=== PATIENT | female | born 1930 ===

== ENCOUNTER 2018-02-21 15:04 | Inpatient (IN) | payer MEDICARE, OTHER ==
[2018-02-21] MEDS ORDERED: Albuterol-Ipratrop 3 mg / 0.5 (3 ml) UD ONE ×2 (15:19→15:59)
[2018-02-21] MEDS ORDERED: Albuterol-Ipratrop 3 mg / 0.5 (3 ml) UD INH STA ×2 (15:33→16:10)
--- NOTE | 2018-02-21 15:53 | ED PDOC ---
HPI: SOB/CHF/COPD Time Seen by Provider: 02/21/18 15:05 Chief Complaint (Nursing): Shortness Of Breath Chief Complaint (Provider): Shortness Of Breath History Per: Family (son) History/Exam Limitations: no limitations Onset/Duration Of Symptoms: Days (x1) Current Symptoms Are (Timing): Still Present Associated Symptoms: Productive Cough, Ankle/Leg Swelling Additional Complaint(s): 87 year old female with a history of HTN, blood clots, hypothyroidism and heart failure presents to the ED with shortness of breath onset 1 day. As per son, patient was coughing last night so he gave her NyQuil. She subsequently threw up after but was able to sleep afterwards. This morning, the coughing resumed and due to worsening condition at 12 pm PMD advised a visit to the ED. Her left leg is always swollen. Patient denies vomiting, fever, decrease in appetite or any other medical complaints. PMD: Zack Noble Past Medical History Reviewed: Historical Data, Nursing Documentation, Vital Signs Vital Signs: Last Vital Signs Temp 98.0 F 02/25/18 16:04 Pulse 102 H 02/25/18 16:04 Resp 18 02/25/18 16:04 BP 145/77 02/25/18 16:04 Pulse Ox 100 02/25/18 17:41 - Medical History PMH: Atrial Fibrillation, CHF, HTN, Hypercholesterolemia, Hypothyroidism - Surgical History Surgical History: No Surg Hx - Family History Family History: States: Unknown Family Hx - Social History Current smoker - smoking cessation education provided: No Ex-Smoker (has not smoked in the last 12 months): No - Home Medications Home Medications: Ambulatory Orders Medication Instructions Recorded Amitriptyline [Elavil] 25 mg PO HS 02/21/18 Aspirin [Ecotrin] 81 mg PO DAILY 02/21/18 Esomeprazole Magnesium [Nexium] 40 mg PO DAILY 02/21/18 Furosemide [Lasix] 40 mg PO DAILY 02/21/18 Levothyroxine [Synthroid] 25 mcg PO Q48H 02/21/18 Levothyroxine [Synthroid] 50 mg PO Q48H 02/21/18 Losartan [Cozaar] 100 mg PO DAILY 02/21/18 Metoprolol Tartrate [Lopressor] 100 mg PO Q12 02/21/18 Mv,Min10/Folic Acid/D3/Ala/Lut 1 tab PO DAILY 02/21/18 [Strovite One Caplet] Rosuvastatin Calcium [Crestor] 40 mg PO HS 02/21/18 - Allergies Allergies/Adverse Reactions: Allergies Allergy/AdvReac Type Severity Reaction Status Date / Time No Known Allergies Allergy Verified 02/21/18 15:06 Review of Systems ROS Statement: Except As Marked, All Systems Reviewed And Found Negative Constitutional: Negative for: Fever Respiratory: Positive for: Cough, Shortness of Breath Gastrointestinal: Positive for: Vomiting (last night) Musculoskeletal: Positive for: Other (pedal edema) Physical Exam - Reviewed Nursing Documentation Reviewed: Yes Vital Signs Reviewed: Yes - Physical Exam Appears: Positive for: Non-toxic, No Acute Distress Head Exam: Positive for: ATRAUMATIC, NORMOCEPHALIC Skin: Positive for: Normal Color, Warm, Dry Eye Exam: Positive for: EOMI, Normal appearance, PERRL ENT: Positive for: Normal ENT Inspection Neck: Positive for: Normal Cardiovascular/Chest: Positive for: Regular Rate, Rhythm. Negative for: Murmur Respiratory: Positive for: Wheezing (bilateral) Gastrointestinal/Abdominal: Positive for: Normal Exam, Soft. Negative for: Tenderness Back: Positive for: Normal Inspection Extremity: Positive for: Normal ROM Neurologic/Psych: Positive for: Alert, Oriented (x3). Negative for: Motor/ Sensory Deficits - Laboratory Results Result Diagrams: 02/22/18 06:21 02/25/18 09:42 - ECG O2 Sat by Pulse Oximetry: 100 (RA) Pulse Ox Interpretation: Normal Medical Decision Making Medical Decision Making: Time: 15:32 Initial Impression: SOB, rule out CHF and PNA Initial Plan: --BNP --CMP --Troponin --CBC with differentials --CXR --Duoneb 3 mg INH --Blood culture --Urine culture --Peak flow pre/post --Urinalysis Time: 16:10 --Duoneb 3ml INH --Peak flow pre/post Time: 16:31 CXR: FINDINGS: LUNGS: Lung volumes low-normal. Limited evaluation given large body habitus and technique. No dense consolidation seen. Possible short segmental discoid like atelectatic changes in the right base and left mid lung zone. Asymmetrically prominent coursing vessels could also simulate this. No comparison views are available. Graft there is also vague increased opacity at of the inferior left hemithorax with preservation left hemidiaphragm. The enlarged heart in large part contributing to this along with the large body habitus and technique. PLEURA: No significant pleural effusion identified, no pneumothorax apparent. CARDIOVASCULAR: Cardiomegaly OSSEOUS STRUCTURES: Not adequately visualized to comment on VISUALIZED UPPER ABDOMEN: Normal. OTHER FINDINGS: None. IMPRESSION: Limited exam. Cardiomegaly No pneumothorax or large sister phrenic angle blunting pleural effusions present. Possible short segmental discoid atelectatic changes If further evaluation is needed consider PA and lateral view better inspiration if possible. Time: 16:37 --Solu-medrol 125 mg IVP Time: 18:00 --Pro BNP elevated, likely CHF. Will administer IV lasix. Patient will be admitted for CHF exacerbation to Dr. Rosado, school community relations coordinator medical services. --Dr. Rosado accepted admission. Advised a call to the school community relations coordinator claim approver. Scribe Attestation: Documented by Abigail Anderson, acting as a scribe for Aletha Zuluaga MD Provider Scribe Attestation: All medical record entries made by the Scribe were at my direction and personally dictated by me. I have reviewed the chart and agree that the record accurately reflects my personal performance of the history, physical exam, medical decision making, and the department course for this patient. I have also personally directed, reviewed, and agree with the discharge instructions and disposition. Disposition - Clinical Impression Clinical Impression: Chronic congestive heart failure - Patient ED Disposition Is Patient to be Admitted: Yes Counseled Patient/Family Regarding: Studies Performed, Diagnosis - Disposition Disposition Time: 18:00 Condition: STABLE
[2018-02-21 16:13] LABS: BASO # 0.1 K/uL (0.0-0.2); BASO % 1.2 % (0.0-2.0); EOS # 0.1 K/uL (0.0-0.7); EOS % 1.1 % (0.0-4.0); HEMOGLOBIN 11.4 g/dL (12.0-16.0); LYMPH # 1.1 K/uL (1.0-4.3); LYMPH % 20.4 % (20.0-40.0); MEAN CELL VOLUME 82.3 fl (81.0-99.0); MEAN CORPUSCULAR HEMOGLOBIN 26.5 pg (27.0-31.0); MEAN CORPUSCULAR HGB CONC 32.2 g/dL (33.0-37.0); MEAN PLATELET VOLUME 9.1 fl (7.2-11.7); MONO # 0.6 K/uL (0.0-0.8); MONO % 11.7 % (0.0-10.0); NEUT # 3.6 K/uL (1.8-7.0); NEUT % 65.6 % (50.0-75.0); NRBC % 0.1 % (0.0-0.0); RBC 4.29 Mil/uL (3.80-5.20); RED CELL DISTRIBUTION WIDTH 16.8 % (11.5-14.5); WHITE BLOOD COUNT 5.5 K/uL (4.8-10.8)
[2018-02-21] MEDS ORDERED: Albuterol-Ipratrop 3 mg / 0.5 (3 ml) UD INH ONE (16:30)
[2018-02-21 16:32] LABS: ALBUMIN 4.7 g/dL (3.5-5.0); CALCIUM 9.2 mg/dL (8.4-10.2)
--- NOTE | 2018-02-21 16:32 | RAD ---
Date of service: 02/21/2018 HISTORY: sob COMPARISON: No prior. FINDINGS: LUNGS: Lung volumes low-normal. Limited evaluation given large body habitus and technique. No dense consolidation seen. Possible short segmental discoid like atelectatic changes in the right base and left mid lung zone. Asymmetrically prominent coursing vessels could also simulate this. No comparison views are available. Graft there is also vague increased opacity at of the inferior left hemithorax with preservation left hemidiaphragm. The enlarged heart in large part contributing to this along with the large body habitus and technique. PLEURA: No significant pleural effusion identified, no pneumothorax apparent. CARDIOVASCULAR: Cardiomegaly OSSEOUS STRUCTURES: Not adequately visualized to comment on VISUALIZED UPPER ABDOMEN: Normal. OTHER FINDINGS: None. IMPRESSION: Limited exam. Cardiomegaly No pneumothorax or large sister phrenic angle blunting pleural effusions present. Possible short segmental discoid atelectatic changes If further evaluation is needed consider PA and lateral view better inspiration if possible.
[2018-02-21 16:43] LABS: TROPONIN I 0.014 ng/mL (0.00-0.120)
[2018-02-21 20:34] LABS: SQUAMOUS EPITHIAL < 1 /hpf (0-5); URINE BILIRUBIN NEGATIVE (NEGATIVE); URINE BLOOD NEGATIVE (NEGATIVE); URINE CLARITY CLEAR (Clear); URINE COLOR YELLOW (YELLOW); URINE GLUCOSE (UA) NEG (Normal); URINE LEUKOCYTE ESTERASE SMALL Leu/uL (Negative); URINE PROTEIN NEGATIVE (NEGATIVE); URINE UROBILINOGEN 0.2-1.0 mg/dL (0.2-1.0)
[2018-02-22] MEDS ORDERED: methylPREDNISolone 125 MG in Sodium Chloride 0.9% 50 ML IVPB SCH (01:00)
[2018-02-22 06:36] LABS: BASO % 0.4 % (0.0-2.0); HEMOGLOBIN 11.1 g/dL (12.0-16.0); LYMPH # 0.8 K/uL (1.0-4.3); LYMPH % 13.4 % (20.0-40.0); MEAN CELL VOLUME 81.4 fl (81.0-99.0); MEAN CORPUSCULAR HEMOGLOBIN 26.1 pg (27.0-31.0); MEAN CORPUSCULAR HGB CONC 32.1 g/dL (33.0-37.0); MEAN PLATELET VOLUME 9.1 fl (7.2-11.7); MONO # 0.1 K/uL (0.0-0.8); MONO % 1.5 % (0.0-10.0); NEUT # 4.8 K/uL (1.8-7.0); NEUT % 84.7 % (50.0-75.0); RBC 4.26 Mil/uL (3.80-5.20); RED CELL DISTRIBUTION WIDTH 16.9 % (11.5-14.5); WHITE BLOOD COUNT 5.7 K/uL (4.8-10.8)
[2018-02-22 06:54] LABS: ALBUMIN 4.4 g/dL (3.5-5.0); ALT/SGPT 25 U/L (9-52); AST/SGOT 59 U/L (14-36); BLOOD UREA NITROGEN 21 mg/dl (7-17); CALCIUM 9.1 mg/dL (8.4-10.2); GFR AFRICAN-AMERICAN > 60; GFR NON-AFRICAN AMERICAN 52
[2018-02-22] MEDS ORDERED: Enoxaparin 40 mg Syringe SC SCH (09:00)
--- NOTE | 2018-02-22 09:05 | CP.PCM.CON ---
History of Present Illness - History of Present Illness History of Present Illness: this 87-year-old female was brought into the emergency room due to shortness of breath and persistent cough at night. The history was obtained from her son who looks after her at home. According to him she was diagnosed as having congestive cardiac failure 10 years back and subsequently has been essentially on the same set of medications. She was told at that time that this was because of a prior myocardial infarction for which she had never been hospitalized. Subsequent to this she has rarely been hospitalized, the last hospitalization was following a visit to a physician's office for a regular checkup and the patient was found to be significantly short of breath and promptly sent to the emergency room from where she was discharged. She has never been a smoker. She is a hypertensive and has never been told of any diabetes mellitus. The patient had never been on any oral anticoagulation. She has a history of DVTs involving the left lower extremity and an IVC filter was put into place number of years back according to her son. He also indicates that for last few days she has eaten salty potato chips which probably has brought on an exacerbation of her congestive heart failure. According to him she has never been treated for bronchial asthma. Physical examination shows an elderly overweight pleasant female who continues to be mildly dyspneic even at rest. Her expiration was slightly prolonged and a respiratory rate was between 18 and 20 breaths per minute. Telemetry showed evidence of atrial fibrillation with periods of heart rate as high as 120-130 bpm. Her blood pressure was 140/80 mmHg. Her jugular venous pressure could not be evaluated because of a short thick neck. The left lower extremity had moderate degree of nonpitting pedal edema her right lower extremity did not show any evidence of pedal edema. Pedal pulses were feeble but distinct of present. Her extremities were warm and nailbeds were pink. No central or peripheral cyanosis was evident the apex was not palpable the first and second heart sounds were distant no S3 gallop was audible. The inspiratory effort was poor but interscapular area revealed few rales. (The patient had received IV Lasix in the emergency room and diuresed.) her electrocardiogram showed atrial fibrillation with moderate heart rate and nonspecific ST changes. There were no Q waves on the electric cardiac gram. The chest x-ray which was of poor quality and revealed bilateral pleural effusions in the form of blunted costophrenic angles and possible pulmonary congestion. Her lab data showed a BUN/creatinine of 21 and 1 mg percent respectively. Her electrolytes were essentially normal. Her proBNP was markedly elevated. Impression: acute exacerbation of chronic left ventricular failure, probably systolic ( await echocardiogram), atrial fibrillation. History of DVT involving left lower extremities and status post IVC filter implant history of hypertension. Hypothyroidism. The patient is scheduled to undergo an echocardiogram to evaluate her left ventricular systolic function. The telemetry had demonstrated recurrent periods of tachycardia probably related to albuterol use. Her beta blockade and ARB's have been resumed. Her loop diarrhetic has been resumed. Her thyroid replacement has been resumed. The son was not aware off atrial fibrillation. I started the patient on an oral anticoagulation which the patient will need given her age, history of hypertension and congestive cardiac failure. Past Patient History - Past Social History Smoking Status: Never Smoked - CARDIAC Hx Atrial Fibrillation: Yes Hx Congestive Heart Failure: Yes Hx Hypercholesterolemia: Yes Hx Hypertension: Yes - ENDOCRINE/METABOLIC Hx Hypothyroidism: Yes - MUSCULOSKELETAL/RHEUMATOLOGICAL Hx Falls: No - GASTROINTESTINAL Hx Gastrointestinal Disorders: Yes Hx Gastroesophageal Reflux: Yes - PSYCHIATRIC Hx Substance Use: No - SURGICAL HISTORY Hx Surgeries: No Meds Allergies/Adverse Reactions: Allergies Allergy/AdvReac Type Severity Reaction Status Date / Time No Known Allergies Allergy Verified 02/21/18 15:06 - Medications Medications: Current Medications Enoxaparin Sodium (Lovenox) 40 mg SC DAILY [facility] PRN Reason: Protocol Furosemide (Lasix) 40 mg IVP DAILY [facility] Ceftriaxone Sodium 1 gm/ (Sodium Chloride) 100 mls @ 100 mls/hr IVPB DAILY [facility] PRN Reason: Protocol Levothyroxine Sodium (Synthroid) 75 mcg PO DAILY@0630 [facility] Losartan Potassium (Cozaar) 100 mg PO DAILY [facility] Methylprednisolone (Solu-Medrol) 125 mg IV Q8 [facility] Last Admin: 02/22/18 01:48 Dose: 125 mg Metoprolol Tartrate (Lopressor) 50 mg PO Q12 [facility] Results - Vital Signs Recent Vital Signs: Last Vital Signs Temp 97.6 F 02/22/18 08:09 Pulse 85 02/22/18 08:09 Resp 18 02/22/18 08:09 BP 154/89 H 02/22/18 08:09 Pulse Ox 96 02/22/18 08:09 - Labs Result Diagrams: 02/22/18 06:21 02/22/18 06:21 Labs: Laboratory Results - last 24 hr 02/21/18 02/21/18 02/21/18 15:46 15:46 20:10 WBC 5.5 RBC 4.29 Hgb 11.4 L Hct 35.3 MCV 82.3 MCH 26.5 L MCHC 32.2 L RDW 16.8 H Plt Count 165 MPV 9.1 Neut % (Auto) 65.6 Lymph % (Auto) 20.4 [place] % (Auto) 11.7 H Eos % (Auto) 1.1 Baso % (Auto) 1.2 Neut # (Auto) 3.6 Lymph # (Auto) 1.1 [place] # (Auto) 0.6 Eos # (Auto) 0.1 Baso # (Auto) 0.1 Sodium 136 Potassium 4.6 Chloride 94 L Carbon Dioxide 28 Anion Gap 19 BUN 22 H Creatinine 1.2 Est GFR ( Amer) 51 Est GFR (Non-Af Amer) 42 Random Glucose 213 H Calcium 9.2 Total Bilirubin 0.7 AST 48 H ALT 24 Alkaline Phosphatase 126 Troponin I 0.0140 NT-Pro-B Natriuret Pep 5240 H Total Protein 9.3 H Albumin 4.7 Globulin 4.7 H Albumin/Globulin Ratio 1.0 Urine Color Yellow Urine Clarity Clear Urine pH 6.0 Ur Specific [place] 1.010 Urine Protein Negative Urine Glucose (UA) Neg Urine Ketones Negative Urine Blood Negative Urine Nitrate Negative Urine Bilirubin Negative Urine Urobilinogen 0.2-1.0 Ur Leukocyte Esterase Small Urine RBC (Auto) 2 Urine Microscopic WBC 13 H Ur Squamous Epith Cells < 1 Hyaline Casts 3-5 H 02/22/18 02/22/18 06:21 06:21 WBC 5.7 RBC 4.26 Hgb 11.1 L Hct 34.7 MCV 81.4 MCH 26.1 L MCHC 32.1 L RDW 16.9 H Plt Count 159 MPV 9.1 Neut % (Auto) 84.7 H Lymph % (Auto) 13.4 L [place] % (Auto) 1.5 Eos % (Auto) 0.0 Baso % (Auto) 0.4 Neut # (Auto) 4.8 Lymph # (Auto) 0.8 L [place] # (Auto) 0.1 Eos # (Auto) 0.0 Baso # (Auto) 0.0 Sodium 137 Potassium 4.3 Chloride 95 L Carbon Dioxide 28 Anion Gap 18 BUN 21 H Creatinine 1.0 Est GFR ( Amer) > 60 Est GFR (Non-Af Amer) 52 Random Glucose 207 H Calcium 9.1 Total Bilirubin 0.6 AST 59 H D ALT 25 Alkaline Phosphatase 125 Troponin I NT-Pro-B Natriuret Pep Total Protein 9.0 H Albumin 4.4 Globulin 4.6 H Albumin/Globulin Ratio 1.0 Urine Color Urine Clarity Urine pH Ur Specific [place] Urine Protein Urine Glucose (UA) Urine Ketones Urine Blood Urine Nitrate Urine Bilirubin Urine Urobilinogen Ur Leukocyte Esterase Urine RBC (Auto) Urine Microscopic WBC Ur Squamous Epith Cells Hyaline Casts
--- NOTE | 2018-02-22 10:18 | US ---
Date of service: 02/21/2018 PROCEDURE: Bilateral lower extremity venous duplex Doppler. HISTORY: left leg swelling COMPARISON: None available. TECHNIQUE: Bilateral common femoral, superficial femoral, popliteal and posterior tibial veins were evaluated. Flow was assessed with color Doppler, compressibility, assessment of phasic flow and augmentation response. FINDINGS: COMMON FEMORAL VEIN: Right CFV: Unremarkable. Left CFV: Unremarkable. SUPERFICIAL FEMORAL VEIN: Right SFV: Unremarkable. Left SFV: Patient refused remainder of examination. POPLITEAL VEIN: Right Popliteal: Unremarkable. Left Popliteal: Patient refused remainder of examination. POSTERIOR TIBIAL VEIN: Right PTV: Unremarkable. Left PTV: Patient refused remainder of examination. OTHER FINDINGS: None. IMPRESSION: No evidence of deep venous thrombosis in the right lower extremity. Patient refused examination of the left lower extremity beyond the left common femoral vein.
--- NOTE | 2018-02-22 12:37 | CARD ---
APPROVED REPORT Date of service: 02/22/2018 EXAM: Two-dimensional and M-mode echocardiogram with Doppler and color Doppler. Other Information Quality : GoodRhythm : Tachycardia INDICATION Congestive Heart Failure 2D DIMENSIONS IVSd1.47 (0.7-1.1cm)LVDd2.95 (3.9-5.9cm) LVOT Diameter1.77 (1.8-2.4cm)PWd1.07 (0.7-1.1cm) IVSs1.60 (0.8-1.2cm)LVDs1.85 (2.5-4.0cm) FS (%) 37.3 %PWs1.67 (0.8-1.2cm) M-Mode DIMENSIONS Left Atrium (MM)5.00 (2.5-4.0cm)IVSd1.15 (0.7-1.1cm) Aortic Root2.41 (2.2-3.7cm)LVDd4.68 (4.0-5.6cm) Aortic Cusp Exc.0.76 (1.5-2.0cm)PWd1.15 (0.7-1.1cm) IVSs1.79 cmFS (%) 49 % LVDs2.38 (2.0-3.8cm)PWs1.38 cm Aortic Valve AoV Peak Urxgffsb388.4cm/sAoV VTI64.2cmAO Peak GR.52mmHg LVOT Peak Pgojnnhd43.8cm/sLVOT VTI12.15cmAO Mean GR.31mmHg BRADY (VMAX)0.96lq2WPT (VTI)0.12lp6HQ P 1/2 [id number] Mitral Valve E/A ratio0.0 TDI E/Lateral E'0.0E/Medial E'0.0 Tricuspid Valve TR Peak [id number]/sRAP [id number] Peak Gr.31mmHg [id number] LEFT VENTRICLE The left ventricle is normal size. There is mild concentric left ventricular hypertrophy. The left ventricular function is normal. The left ventricular ejection fraction is within the normal range. The Ejection Fraction is 60-65%. There is normal LV segmental wall motion. Transmitral Doppler flow pattern is Grade I-abnormal relaxation pattern. RIGHT VENTRICLE The right ventricle is mildly dilated. The right ventricle is borderline hypertrophied. The right ventricular systolic function is normal. ATRIA The left atrium is mildly dilated. The right atrium is mildly dilated. AORTIC VALVE The aortic valve is calcified and displays decreased opening. There is mild to moderate aortic regurgitation. Calculated aortic valve area is 0.6 cm2 with maximum pressure gradient of 52 mmHg and mean pressure gradient of 31 mmHg. MITRAL VALVE The mitral valve is thickened but opens well. There is no mitral valve stenosis. Mitral regurgitation is moderate. TRICUSPID VALVE The tricuspid valve leaflets are thickened , but open well. There is moderate tricuspid regurgitation. Right ventricular systolic pressure is estimated at 30-40 mmHg. There is mild pulmonary hypertension. PULMONIC VALVE The pulmonary valve is normal in structure. There is no pulmonic valvular regurgitation. GREAT VESSELS The aortic root is normal in size. The IVC is normal in size and collapses >50% with inspiration. PERICARDIAL EFFUSION The pericardium appears normal. <Conclusion> The left ventricular function is normal. The left ventricular ejection fraction is within the normal range. The Ejection Fraction is 60-65%. Transmitral Doppler flow pattern is Grade I-abnormal relaxation pattern. Calculated aortic valve area is 0.6 cm2 with maximum pressure gradient of 52 mmHg and mean pressure gradient of 31 mmHg. Mitral regurgitation is moderate. There is moderate tricuspid regurgitation. There is moderate tricuspid regurgitation. Right ventricular systolic pressure is estimated at 30-40 mmHg. There is mild pulmonary hypertension.
[2018-02-22] MEDS: Albuterol-Ipratrop 3 mg / 0.5 (3 ml) UD INH SCH ×3 (14:07→19:37)
--- NOTE | 2018-02-22 17:03 | CP.PCM.HP ---
<Clara Nunez - Last Filed: 02/22/18 17:00> History of Present Illness - History of Present Illness History of Present Illness: 87 yo F with PM CHF, HTN, DVTs (has IVC filter), hypothyroidism admitted due to CHF exacerbation and worsening SOB x1 day. Some info obtained from EMR - as per son, pt was dx with CHF 10 yrs ago; is not hospitalized often. Has chronic LLE edema. Patient denies vomiting, fever, decrease in appetite or any other medical complaints. PMD: Zack Noble In ED CXR- cardiomegaly received 40 mg lasix duoneb elevated proBNP Blood cx LE u/s : no DVT Seen this morning with Dr. Rosado. Appeared in good spirits, stated she was feeling better. Pt Afib on tele. Present on Admission - Present on Admission Any Indicators Present on Admission: Yes History of DVT/PE: Yes Review of Systems - Review of Systems All systems: reviewed and no additional remarkable complaints except (as per HPI ) Past Patient History - Past Social History Smoking Status: Never Smoked - CARDIAC Hx Atrial Fibrillation: Yes Hx Congestive Heart Failure: Yes Hx Hypercholesterolemia: Yes Hx Hypertension: Yes - ENDOCRINE/METABOLIC Hx Hypothyroidism: Yes - MUSCULOSKELETAL/RHEUMATOLOGICAL Hx Falls: No - GASTROINTESTINAL Hx Gastrointestinal Disorders: Yes Hx Gastroesophageal Reflux: Yes - PSYCHIATRIC Hx Substance Use: No - SURGICAL HISTORY Hx Surgeries: No Meds Allergies/Adverse Reactions: Allergies Allergy/AdvReac Type Severity Reaction Status Date / Time No Known Allergies Allergy Verified 02/21/18 15:06 Physical Exam - Constitutional Appears: Non-toxic - Respiratory Exam Respiratory Exam: Rales (few). absent: Respiratory Distress - Cardiovascular Exam Cardiovascular Exam: Irregular Rhythm - Extremities Exam Additional comments: LLE swollen with nonpitting edema (not new) - Neurological Exam Neurological exam: Alert - Skin Skin Exam: Normal Color, Warm Results - Vital Signs Recent Vital Signs: Last Vital Signs Temp 98.1 F 02/22/18 16:58 Pulse 120 H 02/22/18 16:58 Resp 20 02/22/18 16:58 BP 113/73 02/22/18 16:58 Pulse Ox 97 02/22/18 16:58 - Labs Result Diagrams: 02/22/18 06:21 02/22/18 06:21 Labs: Laboratory Results - last 24 hr 02/21/18 02/22/18 02/22/18 20:10 06:21 06:21 WBC 5.7 RBC 4.26 Hgb 11.1 L Hct 34.7 MCV 81.4 MCH 26.1 L MCHC 32.1 L RDW 16.9 H Plt Count 159 MPV 9.1 Neut % (Auto) 84.7 H Lymph % (Auto) 13.4 L [place] % (Auto) 1.5 Eos % (Auto) 0.0 Baso % (Auto) 0.4 Neut # (Auto) 4.8 Lymph # (Auto) 0.8 L [place] # (Auto) 0.1 Eos # (Auto) 0.0 Baso # (Auto) 0.0 Sodium 137 Potassium 4.3 Chloride 95 L Carbon Dioxide 28 Anion Gap 18 BUN 21 H Creatinine 1.0 Est GFR ( Amer) > 60 Est GFR (Non-Af Amer) 52 Random Glucose 207 H Hemoglobin A1c Calcium 9.1 Total Bilirubin 0.6 AST 59 H D ALT 25 Alkaline Phosphatase 125 Total Protein 9.0 H Albumin 4.4 Globulin 4.6 H Albumin/Globulin Ratio 1.0 TSH 3rd Generation Urine Color Yellow Urine Clarity Clear Urine pH 6.0 Ur Specific [place] 1.010 Urine Protein Negative Urine Glucose (UA) Neg Urine Ketones Negative Urine Blood Negative Urine Nitrate Negative Urine Bilirubin Negative Urine Urobilinogen 0.2-1.0 Ur Leukocyte Esterase Small Urine RBC (Auto) 2 Urine Microscopic WBC 13 H Ur Squamous Epith Cells < 1 Hyaline Casts 3-5 H 02/22/18 02/22/18 09:08 09:14 WBC RBC Hgb Hct MCV MCH MCHC RDW Plt Count MPV Neut % (Auto) Lymph % (Auto) [place] % (Auto) Eos % (Auto) Baso % (Auto) Neut # (Auto) Lymph # (Auto) [place] # (Auto) Eos # (Auto) Baso # (Auto) Sodium Potassium Chloride Carbon Dioxide Anion Gap BUN Creatinine Est GFR ( Amer) Est GFR (Non-Af Amer) Random Glucose Hemoglobin A1c 8.1 H Calcium Total Bilirubin AST ALT Alkaline Phosphatase Total Protein Albumin Globulin Albumin/Globulin Ratio TSH 3rd Generation 1.06 Urine Color Urine Clarity Urine pH Ur Specific [place] Urine Protein Urine Glucose (UA) Urine Ketones Urine Blood Urine Nitrate Urine Bilirubin Urine Urobilinogen Ur Leukocyte Esterase Urine RBC (Auto) Urine Microscopic WBC Ur Squamous Epith Cells Hyaline Casts Assessment & Plan (1) Congestive heart failure Status: Chronic (2) Atrial fibrillation Status: Acute (3) History of DVT (deep vein thrombosis) Status: Chronic (4) Hypertension Status: Chronic (5) Hypothyroidism Status: Chronic - Assessment and Plan (Free Text) Plan: - Admitted to telemetry - Cardiology consult - Dr. Calin Nava, steroids - F/u labs: cultures, proBNP, CMP, CBC - Resume home meds - Heart Healthy diet <Freddie Rosado - Last Filed: 02/24/18 14:47> Results - Vital Signs Recent Vital Signs: Last Vital Signs Temp 98.5 F 02/24/18 12:23 Pulse 98 H 02/24/18 12:23 Resp 18 02/24/18 12:23 BP 119/62 02/24/18 12:23 Pulse Ox 98 02/24/18 12:23 - Labs Result Diagrams: 02/22/18 06:21 02/23/18 06:30 Assessment & Plan - Assessment and Plan (Free Text) Plan: I was present during evaluation and discussed with Dr Connolly re plans of care and tx. will get cardiology and pu;lmonary follow up keep at telemetry. Freddie Rosado M.D.
[2018-02-23] MEDS: Levothyroxine 75 MCG TAB PO SCH (07:01)
[2018-02-23] MEDS: Albuterol-Ipratrop 3 mg / 0.5 (3 ml) UD INH SCH ×4 (07:17→19:06)
--- NOTE | 2018-02-23 07:45 | CP.PCM.PN ---
Subjective - Date & Time of Evaluation Date of Evaluation: 02/23/18 Time of Evaluation: 07:45 - Subjective Subjective: patient is less SOB but still has runs of rapid Atrial fib Has no chest pain Able to take her meals. Has no fever. Still with elevated proBNP. Objective - Vital Signs/Intake and Output Vital Signs (last 24 hours): Temp Pulse Resp BP Pulse Ox 97.9 F 128 H 20 163/83 H 98 02/23/18 05:02 02/23/18 05:02 02/23/18 05:02 02/23/18 00:13 02/23/18 05:02 - Medications Medications: Current Medications Albuterol/Ipratropium (Duoneb 3 Mg/0.5 Mg (3 Ml) Ud) 3 ml INH RQID [facility] Last Admin: 02/23/18 07:17 Dose: 3 ml Furosemide (Lasix) 40 mg IVP DAILY [facility] Last Admin: 02/22/18 11:30 Dose: 40 mg Ceftriaxone Sodium 1 gm/ (Sodium Chloride) 100 mls @ 100 mls/hr IVPB DAILY [facility] [place] PRN Reason: Protocol Last Admin: 02/22/18 09:54 Dose: 100 mls/hr Levothyroxine Sodium (Synthroid) 75 mcg PO DAILY@0630 [facility] [place] Last Admin: 02/23/18 07:01 Dose: 75 mcg Losartan Potassium (Cozaar) 100 mg PO DAILY [facility] [place] Last Admin: 02/22/18 11:31 Dose: 100 mg Methylprednisolone (Solu-Medrol) 60 mg IV Q8 [facility] Last Admin: 02/23/18 01:22 Dose: 60 mg Metoprolol Tartrate (Lopressor) 50 mg PO Q12 [facility] Last Admin: 02/22/18 20:36 Dose: 50 mg Rivaroxaban (Xarelto) 20 mg PO QD5 [facility] [place] PRN Reason: Protocol Last Admin: 02/22/18 17:00 Dose: 20 mg - Labs Labs: 02/22/18 06:21 02/22/18 06:21 - Head Exam Head Exam: NORMAL INSPECTION - Eye Exam Eye Exam: Normal appearance Pupil Exam: NORMAL ACCOMODATION - ENT Exam ENT Exam: Mucous Membranes Moist - Respiratory Exam Respiratory Exam: Decreased Breath Sounds, Rales - Cardiovascular Exam Cardiovascular Exam: Irregular Rhythm - GI/Abdominal Exam GI & Abdominal Exam: Normal Bowel Sounds - Neurological Exam Neurological Exam: Awake, CN II-XII Intact Assessment and Plan (1) Congestive heart failure Status: Chronic (2) Atrial fibrillation Status: Acute (3) Hypertension Status: Chronic (4) Hypothyroidism Status: Chronic - Assessment and Plan (Free Text) Plan: Cont meds Con ttx COnt PT diuresis follow up with radiology Cont meds.
[2018-02-23 07:49] LABS: ALBUMIN 4.5 g/dL (3.5-5.0); CALCIUM 9.2 mg/dL (8.4-10.2)
[2018-02-23] MEDS ORDERED: Digoxin 500 mcg/2ml (0.5 mg/2ml) Inj IVP ONE (11:00)
--- NOTE | 2018-02-23 11:10 | CP.PCM.PN ---
Subjective - Date & Time of Evaluation Date of Evaluation: 02/23/18 Time of Evaluation: 10:00 - Subjective Subjective: Reports significant reliefe of dyspnoea Has had HR in the range of 120-150 BPM with A Fib (Possibly due to albuterolRx and due to lower Beta blockade) BP 110/70 mm Hg JVP flat, few rales at bases Echo findings noted Pt has critical A Fib with fast HR is particularly burdensome under these circumstances Will increase Beta blockade (Pt was on Metoprolol 100 mg BID at home) Will give addl Digoxin to slow down HR Will talk to the son to explain implication of this finding Objective - Vital Signs/Intake and Output Vital Signs (last 24 hours): Temp Pulse Resp BP Pulse Ox 98.4 F 120 H 18 152/85 H 96 02/23/18 08:01 02/23/18 09:37 02/23/18 08:01 02/23/18 09:37 02/23/18 08:01 - Medications Medications: Current Medications Albuterol/Ipratropium (Duoneb 3 Mg/0.5 Mg (3 Ml) Ud) 3 ml INH RQID [facility] Last Admin: 02/23/18 07:17 Dose: 3 ml Digoxin (Lanoxin) 0.25 mg IVP ONCE ONE Stop: 02/23/18 11:01 Furosemide (Lasix) 40 mg IVP DAILY [facility] Last Admin: 02/23/18 09:35 Dose: 40 mg Levothyroxine Sodium (Synthroid) 75 mcg PO DAILY@0630 [facility] Last Admin: 02/23/18 07:01 Dose: 75 mcg Losartan Potassium (Cozaar) 100 mg PO DAILY [facility] Last Admin: 02/23/18 09:33 Dose: 100 mg Methylprednisolone (Solu-Medrol) 60 mg IV Q8 [facility] Last Admin: 02/23/18 09:39 Dose: 60 mg Metoprolol Tartrate (Lopressor) 100 mg PO Q12 [facility] Rivaroxaban (Xarelto) 20 mg PO QD5 [facility] PRN Reason: Protocol Last Admin: 02/22/18 17:00 Dose: 20 mg - Labs Labs: 02/22/18 06:21 02/23/18 06:30
[2018-02-23 11:57] VITALS: PULSE 142
[2018-02-24] MEDS: Levothyroxine 75 MCG TAB PO SCH (06:01)
[2018-02-24] MEDS: Albuterol-Ipratrop 3 mg / 0.5 (3 ml) UD INH SCH ×4 (07:32→19:52)
--- NOTE | 2018-02-24 14:58 | CP.PCM.PN ---
Subjective - Date & Time of Evaluation Date of Evaluation: 02/24/18 Time of Evaluation: 10:20 - Subjective Subjective: patient feels a lot better Has no chest pain Still with mild SOB at times Has no fever. Had an episode of rapid a fib yesterday. No PT done yet Noted hyperglycemia. Objective - Vital Signs/Intake and Output Vital Signs (last 24 hours): Temp Pulse Resp BP Pulse Ox 98.5 F 98 H 18 119/62 98 02/24/18 12:23 02/24/18 12:23 02/24/18 12:23 02/24/18 12:23 02/24/18 12:23 - Medications Medications: Current Medications Albuterol/Ipratropium (Duoneb 3 Mg/0.5 Mg (3 Ml) Ud) 3 ml INH RQID [facility] Last Admin: 02/24/18 11:32 Dose: 3 ml Furosemide (Lasix) 40 mg IVP DAILY [facility] Last Admin: 02/24/18 10:14 Dose: 40 mg Levothyroxine Sodium (Synthroid) 75 mcg PO DAILY@0630 [facility] Last Admin: 02/24/18 06:01 Dose: 75 mcg Losartan Potassium (Cozaar) 100 mg PO DAILY [facility] Last Admin: 02/24/18 10:13 Dose: 100 mg Methylprednisolone (Solu-Medrol) 60 mg IV Q8 [facility] Last Admin: 02/24/18 10:17 Dose: 60 mg Metoprolol Tartrate (Lopressor) 100 mg PO Q12 [facility] Last Admin: 02/24/18 10:15 Dose: 100 mg Rivaroxaban (Xarelto) 20 mg PO QD5 [facility] PRN Reason: Protocol Last Admin: 02/23/18 16:45 Dose: 20 mg - Labs Labs: 02/22/18 06:21 02/23/18 06:30 - Head Exam Head Exam: NORMAL INSPECTION - ENT Exam ENT Exam: Mucous Membranes Moist - Respiratory Exam Respiratory Exam: Decreased Breath Sounds - Cardiovascular Exam Cardiovascular Exam: Irregular Rhythm - GI/Abdominal Exam GI & Abdominal Exam: Normal Bowel Sounds - Neurological Exam Neurological Exam: CN II-XII Intact - Psychiatric Exam Psychiatric exam: Normal Affect, Normal Mood - Skin Skin Exam: Normal Color Assessment and Plan (1) Congestive heart failure Status: Chronic (2) Atrial fibrillation Status: Acute (3) Hypertension Status: Chronic (4) Hypothyroidism Status: Chronic (5) Physical debility Status: Acute (6) Hyperglycemia Status: Acute - Assessment and Plan (Free Text) Plan: check a1c con ttx cont meds start phys therapy transfer to reg floor tomorrow subacute rehab eval. / TCU
[2018-02-24] MEDS: guaiFENesin 100 mg/5 ml Syrup UD PO PRN (20:42)
[2018-02-25] MEDS: guaiFENesin 100 mg/5 ml Syrup UD PO PRN ×4 (00:08→21:27)
[2018-02-25] MEDS: Levothyroxine 75 MCG TAB PO SCH (05:47)
[2018-02-25 06:23] LABS: HDL CHOLESTEROL 49 MG/DL (30-70)
[2018-02-25 06:33] LABS: LDL CHOLESTEROL 44 mg/dL (0-129)
[2018-02-25] MEDS: Albuterol-Ipratrop 3 mg / 0.5 (3 ml) UD INH SCH ×4 (07:39→19:03)
--- NOTE | 2018-02-25 09:33 | CP.PCM.PN ---
Subjective - Date & Time of Evaluation Date of Evaluation: 02/25/18 Time of Evaluation: 09:00 - Subjective Subjective: Reports relief of dyspnoea HR has slowed down to 60-70 BPM ( including one 2 sec pause) BP 122/70 mm Hg No rales AO ejection syst murmur+ S2 absent Will withold Metoprolol today and start her on 50 mg BID from tomorrow AM Objective - Vital Signs/Intake and Output Vital Signs (last 24 hours): Temp Pulse Resp BP Pulse Ox 97.6 F 77 18 135/76 97 02/25/18 07:57 02/25/18 07:57 02/25/18 07:57 02/25/18 07:57 02/25/18 07:57 - Medications Medications: Current Medications Albuterol/Ipratropium (Duoneb 3 Mg/0.5 Mg (3 Ml) Ud) 3 ml INH RQID [facility] Last Admin: 02/25/18 07:39 Dose: 3 ml Guaifenesin (Robitussin) 100 mg PO Q4 PRN PRN Reason: Cough Last Admin: 02/25/18 00:08 Dose: 100 mg Levothyroxine Sodium (Synthroid) 75 mcg PO DAILY@0630 [facility] Last Admin: 02/25/18 05:47 Dose: 75 mcg Losartan Potassium (Cozaar) 100 mg PO DAILY [facility] Last Admin: 02/24/18 10:13 Dose: 100 mg Methylprednisolone (Solu-Medrol) 60 mg IV Q8 [facility] Last Admin: 02/25/18 00:02 Dose: 60 mg Metoprolol Tartrate (Lopressor) 50 mg PO Q12 [facility] Rivaroxaban (Xarelto) 20 mg PO QD5 [facility] PRN Reason: Protocol Last Admin: 02/24/18 17:50 Dose: 20 mg - Labs Labs: 02/22/18 06:21 02/23/18 06:30
[2018-02-25 10:00] LABS: ALBUMIN 3.7 g/dL (3.5-5.0); CALCIUM 8.7 mg/dL (8.4-10.2)
--- NOTE | 2018-02-25 11:13 | CP.PCM.PN ---
Subjective - Date & Time of Evaluation Date of Evaluation: 02/25/18 Time of Evaluation: 11:12 - Subjective Subjective: Patient stillwith SOB and cough. Noted some pauses via telemetry Objective - Vital Signs/Intake and Output Vital Signs (last 24 hours): Temp Pulse Resp BP Pulse Ox 97.6 F 77 18 135/76 97 02/25/18 07:57 02/25/18 09:40 02/25/18 07:57 02/25/18 09:40 02/25/18 07:57 - Medications Medications: Current Medications Albuterol/Ipratropium (Duoneb 3 Mg/0.5 Mg (3 Ml) Ud) 3 ml INH RQID [facility] Last Admin: 02/25/18 07:39 Dose: 3 ml Guaifenesin (Robitussin) 100 mg PO Q4 PRN PRN Reason: Cough Last Admin: 02/25/18 09:40 Dose: 100 mg Levothyroxine Sodium (Synthroid) 75 mcg PO DAILY@0630 [facility] Last Admin: 02/25/18 05:47 Dose: 75 mcg Losartan Potassium (Cozaar) 100 mg PO DAILY [facility] Last Admin: 02/25/18 09:40 Dose: 100 mg Methylprednisolone (Solu-Medrol) 60 mg IV Q8 [facility] Last Admin: 02/25/18 09:31 Dose: 60 mg Metoprolol Tartrate (Lopressor) 50 mg PO Q12 [facility] Rivaroxaban (Xarelto) 20 mg PO QD5 [facility] PRN Reason: Protocol Last Admin: 02/24/18 17:50 Dose: 20 mg - Labs Labs: 02/22/18 06:21 02/25/18 09:42 Assessment and Plan (1) Congestive heart failure Status: Chronic (2) Atrial fibrillation Status: Acute (3) Hypertension Status: Chronic (4) Hypothyroidism Status: Chronic (5) Physical debility Status: Acute (6) Hyperglycemia Status: Acute
[2018-02-25] MEDS: MethylPREDNISolone 40 mg Vial IV SCH (21:27)
[2018-02-26] MEDS: Levothyroxine 75 MCG TAB PO SCH (06:02)
[2018-02-26 06:11] LABS: HEMOGLOBIN 10.2 g/dL (12.0-16.0); MEAN CORPUSCULAR HGB CONC 32.2 g/dL (33.0-37.0); RBC 3.91 Mil/uL (3.80-5.20); RED CELL DISTRIBUTION WIDTH 16.7 % (11.5-14.5)
[2018-02-26 06:26] LABS: BLOOD UREA NITROGEN 57 mg/dl (7-17); CALCIUM 8.8 mg/dL (8.4-10.2); GFR AFRICAN-AMERICAN > 60; GFR NON-AFRICAN AMERICAN 52
[2018-02-26] MEDS: Albuterol-Ipratrop 3 mg / 0.5 (3 ml) UD INH SCH (07:25)
[2018-02-26] MEDS: guaiFENesin 100 mg/5 ml Syrup UD PO PRN ×2 (08:40→16:32)
[2018-02-26] MEDS: MethylPREDNISolone 40 mg Vial IV SCH (08:41)
--- NOTE | 2018-02-26 10:21 | CP.PCM.PN ---
Subjective - Date & Time of Evaluation Date of Evaluation: 02/26/18 Time of Evaluation: 09:30 - Subjective Subjective: Sitting OOB, breathes more comfortably HR much improved (60-80BPM0 on lower dose of Metoprolol BP 124/70 mm Hg Still has mild cough Will get chest x rays Spoke with pt's son at length with CHF explained Son wants conservative Rx Objective - Vital Signs/Intake and Output Vital Signs (last 24 hours): Temp Pulse Resp BP Pulse Ox 98.3 F 88 20 143/95 H 95 02/26/18 08:00 02/26/18 08:44 02/26/18 08:00 02/26/18 08:44 02/26/18 08:00 - Medications Medications: Current Medications Guaifenesin (Robitussin) 100 mg PO Q4 PRN PRN Reason: Cough Last Admin: 02/26/18 08:40 Dose: 100 mg Insulin Human Lispro (Humalog) 0 units SC ACHS [facility] PRN Reason: Protocol Levothyroxine Sodium (Synthroid) 75 mcg PO DAILY@0630 [facility] Last Admin: 02/26/18 06:02 Dose: 75 mcg Losartan Potassium (Cozaar) 100 mg PO DAILY [facility] Last Admin: 02/26/18 08:38 Dose: 100 mg Methylprednisolone (Solu-Medrol) 40 mg IV Q12 [facility] Last Admin: 02/26/18 08:41 Dose: 40 mg Metoprolol Tartrate (Lopressor) 50 mg PO Q12 [facility] Last Admin: 02/26/18 08:44 Dose: 50 mg Rivaroxaban (Xarelto) 20 mg PO QD5 [facility] PRN Reason: Protocol Last Admin: 02/25/18 17:14 Dose: 20 mg - Labs Labs: 02/26/18 04:20 02/26/18 04:20
--- NOTE | 2018-02-26 11:51 | IP.NPCORE ---
Heart Failure Core Measure - Heart Failure Ejection Fraction: 40 % or Greater Angiotensin II Receptor Maru Prescribed: Yes AnticoagulationTherapy for Atrial Fibrillation/Atrialflutter: Yes - Follow up [facility] be [facility] to[facility]
--- NOTE | 2018-02-26 12:08 | CP.PCM.DIS ---
Provider - Provider Date of Admission: 02/21/18 18:07 Attending physician: Freddie Rosado MD Time Spent in preparation of Discharge (in minutes): 20 Diagnosis - Discharge Diagnosis (1) Atrial fibrillation Status: Chronic (2) Chronic congestive heart failure Status: Acute (3) Hypertension Status: Chronic (4) Hypothyroidism Status: Chronic Hospital Course - Lab Results Lab Results: Micro Results 02/21/18 16:00 Blood-Venous Blood Culture - Preliminary NO GROWTH AFTER 4 DAYS 02/21/18 15:46 Blood-Venous Blood Culture - Preliminary NO GROWTH AFTER 4 DAYS 02/21/18 20:10 Urine,Clean Catch Urine Culture - Final 50-100,000 CFU/ML. MULTIPLE SPECIES. SUGGEST REPEAT SPECIMEN. Most Recent Lab Values WBC 6.0 K/uL (4.8-10.8) 02/26/18 04:20 RBC 3.91 Mil/uL (3.80-5.20) 02/26/18 04:20 Hgb 10.2 g/dL (12.0-16.0) L 02/26/18 04:20 Hct 31.6 % (34.0-47.0) L 02/26/18 04:20 MCV 81.0 fl (81.0-99.0) 02/26/18 04:20 MCH 26.0 pg (27.0-31.0) L 02/26/18 04:20 MCHC 32.2 g/dL (33.0-37.0) L 02/26/18 04:20 RDW 16.7 % (11.5-14.5) H 02/26/18 04:20 Plt Count 185 K/uL (130-400) 02/26/18 04:20 MPV 9.1 fl (7.2-11.7) 02/22/18 06:21 Neut % (Auto) 84.7 % (50.0-75.0) H 02/22/18 06:21 Lymph % (Auto) 13.4 % (20.0-40.0) L 02/22/18 06:21 [place] % (Auto) 1.5 % (0.0-10.0) 02/22/18 06:21 Eos % (Auto) 0.0 % (0.0-4.0) 02/22/18 06:21 Baso % (Auto) 0.4 % (0.0-2.0) 02/22/18 06:21 Neut # (Auto) 4.8 K/uL (1.8-7.0) 02/22/18 06:21 Lymph # (Auto) 0.8 K/uL (1.0-4.3) L 02/22/18 06:21 [place] # (Auto) 0.1 K/uL (0.0-0.8) 02/22/18 06:21 Eos # (Auto) 0.0 K/uL (0.0-0.7) 02/22/18 06:21 Baso # (Auto) 0.0 K/uL (0.0-0.2) 02/22/18 06:21 Sodium 135 mmol/l (132-148) 02/26/18 04:20 Potassium 3.6 MMOL/L (3.6-5.0) 02/26/18 04:20 Chloride 93 mmol/L (98-107) L 02/26/18 04:20 Carbon Dioxide 29 mmol/L (22-30) 02/26/18 04:20 Anion Gap 17 (10-20) 02/26/18 04:20 BUN 57 mg/dl (7-17) H 02/26/18 04:20 Creatinine 1.0 mg/dl (0.7-1.2) 02/26/18 04:20 Est GFR ( Amer) > 60 02/26/18 04:20 Est GFR (Non-Af Amer) 52 02/26/18 04:20 POC Glucose (mg/dL) 345 mg/dL (65-110) H 02/26/18 11:20 Random Glucose 289 mg/dL (65-105) H 02/26/18 04:20 Hemoglobin A1c 8.3 % (4.2-6.5) H 02/25/18 05:00 Calcium 8.8 mg/dL (8.4-10.2) 02/26/18 04:20 Total Bilirubin 0.5 mg/dl (0.2-1.3) 02/25/18 09:42 AST 68 U/L (14-36) H D 02/25/18 09:42 ALT 27 U/L (9-52) 02/25/18 09:42 Alkaline Phosphatase 88 U/L (38-126) 02/25/18 09:42 Troponin I 0.0140 ng/mL (0.00-0.120) 02/21/18 15:46 NT-Pro-B Natriuret Pep 5110 pg/ml (0-900) H 02/23/18 06:30 Total Protein 7.4 G/DL (6.3-8.2) 02/25/18 09:42 Albumin 3.7 g/dL (3.5-5.0) 02/25/18 09:42 Globulin 3.6 gm/dL (2.2-3.9) 02/25/18 09:42 Albumin/Globulin Ratio 1.0 (1.0-2.1) 02/25/18 09:42 Triglycerides 223 mg/DL (0-149) H 02/25/18 05:00 Cholesterol 138 mg/dL (0-199) 02/25/18 05:00 LDL Cholesterol Direct 44 mg/dL (0-129) 02/25/18 05:00 HDL Cholesterol 49 MG/DL (30-70) 02/25/18 05:00 TSH 3rd Generation 0.65 mIU/ML (0.46-4.68) 02/23/18 06:30 Urine Color Yellow (YELLOW) 02/21/18 20:10 Urine Clarity Clear (Clear) 02/21/18 20:10 Urine pH 6.0 (5.0-8.0) 02/21/18 20:10 Ur Specific [place] 1.010 (1.003-1.030) 02/21/18 20:10 Urine Protein Negative mg/dL (NEGATIVE) 02/21/18 20:10 Urine Glucose (UA) Neg mg/dL (Normal) 02/21/18 20:10 Urine Ketones Negative mg/dL (NEGATIVE) 02/21/18 20:10 Urine Blood Negative (NEGATIVE) 02/21/18 20:10 Urine Nitrate Negative (NEGATIVE) 02/21/18 20:10 Urine Bilirubin Negative (NEGATIVE) 02/21/18 20:10 Urine Urobilinogen 0.2-1.0 mg/dL (0.2-1.0) 02/21/18 20:10 Ur Leukocyte Esterase Small Flower/uL (Negative) 02/21/18 20:10 Urine RBC (Auto) 2 /hpf (0-3) 02/21/18 20:10 Urine Microscopic WBC 13 /hpf (0-5) H 02/21/18 20:10 Ur Squamous Epith Cells < 1 /hpf (0-5) 02/21/18 20:10 Hyaline Casts 3-5 /hpf (0-2) H 02/21/18 20:10 - Hospital Course Hospital Course: 87 YO female with PMHx of CHF, HTN, DVTs (has IVC filter), hypothyroidism was admitted for CHF exacerbation. Pt has improved clinically since admission. Cardiology on consult, repeat CXR no acute disease. Per Cardio, pt okay to transfer to TCU. Will d/c patient to TCU for deconditioning and PT/OT. Discharge Exam - Head Exam Head Exam: ATRAUMATIC, NORMOCEPHALIC Additional comments: NC on - ENT Exam ENT Exam: Mucous Membranes Moist - Respiratory Exam Respiratory Exam: Wheezes (faint on expiration on lower lobes ), NORMAL BREATHING PATTERN. absent: Rales - Cardiovascular Exam Cardiovascular Exam: REGULAR RHYTHM, +S1, +S2 - GI/Abdominal Exam GI & Abdominal Exam: Normal Bowel Sounds, Soft. absent: Tenderness - Extremities Exam Extremities exam: normal inspection - Neurological Exam Neurological exam: Alert Discharge Plan - Follow Up Plan Condition: STABLE Disposition: REHAB FACILITY/REHAB UNIT
[2018-02-26] MEDS: Insulin Lispro (humaLOG) 100 Units/ml Inj SC SCH ×2 (12:54→16:29)
--- NOTE | 2018-02-26 12:56 | RAD ---
Date of service: 02/26/2018 HISTORY: Cough COMPARISON: 02/21/2018. TECHNIQUE: Chest PA and lateral FINDINGS: LUNGS: No active pulmonary disease. PLEURA: No significant pleural effusion identified. No pneumothorax apparent. CARDIOVASCULAR: No radiographic findings to suggest acute or significant cardiovascular disease. OSSEOUS STRUCTURES: No significant abnormalities. VISUALIZED UPPER ABDOMEN: Normal. OTHER FINDINGS: None. IMPRESSION: No active disease. No significant interval change compared to the prior examination(s). Limitations of the current examination: Poor inspiratory effort.
[2018-02-26 15:52] VITALS: BP 161/85; PULSE 113; RESP 17; TEMP 98.8; O2SAT 94
== END 2018-02-26 16:55 | DRG 293 ==
LOC: H.ER 15:04 → H.ERHOLD 18:07 → H.TEL 21:22
PROVIDERS: ADMIT Family Medicine; ATTEND Family Medicine
PROC: 3E0F7GC Introduction of Other Therapeutic Substance into Respiratory Tract, Via Natural or Artificial Opening (ICD-10-PCS; principal; 2018-02-21)
DX: I11.0 Hypertensive heart disease with heart failure (principal); I50.23 Acute on chronic systolic (congestive) heart failure; I48.2 Chronic atrial fibrillation; I25.2 Old myocardial infarction; K21.9 Gastro-esophageal reflux disease without esophagitis; Z79.82 Long term (current) use of aspirin; Z79.899 Other long term (current) drug therapy; Z86.718 Personal history of other venous thrombosis and embolism; R00.0 Tachycardia, unspecified; T48.6X5A Adverse effect of antiasthmatics, initial encounter; Y92.9 Unspecified place or not applicable; R73.9 Hyperglycemia, unspecified; E03.9 Hypothyroidism, unspecified; E66.3 Overweight; Z68.34 Body mass index [BMI] 34.0-34.9, adult; E78.00 Pure hypercholesterolemia, unspecified

== ENCOUNTER 2018-02-26 15:08 | Inpatient (IN) | payer OTHER ==
[2018-02-26 17:24] VITALS: BMI 32.7
[2018-02-26] MEDS: MethylPREDNISolone 40 mg Vial IV SCH (21:35)
[2018-02-26] MEDS: Insulin Lispro (humaLOG) 100 Units/ml Inj SC SCH (22:56)
[2018-02-27] MEDS: Levothyroxine 75 MCG TAB PO SCH (06:28)
[2018-02-27] MEDS: Insulin Lispro (humaLOG) 100 Units/ml Inj SC SCH ×4 (06:48→22:22)
[2018-02-27] MEDS: MethylPREDNISolone 40 mg Vial IV SCH ×2 (08:38→21:24)
--- NOTE | 2018-02-27 09:45 | CP.PCM.HP ---
<Krista Llaons - Last Filed: 02/27/18 14:35> History of Present Illness - History of Present Illness History of Present Illness: HPI: 87 YO female with PMHx of CHF, HTN, DVTs (has IVC filter), hypothyroidism was admitted to [facility] for CHF exacerbation. Pt was transferred to TCU for deconditioning and PT/OT. No acute overnight events. Pt seen and examined this AM. Denies chest pain dyspnea, n/v/d/c, chills and remains afebrile. PMHx: CHF, HTN, DVTs (has IVC filter), hypothyroidism Surghx: IVF filter SHx: denies smoking, ETOH and illicit drug use Allergies: NKDA Present on Admission - Present on Admission Any Indicators Present on Admission: No Review of Systems - Constitutional Constitutional: absent: Chills, Fever - Cardiovascular Cardiovascular: absent: Chest Pain, Dyspnea - Respiratory Respiratory: Cough. absent: Dyspnea - Gastrointestinal Gastrointestinal: absent: Abdominal Pain - Genitourinary Genitourinary: absent: Difficulty Urinating, Dysuria - Musculoskeletal Musculoskeletal: absent: Muscle Weakness, Numbness - Neurological Neurological: absent: Dizziness Past Patient History - Past Medical History & Family History Past Medical History?: Yes - Past Social History Smoking Status: Never Smoked - CARDIAC Hx Atrial Fibrillation: Yes Hx Congestive Heart Failure: Yes Hx Hypercholesterolemia: Yes Hx Hypertension: Yes - NEUROLOGICAL Hx Dementia: Yes - ENDOCRINE/METABOLIC Hx Hypothyroidism: Yes - HEMATOLOGICAL/ONCOLOGICAL Hx AIDS: No Hx Human Immunodeficiency Virus (HIV): No - MUSCULOSKELETAL/RHEUMATOLOGICAL Hx Falls: No - GASTROINTESTINAL Hx Gastrointestinal Disorders: Yes Hx Gastroesophageal Reflux: Yes - PSYCHIATRIC Hx Substance Use: No Other/Comment: dementia - SURGICAL HISTORY Hx Surgeries: No Meds Allergies/Adverse Reactions: Allergies Allergy/AdvReac Type Severity Reaction Status Date / Time No Known Allergies Allergy Verified 02/26/18 15:36 Physical Exam - Constitutional Appears: No Acute Distress - Head Exam Head Exam: ATRAUMATIC - ENT Exam ENT Exam: Mucous Membranes Moist - Respiratory Exam Respiratory Exam: Wheezes, NORMAL BREATHING PATTERN - Cardiovascular Exam Cardiovascular Exam: REGULAR RHYTHM, +S1, +S2 - GI/Abdominal Exam GI & Abdominal Exam: Normal Bowel Sounds, Soft. absent: Tenderness - Extremities Exam Extremities exam: Negative for: calf tenderness, pedal edema - Neurological Exam Neurological exam: Alert Results - Vital Signs Recent Vital Signs: Last Vital Signs Temp 97.9 F 02/27/18 08:27 Pulse 77 02/27/18 08:38 Resp 20 02/27/18 08:27 BP 130/68 02/27/18 08:39 Pulse Ox 95 02/27/18 08:27 Assessment & Plan (1) Chronic congestive heart failure Status: Acute (2) Hypertension Status: Chronic (3) Hypothyroidism Status: Chronic (4) History of DVT (deep vein thrombosis) Status: Chronic - Assessment and Plan (Free Text) Assessment: Assessment/plan: 87 YO female admitted to TCU for deconditioning, PT/OT. -Pt/Ot as tolerated -VS remains stable, afebrile -plan as ordered -cardiology consulted Pt seen and examined with Dr Rosado <Freddie Rosado - Last Filed: 03/04/18 06:31> Results - Vital Signs Recent Vital Signs: Last Vital Signs Temp 98.2 F 03/03/18 19:57 Pulse 77 03/03/18 19:57 Resp 20 03/03/18 19:57 BP 135/76 03/03/18 19:57 Pulse Ox 99 03/03/18 19:57 - Labs Result Diagrams: 02/28/18 06:10 02/28/18 06:10 Assessment & Plan - Assessment and Plan (Free Text) Plan: I was present during evaluation and discussed with Dr Llanos re plans of care and mgt. Freddie Rosado M.D.
[2018-02-27] MEDS: guaiFENesin 100 mg/5 ml Syrup UD PO PRN ×2 (15:01→21:20)
[2018-02-28] MEDS: guaiFENesin 100 mg/5 ml Syrup UD PO PRN ×2 (02:17→20:35)
[2018-02-28] MEDS: Levalbuterol 0.63 MG/3 ML Inhal Soln UD INH PRN ×2 (02:30→23:08)
[2018-02-28] MEDS: Levothyroxine 75 MCG TAB PO SCH (06:04)
[2018-02-28 06:35] LABS: BASO % 0.1 % (0.0-2.0); HEMOGLOBIN 10.2 g/dL (12.0-16.0); LYMPH # 0.6 K/uL (1.0-4.3); LYMPH % 8.9 % (20.0-40.0); MEAN CELL VOLUME 81.3 fl (81.0-99.0); MEAN CORPUSCULAR HEMOGLOBIN 26.4 pg (27.0-31.0); MEAN CORPUSCULAR HGB CONC 32.5 g/dL (33.0-37.0); MONO # 0.2 K/uL (0.0-0.8); NEUT # 6.4 K/uL (1.8-7.0); NRBC % 0.5 % (0.0-0.0); PLATELET COUNT 194 K/uL (130-400); RBC 3.86 Mil/uL (3.80-5.20); RED CELL DISTRIBUTION WIDTH 16.8 % (11.5-14.5); WHITE BLOOD COUNT 7.2 K/uL (4.8-10.8)
[2018-02-28 06:56] LABS: BLOOD UREA NITROGEN 52 mg/dl (7-17); CALCIUM 8.6 mg/dL (8.4-10.2); GFR AFRICAN-AMERICAN > 60; GFR NON-AFRICAN AMERICAN > 60
[2018-02-28] MEDS: Insulin Lispro (humaLOG) 100 Units/ml Inj SC SCH ×3 (07:01→16:11)
[2018-02-28] MEDS: MethylPREDNISolone 40 mg Vial IV SCH ×2 (08:50→21:31)
[2018-02-28 10:56] LABS: ANISOCYTOSIS SLIGHT; HYPOCHROMIC SLIGHT; LARGE PLATELETS PRESENT; LYMPHOCYTE 10 % (20-50); MONOCYTE 3 % (0-10); NEUTROPHIL 87 % (42-75); NUCLEATED RED BLOOD CELL 1 % (0-0); PLATELET ESTIMATE NORMAL (NORMAL); TARGET CELLS SLIGHT; TOTAL CELLS COUNTED 100
--- NOTE | 2018-02-28 10:57 | CP.PCM.CON ---
History of Present Illness - History of Present Illness History of Present Illness: This 87-year-old female was brought to the hospital severely short of breath and was found to be in atrial fibrillation with congestive cardiac failure. Her son gives history of the patient being mostly bed and chair bound and easily fatigued. She was diagnosed as having congestive heart failure approximately 10 years back. Since then she has never been hospitalized and has been treated at home by her son with virtually the same set of medications that were started 10 years back. The patient had never complained of palpitations and he was not aware of any irregular heart rhythm. The patient was never diagnosed as being a diabetic either. During her acute care she was started on a beta malia if it can bradycardia and that does off beta-blockade was reduced. She is being treated with furosemide as well. She has been started on oral anticoagulation to prevent systemic embolization or cerebrovascular accident. The patient is now in the transitional care unit before returning home. Physical examination shows an elderly tired female who is quite comfortable at bedrest and indicates that she has no significant discomfort. Her cough has significantly resolved. Her heart rate was 80 bpm regular and her blood pressure was 146/74 mmHg. Her jugular venous pressure was not elevated and there was mild pitting edema over left lower extremity with a history of DVT. Pedal pulses were feeble but distinct of present. There were no carotid bruits. The apex was not palpable. The first heart sound was normal second heart sound was muffled there was a brief ejection systolic murmur in the aortic area conducted to the base of the neck. There were no rales. Her abdomen was soft and liver and spleen are not palpable. Her lab data was noted. Impression newly detected atrial fibrillation in a patient with severe aortic stenosis and congestive cardiac failure. DM The patient is hemodynamically stable and quite symptom free at this juncture. I have explained the implications of combination of aortic stenosis, atrial fibrillation and congestive cardiac failure to the son at length. The patient is high risk for any surgical or transcatheter intervention. Her son has elected conservative therapy which is being administered. Past Patient History - Past Medical History & Family History Past Medical History?: Yes - Past Social History Smoking Status: Never Smoked - CARDIAC Hx Atrial Fibrillation: Yes Hx Congestive Heart Failure: Yes Hx Hypercholesterolemia: Yes Hx Hypertension: Yes - NEUROLOGICAL Hx Dementia: Yes - ENDOCRINE/METABOLIC Hx Hypothyroidism: Yes - HEMATOLOGICAL/ONCOLOGICAL Hx AIDS: No Hx Human Immunodeficiency Virus (HIV): No - MUSCULOSKELETAL/RHEUMATOLOGICAL Hx Falls: No - GASTROINTESTINAL Hx Gastrointestinal Disorders: Yes Hx Gastroesophageal Reflux: Yes - PSYCHIATRIC Hx Substance Use: No Other/Comment: dementia - SURGICAL HISTORY Hx Surgeries: No Meds Allergies/Adverse Reactions: Allergies Allergy/AdvReac Type Severity Reaction Status Date / Time No Known Allergies Allergy Verified 02/26/18 15:36 - Medications Medications: Current Medications Furosemide (Lasix) 20 mg PO DAILY [facility] Last Admin: 02/28/18 08:55 Dose: 20 mg Guaifenesin (Robitussin) 100 mg PO Q4 PRN PRN Reason: Cough Last Admin: 02/28/18 02:17 Dose: 100 mg Insulin Human Lispro (Humalog) 0 units SC ACCU-CHECK [facility] PRN Reason: Protocol Last Admin: 02/28/18 07:01 Dose: 2 u Levalbuterol HCl (Xopenex) 0.63 mg INH RQ8 PRN PRN Reason: Shortness of Breath Last Admin: 02/28/18 02:30 Dose: 0.63 mg Levothyroxine Sodium (Synthroid) 75 mcg PO DAILY@0630 [facility] Last Admin: 02/28/18 06:04 Dose: 75 mcg Losartan Potassium (Cozaar) 100 mg PO DAILY [facility] Last Admin: 02/28/18 08:51 Dose: 100 mg Methylprednisolone (Solu-Medrol) 40 mg IV Q12 [facility] Last Admin: 02/28/18 08:50 Dose: 40 mg Metoprolol Tartrate (Lopressor) 50 mg PO BIDWM [facility] Last Admin: 02/28/18 08:51 Dose: 50 mg Rivaroxaban (Xarelto) 20 mg PO QD5 [facility] PRN Reason: Protocol Last Admin: 02/27/18 16:53 Dose: 20 mg Results - Vital Signs Recent Vital Signs: Last Vital Signs Temp 97.8 F 02/28/18 08:10 Pulse 101 H 02/28/18 08:51 Resp 18 02/28/18 08:10 BP 155/80 H 02/28/18 08:55 Pulse Ox 98 02/28/18 08:10 - Labs Result Diagrams: 02/28/18 06:10 02/28/18 06:10 Labs: Laboratory Results - last 24 hr 02/26/18 02/27/18 02/28/18 21:10 06:03 06:10 WBC 7.2 RBC 3.86 Hgb 10.2 L Hct 31.4 L MCV 81.3 MCH 26.4 L MCHC 32.5 L RDW 16.8 H Plt Count 194 MPV 9.0 Neut % (Auto) 88.0 H Lymph % (Auto) 8.9 L [place] % (Auto) 3.0 Eos % (Auto) 0.0 Baso % (Auto) 0.1 Neut # (Auto) 6.4 Lymph # (Auto) 0.6 L [place] # (Auto) 0.2 Eos # (Auto) 0.0 Baso # (Auto) 0.0 Sodium Potassium Chloride Carbon Dioxide Anion Gap BUN Creatinine Est GFR ( Amer) Est GFR (Non-Af Amer) POC Glucose (mg/dL) 249 H 241 H Random Glucose Calcium 02/28/18 06:10 WBC RBC Hgb Hct MCV MCH MCHC RDW Plt Count MPV Neut % (Auto) Lymph % (Auto) [place] % (Auto) Eos % (Auto) Baso % (Auto) Neut # (Auto) Lymph # (Auto) [place] # (Auto) Eos # (Auto) Baso # (Auto) Sodium 140 Potassium 4.0 Chloride 98 Carbon Dioxide 32 H Anion Gap 14 BUN 52 H Creatinine 0.8 Est GFR ( Amer) > 60 Est GFR (Non-Af Amer) > 60 POC Glucose (mg/dL) Random Glucose 242 H Calcium 8.6
[2018-02-28 16:14] VITALS: RESP 20
[2018-03-01] MEDS: Insulin Lispro (humaLOG) 100 Units/ml Inj SC SCH ×5 (00:04→22:21)
[2018-03-01] MEDS: Levothyroxine 75 MCG TAB PO SCH (05:47)
[2018-03-01] MEDS: MethylPREDNISolone 40 mg Vial IV SCH (08:13)
--- NOTE | 2018-03-01 10:37 | CP.PCM.PN ---
<Krista Llanos - Last Filed: 03/01/18 10:45> Subjective - Date & Time of Evaluation Date of Evaluation: 03/01/18 Time of Evaluation: 10:35 - Subjective Subjective: No acute overnight events. Pt seen and examined in the AM. breathing comfortably with O2 via NC. Denies chest pain, dyspnea, n/v/d/c. Tolerating PO. Objective - Vital Signs/Intake and Output Vital Signs (last 24 hours): Temp Pulse Resp BP Pulse Ox 97.1 F L 94 H 20 103/55 L 100 03/01/18 08:35 03/01/18 08:35 03/01/18 08:35 03/01/18 08:35 03/01/18 08:35 - Medications Medications: Current Medications Furosemide (Lasix) 20 mg PO DAILY [facility] Last Admin: 03/01/18 08:11 Dose: 20 mg Guaifenesin (Robitussin) 100 mg PO Q4 PRN PRN Reason: Cough Last Admin: 02/28/18 20:35 Dose: 100 mg Insulin Human Lispro (Humalog) 0 units SC ACCU-CHECK [facility] PRN Reason: Protocol Last Admin: 03/01/18 07:13 Dose: 3 u Levalbuterol HCl (Xopenex) 0.63 mg INH RQ8 PRN PRN Reason: Shortness of Breath Last Admin: 02/28/18 23:08 Dose: 0.63 mg Levothyroxine Sodium (Synthroid) 75 mcg PO DAILY@0630 [facility] Last Admin: 03/01/18 05:47 Dose: 75 mcg Losartan Potassium (Cozaar) 100 mg PO DAILY [facility] Last Admin: 03/01/18 08:12 Dose: 100 mg Metoprolol Tartrate (Lopressor) 50 mg PO BIDWM [facility] Last Admin: 03/01/18 08:11 Dose: 50 mg Prednisone (Prednisone Tab) 20 mg PO DAILY [facility] Stop: 03/04/18 07:00 Prednisone (Prednisone Tab) 10 mg PO DAILY [facility] Stop: 03/07/18 07:00 Rivaroxaban (Xarelto) 20 mg PO QD5 [facility] PRN Reason: Protocol Last Admin: 02/28/18 16:14 Dose: 20 mg - Labs Labs: 02/28/18 06:10 02/28/18 06:10 - Constitutional Appears: No Acute Distress, Other (NC on ) - Head Exam Head Exam: NORMAL INSPECTION - Eye Exam Eye Exam: EOMI - ENT Exam ENT Exam: Mucous Membranes Moist - Respiratory Exam Respiratory Exam: Wheezes (expiratory b/l ), NORMAL BREATHING PATTERN - Cardiovascular Exam Cardiovascular Exam: REGULAR RHYTHM, +S1, +S2, Murmur (systolic murmur ) - GI/Abdominal Exam GI & Abdominal Exam: Soft, Normal Bowel Sounds. absent: Tenderness - Extremities Exam Extremities Exam: Pedal Edema (mild up to the mid-benitez) Additional comments: dermatitic changes in the lower extremities b/l - Neurological Exam Neurological Exam: Alert, Awake Assessment and Plan (1) Chronic congestive heart failure Status: Acute (2) Hypertension Status: Chronic (3) Hypothyroidism Status: Chronic (4) History of DVT (deep vein thrombosis) Status: Chronic (5) Diabetes mellitus Status: Chronic - Assessment and Plan (Free Text) Assessment: Assessment/plan: 87 YO female admitted to TCU for deconditioning, PT/OT. -Pt/Ot as tolerated -VS remains stable, afebrile -plan as ordered -taper steroids -HbA1c 8.3; will add metformin for better glycemic control -cardiology consulted Pt seen and examined with Dr Rosado <Freddie Rosado - Last Filed: 03/04/18 06:32> Objective - Vital Signs/Intake and Output Vital Signs (last 24 hours): Temp Pulse Resp BP Pulse Ox 98.2 F 77 20 135/76 99 03/03/18 19:57 03/03/18 19:57 03/03/18 19:57 03/03/18 19:57 03/03/18 19:57 - Medications Medications: Current Medications Dextrose (Dextrose 50% Inj) 0 ml IV STAT PRN; Protocol PRN Reason: Hypoglycemia Protocol Dextrose (Glutose 15) 0 gm PO ONCE PRN; Protocol PRN Reason: Hypoglycemia Protocol Furosemide (Lasix) 20 mg PO DAILY [facility] Last Admin: 03/03/18 08:35 Dose: 20 mg Glucagon (Glucagen Diagnostic Kit) 0 mg IM STAT PRN; Protocol PRN Reason: Hypoglycemia Protocol Guaifenesin (Robitussin) 100 mg PO Q4 PRN PRN Reason: Cough Last Admin: 03/03/18 21:02 Dose: 100 mg Insulin Human Lispro (Humalog) 0 units SC ACCU-CHECK [facility] PRN Reason: Protocol Last Admin: 03/04/18 06:22 Dose: Not Given Levalbuterol HCl (Xopenex) 0.63 mg INH RQ8 PRN PRN Reason: Shortness of Breath Last Admin: 02/28/18 23:08 Dose: 0.63 mg Levothyroxine Sodium (Synthroid) 75 mcg PO DAILY@0630 [facility] Last Admin: 03/04/18 06:23 Dose: 75 mcg Losartan Potassium (Cozaar) 100 mg PO DAILY [facility] Last Admin: 03/03/18 08:30 Dose: 100 mg Metformin HCl (Glucophage) 500 mg PO BIDWM [facility] Last Admin: 03/03/18 16:48 Dose: 500 mg Metoprolol Tartrate (Lopressor) 50 mg PO BIDWM [facility] Last Admin: 03/03/18 16:48 Dose: 50 mg Prednisone (Prednisone Tab) 20 mg PO DAILY [facility] Stop: 03/04/18 07:00 Last Admin: 03/03/18 08:36 Dose: 20 mg Prednisone (Prednisone Tab) 10 mg PO DAILY [facility] Stop: 03/07/18 07:00 Rivaroxaban (Xarelto) 20 mg PO QD5 [facility] PRN Reason: Protocol Last Admin: 03/03/18 16:48 Dose: 20 mg - Labs Labs: 02/28/18 06:10 02/28/18 06:10 Assessment and Plan - Assessment and Plan (Free Text) Plan: I was present during evaluation and discussed with Dr Romi tatum plans of care and mgt. Freddie Rosado M.D.
[2018-03-01] MEDS ORDERED: Dextrose 50% SYRINGE Inj (50 ml) IV PRN (10:38)
[2018-03-01] MEDS ORDERED: Glucagon Recombinant 1 mg Inj IM PRN (10:38)
[2018-03-01] MEDS ORDERED: Insulin Detemir 100 Units/ml Inj SC SCH (22:00)
[2018-03-02] MEDS: guaiFENesin 100 mg/5 ml Syrup UD PO PRN ×3 (00:21→20:58)
[2018-03-02] MEDS: Levothyroxine 75 MCG TAB PO SCH (05:43)
[2018-03-02] MEDS: Insulin Lispro (humaLOG) 100 Units/ml Inj SC SCH ×4 (06:30→23:41)
[2018-03-03] MEDS: guaiFENesin 100 mg/5 ml Syrup UD PO PRN ×3 (04:34→21:02)
[2018-03-03] MEDS: Levothyroxine 75 MCG TAB PO SCH (05:35)
[2018-03-03] MEDS: Insulin Lispro (humaLOG) 100 Units/ml Inj SC SCH ×4 (06:50→23:28)
[2018-03-04] MEDS: Insulin Lispro (humaLOG) 100 Units/ml Inj SC SCH ×4 (06:22→22:07)
[2018-03-04] MEDS: Levothyroxine 75 MCG TAB PO SCH (06:23)
--- NOTE | 2018-03-04 06:37 | CP.PCM.PN ---
Subjective - Date & Time of Evaluation Date of Evaluation: 03/02/18 Time of Evaluation: 10:00 - Subjective Subjective: Patient remains well. Has occasional cough. Attends phys therapy and is doing well. Has no fever. Has mild left leg pain. Objective - Vital Signs/Intake and Output Vital Signs (last 24 hours): Temp Pulse Resp BP Pulse Ox 98.2 F 77 20 135/76 99 03/03/18 19:57 03/03/18 19:57 03/03/18 19:57 03/03/18 19:57 03/03/18 19:57 - Medications Medications: Current Medications Dextrose (Dextrose 50% Inj) 0 ml IV STAT PRN; Protocol PRN Reason: Hypoglycemia Protocol Dextrose (Glutose 15) 0 gm PO ONCE PRN; Protocol PRN Reason: Hypoglycemia Protocol Furosemide (Lasix) 20 mg PO DAILY [facility] Last Admin: 03/03/18 08:35 Dose: 20 mg Glucagon (Glucagen Diagnostic Kit) 0 mg IM STAT PRN; Protocol PRN Reason: Hypoglycemia Protocol Guaifenesin (Robitussin) 100 mg PO Q4 PRN PRN Reason: Cough Last Admin: 03/03/18 21:02 Dose: 100 mg Insulin Human Lispro (Humalog) 0 units SC ACCU-CHECK [facility] PRN Reason: Protocol Last Admin: 03/04/18 06:22 Dose: Not Given Levalbuterol HCl (Xopenex) 0.63 mg INH RQ8 PRN PRN Reason: Shortness of Breath Last Admin: 02/28/18 23:08 Dose: 0.63 mg Levothyroxine Sodium (Synthroid) 75 mcg PO DAILY@0630 [facility] Last Admin: 03/04/18 06:23 Dose: 75 mcg Losartan Potassium (Cozaar) 100 mg PO DAILY [facility] Last Admin: 03/03/18 08:30 Dose: 100 mg Metformin HCl (Glucophage) 500 mg PO BIDWM [facility] Last Admin: 03/03/18 16:48 Dose: 500 mg Metoprolol Tartrate (Lopressor) 50 mg PO BIDWM [facility] Last Admin: 03/03/18 16:48 Dose: 50 mg Prednisone (Prednisone Tab) 20 mg PO DAILY [facility] Stop: 03/04/18 07:00 Last Admin: 03/03/18 08:36 Dose: 20 mg Prednisone (Prednisone Tab) 10 mg PO DAILY [facility] Stop: 03/07/18 07:00 Rivaroxaban (Xarelto) 20 mg PO QD5 [facility] PRN Reason: Protocol Last Admin: 03/03/18 16:48 Dose: 20 mg - Labs Labs: 02/28/18 06:10 02/28/18 06:10 - Head Exam Head Exam: NORMAL INSPECTION - Eye Exam Eye Exam: Normal appearance - ENT Exam ENT Exam: Mucous Membranes Moist - Respiratory Exam Respiratory Exam: Clear to Ausculation Bilateral - Cardiovascular Exam Cardiovascular Exam: REGULAR RHYTHM - GI/Abdominal Exam GI & Abdominal Exam: Normal Bowel Sounds - Neurological Exam Neurological Exam: CN II-XII Intact, Oriented x3 - Skin Skin Exam: Normal Color Assessment and Plan (1) Chronic congestive heart failure Status: Acute (2) Physical debility Status: Acute (3) Diabetes mellitus Status: Chronic (4) Atrial fibrillation Status: Acute - Assessment and Plan (Free Text) Plan: Con tmeds Cont tx Cont PT
--- NOTE | 2018-03-04 06:41 | CP.PCM.PN ---
Subjective - Date & Time of Evaluation Date of Evaluation: 03/03/18 Time of Evaluation: 10:00 - Subjective Subjective: Patient feels a lot better Has no chest pain or SOB Noted elevated FBS On prednisone Objective - Vital Signs/Intake and Output Vital Signs (last 24 hours): Temp Pulse Resp BP Pulse Ox 98.2 F 77 20 135/76 99 03/03/18 19:57 03/03/18 19:57 03/03/18 19:57 03/03/18 19:57 03/03/18 19:57 - Medications Medications: Current Medications Dextrose (Dextrose 50% Inj) 0 ml IV STAT PRN; Protocol PRN Reason: Hypoglycemia Protocol Dextrose (Glutose 15) 0 gm PO ONCE PRN; Protocol PRN Reason: Hypoglycemia Protocol Furosemide (Lasix) 20 mg PO DAILY [facility] Last Admin: 03/03/18 08:35 Dose: 20 mg Glucagon (Glucagen Diagnostic Kit) 0 mg IM STAT PRN; Protocol PRN Reason: Hypoglycemia Protocol Guaifenesin (Robitussin) 100 mg PO Q4 PRN PRN Reason: Cough Last Admin: 03/03/18 21:02 Dose: 100 mg Insulin Human Lispro (Humalog) 0 units SC ACCU-CHECK [facility] PRN Reason: Protocol Last Admin: 03/04/18 06:22 Dose: Not Given Levalbuterol HCl (Xopenex) 0.63 mg INH RQ8 PRN PRN Reason: Shortness of Breath Last Admin: 02/28/18 23:08 Dose: 0.63 mg Levothyroxine Sodium (Synthroid) 75 mcg PO DAILY@0630 [facility] Last Admin: 03/04/18 06:23 Dose: 75 mcg Losartan Potassium (Cozaar) 100 mg PO DAILY [facility] Last Admin: 03/03/18 08:30 Dose: 100 mg Metoprolol Tartrate (Lopressor) 50 mg PO BIDWM [facility] Last Admin: 03/03/18 16:48 Dose: 50 mg Prednisone (Prednisone Tab) 10 mg PO DAILY [facility] Stop: 03/07/18 07:00 Rivaroxaban (Xarelto) 20 mg PO QD5 [facility] PRN Reason: Protocol Last Admin: 03/03/18 16:48 Dose: 20 mg Sitagliptin Phosphate (Januvia) 100 mg PO DAILY [facility] - Labs Labs: 02/28/18 06:10 07/19/18 06:10 - Head Exam Head Exam: NORMAL INSPECTION - Eye Exam Eye Exam: Normal appearance - ENT Exam ENT Exam: Mucous Membranes Moist - Respiratory Exam Respiratory Exam: Clear to Ausculation Bilateral - Cardiovascular Exam Cardiovascular Exam: Irregular Rhythm - GI/Abdominal Exam GI & Abdominal Exam: Normal Bowel Sounds - Neurological Exam Neurological Exam: Awake, Oriented x3 - Psychiatric Exam Psychiatric exam: Normal Mood Assessment and Plan (1) Chronic congestive heart failure Status: Acute (2) Physical debility Status: Acute (3) Diabetes mellitus Status: Chronic (4) Atrial fibrillation Status: Acute - Assessment and Plan (Free Text) Plan: Con tmeds Cont tx cont PT
[2018-03-04] MEDS: GlipiZIDE 2.5 mg SR Tab PO SCH (08:39)
[2018-03-04 08:46] LABS: BASO % 0.4 % (0.0-2.0); EOS # 0.5 K/uL (0.0-0.7); EOS % 5.3 % (0.0-4.0); LYMPH # 1.6 K/uL (1.0-4.3); LYMPH % 17.4 % (20.0-40.0); MEAN CELL VOLUME 81.9 fl (81.0-99.0); MEAN CORPUSCULAR HEMOGLOBIN 26.5 pg (27.0-31.0); MEAN CORPUSCULAR HGB CONC 32.3 g/dL (33.0-37.0); MONO # 0.5 K/uL (0.0-0.8); MONO % 5.7 % (0.0-10.0); NEUT # 6.3 K/uL (1.8-7.0); NEUT % 71.2 % (50.0-75.0); NRBC % 0.4 % (0.0-0.0); RBC 4.16 Mil/uL (3.80-5.20); RED CELL DISTRIBUTION WIDTH 17.1 % (11.5-14.5); WHITE BLOOD COUNT 8.9 K/uL (4.8-10.8)
[2018-03-04 08:53] LABS: ALBUMIN 3.3 g/dL (3.5-5.0); ALT/SGPT 90 U/L (9-52); AST/SGOT 72 U/L (14-36); BLOOD UREA NITROGEN 29 mg/dl (7-17); CALCIUM 8.6 mg/dL (8.4-10.2); GFR AFRICAN-AMERICAN > 60; GFR NON-AFRICAN AMERICAN > 60
--- NOTE | 2018-03-04 13:49 | RAD ---
Date of service: 03/04/2018 PROCEDURE: CHEST RADIOGRAPH, 1 VIEW HISTORY: Congestive heart failure. COMPARISON: 02/26/2018. FINDINGS: LUNGS: Clear. PLEURA: No pneumothorax or pleural fluid seen. CARDIOVASCULAR: Cardiomegaly. No evidence of acute, significant cardiovascular disease. OSSEOUS STRUCTURES: No significant abnormalities. VISUALIZED UPPER ABDOMEN: Normal. OTHER FINDINGS: None. IMPRESSION: No active disease. No acute/significant interval changes.
[2018-03-04] MEDS: guaiFENesin 100 mg/5 ml Syrup UD PO PRN (18:09)
--- NOTE | 2018-03-05 00:16 | CP.PCM.PN ---
Subjective - Date & Time of Evaluation Date of Evaluation: 03/04/18 Time of Evaluation: 10:30 - Subjective Subjective: Patient continues to do well Has no cough. Has no chest pain or SOB Did very well with PT CBC and cmp are normal. Noted slightly elevated accucheck Objective - Vital Signs/Intake and Output Vital Signs (last 24 hours): Temp Pulse Resp BP Pulse Ox 97.9 F 63 20 117/50 L 100 03/04/18 20:51 03/04/18 20:51 03/04/18 20:51 03/04/18 20:51 03/04/18 20:51 - Medications Medications: Current Medications Dextrose (Dextrose 50% Inj) 0 ml IV STAT PRN; Protocol PRN Reason: Hypoglycemia Protocol Dextrose (Glutose 15) 0 gm PO ONCE PRN; Protocol PRN Reason: Hypoglycemia Protocol Furosemide (Lasix) 20 mg PO DAILY [facility] Last Admin: 03/04/18 08:40 Dose: 20 mg Glipizide (Glucotrol Xl) 2.5 mg PO BRK [facility] Last Admin: 03/04/18 08:39 Dose: 2.5 mg Glucagon (Glucagen Diagnostic Kit) 0 mg IM STAT PRN; Protocol PRN Reason: Hypoglycemia Protocol Guaifenesin (Robitussin) 100 mg PO Q4 PRN PRN Reason: Cough Last Admin: 03/04/18 18:09 Dose: 100 mg Insulin Human Lispro (Humalog) 0 units SC ACCU-CHECK [facility] PRN Reason: Protocol Last Admin: 03/04/18 22:07 Dose: Not Given Levalbuterol HCl (Xopenex) 0.63 mg INH RQ8 PRN PRN Reason: Shortness of Breath Last Admin: 02/28/18 23:08 Dose: 0.63 mg Levothyroxine Sodium (Synthroid) 75 mcg PO DAILY@0630 [facility] Last Admin: 03/04/18 06:23 Dose: 75 mcg Losartan Potassium (Cozaar) 100 mg PO DAILY [facility] Last Admin: 03/04/18 08:40 Dose: 100 mg Metoprolol Tartrate (Lopressor) 50 mg PO BIDWM [facility] Last Admin: 03/04/18 16:25 Dose: 50 mg Prednisone (Prednisone Tab) 10 mg PO DAILY [facility] Stop: 03/07/18 07:00 Last Admin: 03/04/18 08:39 Dose: 10 mg Rivaroxaban (Xarelto) 20 mg PO QD5 [facility] PRN Reason: Protocol Last Admin: 03/04/18 16:26 Dose: 20 mg Sitagliptin Phosphate (Januvia) 100 mg PO DAILY [facility] Last Admin: 03/04/18 08:39 Dose: 100 mg - Labs Labs: 03/04/18 08:33 03/04/18 08:33 - Head Exam Head Exam: NORMAL INSPECTION - Eye Exam Eye Exam: Normal appearance - Respiratory Exam Respiratory Exam: Clear to Ausculation Bilateral - Cardiovascular Exam Cardiovascular Exam: REGULAR RHYTHM - GI/Abdominal Exam GI & Abdominal Exam: Normal Bowel Sounds - Neurological Exam Neurological Exam: Awake, Oriented x3 Assessment and Plan (1) Chronic congestive heart failure Status: Acute (2) Physical debility Status: Acute (3) Diabetes mellitus Status: Chronic (4) Atrial fibrillation Status: Acute - Assessment and Plan (Free Text) Plan: Cont meds Cont tx Cont PT
[2018-03-05] MEDS: Levothyroxine 75 MCG TAB PO SCH (06:24)
[2018-03-05] MEDS: Insulin Lispro (humaLOG) 100 Units/ml Inj SC SCH ×5 (06:50→22:08)
[2018-03-05] MEDS: GlipiZIDE 2.5 mg SR Tab PO SCH (08:05)
--- NOTE | 2018-03-05 12:13 | CP.PCM.PN ---
<Krista Llanos - Last Filed: 03/05/18 12:10> Subjective - Date & Time of Evaluation Date of Evaluation: 03/05/18 Time of Evaluation: 12:10 - Subjective Subjective: No acute overnight events. Pt states that she is doing well, breathing has significantly improved. Objective - Vital Signs/Intake and Output Vital Signs (last 24 hours): Temp Pulse Resp BP Pulse Ox 98.1 F 74 20 130/68 99 03/05/18 08:28 03/05/18 08:28 03/05/18 08:28 03/05/18 08:28 03/05/18 08:28 - Medications Medications: Current Medications Dextrose (Dextrose 50% Inj) 0 ml IV STAT PRN; Protocol PRN Reason: Hypoglycemia Protocol Dextrose (Glutose 15) 0 gm PO ONCE PRN; Protocol PRN Reason: Hypoglycemia Protocol Furosemide (Lasix) 20 mg PO DAILY [facility] Last Admin: 03/05/18 08:05 Dose: 20 mg Glipizide (Glucotrol Xl) 2.5 mg PO BRK [facility] Last Admin: 03/05/18 08:05 Dose: 2.5 mg Glucagon (Glucagen Diagnostic Kit) 0 mg IM STAT PRN; Protocol PRN Reason: Hypoglycemia Protocol Guaifenesin (Robitussin) 100 mg PO Q4 PRN PRN Reason: Cough Last Admin: 03/04/18 18:09 Dose: 100 mg Insulin Human Lispro (Humalog) 0 units SC ACCU-CHECK [facility] PRN Reason: Protocol Last Admin: 03/05/18 11:33 Dose: 2 u Levalbuterol HCl (Xopenex) 0.63 mg INH RQ8 PRN PRN Reason: Shortness of Breath Last Admin: 02/28/18 23:08 Dose: 0.63 mg Levothyroxine Sodium (Synthroid) 75 mcg PO DAILY@0630 [facility] Last Admin: 03/05/18 06:24 Dose: 75 mcg Losartan Potassium (Cozaar) 100 mg PO DAILY [facility] Last Admin: 03/05/18 08:05 Dose: 100 mg Metoprolol Tartrate (Lopressor) 50 mg PO BIDWM [facility] Last Admin: 03/05/18 08:05 Dose: 50 mg Prednisone (Prednisone Tab) 10 mg PO DAILY [facility] Stop: 03/07/18 07:00 Last Admin: 07/24/18 08:05 Dose: 10 mg Rivaroxaban (Xarelto) 20 mg PO QD5 [facility] PRN Reason: Protocol Last Admin: 03/04/18 16:26 Dose: 20 mg Sitagliptin Phosphate (Januvia) 100 mg PO DAILY [facility] Last Admin: 03/05/18 08:05 Dose: 100 mg - Labs Labs: 03/04/18 08:33 03/04/18 08:33 - Constitutional Appears: No Acute Distress - Head Exam Head Exam: NORMAL INSPECTION - Eye Exam Eye Exam: EOMI, Normal appearance - ENT Exam ENT Exam: Mucous Membranes Moist - Respiratory Exam Respiratory Exam: Wheezes (mild wheezing ), NORMAL BREATHING PATTERN. absent: Rales, Rhonchi - Cardiovascular Exam Cardiovascular Exam: REGULAR RHYTHM, +S1, +S2, Murmur - GI/Abdominal Exam GI & Abdominal Exam: Soft, Normal Bowel Sounds. absent: Tenderness - Neurological Exam Neurological Exam: Alert, Awake Assessment and Plan (1) Chronic congestive heart failure Status: Acute (2) Hypertension Status: Chronic (3) Hypothyroidism Status: Chronic (4) History of DVT (deep vein thrombosis) Status: Chronic (5) Diabetes mellitus Status: Chronic - Assessment and Plan (Free Text) Assessment: Assessment/plan: 87 YO female admitted to TCU for deconditioning, PT/OT. -Pt/Ot as tolerated -VS remains stable, afebrile -plan as ordered -CXR no active disease -tapering steroids -cardiology on board Pt seen and examined with Dr Rosado <Freddie Rosado - Last Filed: 03/06/18 06:38> Objective - Vital Signs/Intake and Output Vital Signs (last 24 hours): Temp Pulse Resp BP Pulse Ox 97.5 F L 92 H 20 110/68 97 03/05/18 19:37 03/05/18 19:37 03/05/18 19:37 03/05/18 19:37 03/05/18 19:37 - Medications Medications: Current Medications Dextrose (Dextrose 50% Inj) 0 ml IV STAT PRN; Protocol PRN Reason: Hypoglycemia Protocol Dextrose (Glutose 15) 0 gm PO ONCE PRN; Protocol PRN Reason: Hypoglycemia Protocol Furosemide (Lasix) 20 mg PO DAILY [facility] Last Admin: 03/05/18 08:05 Dose: 20 mg Glipizide (Glucotrol Xl) 2.5 mg PO BRK [facility] Last Admin: 03/05/18 08:05 Dose: 2.5 mg Glucagon (Glucagen Diagnostic Kit) 0 mg IM STAT PRN; Protocol PRN Reason: Hypoglycemia Protocol Guaifenesin (Robitussin) 100 mg PO Q4 PRN PRN Reason: Cough Last Admin: 03/04/18 18:09 Dose: 100 mg Insulin Human Lispro (Humalog) 0 units SC [facility]U-[facility] PRN Reason: Protocol Last Admin: 03/06/18 06:21 Dose: Not Given Levalbuterol HCl (Xopenex) 0.63 mg INH RQ8 PRN PRN Reason: Shortness of Breath Last Admin: 02/28/18 23:08 Dose: 0.63 mg Levothyroxine Sodium (Synthroid) 75 mcg PO DAILY@0630 [facility] Last Admin: 03/06/18 05:57 Dose: 75 mcg Losartan Potassium (Cozaar) 100 mg PO DAILY [facility] Last Admin: 03/05/18 08:05 Dose: 100 mg Metoprolol Tartrate (Lopressor) 50 mg PO BIDWM [facility] Last Admin: 03/05/18 16:57 Dose: 50 mg Prednisone (Prednisone Tab) 10 mg PO DAILY [facility] Stop: 03/07/18 07:00 Last Admin: 03/05/18 08:05 Dose: 10 mg Rivaroxaban (Xarelto) 20 mg PO QD5 [facility] PRN Reason: Protocol Last Admin: 03/05/18 16:57 Dose: 20 mg Sitagliptin Phosphate (Januvia) 100 mg PO DAILY [facility] Last Admin: 03/05/18 08:05 Dose: 100 mg - Labs Labs: 03/04/18 08:33 03/04/18 08:33 Assessment and Plan (1) Chronic congestive heart failure Status: Acute (2) Physical debility Status: Acute (3) Diabetes mellitus Status: Chronic (4) Atrial fibrillation Status: Acute - Assessment and Plan (Free Text) Plan: I was present during evaluation and disussed with Dr llanos re plans of care and mgt. will contoinue PT discharge planning.
[2018-03-06] MEDS: Levothyroxine 75 MCG TAB PO SCH (05:57)
[2018-03-06] MEDS: Insulin Lispro (humaLOG) 100 Units/ml Inj SC SCH ×3 (06:21→17:20)
[2018-03-06] MEDS: GlipiZIDE 2.5 mg SR Tab PO SCH (08:55)
[2018-03-06] MEDS: guaiFENesin 100 mg/5 ml Syrup UD PO PRN (08:57)
--- NOTE | 2018-03-06 10:31 | CP.PCM.PN ---
Subjective - Date & Time of Evaluation Date of Evaluation: 03/06/18 Time of Evaluation: 10:30 - Subjective Subjective: No acute overnight events. Pt seen sitting up on chair this AM, without NC. Pt states that she feels alot better and breathing has significantly improved. Objective - Vital Signs/Intake and Output Vital Signs (last 24 hours): Temp Pulse Resp BP Pulse Ox 97.1 F L 120 H 20 122/49 L 93 L 03/06/18 08:13 03/06/18 08:56 03/06/18 08:13 03/06/18 08:59 03/06/18 08:13 - Medications Medications: Current Medications Dextrose (Dextrose 50% Inj) 0 ml IV STAT PRN; Protocol PRN Reason: Hypoglycemia Protocol Dextrose (Glutose 15) 0 gm PO ONCE PRN; Protocol PRN Reason: Hypoglycemia Protocol Furosemide (Lasix) 20 mg PO DAILY [facility] Last Admin: 03/06/18 08:59 Dose: 20 mg Glipizide (Glucotrol Xl) 2.5 mg PO BRK [facility] Last Admin: 03/06/18 08:55 Dose: 2.5 mg Glucagon (Glucagen Diagnostic Kit) 0 mg IM STAT PRN; Protocol PRN Reason: Hypoglycemia Protocol Guaifenesin (Robitussin) 100 mg PO Q4 PRN PRN Reason: Cough Last Admin: 03/06/18 08:57 Dose: 100 mg Insulin Human Lispro (Humalog) 0 units SC [facility] PRN Reason: Protocol Last Admin: 03/06/18 06:21 Dose: Not Given Levalbuterol HCl (Xopenex) 0.63 mg INH RQ8 PRN PRN Reason: Shortness of Breath Last Admin: 02/28/18 23:08 Dose: 0.63 mg Levothyroxine Sodium (Synthroid) 75 mcg PO DAILY@0630 [facility] Last Admin: 03/06/18 05:57 Dose: 75 mcg Losartan Potassium (Cozaar) 100 mg PO DAILY [facility] Last Admin: 03/06/18 08:55 Dose: 100 mg Metoprolol Tartrate (Lopressor) 50 mg PO BIDWM [facility] Last Admin: 03/06/18 08:56 Dose: 50 mg Prednisone (Prednisone Tab) 10 mg PO DAILY [facility] Stop: 03/07/18 07:00 Last Admin: 03/06/18 08:56 Dose: 10 mg Rivaroxaban (Xarelto) 20 mg PO QD5 [facility] PRN Reason: Protocol Last Admin: 03/05/18 16:57 Dose: 20 mg Sitagliptin Phosphate (Januvia) 100 mg PO DAILY [facility] Last Admin: 03/06/18 08:55 Dose: 100 mg - Labs Labs: 03/04/18 08:33 03/04/18 08:33 - Constitutional Appears: No Acute Distress - Head Exam Head Exam: NORMAL INSPECTION - ENT Exam ENT Exam: Mucous Membranes Moist - Respiratory Exam Respiratory Exam: Wheezes (mild expiratory wheezing b/l), NORMAL BREATHING PATTERN - Cardiovascular Exam Cardiovascular Exam: REGULAR RHYTHM, +S1, +S2, Murmur - GI/Abdominal Exam GI & Abdominal Exam: Soft, Normal Bowel Sounds. absent: Tenderness - Neurological Exam Neurological Exam: Alert, Awake Assessment and Plan (1) Chronic congestive heart failure Status: Acute (2) Hypertension Status: Chronic (3) Hypothyroidism Status: Chronic (4) History of DVT (deep vein thrombosis) Status: Chronic (5) Diabetes mellitus Status: Chronic - Assessment and Plan (Free Text) Assessment: Assessment/plan: 87 YO female admitted to TCU for deconditioning, PT/OT. -Pt/Ot as tolerated -VS remains stable, afebrile -plan as ordered -tapering steroids, last dose 03/07/18 -cardiology on board -Pending d/c to on 03/07/18 Pt seen and examined with Dr Rosado
[2018-03-06] MEDS ORDERED: Sodium Chloride 0.9% 500 ML IV SCH (13:15)
[2018-03-06 15:47] VITALS: O2SAT 99
[2018-03-07] MEDS: Insulin Lispro (humaLOG) 100 Units/ml Inj SC SCH ×4 (02:23→17:04)
[2018-03-07] MEDS: Levothyroxine 75 MCG TAB PO SCH (06:21)
[2018-03-07] MEDS: GlipiZIDE 2.5 mg SR Tab PO SCH (08:23)
--- NOTE | 2018-03-07 09:31 | CP.PCM.DIS ---
Provider - Provider Date of Admission: 02/26/18 17:24 Attending physician: Freddie Rosado MD Time Spent in preparation of Discharge (in minutes): 20 Diagnosis - Discharge Diagnosis (1) Chronic congestive heart failure Status: Acute (2) Hypertension Status: Chronic (3) Hypothyroidism Status: Chronic (4) History of DVT (deep vein thrombosis) Status: Chronic (5) Diabetes mellitus Status: Chronic Hospital Course - Lab Results Lab Results: Most Recent Lab Values WBC 8.9 K/uL (4.8-10.8) 03/04/18 08:33 RBC 4.16 Mil/uL (3.80-5.20) 03/04/18 08:33 Hgb 11.0 g/dL (12.0-16.0) L 03/04/18 08:33 Hct 34.1 % (34.0-47.0) 03/04/18 08:33 MCV 81.9 fl (81.0-99.0) 03/04/18 08:33 MCH 26.5 pg (27.0-31.0) L 03/04/18 08:33 MCHC 32.3 g/dL (33.0-37.0) L 03/04/18 08:33 RDW 17.1 % (11.5-14.5) H 03/04/18 08:33 Plt Count 197 K/uL (130-400) 03/04/18 08:33 MPV 9.0 fl (7.2-11.7) 03/04/18 08:33 Neut % (Auto) 71.2 % (50.0-75.0) 03/04/18 08:33 Lymph % (Auto) 17.4 % (20.0-40.0) L 03/04/18 08:33 [place] % (Auto) 5.7 % (0.0-10.0) 03/04/18 08:33 Eos % (Auto) 5.3 % (0.0-4.0) H 03/04/18 08:33 Baso % (Auto) 0.4 % (0.0-2.0) 03/04/18 08:33 Neut # (Auto) 6.3 K/uL (1.8-7.0) 03/04/18 08:33 Lymph # (Auto) 1.6 K/uL (1.0-4.3) 03/04/18 08:33 [place] # (Auto) 0.5 K/uL (0.0-0.8) 03/04/18 08:33 Eos # (Auto) 0.5 K/uL (0.0-0.7) 03/04/18 08:33 Baso # (Auto) 0.0 K/uL (0.0-0.2) 03/04/18 08:33 Neutrophils % (Manual) 87 % (42-75) H 02/28/18 06:10 Lymphocytes % (Manual) 10 % (20-50) L 02/28/18 06:10 Monocytes % (Manual) 3 % (0-10) 02/28/18 06:10 Nucleated RBC % 1 % (0-0) H 02/28/18 06:10 Platelet Estimate Normal (NORMAL) 02/28/18 06:10 Large Platelets Present 02/28/18 06:10 Hypochromasia (manual) Slight 02/28/18 06:10 Anisocytosis (manual) Slight 02/28/18 06:10 Target Cells Slight 02/28/18 06:10 Sodium 138 mmol/l (132-148) 03/04/18 08:33 Potassium 4.1 MMOL/L (3.6-5.0) 03/04/18 08:33 Chloride 97 mmol/L (98-107) L 03/04/18 08:33 Carbon Dioxide 33 mmol/L (22-30) H 03/04/18 08:33 Anion Gap 12 (10-20) 03/04/18 08:33 BUN 29 mg/dl (7-17) H 03/04/18 08:33 Creatinine 0.7 mg/dl (0.7-1.2) 03/04/18 08:33 Est GFR ( Amer) > 60 03/04/18 08:33 Est GFR (Non-Af Amer) > 60 03/04/18 08:33 POC Glucose (mg/dL) 75 mg/dL (65-110) 03/07/18 06:30 Random Glucose 98 mg/dL (65-105) 03/04/18 08:33 Calcium 8.6 mg/dL (8.4-10.2) 03/04/18 08:33 Total Bilirubin 0.9 mg/dl (0.2-1.3) 03/04/18 08:33 AST 72 U/L (14-36) H 03/04/18 08:33 ALT 90 U/L (9-52) H D 03/04/18 08:33 Alkaline Phosphatase 84 U/L (38-126) 03/04/18 08:33 Total Protein 6.6 G/DL (6.3-8.2) 03/04/18 08:33 Albumin 3.3 g/dL (3.5-5.0) L 03/04/18 08:33 Globulin 3.3 gm/dL (2.2-3.9) 03/04/18 08:33 Albumin/Globulin Ratio 1.0 (1.0-2.1) 03/04/18 08:33 TSH 3rd Generation 0.94 mIU/ML (0.46-4.68) 03/04/18 08:33 - Hospital Course Hospital Course: 87 YO female with PMHx of CHF, HTN, DVTs (has IVC filter), hypothyroidism was admitted for CHF exacerbation. Pt was discharged to TCU for deconditioning. Pt hemodynamically stable, doing well. Pt to be d/c to [facility] with follow up with PMD in 1 week. Discharge Exam - Head Exam Head Exam: NORMAL INSPECTION - Eye Exam Eye Exam: Normal appearance - ENT Exam ENT Exam: Mucous Membranes Moist - Respiratory Exam Respiratory Exam: Wheezes (mild faint wheezing b/l on expiration ), NORMAL BREATHING PATTERN. absent: Rales, Rhonchi - Cardiovascular Exam Cardiovascular Exam: REGULAR RHYTHM, +S1, +S2, Systolic Murmur - GI/Abdominal Exam GI & Abdominal Exam: Normal Bowel Sounds, Soft. absent: Tenderness - Extremities Exam Extremities exam: normal inspection - Neurological Exam Neurological exam: Alert Discharge Plan - Discharge Medications Prescriptions: GlipiZIDE SR [Glucotrol XL] 2.5 mg PO DAILY #30 tab Levothyroxine [Synthroid] 75 mcg PO DAILY #30 tab SITagliptin [Januvia] 100 mg PO DAILY #30 tab - Follow Up Plan Condition: GOOD Disposition: REHAB FACILITY/REHAB UNIT Instructions: Heart Healthy Diet, Heart Failure, Adult (DC), How to Prevent Blood Clots Additional Instructions: Please follow up with PMD in 1 week Pt d/c to [facility]
[2018-03-07] MEDS: Levalbuterol 0.63 MG/3 ML Inhal Soln UD INH PRN (16:12)
[2018-03-07 16:46] VITALS: BP 131/62; PULSE 66; TEMP 98.8
== END 2018-03-07 17:00 | DRG 293 ==
LOC: H.TCU 17:24
PROVIDERS: ADMIT Family Medicine; ATTEND Family Medicine
PROC: F07Z9FZ Gait Training/Functional Ambulation Treatment using Assistive, Adaptive, Supportive or Protective Equipment (ICD-10-PCS; principal; 2018-02-26)
PROC: F08Z4FZ Home Management Treatment using Assistive, Adaptive, Supportive or Protective Equipment (ICD-10-PCS; 2018-02-26)
PROC: F07M6FZ Therapeutic Exercise Treatment of Musculoskeletal System - Whole Body using Assistive, Adaptive, Supportive or Protective Equipment (ICD-10-PCS; 2018-02-27)
DX: I11.0 Hypertensive heart disease with heart failure (principal); I50.22 Chronic systolic (congestive) heart failure; F03.90 Unspecified dementia, unspecified severity, without behavioral disturbance, psychotic disturbance, mood disturbance, and anxiety; I48.91 Unspecified atrial fibrillation; I35.0 Nonrheumatic aortic (valve) stenosis; E11.9 Type 2 diabetes mellitus without complications; E03.9 Hypothyroidism, unspecified; E78.00 Pure hypercholesterolemia, unspecified; K21.9 Gastro-esophageal reflux disease without esophagitis; Z86.718 Personal history of other venous thrombosis and embolism

== ENCOUNTER 2018-03-14 23:10 | Inpatient (IN) | payer MEDICARE, OTHER ==
[2018-03-14 23:27] VITALS: BMI 66.6
[2018-03-14] MEDS ORDERED: Sodium Chloride 0.9% 500 ML IV STA (23:40)
--- NOTE | 2018-03-14 23:56 | ED PDOC ---
HPI: Chest Pain Time Seen by Provider: 03/14/18 23:17 Chief Complaint (Nursing): Chest Pain Chief Complaint (Provider): Chest Pain Onset/Duration Of Symptoms: Hrs Additional Complaint(s): Yesi Toth is a 87 y/o female with a history of DM, CHF, A-Fib, dyslipidemia, dementia, hypothyroidism and hypertension, who presents to the ED with chest pain with associated left arm discomfort. Patient was recently discharged from this location to a long term after a lengthy admission for CHF. As per her son her vitals reflected low blood pressure and she presents to the ED for further evaluation. At this time she is feeling well and her symptoms are resolved. She denies headache, dizziness, nausea, vomiting, and abdominal pain. PMD: Deborah Berry Past Medical History Reviewed: Historical Data, Nursing Documentation, Vital Signs Vital Signs: Last Vital Signs Temp 97.8 F 03/15/18 02:59 Pulse 97 H 03/15/18 02:59 Resp 20 03/15/18 02:59 BP 84/48 L 03/15/18 02:59 Pulse Ox 100 03/15/18 02:59 - Medical History PMH: Atrial Fibrillation, CHF, Dementia, HTN, Hypercholesterolemia, Hypothyroidism Denies: HIV - Surgical History Surgical History: No Surg Hx - Family History Family History: States: Unknown Family Hx - Home Medications Home Medications: Ambulatory Orders Medication Instructions Recorded Aspirin [Ecotrin] 81 mg PO DAILY 02/21/18 Esomeprazole Magnesium [Nexium] 40 mg PO DAILY 02/21/18 Mv,Min10/Folic Acid/D3/Ala/Lut 1 tab PO DAILY 02/21/18 [Strovite One Caplet] Rosuvastatin Calcium [Crestor] 40 mg PO HS 02/21/18 Furosemide [Lasix] 20 mg PO DAILY tab 02/26/18 Metoprolol Tartrate [Lopressor] 50 mg PO Q12 tab 02/26/18 GlipiZIDE SR [Glucotrol XL] 2.5 mg PO DAILY #30 tab 03/07/18 Levothyroxine [Synthroid] 75 mcg PO DAILY #30 tab 03/07/18 Losartan [Cozaar] 100 mg PO DAILY tab 03/07/18 SITagliptin [Januvia] 100 mg PO DAILY #30 tab 03/07/18 Acetaminophen [Tylenol] 2 tab PO PRN PRN 03/15/18 Acetaminophen [Tylenol] 2 tab PO PRN PRN 03/15/18 Levalbuterol [Xopenex] 3 ml INH PRN PRN 03/15/18 Magnesium Hydroxide [Milk Of 30 ml PO PRN PRN 03/15/18 Magnesia] Rivaroxaban [Xarelto] 20 mg PO DAILY 03/15/18 guaiFENesin/Dextromethorphan 5 ml PO PRN PRN 03/15/18 [Robitussin DM] - Allergies Allergies/Adverse Reactions: Allergies Allergy/AdvReac Type Severity Reaction Status Date / Time No Known Allergies Allergy Verified 02/26/18 15:36 Review of Systems ROS Statement: Except As Marked, All Systems Reviewed And Found Negative Constitutional: Negative for: Fever Cardiovascular: Positive for: Chest Pain Gastrointestinal: Negative for: Nausea, Vomiting, Abdominal Pain Musculoskeletal: Positive for: Arm Pain (left) Neurological: Negative for: Headache, Dizziness Physical Exam - Reviewed Nursing Documentation Reviewed: Yes Vital Signs Reviewed: Yes - Physical Exam Appears: Positive for: Non-toxic, No Acute Distress Head Exam: Positive for: ATRAUMATIC, NORMOCEPHALIC Skin: Positive for: Normal Color, Warm, Dry Eye Exam: Positive for: EOMI, Normal appearance, PERRL Neck: Positive for: Normal, Painless ROM, Supple Cardiovascular/Chest: Positive for: Irregularly Irregular Respiratory: Positive for: Normal Breath Sounds. Negative for: Respiratory Distress Gastrointestinal/Abdominal: Positive for: Normal Exam, Soft. Negative for: Tenderness Back: Positive for: Normal Inspection. Negative for: L CVA Tenderness, R CVA Tenderness Extremity: Positive for: Normal ROM. Negative for: Pedal Edema, Deformity Neurologic/Psych: Positive for: Alert, Oriented. Negative for: Motor/Sensory Deficits - Laboratory Results Result Diagrams: 03/15/18 00:14 03/15/18 00:14 - ECG O2 Sat by Pulse Oximetry: 100 (RA) Pulse Ox Interpretation: Normal - Critical Care Total Time (In Min): 30 Documented Critical Care: Time excludes all time spent performint seperately billable procedures Medical Decision Making Medical Decision Making: Time: 23:27 Impression: 87 y/o female with history of CHF, A-Fib, and hypertension presenting with chest pain in setting of hypotensive episode. Initial Plan: EKG BNP CMP Troponin I CBC w/ differential PTT Prothrombin time CXR Time: 00:48 Chest xray shows no active disease. Labs show no clinically significant abnormalities with exception to BUN and creatinine possibly indicative of Prerenal azotemia. This is likely related to over diuresis of patient. Patient will be admitted to ICU. Diagnosis is acute kidney injury and hypotension. Patient will be admitted under Dr. Berry; Dr Tabatha Sharp made aware of ICU admit. Provider attempted to reach Dr Berry multiple times without result. Dr Sharp has made arrangements with ICU nursing staff to maker Dr Berry aware in am. Scribe Attestation: Documented by Pedro Rich, acting as a scribe for Jose L Hill MD. Provider Scribe Attestation: All medical record entries made by the Scribe were at my direction and personally dictated by me. I have reviewed the chart and agree that the record accurately reflects my personal performance of the history, physical exam, medical decision making, and the department course for this patient. I have also personally directed, reviewed, and agree with the discharge instructions and disposition. Disposition - Clinical Impression Clinical Impression: Chest pain, Acute kidney injury, Hypotension - Patient ED Disposition Is Patient to be Admitted: Yes - Disposition Disposition Time: 00:48 Condition: GUARDED
[2018-03-15 00:18] LABS: BASO % 0.3 % (0.0-2.0); EOS # 0.2 K/uL (0.0-0.7); EOS % 5.2 % (0.0-4.0); LYMPH # 1.2 K/uL (1.0-4.3); LYMPH % 37.2 % (20.0-40.0); MEAN CELL VOLUME 83.8 fl (81.0-99.0); MEAN CORPUSCULAR HEMOGLOBIN 26.4 pg (27.0-31.0); MEAN CORPUSCULAR HGB CONC 31.5 g/dL (33.0-37.0); MEAN PLATELET VOLUME 8.8 fl (7.2-11.7); MONO # 0.4 K/uL (0.0-0.8); NEUT # 1.4 K/uL (1.8-7.0); NEUT % 45.3 % (50.0-75.0); NRBC % 0.2 % (0.0-0.0); RBC 4.16 Mil/uL (3.80-5.20); RED CELL DISTRIBUTION WIDTH 19.2 % (11.5-14.5); WHITE BLOOD COUNT 3.2 K/uL (4.8-10.8)
[2018-03-15 00:22] LABS: INR 1.2; PROTHROMBIN TIME 12.8 Seconds (9.8-13.1)
[2018-03-15 00:25] LABS: PARTIAL THROMBOPLASTIN TIME 26.9 Seconds (25.6-37.1)
[2018-03-15 00:37] LABS: ALBUMIN 3.2 g/dL (3.5-5.0); CALCIUM 8.4 mg/dL (8.4-10.2)
[2018-03-15 00:39] LABS: TROPONIN I 0.058 ng/mL (0.00-0.120)
--- NOTE | 2018-03-15 01:09 | CP.PCM.CON ---
History of Present Illness - History of Present Illness History of Present Illness: CC: chest pain HPI: 87F PMH HFpEF, Afib, HTN, DVTs (has IVC filter), hypothyroidism, recently discharged to [facility] following admission/TCU for CHF presented back to ED for mod generalized nondiscript chest pain radiating down her L arm. Pt was found to be hypotensive in 80s systolic, however with resolved symptoms. Patient likely over diuresed. Will trend enzymes and gently hydrate under close monitoring in ICU. ROS: per HPI all other systems reviewed and negative PMHx: CHF, HTN, DVTs (has IVC filter), hypothyroidism Surghx: IVF filter SHx: denies smoking, ETOH and illicit drug use Allergies: NKDA Past Patient History - Past Medical History & Family History Past Medical History?: Yes - Past Social History Smoking Status: Never Smoked - CARDIAC Hx Atrial Fibrillation: Yes Hx Congestive Heart Failure: Yes Hx Hypercholesterolemia: Yes Hx Hypertension: Yes - NEUROLOGICAL Hx Dementia: Yes - ENDOCRINE/METABOLIC Hx Hypothyroidism: Yes - HEMATOLOGICAL/ONCOLOGICAL Hx Human Immunodeficiency Virus (HIV): No - MUSCULOSKELETAL/RHEUMATOLOGICAL Hx Falls: No - GASTROINTESTINAL Hx Gastrointestinal Disorders: Yes Hx Gastroesophageal Reflux: Yes - PSYCHIATRIC Hx Substance Use: No Other/Comment: dementia - SURGICAL HISTORY Hx Surgeries: No Meds Allergies/Adverse Reactions: Allergies Allergy/AdvReac Type Severity Reaction Status Date / Time No Known Allergies Allergy Verified 02/26/18 15:36 Physical Exam - Constitutional Appears: Non-toxic, No Acute Distress - Head Exam Head Exam: ATRAUMATIC, NORMOCEPHALIC - Eye Exam Eye Exam: EOMI, Normal appearance, PERRL Pupil Exam: NORMAL ACCOMODATION - ENT Exam ENT Exam: Mucous Membranes Moist, Normal Oropharynx - Respiratory Exam Respiratory Exam: Clear to Auscultation Bilateral, NORMAL BREATHING PATTERN - Cardiovascular Exam Cardiovascular Exam: RRR, +S1, +S2 - GI/Abdominal Exam GI & Abdominal Exam: Normal Bowel Sounds, Soft. absent: Organomegaly, Tenderness - Extremities Exam Extremities exam: Positive for: normal capillary refill, pedal pulses present - Back Exam Back exam: absent: CVA tenderness (L), CVA tenderness (R) - Neurological Exam Neurological exam: Alert, Reflexes Normal - Psychiatric Exam Psychiatric exam: Normal Affect, Normal Mood - Skin Skin Exam: Dry, Warm Results - Vital Signs Recent Vital Signs: Last Vital Signs Temp 97.5 F L 03/14/18 23:24 Pulse 103 H 03/15/18 00:52 Resp 20 03/15/18 00:52 BP 85/41 L 03/15/18 00:52 Pulse Ox 100 03/15/18 00:53 - Labs Result Diagrams: 03/15/18 00:14 03/15/18 00:14 Labs: Laboratory Results - last 24 hr 03/15/18 03/15/18 03/15/18 00:14 00:14 00:14 WBC 3.2 L D RBC 4.16 Hgb 11.0 L Hct 34.9 MCV 83.8 MCH 26.4 L MCHC 31.5 L RDW 19.2 H Plt Count 151 MPV 8.8 Neut % (Auto) 45.3 L Lymph % (Auto) 37.2 Lane % (Auto) 12.0 H Eos % (Auto) 5.2 H Baso % (Auto) 0.3 Neut # (Auto) 1.4 L Lymph # (Auto) 1.2 Lane # (Auto) 0.4 Eos # (Auto) 0.2 Baso # (Auto) 0.0 PT 12.8 INR 1.2 APTT 26.9 Sodium 137 Potassium 4.1 Chloride 103 Carbon Dioxide 24 Anion Gap 14 BUN 39 H Creatinine 2.9 H Est GFR ( Amer) 18 Est GFR (Non-Af Amer) 15 Random Glucose 95 Lactic Acid Calcium 8.4 Total Bilirubin 0.4 AST 62 H ALT 34 Alkaline Phosphatase 71 Troponin I 0.0580 NT-Pro-B Natriuret Pep 2920 H Total Protein 6.2 L Albumin 3.2 L Globulin 3.0 Albumin/Globulin Ratio 1.0 03/15/18 00:14 WBC RBC Hgb Hct MCV MCH MCHC RDW Plt Count MPV Neut % (Auto) Lymph % (Auto) Lane % (Auto) Eos % (Auto) Baso % (Auto) Neut # (Auto) Lymph # (Auto) Lane # (Auto) Eos # (Auto) Baso # (Auto) PT INR APTT Sodium Potassium Chloride Carbon Dioxide Anion Gap BUN Creatinine Est GFR ( Amer) Est GFR (Non-Af Amer) Random Glucose Lactic Acid 1.2 Calcium Total Bilirubin AST ALT Alkaline Phosphatase Troponin I NT-Pro-B Natriuret Pep Total Protein Albumin Globulin Albumin/Globulin Ratio Assessment & Plan - Assessment and Plan (Free Text) Plan: 87F PMH HFpEF, Afib, HTN, DVTs (has IVC filter), hypothyroidism, recently discharged to [facility] following admission/TCU for CHF presented back to ED for mod generalized nondiscript chest pain radiating down her L arm. Pt was found to be hypotensive in 80s systolic, however with resolved symptoms. Patient likely over diuresed. Will trend enzymes and gently hydrate under close monitoring in ICU. HYPOTENSION VOLUME CONTRACTION LIKELY SECONDARY TO OVER DIURESIS COREY CHEST PAIN DM Hx HTN Hx HFpEF Hx DVT Hx AFIB SBP 85 at this time, asymptomatic and clinically feels improved HR 90s, sinus on monitor SCr increased to 2.9 from 0.7 continue gentle hydration NS @100cc /hr trend enzymes, ekg pending, no active CP, pt on Xarelto for Hx DVT w/ IVC and AFib monitor closely in ICU cont accuchecks and low ISS
[2018-03-15] MEDS ORDERED: Levalbuterol 0.63 MG/3 ML Inhal Soln UD INH PRN (01:10)
[2018-03-15] MEDS: Sodium Chloride 0.9% 1,000 ML IV SCH ×2 (01:34→13:08)
[2018-03-15 05:22] LABS: HEMOGLOBIN 10.7 g/dL (12.0-16.0); MEAN CELL VOLUME 84.6 fl (81.0-99.0); MEAN CORPUSCULAR HEMOGLOBIN 26.3 pg (27.0-31.0); MEAN CORPUSCULAR HGB CONC 31.1 g/dL (33.0-37.0); RBC 4.07 Mil/uL (3.80-5.20); RED CELL DISTRIBUTION WIDTH 19.7 % (11.5-14.5); WHITE BLOOD COUNT 2.8 K/uL (4.8-10.8)
[2018-03-15] MEDS: Insulin Lispro (humaLOG) 100 Units/ml Inj SC SCH ×4 (06:38→22:08)
[2018-03-15] MEDS: Levothyroxine 75 MCG TAB PO SCH (06:42)
--- NOTE | 2018-03-15 07:19 | CARD ---
APPROVED REPORT Date of service: 03/14/2018 <Conclusion> Atrial fibrillation with rapid ventricular response Inferior infarct, age undetermined Abnormal ECG
[2018-03-15] MEDS ORDERED: Pneumococcal 23-Valent Vaccine IM ONE (08:00)
--- NOTE | 2018-03-15 08:47 | RAD ---
Date of service: 03/14/2018 HISTORY: chest pain COMPARISON: No prior. FINDINGS: LUNGS: No active pulmonary disease. PLEURA: No significant pleural effusion identified, no pneumothorax apparent. CARDIOVASCULAR: Stable cardiomegaly. No pulmonary vascular congestion. OSSEOUS STRUCTURES: No significant abnormalities. VISUALIZED UPPER ABDOMEN: Normal. OTHER FINDINGS: None. IMPRESSION: Stable cardiomegaly. No interval pulmonary disease appreciable.
[2018-03-15] MEDS: GlipiZIDE 2.5 mg SR Tab PO SCH (08:49)
--- NOTE | 2018-03-15 17:49 | CP.PCM.HP ---
History of Present Illness - History of Present Illness History of Present Illness: CC: Chest Pain and Hypotension History of Present Illness: Her son at bed side, and history from the patient, her son and medical record An 87yoF with H/O DM, CHF, VTE, A-Fib, Dyslipidemia, Dementia, Hypothyroidism and Hypertension was at [facility] when she developed left sided chest Pain, acute onset, severe with radiation to the Left arm. Also patient was Hypotensive to SBP 80's. Patient was brout to the ER where she was found to be Hypotensive, and responded to IVF Bolus. Also in the ER, she was found to be A fib with RVR, &Acute Kidney Injury. Patient was recently d/c from [facility] to [facility] due to Physical deconditioning. Present on Admission - Present on Admission Any Indicators Present on Admission: No History of DVT/PE: Yes Review of Systems - Review of Systems All systems: reviewed and no additional remarkable complaints except Past Patient History - Past Medical History & Family History Past Medical History?: Yes Past Family History: Reviewed and not pertinent - Past Social History Smoking Status: Never Smoked Alcohol: None Drugs: Denies - CARDIAC Hx Atrial Fibrillation: Yes Hx Congestive Heart Failure: Yes Hx Hypercholesterolemia: Yes Hx Hypertension: Yes - PULMONARY Hx Respiratory Disorders: No Hx Asthma: No - NEUROLOGICAL Hx Dementia: Yes - HEENT Hx HEENT Problems: No - RENAL Hx Chronic Kidney Disease: Yes - ENDOCRINE/METABOLIC Hx Hypothyroidism: Yes - HEMATOLOGICAL/ONCOLOGICAL Hx Human Immunodeficiency Virus (HIV): No - INTEGUMENTARY Hx Dermatological Problems: No - MUSCULOSKELETAL/RHEUMATOLOGICAL Hx Musculoskeletal Disorders: No Hx Falls: No - GASTROINTESTINAL Hx Gastrointestinal Disorders: Yes Hx Gastroesophageal Reflux: Yes - GENITOURINARY/GYNECOLOGICAL Hx Genitourinary Disorders: No - PSYCHIATRIC Hx Psychophysiologic Disorder: Yes - SURGICAL HISTORY Hx Surgeries: No - ANESTHESIA Hx Anesthesia: No Hx Anesthesia Reactions: No Hx Malignant Hyperthermia: No Has any member of the family had a problem w/ anesthesia?: No Meds Allergies/Adverse Reactions: Allergies Allergy/AdvReac Type Severity Reaction Status Date / Time No Known Allergies Allergy Verified 02/26/18 15:36 Physical Exam - Constitutional Appears: No Acute Distress - Head Exam Head Exam: ATRAUMATIC, NORMAL INSPECTION, NORMOCEPHALIC - Eye Exam Eye Exam: EOMI, Normal appearance, PERRL Pupil Exam: NORMAL ACCOMODATION, PERRL - ENT Exam ENT Exam: Mucous Membranes Dry, Normal Exam - Neck Exam Neck exam: Positive for: Full Rom, Normal Inspection - Respiratory Exam Respiratory Exam: Clear to Auscultation Bilateral, NORMAL BREATHING PATTERN - Cardiovascular Exam Cardiovascular Exam: REGULAR RHYTHM, +S1, +S2 - GI/Abdominal Exam GI & Abdominal Exam: Normal Bowel Sounds, Soft. absent: Tenderness - Extremities Exam Extremities exam: Positive for: normal capillary refill, tenderness (Left LEG) - Back Exam Back exam: FULL ROM, NORMAL INSPECTION - Neurological Exam Neurological exam: Abnormal Gait, CN II-XII Intact, Motor Sensory Deficit, Reflexes Normal - Psychiatric Exam Psychiatric exam: Normal Affect, Normal Mood - Skin Skin Exam: Dry, Intact, Normal Color, Warm Results - Vital Signs Recent Vital Signs: Last Vital Signs Temp 97.8 F 03/15/18 16:00 Pulse 119 H 03/15/18 16:00 Resp 21 03/15/18 16:00 BP 88/58 L 03/15/18 16:00 Pulse Ox 96 03/15/18 16:00 - Labs Result Diagrams: 03/15/18 04:20 03/15/18 00:14 Labs: Laboratory Results - last 24 hr 03/15/18 03/15/18 03/15/18 00:14 00:14 00:14 WBC 3.2 L D RBC 4.16 Hgb 11.0 L Hct 34.9 MCV 83.8 MCH 26.4 L MCHC 31.5 L RDW 19.2 H Plt Count 151 MPV 8.8 Neut % (Auto) 45.3 L Lymph % (Auto) 37.2 Buchanan % (Auto) 12.0 H Eos % (Auto) 5.2 H Baso % (Auto) 0.3 Neut # (Auto) 1.4 L Lymph # (Auto) 1.2 Buchanan # (Auto) 0.4 Eos # (Auto) 0.2 Baso # (Auto) 0.0 PT 12.8 INR 1.2 APTT 26.9 Sodium 137 Potassium 4.1 Chloride 103 Carbon Dioxide 24 Anion Gap 14 BUN 39 H Creatinine 2.9 H Est GFR ( Amer) 18 Est GFR (Non-Af Amer) 15 POC Glucose (mg/dL) Random Glucose 95 Lactic Acid Calcium 8.4 Total Bilirubin 0.4 AST 62 H ALT 34 Alkaline Phosphatase 71 Troponin I 0.0580 NT-Pro-B Natriuret Pep 2920 H Total Protein 6.2 L Albumin 3.2 L Globulin 3.0 Albumin/Globulin Ratio 1.0 03/15/18 03/15/18 03/15/18 00:14 04:20 04:20 WBC 2.8 L RBC 4.07 Hgb 10.7 L Hct 34.4 MCV 84.6 MCH 26.3 L MCHC 31.1 L RDW 19.7 H Plt Count 136 MPV Neut % (Auto) Lymph % (Auto) Buchanan % (Auto) Eos % (Auto) Baso % (Auto) Neut # (Auto) Lymph # (Auto) Buchanan # (Auto) Eos # (Auto) Baso # (Auto) PT INR APTT Sodium Potassium Chloride Carbon Dioxide Anion Gap BUN Creatinine Est GFR ( Amer) Est GFR (Non-Af Amer) POC Glucose (mg/dL) Random Glucose Lactic Acid 1.2 Calcium Total Bilirubin AST ALT Alkaline Phosphatase Troponin I 0.0520 NT-Pro-B Natriuret Pep Total Protein Albumin Globulin Albumin/Globulin Ratio 03/15/18 03/15/18 03/15/18 06:29 10:59 11:39 WBC RBC Hgb Hct MCV MCH MCHC RDW Plt Count MPV Neut % (Auto) Lymph % (Auto) Buchanan % (Auto) Eos % (Auto) Baso % (Auto) Neut # (Auto) Lymph # (Auto) Buchanan # (Auto) Eos # (Auto) Baso # (Auto) PT INR APTT Sodium Potassium Chloride Carbon Dioxide Anion Gap BUN Creatinine Est GFR ( Amer) Est GFR (Non-Af Amer) POC Glucose (mg/dL) 74 83 Random Glucose Lactic Acid Calcium Total Bilirubin AST ALT Alkaline Phosphatase Troponin I 0.0420 NT-Pro-B Natriuret Pep Total Protein Albumin Globulin Albumin/Globulin Ratio - EKG Data When Compared to Previous EKG: Significant Changes EKG comments: A. fibrillation with RVR. - Imaging and Cardiology Chest x-ray Status: Report reviewed by me Additional comment: HISTORY: chest pain COMPARISON: No prior. FINDINGS: LUNGS: No active pulmonary disease. PLEURA: No significant pleural effusion identified, no pneumothorax apparent. CARDIOVASCULAR: Stable cardiomegaly. No pulmonary vascular congestion. OSSEOUS STRUCTURES: No significant abnormalities. VISUALIZED UPPER ABDOMEN: Normal. OTHER FINDINGS: None. IMPRESSION: Stable cardiomegaly. No interval pulmonary disease appreciable. Assessment & Plan (1) Chest pain Assessment and Plan: ACS ruled out Continue to Monitor Status: Acute Priority: High (2) Hypotension Assessment and Plan: Resolved after IVF Bolus Continue Cautios Hydration Status: Acute (3) Acute kidney injury Assessment and Plan: Most likely Prerenal IVF Repeat BMP in am Nephro consult Status: Acute Priority: High (4) Atrial fibrillation Assessment and Plan: with RVR TSH Hold Xeralto due to COREY Start Lovenox Therapeutic(Adjust to renal dose) Will use Amiodarone or digoxin for rate control if HR Persistently above 120 Status: Acute Priority: High (5) Physical debility Assessment and Plan: Bed rest for now, and PT/OT when stable Status: Acute Priority: Medium (6) Poor appetite Assessment and Plan: Encourage to eat. Status: Chronic Priority: Medium
[2018-03-15 19:40] LABS: CALCIUM 7.7 mg/dL (8.4-10.2)
[2018-03-15] MEDS ORDERED: Sodium Chloride 0.9% 1,000 ML IV SCH (22:07)
--- NOTE | 2018-03-15 22:07 | CP.PCM.CON ---
History of Present Illness - History of Present Illness History of Present Illness: 87 yo F w/ pmh of htn, dm, CHF w/ diastolic dysfunction, severe , afib on xarelto, DVT s/p IVC filter, dyslipidemia and hypothyroidism presented to ED from [facility] yesterday with L sided chest pain; patient found to be hypotensive and admitted to ICU; nephrology being consulted for acute kidney injury; Patient discharged last month from [facility] for acute decompensated CHF; had cardiology eval at that time and it was decided to pursue conservative medical management for her severe aortic stenosis; patient was discharged to TCU and then finally to [facility] on losartan 100 mg daily, metoprolol 50 mg bid and lasix 20 mg bid; Patient reports that chest pain was associated with dyspnea and palpitations ( found to be in RVR), all of which have resolved; she otherwise reports feeling well prior to the acute onset of these symptoms; she denies any fevers/chills, appetite had been well; she denies any dysuria but does admit to increased urinary frequency, about 3-4 times per night; she denies taking any pain meds; In ED, patient was given 500 cc NS bolus and subsequently placed on NS at 100 cc /hr with improvement in hypotension today; Review of Systems - Constitutional Constitutional: absent: Chills, Fever - EENT Eyes: absent: Change in Vision Additional comments: recent cold-like symptoms - Cardiovascular Cardiovascular: As Per HPI - Respiratory Respiratory: Cough, Dyspnea - Gastrointestinal Gastrointestinal: absent: Diarrhea, Nausea, Vomiting - Genitourinary Genitourinary: As Per HPI - Musculoskeletal Musculoskeletal: absent: Arthralgias, Back Pain - Integumentary Integumentary: absent: Pruritus - Neurological Neurological: absent: Dizziness, Headaches Additional comments: numbness in feet; - Hematologic/Lymphatic Hematologic: absent: Easy Bruising Past Patient History - Past Medical History & Family History Past Medical History?: Yes Past Family History: Reviewed and not pertinent Pertinent Family History: DM - Past Social History Smoking Status: Never Smoked Alcohol: None Drugs: Denies - CARDIAC Hx Atrial Fibrillation: Yes Hx Congestive Heart Failure: Yes Hx Hypercholesterolemia: Yes Hx Hypertension: Yes - PULMONARY Hx Respiratory Disorders: No Hx Asthma: No - NEUROLOGICAL Hx Dementia: Yes - HEENT Hx HEENT Problems: No - RENAL Hx Chronic Kidney Disease: Yes - ENDOCRINE/METABOLIC Hx Hypothyroidism: Yes - HEMATOLOGICAL/ONCOLOGICAL Hx Human Immunodeficiency Virus (HIV): No - INTEGUMENTARY Hx Dermatological Problems: No - MUSCULOSKELETAL/RHEUMATOLOGICAL Hx Musculoskeletal Disorders: No Hx Falls: No - GASTROINTESTINAL Hx Gastrointestinal Disorders: Yes Hx Gastroesophageal Reflux: Yes - GENITOURINARY/GYNECOLOGICAL Hx Genitourinary Disorders: No - PSYCHIATRIC Hx Psychophysiologic Disorder: Yes - SURGICAL HISTORY Hx Surgeries: No - ANESTHESIA Hx Anesthesia: No Hx Anesthesia Reactions: No Hx Malignant Hyperthermia: No Has any member of the family had a problem w/ anesthesia?: No Meds Allergies/Adverse Reactions: Allergies Allergy/AdvReac Type Severity Reaction Status Date / Time No Known Allergies Allergy Verified 02/26/18 15:36 - Medications Medications: Current Medications Aspirin (Ecotrin) 81 mg PO DAILY ON [facility] OF [facility] Last Admin: 03/15/18 08:49 Dose: 81 mg Atorvastatin Calcium (Lipitor) 80 mg PO HS ON LICENSE OF [facility] Last Admin: 03/15/18 22:06 Dose: 80 mg Enoxaparin Sodium (Lovenox) 70 mg SC DAILY ON LICENSE OF [facility] PRN Reason: Protocol Glipizide (Glucotrol Xl) 2.5 mg PO DAILY ON LICENSE OF [facility] Last Admin: 03/15/18 08:49 Dose: 2.5 mg Insulin Human Lispro (Humalog) 0 units SC [facility] ON LICENSE OF [facility] PRN Reason: Protocol Last Admin: 03/15/18 16:38 Dose: Not Given Levalbuterol HCl (Xopenex) 0.63 mg INH RQ6 PRN PRN Reason: Shortness of Breath Levothyroxine Sodium (Synthroid) 75 mcg PO DAILY@0630 ON LICENSE OF [facility] Last Admin: 03/15/18 06:42 Dose: 75 mcg Sitagliptin Phosphate (Januvia) 25 mg PO DAILY ON LICENSE OF [facility] Physical Exam - Constitutional Appears: Non-toxic, No Acute Distress - Eye Exam Eye Exam: Normal appearance. absent: Scleral icterus - ENT Exam ENT Exam: Mucous Membranes Moist - Neck Exam Neck exam: Negative for: Lymphadenopathy - Respiratory Exam Respiratory Exam: Clear to Auscultation Bilateral. absent: Respiratory Distress - Cardiovascular Exam Cardiovascular Exam: Irregular Rhythm. absent: Gallop, Systolic Murmur - GI/Abdominal Exam GI & Abdominal Exam: Soft. absent: Distended - Exam Exam: absent: Bladder Distension Additional comments: suprapubic tenderness - Extremities Exam Additional comments: moderate b/l lower leg edema; - Neurological Exam Neurological exam: Alert Additional comments: no resting tremor; no gross sensory deficit of feet; - Psychiatric Exam Psychiatric exam: Normal Affect, Normal Mood - Skin Skin Exam: Warm Additional comments: bilateral lower leg erythema Results - Vital Signs Recent Vital Signs: Last Vital Signs Temp 97.9 F 03/15/18 20:00 Pulse 98 H 03/15/18 20:00 Resp 22 03/15/18 20:00 BP 121/63 03/15/18 20:00 Pulse Ox 99 03/15/18 20:00 - Labs Result Diagrams: 03/15/18 04:20 03/15/18 19:06 Labs: Laboratory Results - last 24 hr 03/15/18 03/15/18 03/15/18 00:14 00:14 00:14 WBC 3.2 L D RBC 4.16 Hgb 11.0 L Hct 34.9 MCV 83.8 MCH 26.4 L MCHC 31.5 L RDW 19.2 H Plt Count 151 MPV 8.8 Neut % (Auto) 45.3 L Lymph % (Auto) 37.2 Wells % (Auto) 12.0 H Eos % (Auto) 5.2 H Baso % (Auto) 0.3 Neut # (Auto) 1.4 L Lymph # (Auto) 1.2 Wells # (Auto) 0.4 Eos # (Auto) 0.2 Baso # (Auto) 0.0 PT 12.8 INR 1.2 APTT 26.9 Sodium 137 Potassium 4.1 Chloride 103 Carbon Dioxide 24 Anion Gap 14 BUN 39 H Creatinine 2.9 H Est GFR ( Amer) 18 Est GFR (Non-Af Amer) 15 POC Glucose (mg/dL) Random Glucose 95 Lactic Acid Calcium 8.4 Total Bilirubin 0.4 AST 62 H ALT 34 Alkaline Phosphatase 71 Troponin I 0.0580 NT-Pro-B Natriuret Pep 2920 H Total Protein 6.2 L Albumin 3.2 L Globulin 3.0 Albumin/Globulin Ratio 1.0 03/15/18 03/15/18 03/15/18 00:14 04:20 04:20 WBC 2.8 L RBC 4.07 Hgb 10.7 L Hct 34.4 MCV 84.6 MCH 26.3 L MCHC 31.1 L RDW 19.7 H Plt Count 136 MPV Neut % (Auto) Lymph % (Auto) Wells % (Auto) Eos % (Auto) Baso % (Auto) Neut # (Auto) Lymph # (Auto) Wells # (Auto) Eos # (Auto) Baso # (Auto) PT INR APTT Sodium Potassium Chloride Carbon Dioxide Anion Gap BUN Creatinine Est GFR ( Amer) Est GFR (Non-Af Amer) POC Glucose (mg/dL) Random Glucose Lactic Acid 1.2 Calcium Total Bilirubin AST ALT Alkaline Phosphatase Troponin I 0.0520 NT-Pro-B Natriuret Pep Total Protein Albumin Globulin Albumin/Globulin Ratio 03/15/18 03/15/18 03/15/18 06:29 10:59 11:39 WBC RBC Hgb Hct MCV MCH MCHC RDW Plt Count MPV Neut % (Auto) Lymph % (Auto) Wells % (Auto) Eos % (Auto) Baso % (Auto) Neut # (Auto) Lymph # (Auto) Wells # (Auto) Eos # (Auto) Baso # (Auto) PT INR APTT Sodium Potassium Chloride Carbon Dioxide Anion Gap BUN Creatinine Est GFR ( Amer) Est GFR (Non-Af Amer) POC Glucose (mg/dL) 74 83 Random Glucose Lactic Acid Calcium Total Bilirubin AST ALT Alkaline Phosphatase Troponin I 0.0420 NT-Pro-B Natriuret Pep Total Protein Albumin Globulin Albumin/Globulin Ratio 03/15/18 03/15/18 03/15/18 16:26 19:06 20:57 WBC RBC Hgb Hct MCV MCH MCHC RDW Plt Count MPV Neut % (Auto) Lymph % (Auto) Wells % (Auto) Eos % (Auto) Baso % (Auto) Neut # (Auto) Lymph # (Auto) Wells # (Auto) Eos # (Auto) Baso # (Auto) PT INR APTT Sodium 139 Potassium 4.5 Chloride 108 H Carbon Dioxide 25 Anion Gap 11 BUN 28 H Creatinine 2.4 H Est GFR ( Amer) 23 Est GFR (Non-Af Amer) 19 POC Glucose (mg/dL) 71 93 Random Glucose 117 H Lactic Acid Calcium 7.7 L Total Bilirubin AST ALT Alkaline Phosphatase Troponin I NT-Pro-B Natriuret Pep Total Protein Albumin Globulin Albumin/Globulin Ratio - Imaging and Cardiology Chest x-ray Status: Image reviewed by me Additional comment: Lungs clear, no overt vascular congestion; Assessment & Plan (1) Acute kidney injury Assessment and Plan: Pre-renal etiology likely with hypotension and renal function both improving on IVF with serum creat decreasing from 2.9 -> 2.4; inciting cause remains unclear but suspect that patient is particularly preload dependent in the setting of severe aortic stenosis and the mild diuretic that she was getting was enough to cause hemodynamic compromise; acute renal injury exacerbated by patient being on ARB with loss of renal autoregulation; -Recommend cautious IVF in light of severe ; decreasing NS to 60 cc/hr; expect slow improvement in renal function especially with concomitant pulm htn and ; -Should still rule out sepsis (patient mentioned increased urinary frequency), check UA/CS; -Checking urine lytes; -Avoid nephrotoxic agents (NSAIDS, phohphate enema, etc); Status: Acute Priority: High (2) Hypotension Assessment and Plan: Resolving, see above; f/u blood and urine cultures; Status: Acute (3) Congestive heart failure Assessment and Plan: Diastolic dysfunction along with pulm htn and severe aortic stenosis; lungs clear but has moderately edematous b/l lower legs; severe will limit how much patient can be diuresed without causing hemodynamic compromise and concomitant COREY; -Recommend close cardiology f/u and revisit whatever options are feasible, especially for ; -Recommend restarting with low dose ARB/TARAH inhibitor (losartan 12.5 mg) and very careful diuresis once renal function has returned close to baseline; Status: Chronic (4) Aortic stenosis Assessment and Plan: See above; Status: Acute
[2018-03-16 06:08] LABS: BASO % 1.4 % (0.0-2.0); EOS # 0.2 K/uL (0.0-0.7); EOS % 7.2 % (0.0-4.0); HEMOGLOBIN 10.4 g/dL (12.0-16.0); LYMPH % 29.7 % (20.0-40.0); MEAN CELL VOLUME 84.9 fl (81.0-99.0); MEAN CORPUSCULAR HGB CONC 31.8 g/dL (33.0-37.0); MEAN PLATELET VOLUME 9.1 fl (7.2-11.7); MONO # 0.4 K/uL (0.0-0.8); MONO % 12.6 % (0.0-10.0); NEUT # 1.7 K/uL (1.8-7.0); NEUT % 49.1 % (50.0-75.0); RBC 3.83 Mil/uL (3.80-5.20); RED CELL DISTRIBUTION WIDTH 19.6 % (11.5-14.5); WHITE BLOOD COUNT 3.4 K/uL (4.8-10.8)
[2018-03-16 06:26] LABS: TROPONIN I 0.038 ng/mL (0.00-0.120)
[2018-03-16 06:30] LABS: CALCIUM 7.9 mg/dL (8.4-10.2)
[2018-03-16] MEDS: Levothyroxine 75 MCG TAB PO SCH (06:53)
[2018-03-16] MEDS: Insulin Lispro (humaLOG) 100 Units/ml Inj SC SCH ×4 (06:53→22:00)
[2018-03-16] MEDS: Enoxaparin 80 mg Syringe SC SCH (09:07)
[2018-03-16] MEDS: GlipiZIDE 2.5 mg SR Tab PO SCH (09:07)
[2018-03-16] MEDS ORDERED: Digoxin 500 mcg/2ml (0.5 mg/2ml) Inj IVP SCH (10:15)
[2018-03-16] MEDS ORDERED: Digoxin 500 mcg/2ml (0.5 mg/2ml) Inj IVP ONE (16:00)
[2018-03-16 17:52] LABS: GRANULAR CAST 2 /lpf (0-1); SQUAMOUS EPITHIAL < 1 /hpf (0-5); URINE AMORPHOUS SEDIMENT RARE /ul (<OCC); URINE BACTERIA RARE (<OCC); URINE BILIRUBIN NEGATIVE (NEGATIVE); URINE BLOOD NEGATIVE (NEGATIVE); URINE CLARITY CLOUDY (Clear); URINE COLOR YELLOW (YELLOW); URINE GLUCOSE (UA) NEG (Normal); URINE LEUKOCYTE ESTERASE TRACE Leu/uL (Negative); URINE PROTEIN 30 mg/dL (NEGATIVE); URINE UROBILINOGEN 0.2-1.0 mg/dL (0.2-1.0)
[2018-03-16 17:52] LABS: SQUAMOUS EPITHIAL < 1 /hpf (0-5); URINE BACTERIA OCC (<OCC); URINE BILIRUBIN NEGATIVE (NEGATIVE); URINE BLOOD NEGATIVE (NEGATIVE); URINE CLARITY CLOUDY (Clear); URINE COLOR YELLOW (YELLOW); URINE GLUCOSE (UA) NEG (Normal); URINE LEUKOCYTE ESTERASE TRACE Leu/uL (Negative); URINE PROTEIN 30 mg/dL (NEGATIVE); URINE UROBILINOGEN 0.2-1.0 mg/dL (0.2-1.0)
[2018-03-16 17:55] LABS: CREATININE, RANDOM URINE 62.6 mg/dL
--- NOTE | 2018-03-16 21:30 | CP.PCM.PN ---
Subjective - Date & Time of Evaluation Date of Evaluation: 03/16/18 Time of Evaluation: 17:05 - Subjective Subjective: Seen and examined at the bed side. Denies chest pain or sob. A fib with RVR, and Currently on Digoxin X2 for rate control as the patient was Hypotension. Objective - Vital Signs/Intake and Output Vital Signs (last 24 hours): Temp Pulse Resp BP Pulse Ox 98.8 F 124 H 16 124/63 100 03/16/18 16:00 03/16/18 17:43 03/16/18 16:00 03/16/18 17:43 03/16/18 14:00 - Medications Medications: Current Medications Aspirin (Ecotrin) 81 mg PO DAILY [facility] Last Admin: 03/16/18 09:06 Dose: 81 mg Atorvastatin Calcium (Lipitor) 80 mg PO HS [facility] Last Admin: 03/16/18 21:04 Dose: 80 mg Enoxaparin Sodium (Lovenox) 70 mg SC DAILY [facility] PRN Reason: Protocol Last Admin: 03/16/18 09:07 Dose: 70 mg Glipizide (Glucotrol Xl) 2.5 mg PO DAILY [facility] Last Admin: 03/16/18 09:07 Dose: 2.5 mg Insulin Human Lispro (Humalog) 0 units SC [facility] PRN Reason: Protocol Last Admin: 03/16/18 16:51 Dose: Not Given Levalbuterol HCl (Xopenex) 0.63 mg INH RQ6 PRN PRN Reason: Shortness of Breath Levothyroxine Sodium (Synthroid) 75 mcg PO DAILY@0630 [facility] Last Admin: 03/16/18 06:53 Dose: 75 mcg Mupirocin (Bactroban Ointment) 1 applic TOP BID [facility] Last Admin: 03/16/18 16:53 Dose: 1 applic Sitagliptin Phosphate (Januvia) 25 mg PO DAILY [facility] Last Admin: 03/16/18 09:07 Dose: 25 mg - Labs Labs: 03/16/18 04:15 03/16/18 04:15 PT 12.8 Seconds (9.8-13.1) 03/15/18 00:14 INR 1.2 03/15/18 00:14 APTT 26.9 Seconds (25.6-37.1) 03/15/18 00:14 - Constitutional Appears: Well, No Acute Distress - Head Exam Head Exam: ATRAUMATIC, NORMAL INSPECTION, NORMOCEPHALIC - Eye Exam Eye Exam: EOMI, Normal appearance, PERRL Pupil Exam: NORMAL ACCOMODATION, PERRL - ENT Exam ENT Exam: Mucous Membranes Moist, Normal Exam - Neck Exam Neck Exam: Full ROM, Normal Inspection. absent: Lymphadenopathy - Respiratory Exam Respiratory Exam: Clear to Ausculation Bilateral, NORMAL BREATHING PATTERN - Cardiovascular Exam Cardiovascular Exam: Tachycardia, Irregular Rhythm, +S1, +S2, Murmur - GI/Abdominal Exam GI & Abdominal Exam: Soft, Normal Bowel Sounds. absent: Tenderness - Extremities Exam Extremities Exam: Full ROM, Normal Capillary Refill, Normal Inspection. absent : Joint Swelling, Pedal Edema - Back Exam Back Exam: NORMAL INSPECTION - Neurological Exam Neurological Exam: Abnormal Gait, Alert, Awake, CN II-XII Intact - Psychiatric Exam Psychiatric exam: Normal Affect, Normal Mood - Skin Skin Exam: Dry, Intact, Normal Color, Warm Assessment and Plan (1) Chest pain Assessment & Plan: ACS ruled out Continue to Monitor Status: Acute Priority: High (2) Hypotension Assessment and Plan: Resolved after IVF Bolus Continue Cautios Hydration Status: Acute (3) Acute kidney injury Assessment and Plan: Most likely Prerenal IVF Repeat BMP in am Nephro consult Status: Acute Priority: High (4) Atrial fibrillation Assessment and Plan: with RVR Hold Xeralto due to COREY Start Lovenox Therapeutic (Adjust to renal dose) OnDigoxin for rate control if HR Persistently above 120. Status: Acute Priority: High (5) Physical debility Assessment and Plan: Bed rest for now, and PT/OT when stable Status: Acute Priority: Medium (6) Poor appetite Assessment and Plan: Encourage to eat. Status: Acute
--- NOTE | 2018-03-16 22:01 | PN ---
Copied To: Tyrese Trent MD Attending MD: Tyrese Trent MD DATE: 03/16/2018 CRITICAL CARE PROGRESS NOTE LOCATION: The patient in ICU, bed 422. The patient is seen and evaluated at the bedside. SUBJECTIVE: The patient is an 87-year-old female with atrial fibrillation, hypertension, DVT, status post IVC filter, hypothyroidism, severe aortic stenosis, diastolic heart failure, admitted with generalized chest pain, radiating down her left arm, noted to be hypotensive in the ER. Blood pressure improved after hydration. Overnight, normotensive, afebrile, tachycardic, in atrial fibrillation. This morning, alert, awake, follows commands appropriate. REVIEW OF SYSTEM: No fever, chills, cough, or shortness of breath. PHYSICAL EXAMINATION: VITAL SIGNS: Temperature 98.8, heart rate 110 to 119 and irregular, blood pressure 124/63, mean arterial pressure 83, respiratory rate 16, saturation 100%, intake 720, output 720, weight 155 pounds. HEAD, EYES, EARS, NOSE, AND THROAT: Pupils are reactive. Conjunctivae pink. Sclerae white. NECK: Supple. Trachea center. CHEST: Bilateral breath sounds. Clear to auscultation. HEART: Rhythm regular. S1, S2 normal. ABDOMEN: Bowel sounds are present and soft. EXTREMITIES: No clubbing, cyanosis, or edema. NEURO: Nonfocal. LABORATORY DATA: WBC 3.4, hemoglobin 10.4, hematocrit 32.5, platelet count 152. PT 12.8, INR 1.2, PTT 26.9. SMA-7: Sodium 142, potassium 4.2, chloride of 110, CO2 is 23, blood urine nitrogen 22, creatinine 2, calcium 7.9. Microbiology: MRSA nasal smear negative. Blood culture, no growth. Chest x-ray, no acute infiltrate. IMPRESSION: Hypovolemic hypotension, improved. Acute kidney injury, improved renal function. Chest pain, resolved. History of aortic stenosis, atrial fibrillation with rapid ventricular response, initiated on digoxin. Follow the heart rate. Add home medications once the blood pressure is stable. Continue deep venous thrombosis and gastrointestinal prophylaxis.Underlying dementia.Discussed with family .Continue gentle hydration.Follow up with renal consult Tyrese Trent MD [facility] # [id number] MTDD
--- NOTE | 2018-03-16 22:53 | CP.PCM.PN ---
Subjective - Date & Time of Evaluation Date of Evaluation: 03/16/18 Time of Evaluation: 17:00 - Subjective Subjective: 87 yo F w/ pmh of htn, dm, CHF w/ diastolic dysfunction and severe aortic stenosis, aifb on xarelto, DVT s/p IVC filter, hypothyroidism, admitted with hypotension, afib w/ RVR and acute kidney injury; Decreased PO intake/appetite today; denies nausea/vomiting; again with RVR today ; Objective - Vital Signs/Intake and Output Vital Signs (last 24 hours): Temp Pulse Resp BP Pulse Ox 98.8 F 124 H 16 124/63 100 03/16/18 16:00 03/16/18 17:43 03/16/18 16:00 03/16/18 17:43 03/16/18 14:00 - Medications Medications: Current Medications Aspirin (Ecotrin) 81 mg PO DAILY [facility] Last Admin: 03/16/18 09:06 Dose: 81 mg Atorvastatin Calcium (Lipitor) 80 mg PO HS [facility] Last Admin: 03/16/18 21:04 Dose: 80 mg Enoxaparin Sodium (Lovenox) 70 mg SC DAILY [facility] PRN Reason: Protocol Last Admin: 03/16/18 09:07 Dose: 70 mg Glipizide (Glucotrol Xl) 2.5 mg PO DAILY [facility] Last Admin: 03/16/18 09:07 Dose: 2.5 mg Insulin Human Lispro (Humalog) 0 units SC [facility] PRN Reason: Protocol Last Admin: 03/16/18 16:51 Dose: Not Given Levalbuterol HCl (Xopenex) 0.63 mg INH RQ6 PRN PRN Reason: Shortness of Breath Levothyroxine Sodium (Synthroid) 75 mcg PO DAILY@0630 [facility] Last Admin: 03/16/18 06:53 Dose: 75 mcg Mupirocin (Bactroban Ointment) 1 applic TOP BID [facility] Last Admin: 03/16/18 16:53 Dose: 1 applic Sitagliptin Phosphate (Januvia) 25 mg PO DAILY [facility] Last Admin: 03/16/18 09:07 Dose: 25 mg - Labs Labs: 03/16/18 04:15 03/16/18 04:15 PT 12.8 Seconds (9.8-13.1) 03/15/18 00:14 INR 1.2 03/15/18 00:14 APTT 26.9 Seconds (25.6-37.1) 03/15/18 00:14 - Constitutional Appears: Non-toxic, No Acute Distress - Eye Exam Eye Exam: Normal appearance - Respiratory Exam Respiratory Exam: Clear to Ausculation Bilateral. absent: Respiratory Distress - Cardiovascular Exam Cardiovascular Exam: Irregular Rhythm, Murmur. absent: Gallop, Rubs - GI/Abdominal Exam GI & Abdominal Exam: Soft. absent: Distended - Exam Additional comments: suprapubic tenderness; - Extremities Exam Additional comments: b/l lower leg edema, mild on R, moderate on L; - Neurological Exam Neurological Exam: Alert, Awake - Psychiatric Exam Psychiatric exam: Normal Mood. absent: Agitated - Skin Skin Exam: Warm. absent: Cyanosis Assessment and Plan (1) Acute kidney injury Assessment & Plan: In the setting of hypotension, severe and afib w/ RVR; showing modest improvement with IVF consistent with pre-renal etiology; hypotension resolved but may have some degree of ATN (suggested by urine lytes); limited ability to give more IVF due to severe and persistent afib w/ RVR; -Optimize cardiac status with adequate rate control; -Can give trial of restarting gentle IVF w/ NS at 50 cc/hr; Status: Acute (2) Congestive heart failure Assessment & Plan: Diastolic dysfunction along with severe and complicated by afib w/ RVR; CXR clear with no definite vascular congestion; -recommend to avoid diuretics for now as patient may still have pre-renal component; -checking random digoxin level in am (especially with COREY); avoid hypokalemia as it will precipitate digoxin toxicity; -f/u with cardiology for further recs especially with severe ; Status: Chronic (3) Aortic stenosis Status: Acute (4) Hypotension Assessment & Plan: Currently normotensive off anti-htn agents (was on B-malia and ARB); f/u with cardio regarding restarting B-malia; recommend to start ARB at very low dose if needed; Status: Resolved
[2018-03-17] MEDS ORDERED: Metoprolol 1 mg/ml Inj IVP STA (05:02)
[2018-03-17 05:28] LABS: BASO # 0.1 K/uL (0.0-0.2); BASO % 2.9 % (0.0-2.0); EOS # 0.2 K/uL (0.0-0.7); EOS % 7.9 % (0.0-4.0); HEMOGLOBIN 9.8 g/dL (12.0-16.0); LYMPH # 0.9 K/uL (1.0-4.3); MEAN CELL VOLUME 84.6 fl (81.0-99.0); MEAN CORPUSCULAR HEMOGLOBIN 26.3 pg (27.0-31.0); MEAN CORPUSCULAR HGB CONC 31.1 g/dL (33.0-37.0); MEAN PLATELET VOLUME 8.9 fl (7.2-11.7); MONO # 0.4 K/uL (0.0-0.8); MONO % 13.1 % (0.0-10.0); NEUT # 1.2 K/uL (1.8-7.0); NEUT % 43.1 % (50.0-75.0); NRBC % 0.1 % (0.0-0.0); RBC 3.73 Mil/uL (3.80-5.20); RED CELL DISTRIBUTION WIDTH 19.3 % (11.5-14.5); WHITE BLOOD COUNT 2.8 K/uL (4.8-10.8)
[2018-03-17 05:47] LABS: ALB/GLOB RATIO 0.9 (1.0-2.1); ALBUMIN 2.8 g/dL (3.5-5.0); CALCIUM 8.2 mg/dL (8.4-10.2)
[2018-03-17] MEDS: Levothyroxine 75 MCG TAB PO SCH (06:17)
--- NOTE | 2018-03-17 08:24 | RAD ---
Date of service: 03/16/2018 PROCEDURE: CHEST RADIOGRAPH, 1 VIEW HISTORY: CHF COMPARISON: None available. FINDINGS: LUNGS: Clear. PLEURA: No pneumothorax or pleural fluid seen. CARDIOVASCULAR: Normal. OSSEOUS STRUCTURES: No significant abnormalities. VISUALIZED UPPER ABDOMEN: Normal. OTHER FINDINGS: None. IMPRESSION: No active disease.
[2018-03-17] MEDS: GlipiZIDE 2.5 mg SR Tab PO SCH (08:59)
[2018-03-17] MEDS ORDERED: Digoxin 500 mcg/2ml (0.5 mg/2ml) Inj IVP SCH (09:00)
[2018-03-17] MEDS: Insulin Lispro (humaLOG) 100 Units/ml Inj SC SCH ×4 (09:00→21:42)
[2018-03-17] MEDS ORDERED: Dextrose 5%/0.45% NS 1,000 ML IV SCH (09:00)
[2018-03-17] MEDS: Enoxaparin 80 mg Syringe SC SCH (09:00)
--- NOTE | 2018-03-17 15:05 | CP.PCM.CON ---
History of Present Illness - History of Present Illness History of Present Illness: Consultation for evaluation of severe HPI: 87 year old female with hx of severe , recently admitted to [facility] for CHF exacerbation treated medically and then transferred to [facility] where she was noted to have episode of chest pain and sent to ED. In the ED she was hypotensive and tacycardic and admitted to the ICU. As per son Arturo at the bedside she has very limited activity but can walk around the house. At baseline has NYHA-III dyspnea. Review of Systems - Review of Systems Systems not reviewed;Unavailable: Acuity of Condition - Constitutional Constitutional: As Per HPI - EENT Eyes: As Per HPI Ears: As Per HPI Nose/Mouth/Throat: As Per HPI - Breasts Breasts: As Per HPI - Cardiovascular Cardiovascular: As Per HPI - Respiratory Respiratory: As Per HPI - Gastrointestinal Gastrointestinal: As Per HPI - Genitourinary Genitourinary: As Per HPI - Reproductive: Female Reproductive:Female: As Per HPI - Menstruation Menstruation: As Per HPI - Musculoskeletal Musculoskeletal: As Per HPI - Integumentary Integumentary: As Per HPI - Neurological Neurological: As Per HPI - Psychiatric Psychiatric: As Per HPI - Endocrine Endocrine: As Per HPI - Hematologic/Lymphatic Hematologic: As Per HPI Past Patient History - Past Medical History & Family History Past Medical History?: Yes Past Family History: Reviewed and not pertinent - Past Social History Smoking Status: Never Smoked Alcohol: None Drugs: Denies - CARDIAC Hx Atrial Fibrillation: Yes Hx Congestive Heart Failure: Yes Hx Hypercholesterolemia: Yes Hx Hypertension: Yes - PULMONARY Hx Respiratory Disorders: No Hx Asthma: No - NEUROLOGICAL Hx Dementia: Yes - HEENT Hx HEENT Problems: No - RENAL Hx Chronic Kidney Disease: Yes - ENDOCRINE/METABOLIC Hx Hypothyroidism: Yes - HEMATOLOGICAL/ONCOLOGICAL Hx Human Immunodeficiency Virus (HIV): No - INTEGUMENTARY Hx Dermatological Problems: No - MUSCULOSKELETAL/RHEUMATOLOGICAL Hx Musculoskeletal Disorders: No Hx Falls: No - GASTROINTESTINAL Hx Gastrointestinal Disorders: Yes Hx Gastroesophageal Reflux: Yes - GENITOURINARY/GYNECOLOGICAL Hx Genitourinary Disorders: No - PSYCHIATRIC Hx Psychophysiologic Disorder: Yes - SURGICAL HISTORY Hx Surgeries: No - ANESTHESIA Hx Anesthesia: No Hx Anesthesia Reactions: No Hx Malignant Hyperthermia: No Has any member of the family had a problem w/ anesthesia?: No Meds Allergies/Adverse Reactions: Allergies Allergy/AdvReac Type Severity Reaction Status Date / Time No Known Allergies Allergy Verified 02/26/18 15:36 - Medications Medications: Current Medications Aspirin (Ecotrin) 81 mg PO DAILY [facility] Last Admin: 03/17/18 08:59 Dose: 81 mg Atorvastatin Calcium (Lipitor) 80 mg PO HS [facility] Last Admin: 03/16/18 21:04 Dose: 80 mg Digoxin (Digoxin) 0.125 mg PO DAILY [facility] Digoxin (Lanoxin) 0.125 mg IVP DAILY [facility] Enoxaparin Sodium (Lovenox) 70 mg SC DAILY [facility] PRN Reason: Protocol Last Admin: 03/17/18 09:00 Dose: 70 mg Glipizide (Glucotrol Xl) 2.5 mg PO DAILY [facility] Last Admin: 03/17/18 08:59 Dose: 2.5 mg Dextrose/Sodium Chloride (Dextrose 5%/0.45% Ns 1000 Ml) 1,000 mls @ 42 mls/hr IV .[id number] [facility] Stop: 03/18/18 08:49 Last Admin: 03/17/18 09:36 Dose: 42 mls/hr Insulin Human Lispro (Humalog) 0 units SC [facility] PRN Reason: Protocol Last Admin: 03/17/18 12:39 Dose: Not Given Levalbuterol HCl (Xopenex) 0.63 mg INH RQ6 PRN PRN Reason: Shortness of Breath Levothyroxine Sodium (Synthroid) 75 mcg PO DAILY@0630 [facility] Last Admin: 03/17/18 06:17 Dose: 75 mcg Mirtazapine (Remeron) 7.5 mg PO [facility] Mupirocin (Bactroban Ointment) 1 applic TOP BID [facility] Last Admin: 03/17/18 08:58 Dose: 1 applic Sitagliptin Phosphate (Januvia) 25 mg PO DAILY [facility] Last Admin: 03/17/18 09:00 Dose: 25 mg Physical Exam - Constitutional Appears: In Acute Distress - Head Exam Head Exam: ATRAUMATIC, NORMAL INSPECTION, NORMOCEPHALIC - Eye Exam Eye Exam: EOMI, Normal appearance, PERRL Pupil Exam: NORMAL ACCOMODATION, PERRL - ENT Exam ENT Exam: Mucous Membranes Moist, Normal Exam - Neck Exam Neck exam: Positive for: Normal Inspection - Respiratory Exam Respiratory Exam: Clear to Auscultation Bilateral, Rales, NORMAL BREATHING PATTERN - Cardiovascular Exam Cardiovascular Exam: Irregular Rhythm, +S1, +S2, Systolic Murmur - GI/Abdominal Exam GI & Abdominal Exam: Normal Bowel Sounds, Soft. absent: Tenderness - Extremities Exam Extremities exam: Positive for: normal inspection - Back Exam Back exam: NORMAL INSPECTION - Neurological Exam Neurological exam: Alert, CN II-XII Intact, Normal Gait, Oriented x3, Reflexes Normal - Skin Skin Exam: Dry, Intact, Normal Color, Warm Results - Vital Signs Recent Vital Signs: Last Vital Signs Temp 98.4 F 03/17/18 12:00 Pulse 84 03/17/18 10:00 Resp 19 03/17/18 10:00 BP 136/64 03/17/18 10:00 Pulse Ox 98 03/17/18 10:00 - Labs Result Diagrams: 03/17/18 04:35 03/17/18 04:35 Labs: Laboratory Results - last 24 hr 03/15/18 03/15/18 03/15/18 00:06 17:20 17:20 WBC RBC Hgb Hct MCV MCH MCHC RDW Plt Count MPV Neut % (Auto) Lymph % (Auto) Wilkinson % (Auto) Eos % (Auto) Baso % (Auto) Neut # (Auto) Lymph # (Auto) [place]kinson # (Auto) Eos # (Auto) Baso # (Auto) Sodium Potassium Chloride Carbon Dioxide Anion Gap BUN Creatinine Est GFR ( Amer) Est GFR (Non-Af Amer) POC Glucose (mg/dL) Random Glucose Calcium Phosphorus Magnesium Total Bilirubin AST ALT Alkaline Phosphatase Total Protein Albumin Globulin Albumin/Globulin Ratio Urine Color Yellow Yellow Urine Clarity Cloudy Cloudy Urine pH 5.0 6.0 Ur Specific [place] 1.010 1.011 Urine Protein 30 30 Urine Glucose (UA) Neg Neg Urine Ketones Negative Negative Urine Blood Negative Negative Urine Nitrate Negative Negative Urine Bilirubin Negative Negative Urine Urobilinogen 0.2-1.0 0.2-1.0 Ur Leukocyte Esterase Trace Trace Urine RBC (Auto) 2 4 H Urine Microscopic WBC 10 H 17 H Ur Squamous Epith Cells < 1 < 1 Amorphous Sediment Rare H Urine Bacteria Occ H Rare Granular Casts (Auto) 2 Ur Random Creatinine 62.6 Ur Random Sodium 59 03/16/18 03/17/18 03/17/18 16:48 04:35 04:35 WBC 2.8 L RBC 3.73 L Hgb 9.8 L Hct 31.5 L MCV 84.6 MCH 26.3 L MCHC 31.1 L RDW 19.3 H Plt Count 158 MPV 8.9 Neut % (Auto) 43.1 L Lymph % (Auto) 33.0 Wilkinson % (Auto) 13.1 H Eos % (Auto) 7.9 H Baso % (Auto) 2.9 H Neut # (Auto) 1.2 L Lymph # (Auto) 0.9 L [place] # (Auto) 0.4 Eos # (Auto) 0.2 Baso # (Auto) 0.1 Sodium 142 Potassium 3.7 Chloride 112 H Carbon Dioxide 23 Anion Gap 11 BUN 13 Creatinine 1.6 H Est GFR ( Amer) 37 Est GFR (Non-Af Amer) 30 POC Glucose (mg/dL) 79 Random Glucose 64 L Calcium 8.2 L Phosphorus 2.3 L Magnesium 1.6 Total Bilirubin 0.3 AST 71 H ALT 42 Alkaline Phosphatase 76 Total Protein 5.7 L Albumin 2.8 L Globulin 3.0 Albumin/Globulin Ratio 0.9 L Urine Color Urine Clarity Urine pH Ur Specific [place] Urine Protein Urine Glucose (UA) Urine Ketones Urine Blood Urine Nitrate Urine Bilirubin Urine Urobilinogen Ur Leukocyte Esterase Urine RBC (Auto) Urine Microscopic WBC Ur Squamous Epith Cells Amorphous Sediment Urine Bacteria Granular Casts (Auto) Ur Random Creatinine Ur Random Sodium Assessment & Plan (1) Acute kidney injury Assessment and Plan: Cr 1.6 from 2.9 gentle hydration Status: Acute Priority: High (2) Aortic stenosis Assessment and Plan: need w/u discussed with patient the possibility of TAVR w/u Status: Acute (3) Chest pain Assessment and Plan: etiology ? demand further w/u based on clinical improvement and course Status: Acute Priority: High (4) Atrial fibrillation Status: Acute Priority: High (5) Chronic congestive heart failure Status: Acute (6) Physical debility Status: Acute Priority: Medium (7) History of DVT (deep vein thrombosis) Status: Chronic
[2018-03-17] MEDS ORDERED: Digoxin 500 mcg/2ml (0.5 mg/2ml) Inj ONE (16:08)
[2018-03-17] MEDS: Digoxin 125 mcg (0.125 mg) Tab PO SCH (16:23)
[2018-03-17 16:32] VITALS: PULSE 87
--- NOTE | 2018-03-17 22:27 | CP.PCM.PN ---
Subjective - Date & Time of Evaluation Date of Evaluation: 03/17/18 Time of Evaluation: 19:30 - Subjective Subjective: Patient still with decreased PO intake; got agitated yesterday when trying to straight cath; otherwise, denies sob, cp or palpitations; Objective - Vital Signs/Intake and Output Vital Signs (last 24 hours): Temp Pulse Resp BP Pulse Ox 98.3 F 101 H 20 127/79 100 03/17/18 20:00 03/17/18 19:29 03/17/18 19:29 03/17/18 19:29 03/17/18 19:29 Intake and Output: 03/17/18 03/18/18 18:59 06:59 Intake Total 594 42 Balance 594 42 - Medications Medications: Current Medications Aspirin (Ecotrin) 81 mg PO DAILY [facility] Last Admin: 03/17/18 08:59 Dose: 81 mg Atorvastatin Calcium (Lipitor) 80 mg PO [facility] Last Admin: 03/17/18 21:41 Dose: 80 mg Digoxin (Digoxin) 0.125 mg PO DAILY [facility] Last Admin: 03/17/18 16:23 Dose: 0.125 mg Enoxaparin Sodium (Lovenox) 70 mg SC DAILY [facility] PRN Reason: Protocol Last Admin: 03/17/18 09:00 Dose: 70 mg Dextrose/Sodium Chloride (Dextrose 5%/0.45% Ns 1000 Ml) 1,000 mls @ 42 mls/hr IV .[id number] [facility] Stop: 03/18/18 08:49 Last Admin: 03/17/18 09:36 Dose: 42 mls/hr Insulin Human Lispro (Humalog) [address] [facility] PRN Reason: Protocol Last Admin: 03/17/18 21:42 Dose: Not Given Levalbuterol HCl (Xopenex) 0.63 mg INH RQ6 PRN PRN Reason: Shortness of Breath Levothyroxine Sodium (Synthroid) 75 mcg PO DAILY@0630 [facility] Last Admin: 03/17/18 06:17 Dose: 75 mcg Mirtazapine (Remeron) 7.5 mg PO [facility] Last Admin: 03/17/18 21:41 Dose: 7.5 mg Mupirocin (Bactroban Ointment) 1 applic TOP BID [facility] Last Admin: 03/17/18 16:13 Dose: 1 applic Sitagliptin Phosphate (Januvia) 25 mg PO DAILY [facility] Last Admin: 03/17/18 09:00 Dose: 25 mg - Labs Labs: 03/17/18 04:35 03/17/18 04:35 PT 12.8 Seconds (9.8-13.1) 03/15/18 00:14 INR 1.2 03/15/18 00:14 APTT 26.9 Seconds (25.6-37.1) 03/15/18 00:14 - Constitutional Appears: Non-toxic, No Acute Distress - Eye Exam Eye Exam: absent: Normal appearance - Respiratory Exam Respiratory Exam: Clear to Ausculation Bilateral. absent: Respiratory Distress - Cardiovascular Exam Cardiovascular Exam: Irregular Rhythm, Murmur. absent: Gallop - GI/Abdominal Exam GI & Abdominal Exam: absent: Distended, Soft, Tenderness - Exam Additional comments: some suprapubic tenderness; - Extremities Exam Additional comments: mild b/l lower leg edema L>R; - Neurological Exam Neurological Exam: Alert, Awake - Psychiatric Exam Psychiatric exam: Normal Mood. absent: Agitated - Skin Skin Exam: Warm. absent: Cyanosis Assessment and Plan (1) Acute kidney injury Assessment & Plan: COREY in the setting of CHF w/ diastolic dysfunction and severe along w/ afib w / RVR; renal function improved with IVF and rate control; -agree with continue gentle IVF; has tenuous balance between volume overload and depletion; Status: Acute (2) Congestive heart failure Assessment & Plan: Lungs clear; can tolerate gentle IVF: Status: Chronic (3) Aortic stenosis Assessment & Plan: Severe makes her susceptible to COREY; f/u with cardiology for nursing home plan; Status: Acute (4) Hypotension Status: Resolved
--- NOTE | 2018-03-17 23:52 | CP.PCM.PN ---
Subjective - Date & Time of Evaluation Date of Evaluation: 03/17/18 Time of Evaluation: 22:25 - Subjective Subjective: Seen and examined at the bed side. sons at the bed side. Poor Appetite. Continue to have A fib with RVR. Denies chest pain or SOB. Objective - Vital Signs/Intake and Output Vital Signs (last 24 hours): Temp Pulse Resp BP Pulse Ox 98.3 F 150 H 12 121/81 99 03/17/18 20:00 03/17/18 23:41 03/17/18 22:00 03/17/18 23:41 03/17/18 22:00 Intake and Output: 03/17/18 03/18/18 18:59 06:59 Intake Total 594 42 Balance 594 42 - Medications Medications: Current Medications Aspirin (Ecotrin) 81 mg PO DAILY [facility] Last Admin: 03/17/18 08:59 Dose: 81 mg Atorvastatin Calcium (Lipitor) 80 mg PO [facility] Last Admin: 03/17/18 21:41 Dose: 80 mg Digoxin (Digoxin) 0.125 mg PO DAILY [facility] Last Admin: 03/17/18 16:23 Dose: 0.125 mg Enoxaparin Sodium (Lovenox) 70 mg SC DAILY [facility] PRN Reason: Protocol Last Admin: 03/17/18 09:00 Dose: 70 mg Dextrose/Sodium Chloride (Dextrose 5%/0.45% Ns 1000 Ml) 1,000 mls @ 42 mls/hr IV .[id number] [facility] Stop: 03/18/18 08:49 Last Admin: 03/17/18 09:36 Dose: 42 mls/hr Insulin Human Lispro (Humalog) 0 units SC [facility] PRN Reason: Protocol Last Admin: 03/17/18 21:42 Dose: Not Given Levalbuterol HCl (Xopenex) 0.63 mg INH RQ6 PRN PRN Reason: Shortness of Breath Levothyroxine Sodium (Synthroid) 75 mcg PO DAILY@0630 [facility] Last Admin: 03/17/18 06:17 Dose: 75 mcg Metoprolol Tartrate (Lopressor) 50 mg PO Q12 [facility] Last Admin: 03/17/18 23:41 Dose: 50 mg Mirtazapine (Remeron) 7.5 mg PO [facility] Last Admin: 03/17/18 21:41 Dose: 7.5 mg Mupirocin (Bactroban Ointment) 1 applic TOP BID [facility] Last Admin: 03/17/18 16:13 Dose: 1 applic Sitagliptin Phosphate (Januvia) 25 mg PO DAILY [facility] Last Admin: 03/17/18 09:00 Dose: 25 mg - Labs Labs: 03/17/18 04:35 03/17/18 04:35 PT 12.8 Seconds (9.8-13.1) 03/15/18 00:14 INR 1.2 03/15/18 00:14 APTT 26.9 Seconds (25.6-37.1) 03/15/18 00:14 - Constitutional Appears: No Acute Distress - Head Exam Head Exam: ATRAUMATIC, NORMAL INSPECTION, NORMOCEPHALIC - Eye Exam Eye Exam: Normal appearance Pupil Exam: NORMAL ACCOMODATION, PERRL - ENT Exam ENT Exam: Mucous Membranes Moist, Normal Exam - Neck Exam Neck Exam: Full ROM, Normal Inspection. absent: Lymphadenopathy - Respiratory Exam Respiratory Exam: Clear to Ausculation Bilateral, NORMAL BREATHING PATTERN - Cardiovascular Exam Cardiovascular Exam: Tachycardia, Irregular Rhythm, +S1, +S2, Murmur - GI/Abdominal Exam GI & Abdominal Exam: Soft, Normal Bowel Sounds. absent: Tenderness - Extremities Exam Extremities Exam: Full ROM, Normal Capillary Refill, Normal Inspection. absent : Joint Swelling, Pedal Edema - Back Exam Back Exam: Full ROM, NORMAL INSPECTION - Neurological Exam Neurological Exam: Abnormal Gait, Alert, Awake, CN II-XII Intact - Psychiatric Exam Psychiatric exam: Normal Affect, Normal Mood - Skin Skin Exam: Dry, Intact, Normal Color, Warm Assessment and Plan (1) Chest pain Assessment & Plan: ACS ruled out Continue to Monitor Status: Acute Priority: High (2) Hypotension, Resolved Assessment and Plan: Resolved after IVF Bolus Continue Cautios Hydration Status: Acute (3) Acute kidney injury- Improving Assessment and Plan: Most likely Prerenal IVF Repeat BMP in am Nephro consult Status: Acute Priority: High (4) Atrial fibrillation, Severe Aortic Stenosis Assessment and Plan: with RVR Cardiology Consult Hold Xeralto due to COREY Start Lovenox Therapeutic(Adjust to renal dose) Digoxin 0.125mg Daily Status: Acute Priority: High (5) Physical debility Assessment and Plan: Bed rest for now, and PT/OT when stable Status: Acute Priority: Medium (6) Poor appetite Assessment and Plan: Encourage to eat. Status: Acute
--- NOTE | 2018-03-18 03:44 | PN ---
Copied To: Tyrese Trent MD Attending MD: Tyrese Trent MD DATE: 03/17/2018 CRITICAL CARE PROGRESS NOTE LOCATION: The patient in ICU, bed 422. TIME SPENT: 35 minutes. SUBJECTIVE: The patient is seen and evaluated at the bedside, interviewed with through a inspecting machine adjuster. Past medical, surgical, social, and family history reviewed. An 87-year-old female with history of severe aortic stenosis, diastolic heart failure, chronic atrial fibrillation, status post inferior vena cava filter, admitted from detention with episode of chest pain, noted to be hypotensive and tachycardic in the ER, given IV fluids and beta blockers held, improved. Remains normotensive. Overnight tachycardia, given IV metoprolol, rate controlled. This morning, alert and awake but reduced urine output. Bladder scan noted about 190 mL in the bladder. The patient was encouraged to pee but with limited amount. Denies shortness of breath, chest pain, or palpitation. Reduced appetite with poor p.o. intake. PHYSICAL EXAMINATION: VITAL SIGNS: Temperature 99, heart rate 96 to 104, blood pressure 148/88, mean arterial pressure of 108, oxygen saturation 99% on room air. Intake 720, output not documented. Weight 155 pounds. EXAMINATION OF HEAD, EYES, EARS, NOSE, AND THROAT: Pupils are reactive. Conjunctivae pink. Sclerae are white. NECK: Supple. Trachea is central. CHEST: Bilateral breath sounds. Clear to auscultation. HEART: Rhythm irregular. Soft systolic murmur. ABDOMEN: Bowel sounds present. Soft. EXTREMITIES: No clubbing, cyanosis. Trace edema. NEUROLOGIC EXAMINATION: No cranial nerve deficit. No motor deficit. Sensory impairment cannot be tested. Reflexes 2+. Plantar downgoing. LABORATORY DATA: WBC 2.8, hemoglobin 9.8, hematocrit 31.5, platelet count of 158, neutrophils 43, lymphocytes 33, monocytes 13. PT 12.8, INR 1.2, PTT 26.9. SMA-7: Sodium 142, potassium 3.7, chloride of 112, CO2 of 23, blood urea nitrogen 13, creatinine 1.6, random glucose 64, calcium 8.2, phosphorus 2.3, magnesium 1.6, total bilirubin 0.3, AST 71, ALT 42, alkaline phosphatase 76, troponin 0.03, total protein 5.7, albumin 2.8. Urinalysis negative. Microbiology, nasal smear MRSA negative. Blood culture no growth reported. Chest x-ray on 03/16/2018, no active infiltrate noted. CURRENT MEDICATIONS: Ecotrin 81 mg daily, Lipitor 80 mg daily, D5 half normal at 42 mL per hour, digoxin 0.125 mg p.o. daily, Lovenox 70 mg subcu daily, Glucotrol XL 2.5 mg p.o. daily, Humalog based on Accu-Chek, Xopenex 0.63 mg INH every 6 hours, levothyroxine 75 mcg daily, Remeron 7.5 mg p.o. at bedtime, Bactroban one application topically twice daily, Januvia 25 mg p.o. daily. IMPRESSION: 1. Neurologic: Alert and awake but slow to respond, suspect early dementia. Follow up B12, folate, and folic acid. 2. Cardiac: History of severe aortic stenosis, atrial fibrillation with rapid ventricular response, rate controlled on rate controlling agents, on digoxin, follow digoxin level. 3. Pulmonary: No pleural effusion. Pulmonary vascular congestion noted. 4. Gastrointestinal: Reduced p.o. intake. Increase p.o. intake. Continue IV hydration until intake is improved. 5. Renal: Acute on chronic renal insufficiency. Continue IV hydration. Closely monitor for pulmonary vascular congestion. 6. Endocrine: Hypothyroidism, on levothyroxine. Diabetes mellitus type 2, on Accu-Chek with regular insulin coverage, sitagliptin. Discontinue Glucotrol given high risk for hypoglycemia in this elderly patient with poor p.o. intake. Continue deep venous thrombosis and gastrointestinal prophylaxis. Tyrese Trent MD
[2018-03-18 05:41] LABS: BASO % 1.4 % (0.0-2.0); EOS # 0.4 K/uL (0.0-0.7); EOS % 10.5 % (0.0-4.0); HEMOGLOBIN 10.1 g/dL (12.0-16.0); LYMPH % 28.2 % (20.0-40.0); MEAN CELL VOLUME 85.2 fl (81.0-99.0); MEAN CORPUSCULAR HEMOGLOBIN 26.6 pg (27.0-31.0); MEAN CORPUSCULAR HGB CONC 31.2 g/dL (33.0-37.0); MEAN PLATELET VOLUME 8.8 fl (7.2-11.7); MONO # 0.5 K/uL (0.0-0.8); MONO % 13.5 % (0.0-10.0); NEUT # 1.6 K/uL (1.8-7.0); NEUT % 46.4 % (50.0-75.0); NRBC % 0.1 % (0.0-0.0); RBC 3.8 Mil/uL (3.80-5.20); RED CELL DISTRIBUTION WIDTH 19.3 % (11.5-14.5); WHITE BLOOD COUNT 3.5 K/uL (4.8-10.8)
[2018-03-18] MEDS: Levothyroxine 75 MCG TAB PO SCH (06:03)
[2018-03-18] MEDS ORDERED: Dextrose 5%/0.9% NS 1,000 ML IV SCH (07:45)
--- NOTE | 2018-03-18 07:52 | CP.CCUPN ---
CCU Subjective - Physician Review Events Since Last Encounter (Free Text): 03/18/18 12:42 The patient was Seen/interviewed and examined by me at the bedside during ICU round, Medical records reviewed and Management issues were discussed and formulated with the house staff. Events reviewed Awake, Calm, confused, does not follows commands Comfortable, NAD Poor appetite, on supplement Denies any chest pain, SOB or Palpitations Afebrile, A-Fib on the monitor, HR better controlled Last 24H I&O 1100/175 This morning labs revealed No Leucocytosis, H/H stable. Improved renal function BUN/Cr down to 22/2.013/1.6 CCU Objective - Vital Signs / Intake & Output Vital Signs (Last 4 hours): Vital Signs Temp Pulse Resp BP Pulse Ox 03/18/18 06:00 65 22 123/74 99 03/18/18 04:00 98 F 73 18 119/79 98 Intake and Output (Last 8hrs): Intake & Output 03/17/18 03/18/18 03/18/18 22:59 06:59 14:59 Intake Total 770 336 Output Total 175 Balance 770 161 Intake: IV 630 336 Oral 140 Output: Urine 175 Urine, Voided 175 Other: # Bowel Movements 0 - Physical Exam Head: Positive for: Atraumatic, Normocephalic Pupils: Positive for: PERRL. Negative for: Sluggish, Non-Reactive, Pinpoint Extroacular Muscles: Positive for: EOMI Conjunctiva: Positive for: Normal. Negative for: Injected, Icteric Mouth: Positive for: Moist Mucous Membranes Nose (Internal): Positive for: Normal Inspection Neck: Positive for: Normal Range of Motion, Trachea Midline. Negative for: Meningeal Signs, MIDLINE TENDERNESS, Paraspinal Tenderness, JVD, Lymphadenopathy , Bruit, Other Respiratory/Chest: Positive for: Clear to Auscultation, Good Air Exchange. Negative for: Respiratory Distress, Accessory Muscle Use, Wheezes, Rales, Rhonchi Cardiovascular: Positive for: Normal S1, S2, Irregular Rhythm, Peripheal Pulses Present. Negative for: Regular Rate and Rhythm, Murmurs Abdomen: Positive for: Normal Bowel Sounds. Negative for: Tenderness, Distention Skin: Positive for: Other (left foot trace edema and erythema noted) Psychiatric: Positive for: Alert. Negative for: Oriented x 3 - Medications Active Medications: Active Medications Generic Name Dose Route Start Last Admin Trade Name Freq PRN Reason Stop Dose Admin Acetaminophen 650 mg 03/18/18 04:00 Tylenol 325mg Tab PO Q6 PRN Other Aspirin 81 mg 03/15/18 09:00 03/17/18 08:59 Ecotrin PO 81 mg DAILY [facility] Administration Atorvastatin Calcium 80 mg 03/15/18 22:00 03/17/18 21:41 Lipitor PO 80 mg HS [facility] Administration Digoxin 0.125 mg 03/17/18 17:00 03/17/18 16:23 Digoxin PO 0.125 mg DAILY [facility] Administration Enoxaparin Sodium 70 mg 03/16/18 09:00 03/17/18 09:00 Lovenox SC 70 mg DAILY [facility] Administration Protocol Dextrose/Sodium Chloride 1,000 mls @ 40 mls/hr 03/18/18 07:45 Dextrose 5%/0.9% Ns 1000 Ml IV 03/19/18 07:37 .Q24H [facility] Insulin Human Lispro 0 units 03/15/18 07:30 03/17/18 21:42 Humalog SC Not Given ACHS [facility] Protocol Levalbuterol HCl 0.63 mg 03/15/18 01:10 Xopenex INH RQ6 PRN Shortness of Breath Levothyroxine Sodium 75 mcg 03/15/18 06:30 03/18/18 06:03 Synthroid PO 75 mcg DAILY@0630 [facility] Administration Metoprolol Tartrate 50 mg 03/17/18 23:45 03/17/18 23:41 Lopressor PO 50 mg Q12 [facility] Administration Mirtazapine 7.5 mg 03/17/18 22:00 03/17/18 21:41 Remeron PO 7.5 mg HS [facility] Administration Mupirocin 1 applic 03/16/18 17:00 03/17/18 16:13 Bactroban Ointment TOP 1 applic BID [facility] Administration Sitagliptin Phosphate 25 mg 03/16/18 09:00 03/17/18 09:00 Januvia PO 25 mg DAILY [facility] Administration - Patient Studies Lab Studies: Microbiology Studies 03/15/18 00:20 Blood Culture - Preliminary Blood NO GROWTH AFTER 3 DAYS 03/14/18 00:05 Blood Culture - Preliminary Blood NO GROWTH AFTER 48 HOURS Lab Studies 03/18/18 03/17/18 Range/Units 04:30 14:30 WBC 3.5 L (4.8-10.8) K/uL RBC 3.80 (3.80-5.20) Mil/uL Hgb 10.1 L (12.0-16.0) g/dL Hct 32.3 L (34.0-47.0) % MCV 85.2 (81.0-99.0) fl MCH 26.6 L (27.0-31.0) pg MCHC 31.2 L (33.0-37.0) g/dL RDW 19.3 H (11.5-14.5) % Plt Count 158 (130-400) K/uL MPV 8.8 (7.2-11.7) fl Neut % (Auto) 46.4 L (50.0-75.0) % Lymph % (Auto) 28.2 (20.0-40.0) % [place] % (Auto) 13.5 H (0.0-10.0) % Eos % (Auto) 10.5 H (0.0-4.0) % Baso % (Auto) 1.4 (0.0-2.0) % Neut # (Auto) 1.6 L (1.8-7.0) K/uL Lymph # (Auto) 1.0 (1.0-4.3) K/uL [place] # (Auto) 0.5 (0.0-0.8) K/uL Eos # (Auto) 0.4 (0.0-0.7) K/uL Baso # (Auto) 0.0 (0.0-0.2) K/uL Digoxin 0.9 (0.8-2.0) ng/mL Laboratory Results - last 24 hr 03/17/18 03/18/18 14:30 04:30 WBC 3.5 L RBC 3.80 Hgb 10.1 L Hct 32.3 L MCV 85.2 MCH 26.6 L MCHC 31.2 L RDW 19.3 H Plt Count 158 MPV 8.8 Neut % (Auto) 46.4 L Lymph % (Auto) 28.2 [place] % (Auto) 13.5 H Eos % (Auto) 10.5 H Baso % (Auto) 1.4 Neut # (Auto) 1.6 L Lymph # (Auto) 1.0 [place] # (Auto) 0.5 Eos # (Auto) 0.4 Baso # (Auto) 0.0 Digoxin 0.9 EKG/Cardiology Studies: Cardiology / EKG Studies 03/18/18 EKG [ELECTROCARDIOGRAM] Stat Comment: Mode Of Transportation: PORTABLE Reason For Exam: left shoulder pain Does Patient Have a Pacemaker?: No Fingerstick Blood Sugar Results: 110 Critical Care Progress Note - Extremities/Vascular Does the Patient have a Central Venous Catheter?: No Does the Patient need a Central Venous Catheter?: No Does the Patient have a Conn Catheter?: No Does the Patient need a Conn Catheter?: No - Nutrition Nutrition: Nutrition Category Date Time Status Dysphagia/Modified Consistency Diet [DIET] Diets 03/15/18 Dinner Active Assessment/Plan (1) Acute kidney injury Current Visit: Yes Status: Acute Priority: High Comment: This morning labs revealed Improved renal function BUN/Cr down to 22/2.0-->13/ 1.6 Continue hydration and hemodynamic support (2) Atrial fibrillation Current Visit: Yes Status: Chronic Priority: High Comment: HR better controlled Change Metoprolol Tartrate (Lopressor) 50 mg PO Q12 to 25 mg PO Q8 Enoxaparin Sodium (Lovenox) 70 mg SC DAILY (3) Hypotension Current Visit: Yes Status: Acute Priority: Medium (4) Chronic congestive heart failure Current Visit: Yes Status: Acute Priority: Medium
[2018-03-18] MEDS: Insulin Lispro (humaLOG) 100 Units/ml Inj SC SCH ×4 (07:55→22:05)
[2018-03-18] MEDS: Enoxaparin 80 mg Syringe SC SCH ×2 (08:32→10:59)
--- NOTE | 2018-03-18 09:01 | CARD ---
APPROVED REPORT Date of service: 03/18/2018 EKG Measurement Heart [id number] <Conclusion> Atrial fibrillation with premature ventricular complexes Possible Inferior infarct, age undetermined poor R wave progression NST & T wave abnormality Abnormal ECG
[2018-03-18 14:57] LABS: ALBUMIN 3.1 g/dL (3.5-5.0); CALCIUM 8.1 mg/dL (8.4-10.2)
[2018-03-18] MEDS: Digoxin 125 mcg (0.125 mg) Tab PO SCH (16:29)
--- NOTE | 2018-03-18 18:09 | CP.PCM.PN ---
Subjective - Date & Time of Evaluation Date of Evaluation: 03/18/18 Time of Evaluation: 18:06 - Subjective Subjective: BB on hold 2' to low BP on digoxin for afib Cr improving Objective - Vital Signs/Intake and Output Vital Signs (last 24 hours): Temp Pulse Resp BP Pulse Ox 98.4 F 82 15 97/44 L 98 03/18/18 16:00 03/18/18 17:08 03/18/18 16:00 03/18/18 17:08 03/18/18 16:00 Intake and Output: 03/18/18 03/18/18 06:59 18:59 Intake Total 512 480 Output Total 175 625 Balance 337 -145 - Medications Medications: Current Medications Acetaminophen (Tylenol 325mg Tab) 650 mg PO Q6 PRN PRN Reason: Other Aspirin (Ecotrin) 81 mg PO DAILY [facility] Last Admin: 03/18/18 08:32 Dose: 81 mg Atorvastatin Calcium (Lipitor) 80 mg PO HS [facility] Last Admin: 03/17/18 21:41 Dose: 80 mg Digoxin (Digoxin) 0.125 mg PO DAILY [facility] Last Admin: 03/18/18 16:29 Dose: Not Given Enoxaparin Sodium (Lovenox) 70 mg SC DAILY [facility] PRN Reason: Protocol Dextrose/Sodium Chloride (Dextrose 5%/0.9% Ns 1000 Ml) 1,000 mls @ 40 mls/hr IV .Q24H [facility] Stop: 03/19/18 07:37 Insulin Human Lispro (Humalog) 0 units SC ACHS [facility] PRN Reason: Protocol Last Admin: 03/18/18 16:17 Dose: Not Given Levalbuterol HCl (Xopenex) 0.63 mg INH RQ6 PRN PRN Reason: Shortness of Breath Levothyroxine Sodium (Synthroid) 75 mcg PO DAILY@0630 [facility] Last Admin: 03/18/18 06:03 Dose: 75 mcg Metoprolol Tartrate (Lopressor) 25 mg PO Q8 [facility] Last Admin: 03/18/18 17:08 Dose: Not Given Mirtazapine (Remeron) 7.5 mg PO HS [facility] Last Admin: 03/17/18 21:41 Dose: 7.5 mg Mupirocin (Bactroban Ointment) 1 applic TOP BID [facility] Last Admin: 03/18/18 17:04 Dose: 1 applic Sitagliptin Phosphate (Januvia) 25 mg PO DAILY [facility] Last Admin: 03/18/18 08:32 Dose: 25 mg - Labs Labs: 03/18/18 04:30 03/18/18 14:41 PT 12.8 Seconds (9.8-13.1) 03/15/18 00:14 INR 1.2 03/15/18 00:14 APTT 26.9 Seconds (25.6-37.1) 03/15/18 00:14 - Constitutional Appears: Well - Head Exam Head Exam: ATRAUMATIC, NORMAL INSPECTION, NORMOCEPHALIC - Eye Exam Eye Exam: EOMI, Normal appearance, PERRL Pupil Exam: NORMAL ACCOMODATION, PERRL - ENT Exam ENT Exam: Mucous Membranes Moist, Normal Exam - Neck Exam Neck Exam: Full ROM, Normal Inspection. absent: Lymphadenopathy - Respiratory Exam Respiratory Exam: Clear to Ausculation Bilateral, Rales, NORMAL BREATHING PATTERN - Cardiovascular Exam Cardiovascular Exam: Irregular Rhythm, +S1, +S2, Murmur - GI/Abdominal Exam GI & Abdominal Exam: Soft, Normal Bowel Sounds. absent: Tenderness - Extremities Exam Extremities Exam: Full ROM, Normal Capillary Refill, Normal Inspection. absent : Joint Swelling, Pedal Edema - Back Exam Back Exam: NORMAL INSPECTION - Neurological Exam Neurological Exam: Alert, Awake, CN II-XII Intact, Oriented x3 - Psychiatric Exam Psychiatric exam: Normal Affect, Normal Mood - Skin Skin Exam: Dry, Intact, Normal Color, Warm Assessment and Plan (1) Acute kidney injury Assessment & Plan: Cr improving hold off lasix Status: Acute (2) Aortic stenosis Assessment & Plan: Will plan for TAVR w/u discussed with son that she will need CT Tavr to be arranged as outpt once cr stabilizes Status: Acute (3) Chest pain Assessment & Plan: Etiology ? 2' to demand Status: Acute (4) Atrial fibrillation Assessment & Plan: digoxin resume BB once BP stable chg lovenox to therapeutic dosing Status: Acute (5) Chronic congestive heart failure Assessment & Plan: 2' to Status: Acute (6) Physical debility Status: Acute (7) History of DVT (deep vein thrombosis) Status: Chronic
--- NOTE | 2018-03-18 18:20 | CARD ---
APPROVED REPORT Date of service: 03/18/2018 <Conclusion> Atrial fibrillation Nonspecific ST and T wave abnormality Abnormal ECG
[2018-03-18] MEDS ORDERED: Potassium Phosphate 3 mmol/ml Inj IV ONE (23:34)
--- NOTE | 2018-03-18 23:41 | CP.PCM.PN ---
Subjective - Date & Time of Evaluation Date of Evaluation: 03/18/18 Time of Evaluation: 13:00 - Subjective Subjective: Patient still not eating much; no dyspnea; Objective - Vital Signs/Intake and Output Vital Signs (last 24 hours): Temp Pulse Resp BP Pulse Ox 99.3 F 91 H 14 143/92 H 97 03/18/18 20:00 03/18/18 22:00 03/18/18 22:00 03/18/18 22:00 03/18/18 22:00 Intake and Output: 03/18/18 03/19/18 18:59 06:59 Intake Total 480 260 Output Total 625 Balance -145 260 - Medications Medications: Current Medications Acetaminophen (Tylenol 325mg Tab) 650 mg PO Q6 PRN PRN Reason: Other Aspirin (Ecotrin) 81 mg PO DAILY [facility] Last Admin: 03/18/18 08:32 Dose: 81 mg Atorvastatin Calcium (Lipitor) 80 mg PO HS [facility] Last Admin: 03/18/18 21:15 Dose: 80 mg Enoxaparin Sodium (Lovenox) 70 mg SC DAILY [facility] PRN Reason: Protocol Dextrose/Sodium Chloride (Dextrose 5%/0.9% Ns 1000 Ml) 1,000 mls @ 40 mls/hr IV .Q24H [facility] Stop: 03/19/18 07:37 Last Admin: 03/18/18 18:13 Dose: 40 mls/hr Insulin Human Lispro (Humalog) 0 units SC ACHS [facility] PRN Reason: Protocol Last Admin: 03/18/18 22:05 Dose: Not Given Levalbuterol HCl (Xopenex) 0.63 mg INH RQ6 PRN PRN Reason: Shortness of Breath Levothyroxine Sodium (Synthroid) 75 mcg PO DAILY@0630 [facility] Last Admin: 03/18/18 06:03 Dose: 75 mcg Metoprolol Tartrate (Lopressor) 12.5 mg PO Q12 [facility] Last Admin: 03/18/18 21:16 Dose: 12.5 mg Mirtazapine (Remeron) 7.5 mg PO HS [facility] Last Admin: 03/18/18 21:15 Dose: 7.5 mg Mupirocin (Bactroban Ointment) 1 applic TOP BID [facility] Last Admin: 03/18/18 17:04 Dose: 1 applic Potassium Phosphate (Potassium Phosphate) 11.25 mmole 0.16 mmole/kg (11.25 mmole) IV ONCE ONE Stop: 03/18/18 23:35 Sitagliptin Phosphate (Januvia) 25 mg PO DAILY [facility] Last Admin: 03/18/18 08:32 Dose: 25 mg - Labs Labs: 03/18/18 04:30 03/18/18 14:41 PT 12.8 Seconds (9.8-13.1) 03/15/18 00:14 INR 1.2 03/15/18 00:14 APTT 26.9 Seconds (25.6-37.1) 03/15/18 00:14 - Constitutional Appears: Non-toxic, No Acute Distress Assessment and Plan (1) Acute kidney injury Assessment & Plan: Hemodynamically mediated in the setting of CHF w diastolic dysfuncion, severe and afib w/ RVR; renal function improved with hypotension resolved, rate controlled; -continue gentle IVF since patient not having much PO intake (D5-NS at 40 cc/hr) ; -avoid nephrotoxic agents; -f/u with cardio for further recs regarding rate control meds; -can start low dose losartan 12.5 mg daily if needed; Status: Acute (2) Congestive heart failure Status: Chronic (3) Aortic stenosis Status: Acute (4) Hypotension Status: Resolved
[2018-03-18] MEDS ORDERED: POTASSIUM PHOSPHATE IV STA ×2 (23:56→23:58)
[2018-03-18] MEDS ORDERED: WATER IV STA ×2 (23:56→23:58)
[2018-03-18] MEDS ORDERED: DEXTROSE IV STA ×2 (23:56→23:58)
[2018-03-19 05:49] LABS: BASO # 0.1 K/uL (0.0-0.2); BASO % 1.3 % (0.0-2.0); EOS # 0.3 K/uL (0.0-0.7); EOS % 8.1 % (0.0-4.0); HEMOGLOBIN 10.9 g/dL (12.0-16.0); LYMPH # 1.3 K/uL (1.0-4.3); LYMPH % 31.1 % (20.0-40.0); MEAN CORPUSCULAR HEMOGLOBIN 26.6 pg (27.0-31.0); MEAN CORPUSCULAR HGB CONC 31.3 g/dL (33.0-37.0); MEAN PLATELET VOLUME 9.1 fl (7.2-11.7); MONO # 0.6 K/uL (0.0-0.8); MONO % 15.1 % (0.0-10.0); NEUT # 1.8 K/uL (1.8-7.0); NEUT % 44.4 % (50.0-75.0); NRBC % 0.1 % (0.0-0.0); RBC 4.11 Mil/uL (3.80-5.20); RED CELL DISTRIBUTION WIDTH 19.1 % (11.5-14.5); WHITE BLOOD COUNT 4.1 K/uL (4.8-10.8)
[2018-03-19 06:22] LABS: CALCIUM 8.2 mg/dL (8.4-10.2)
[2018-03-19] MEDS: Levothyroxine 75 MCG TAB PO SCH (06:44)
[2018-03-19] MEDS: Insulin Lispro (humaLOG) 100 Units/ml Inj SC SCH ×4 (08:01→21:43)
[2018-03-19] MEDS: Enoxaparin 80 mg Syringe SC SCH (08:53)
--- NOTE | 2018-03-19 08:57 | CP.PCM.PN ---
Objective - Vital Signs/Intake and Output Vital Signs (last 24 hours): Temp Pulse Resp BP Pulse Ox 98.4 F 101 H 17 127/60 95 03/19/18 08:00 03/19/18 08:00 03/19/18 08:00 03/19/18 08:00 03/19/18 08:00 Intake and Output: 03/19/18 03/19/18 06:59 18:59 Intake Total 660 Output Total 500 Balance 160 - Medications Medications: Current Medications Acetaminophen (Tylenol 325mg Tab) 650 mg PO Q6 PRN PRN Reason: Other Aspirin (Ecotrin) 81 mg PO DAILY [facility] Last Admin: 03/19/18 08:53 Dose: 81 mg Atorvastatin Calcium (Lipitor) 80 mg PO HS [facility] Last Admin: 03/18/18 21:15 Dose: 80 mg Enoxaparin Sodium (Lovenox) 70 mg SC DAILY [facility] PRN Reason: Protocol Last Admin: 03/19/18 08:53 Dose: 70 mg Insulin Human Lispro (Humalog) 0 units SC ACHS [facility] PRN Reason: Protocol Last Admin: 03/19/18 08:01 Dose: Not Given Levalbuterol HCl (Xopenex) 0.63 mg INH RQ6 PRN PRN Reason: Shortness of Breath Levothyroxine Sodium (Synthroid) 75 mcg PO DAILY@0630 [facility] Last Admin: 03/19/18 06:44 Dose: 75 mcg Metoprolol Tartrate (Lopressor) 12.5 mg PO Q12 [facility] Last Admin: 03/19/18 08:53 Dose: 12.5 mg Mirtazapine (Remeron) 7.5 mg PO [facility] Last Admin: 03/18/18 21:15 Dose: 7.5 mg Mupirocin (Bactroban Ointment) 1 applic TOP BID [facility] Last Admin: 03/18/18 17:04 Dose: 1 applic Sitagliptin Phosphate (Januvia) 25 mg PO DAILY [facility] Last Admin: 03/19/18 08:53 Dose: 25 mg - Labs Labs: 03/19/18 04:30 03/19/18 04:30 PT 12.8 Seconds (9.8-13.1) 03/15/18 00:14 INR 1.2 03/15/18 00:14 APTT 26.9 Seconds (25.6-37.1) 03/15/18 00:14 Assessment and Plan (1) Acute kidney injury Status: Acute (2) Aortic stenosis Status: Acute (3) Chest pain Status: Acute (4) Atrial fibrillation Status: Acute (5) Chronic congestive heart failure Status: Acute (6) Physical debility Status: Acute (7) History of DVT (deep vein thrombosis) Status: Chronic
--- NOTE | 2018-03-19 09:41 | CP.PCM.PN ---
Subjective - Date & Time of Evaluation Date of Evaluation: 03/18/18 Time of Evaluation: 22:00 - Subjective Subjective: Seen and examined at the bed side. Episodes of Pauses on Telemonitoring the longest about 3 sec. D/w the Television News Video Editor, and recommended to D/c Digoxin, and Use Metoprolol for A fib rate control if BP allows. Continue to have Poor appetite. Objective - Vital Signs/Intake and Output Vital Signs (last 24 hours): Temp Pulse Resp BP Pulse Ox 98.4 F 101 H 17 127/60 95 03/19/18 08:00 03/19/18 08:00 03/19/18 08:00 03/19/18 08:00 03/19/18 08:00 Intake and Output: 03/19/18 03/19/18 06:59 18:59 Intake Total 660 Output Total 500 Balance 160 - Medications Medications: Current Medications Acetaminophen (Tylenol 325mg Tab) 650 mg PO Q6 PRN PRN Reason: Other Aspirin (Ecotrin) 81 mg PO DAILY [facility] Last Admin: 03/19/18 08:53 Dose: 81 mg Atorvastatin Calcium (Lipitor) 80 mg PO [facility] Last Admin: 03/18/18 21:15 Dose: 80 mg Enoxaparin Sodium (Lovenox) 70 mg SC DAILY [facility] PRN Reason: Protocol Last Admin: 03/19/18 08:53 Dose: 70 mg Insulin Human Lispro (Humalog) 0 units SC ACHS [facility] PRN Reason: Protocol Last Admin: 03/19/18 08:01 Dose: Not Given Levalbuterol HCl (Xopenex) 0.63 mg INH RQ6 PRN PRN Reason: Shortness of Breath Levothyroxine Sodium (Synthroid) 75 mcg PO DAILY@0630 [facility] Last Admin: 03/19/18 06:44 Dose: 75 mcg Metoprolol Tartrate (Lopressor) 12.5 mg PO Q12 [facility] Last Admin: 03/19/18 08:53 Dose: 12.5 mg Mirtazapine (Remeron) 7.5 mg PO HS [facility] Last Admin: 03/18/18 21:15 Dose: 7.5 mg Mupirocin (Bactroban Ointment) 1 applic TOP BID [facility] Last Admin: 03/18/18 17:04 Dose: 1 applic Sitagliptin Phosphate (Januvia) 25 mg PO DAILY [facility] Last Admin: 03/19/18 08:53 Dose: 25 mg - Labs Labs: 03/19/18 04:30 03/19/18 04:30 PT 12.8 Seconds (9.8-13.1) 03/15/18 00:14 INR 1.2 03/15/18 00:14 APTT 26.9 Seconds (25.6-37.1) 03/15/18 00:14 - Constitutional Appears: No Acute Distress - Head Exam Head Exam: ATRAUMATIC, NORMAL INSPECTION, NORMOCEPHALIC - Eye Exam Eye Exam: EOMI, Normal appearance, PERRL Pupil Exam: NORMAL ACCOMODATION, PERRL - ENT Exam ENT Exam: Mucous Membranes Moist, Normal Exam - Neck Exam Neck Exam: Full ROM, Normal Inspection. absent: Lymphadenopathy - Respiratory Exam Respiratory Exam: Clear to Ausculation Bilateral, NORMAL BREATHING PATTERN - Cardiovascular Exam Cardiovascular Exam: REGULAR RHYTHM, +S1, +S2. absent: Murmur - GI/Abdominal Exam GI & Abdominal Exam: Soft, Normal Bowel Sounds. absent: Tenderness - Extremities Exam Extremities Exam: Full ROM, Normal Capillary Refill, Normal Inspection. absent : Joint Swelling, Pedal Edema - Back Exam Back Exam: Full ROM, NORMAL INSPECTION - Neurological Exam Neurological Exam: Alert, Awake, CN II-XII Intact, Normal Gait, Oriented x3 - Psychiatric Exam Psychiatric exam: Normal Affect, Normal Mood - Skin Skin Exam: Dry, Intact, Normal Color, Warm Assessment and Plan (1) Chest pain Assessment & Plan: ACS ruled out Continue to Monitor Status: Acute Priority: High (2) Hypotension, Resolved Assessment and Plan: Resolved after IVF Bolus Continue Cautious Hydration Status: Acute (3) Acute kidney injury- Improving Assessment and Plan: Most likely Prerenal IVF Repeat BMP in am Nephro consult Status: Acute Priority: High (4) Atrial fibrillation, Severe Aortic Stenosis, Pauses Assessment and Plan: Cardiology Consulted, and Hold Xeralto Due to COREY Start Lovenox Therapeutic(Adjust to renal dose) D/c Digoxin 0.125mg Daily Metoprolol 12.5 mg BID Status: Acute Priority: High (5) Physical Debility Assessment and Plan: Bed rest for now, and PT/OT when Stable Status: Acute
[2018-03-19] MEDS ORDERED: Megestrol Acetate 40 mg/ml Cup PO SCH (14:15)
[2018-03-19] MEDS ORDERED: Dextrose 5%/0.9% NS 1,000 ML IV SCH (14:30)
--- NOTE | 2018-03-19 15:31 | PQF ---
PROVIDER RESPONSE TEXT: Possible Demand ischemia REVIEWER QUERY TEXT: Symptom Underlying Cause Please document the underlying diagnosis causing the patient?s Chest Pain: if known after the work up is completed OR: Unable to determine / H and P; Assessment Plan : (1) Chest pain Assessment and Plan: ACS ruled out Continue to Monitor Status: Acute Priority: High /5 Cardiology consult: Chest pain ;Assessment and Plan: etiology ? demand further w/u based on clin ical improvement and course Status: Acute Priority: High The patient's Clinical Indicators include: XX Query created by: Christina Oconnell on 03/18/2018 9:50 AM Electronically signed by: Deborah Berry MD 03/19/2018 3:28 PM
--- NOTE | 2018-03-19 15:31 | PQF ---
PROVIDER RESPONSE TEXT: Acute Renal Failure REVIEWER QUERY TEXT: Kidney Disease, Chronic CKD Stage Chronic Kidney Disease (CKD) is documented in the Medical Record. Please specify the disease stage ( includes probable or suspected) Such as: -- Chronic kidney disease Stage 1 -- Chronic kidney disease Stage 2 -- Chronic kidney disease Stage 3 -- Chronic kidney disease Stage 4 -- Chronic kidney disease Stage 5 -- Chronic kidney disease Stage 5, requiring dialysis -- End Stage Renal Disease -- Other, please specify Stages are defined by the [employer] as follows: CKD Stage I GFR >= 90 ml / min per 1.73 m2 and persistent albuminuria CKD Stage 2 GFR between 60 and 89 with persistent albuminuria CKD Stage 3 GFR between 30 and 59 CKD Stage 4 GFR between 15 and 29 CKD Stage 5 GFR between <15 or End Stage Renal Disease Creatinine: 2.0->1.6 Est GFR (Afrrican Amer/Non Af Amer): / H and P: History of CHF Impression includes: H and P: Chest Pain:ACS ruled out Continue to Monitor Status: Acute -Hypotension Resolved after IVF Bolus Continue Cautios Hydration Status: Acute - Acute kidney injury Assessment and Plan: Most likely Prerenal IVF Repeat BMP in am Nephro consult Status: Acute - Atrial fibrillation with RVR TSH Hold Xeralto due to COREY Start Lovenox Therapeutic(Adjust to renal dose) Will use Amiodarone or digoxin for rate control if HR Persistently above 120 Status: Acute - Physical debility Assessment and Plan: Bed rest for now, and PT/OT when stable Status: Acute - Poor appetite Assessment and Plan: Encourage to eat. Status: Chronic 03/17 Home Care Chaplain note: dxs. include Acute on Chronic Renal Insufficiency The patient's Clinical Indicators include: XXXX Query created by: Christina Oconnell on 03/18/2018 9:45 AM Electronically signed by: Deborah Berry MD 03/19/2018 3:28 PM
--- NOTE | 2018-03-19 15:31 | PQF ---
PROVIDER RESPONSE TEXT: Acute on Chronic Systolic CHF REVIEWER QUERY TEXT: Heart Failure Acuity and Type Congestive Heart Failure is documented in the Medical Record. Please document the Acuity:Present On A dmission: Acute versus Chronic? if in agreement Acuity: -- Acute -- Chronic -- Acute on chronic -- Other, please specify 03/15: CXR: Impression: Stable cardiomegaly. No interval pulmonary disease appreciable. 03/17: CXR: Impression: No active disease. ProBNP:2920 H and P: HX. includes: CHF Nephrology consult: dxs. include CHF: Chronic 03/17: Cardiology consult: dxs. include CHF: Acute -digoxin, lopressor The patient's Clinical Indicators include: XX Query created by: Christina Oconnell on 03/18/2018 9:45 AM Electronically signed by: Deborah Berry MD 03/19/2018 3:28 PM
--- NOTE | 2018-03-19 16:26 | CP.PCM.PN ---
Subjective - Date & Time of Evaluation Date of Evaluation: 03/19/18 Time of Evaluation: 04:05 - Subjective Subjective: seen and examined at the bed side. states feeling better. Had Rapid ventricular Rate of 140's in the morning but HR <100 now. Continue to have Poor appetite. No fever or chills. Objective - Vital Signs/Intake and Output Vital Signs (last 24 hours): Temp Pulse Resp BP Pulse Ox 99.0 F 98 H 13 110/67 98 03/19/18 16:00 03/19/18 16:00 03/19/18 16:00 03/19/18 16:00 03/19/18 16:00 Intake and Output: 03/19/18 03/19/18 06:59 18:59 Intake Total 660 220 Output Total 500 Balance 160 220 - Medications Medications: Current Medications Acetaminophen (Tylenol 325mg Tab) 650 mg PO Q6 PRN PRN Reason: Other Aspirin (Ecotrin) 81 mg PO DAILY [facility] Last Admin: 03/19/18 08:53 Dose: 81 mg Atorvastatin Calcium (Lipitor) 80 mg PO HS [facility] Last Admin: 03/18/18 21:15 Dose: 80 mg Enoxaparin Sodium (Lovenox) 70 mg SC DAILY [facility] PRN Reason: Protocol Last Admin: 03/19/18 08:53 Dose: 70 mg Dextrose/Sodium Chloride (Dextrose 5%/0.9% Ns 1000 Ml) 1,000 mls @ 40 mls/hr IV .Q24H [facility] Stop: 03/20/18 14:20 Last Admin: 03/19/18 16:20 Dose: 40 mls/hr Insulin Human Lispro (Humalog) 0 units SC ACHS [facility] PRN Reason: Protocol Last Admin: 03/19/18 16:07 Dose: Not Given Levalbuterol HCl (Xopenex) 0.63 mg INH RQ6 PRN PRN Reason: Shortness of Breath Levothyroxine Sodium (Synthroid) 75 mcg PO DAILY@0630 [facility] Last Admin: 03/19/18 06:44 Dose: 75 mcg Metoprolol Tartrate (Lopressor) 12.5 mg PO Q12 [facility] Last Admin: 03/19/18 08:53 Dose: 12.5 mg Mirtazapine (Remeron 15mg Odt) 15 mg PO [facility] Mupirocin (Bactroban Ointment) 1 applic TOP BID [facility] Last Admin: 03/19/18 16:12 Dose: 1 applic Sitagliptin Phosphate (Januvia) 25 mg PO DAILY [facility] Last Admin: 03/19/18 08:53 Dose: 25 mg - Labs Labs: 03/19/18 04:30 03/19/18 04:30 PT 12.8 Seconds (9.8-13.1) 03/15/18 00:14 INR 1.2 03/15/18 00:14 APTT 26.9 Seconds (25.6-37.1) 03/15/18 00:14 - Constitutional Appears: No Acute Distress, Chronically Ill - Head Exam Head Exam: ATRAUMATIC, NORMAL INSPECTION, NORMOCEPHALIC - Eye Exam Eye Exam: EOMI, Normal appearance, PERRL Pupil Exam: NORMAL ACCOMODATION, PERRL - ENT Exam ENT Exam: Mucous Membranes Moist, Normal Exam - Neck Exam Neck Exam: Full ROM, Normal Inspection. absent: Lymphadenopathy - Respiratory Exam Respiratory Exam: Clear to Ausculation Bilateral, NORMAL BREATHING PATTERN - Cardiovascular Exam Cardiovascular Exam: Irregular Rhythm, +S1, +S2. absent: Murmur - GI/Abdominal Exam GI & Abdominal Exam: Soft, Normal Bowel Sounds. absent: Tenderness - Extremities Exam Extremities Exam: Full ROM, Normal Capillary Refill, Normal Inspection. absent : Joint Swelling, Pedal Edema - Back Exam Back Exam: NORMAL INSPECTION - Neurological Exam Neurological Exam: Abnormal Gait, Awake, CN II-XII Intact, Motor Sensory Deficit - Psychiatric Exam Psychiatric exam: Normal Affect, Normal Mood - Skin Skin Exam: Dry, Intact, Normal Color, Warm Assessment and Plan (1) Chest pain Assessment & Plan: ACS ruled out Continue to Monitor Status: Acute Priority: High (2) Hypotension, Resolved Assessment and Plan: Resolved after IVF Bolus Continue Cautious Hydration Status: Acute (3) Acute kidney injury- Improving Assessment and Plan: Most likely Prerenal IVF Repeat BMP in am Nephro consult Status: Acute Priority: High (4) Atrial fibrillation, Severe Aortic Stenosis, Pauses Assessment and Plan: Cardiology Consulted, and Hold Xeralto Due to COREY Start Lovenox Therapeutic(Adjust to renal dose) D/c Digoxin 0.125mg Daily due to Pauses Metoprolol 12.5 mg BID Status: Acute Priority: High (5) Physical Debility, Anorexia Assessment and Plan: Bed rest for now, and Increase Remeron to 15mg QHS PT/OT when Stable Status: Acute
--- NOTE | 2018-03-19 22:47 | CP.PCM.PN ---
Subjective - Date & Time of Evaluation Date of Evaluation: 03/19/18 Time of Evaluation: 20:00 - Subjective Subjective: Patient still not eating per family; otherwise, not reporting any complaints; no dyspnea; Objective - Vital Signs/Intake and Output Vital Signs (last 24 hours): Temp Pulse Resp BP Pulse Ox 97.2 F L 118 H 18 94/35 L 95 03/19/18 20:00 03/19/18 21:49 03/19/18 21:49 03/19/18 21:49 03/19/18 21:49 Intake and Output: 03/19/18 03/20/18 18:59 06:59 Intake Total 750 170 Output Total 200 Balance 550 170 - Medications Medications: Current Medications Acetaminophen (Tylenol 325mg Tab) 650 mg PO Q6 PRN PRN Reason: Other Aspirin (Ecotrin) 81 mg PO DAILY [facility] Last Admin: 03/19/18 08:53 Dose: 81 mg Atorvastatin Calcium (Lipitor) 80 mg PO HS [facility] Last Admin: 03/19/18 21:44 Dose: 80 mg Enoxaparin Sodium (Lovenox) 70 mg SC DAILY [facility] PRN Reason: Protocol Last Admin: 03/19/18 08:53 Dose: 70 mg Dextrose/Sodium Chloride (Dextrose 5%/0.9% Ns 1000 Ml) 1,000 mls @ 40 mls/hr IV .Q24H [facility] Stop: 03/20/18 14:20 Last Admin: 03/19/18 16:20 Dose: 40 mls/hr Insulin Human Lispro (Humalog) 0 units SC ACHS [facility] PRN Reason: Protocol Last Admin: 03/19/18 21:43 Dose: Not Given Levalbuterol HCl (Xopenex) 0.63 mg INH RQ6 PRN PRN Reason: Shortness of Breath Levothyroxine Sodium (Synthroid) 75 mcg PO DAILY@0630 [facility] Last Admin: 03/19/18 06:44 Dose: 75 mcg Metoprolol Tartrate (Lopressor) 12.5 mg PO Q12 [facility] Last Admin: 03/19/18 21:45 Dose: Not Given Mirtazapine (Remeron 15mg Odt) 15 mg PO [facility] Last Admin: 03/19/18 21:51 Dose: 15 mg Mupirocin (Bactroban Ointment) 1 applic TOP BID [facility] Last Admin: 03/19/18 16:12 Dose: 1 applic Sitagliptin Phosphate (Januvia) 25 mg PO DAILY [facility] Last Admin: 03/19/18 08:53 Dose: 25 mg - Labs Labs: 03/19/18 04:30 03/19/18 04:30 PT 12.8 Seconds (9.8-13.1) 03/15/18 00:14 INR 1.2 03/15/18 00:14 APTT 26.9 Seconds (25.6-37.1) 03/15/18 00:14 - Constitutional Appears: Non-toxic, No Acute Distress - Eye Exam Eye Exam: absent: Scleral icterus - ENT Exam ENT Exam: Mucous Membranes Moist - Respiratory Exam Respiratory Exam: Clear to Ausculation Bilateral. absent: Respiratory Distress - Cardiovascular Exam Cardiovascular Exam: Irregular Rhythm, +S2. absent: Gallop - GI/Abdominal Exam GI & Abdominal Exam: Soft. absent: Distended, Tenderness - Exam Exam: absent: Bladder Distension - Extremities Exam Additional comments: mild leg edema b/l - Neurological Exam Neurological Exam: Alert, Awake Additional comments: follows commands - Psychiatric Exam Psychiatric exam: Normal Mood. absent: Agitated - Skin Skin Exam: Warm. absent: Cyanosis Assessment and Plan (1) Acute kidney injury Assessment & Plan: Hemodynamically mediated in the setting of CHF w/ diastolic dysfunction, afib w / RVR and severe ; renal function slowly improving; -continue gentle IVF since patient not having much PO intake (d5-NS at 40 cc/hr) ; -avoid nephrotoxic agents; Status: Acute (2) Hypertension Assessment & Plan: Currently on on metoprolol (for rate control); BP relatively controlled; -avoid restarting ARB for now as renal function still not back to baseline and can cause loss of renal autoregulation that could be detrimental in the setting of severe ; Status: Chronic (3) Congestive heart failure Assessment & Plan: Lungs clear, relatively asymptomatic although without any physical activity lately; -holding diuretics for now; gentle IVF as above; Status: Chronic (4) Aortic stenosis Status: Acute (5) Hypotension Status: Resolved
--- NOTE | 2018-03-19 23:13 | PN ---
Copied To: Tyrese Trent MD Attending MD: Tyrese Trent MD DATE: 03/19/2018 SUBJECTIVE: Patient is seen and evaluated at the bedside, interviewed through meter maintenance person. Past medical, surgical, social, and family history reviewed. A 87-year-old female with history of severe aortic stenosis, diastolic heart failure, chronic atrial fibrillation, status post inferior vena cava filter, admitted from jail with episode of chest pain, noted to be hypotensive and tachycardic in the ER, given IV fluids. Beta-blockers withheld. Blood pressure improved overnight. PHYSICAL EXAMINATION VITAL SIGNS: Afebrile. Telemetry, atrial fibrillation with rate ranging from 90 to 100, blood pressure 108-119/51-62, respiratory rate 16-24 thoracoabdominal, saturating 98% on 2 L nasal cannula. Intake 1140, output 1025, positive balance of 15 mL. URINE OUTPUT 1125. HEAD, EYES, EARS, NOSE AND THROAT: Pupils are reactive. Conjunctivae pink. Sclerae white. NECK: Supple. Trachea is central. CHEST: Bilateral breath sounds. HEART: Rhythm irregular. Soft systolic murmur at the left sternal border. ABDOMEN: Bowel sounds are present. Soft. EXTREMITIES: No clubbing or cyanosis. Trace edema. NEUROLOGIC: Alert and awake. Oriented to name, but not to place or time. No cranial nerve deficits. Deep tendon reflexes 2+ bilaterally. Plantar downward going. CURRENT MEDICATIONS: Include Tylenol 650 every 6 hours p.r.n., aspirin 81 mg daily, Lipitor 80 mg p.o. daily, D5 normal saline at 40 mL/hour, Lovenox 70 mg subcu daily, Humalog based on Accu-Chek, Xopenex 0.63 mg every 6 hours, levothyroxine 75 mcg daily, Megace 400 mg p.o. daily, Lopressor 12.5 mg p.o. every 12 hours, Remeron 7.5 mg p.o. h.s., and Januvia 25 mg p.o. daily. LABORATORY DATA: WBC 4.1, hemoglobin 10.9, hematocrit 34.9, platelet count of 198, neutrophils 44, lymphocytes 31, and monocytes 15.1. PT 12.8, INR 1.2, and PTT 26.9. SMA-7; sodium 142, potassium 4.6, chloride of 110, CO2 of 25, blood urea nitrogen 7, creatinine 1.4, random glucose 115, calcium 8.2, phosphorus 2.5, and magnesium 1.5. Urinalysis; wbc's 17, rbc's 4. Digoxin level 0.9. Microbiology; nasal smear MRSA positive. Blood culture, no growth reported. Chest x-ray on 03/16/2018, no active disease. Electrocardiogram, atrial fibrillation, nonspecific ST-T abnormality. IMPRESSION AND PLAN: 1. Neurology: Alert, awake. Slow to respond. Suspect early dementia. Followup B12, folate, and folic acid level. 2. Cardiac: History of severe aortic valve stenosis. Aware of discussion with family by Cardiology for future transcatheter aortic valve replacement. Atrial fibrillation with rapid ventricular response, rate controlled on beta-malia. 3. Pulmonary: No pleural effusion. Pulmonary vascular congestion improved. 4. Gastrointestinal: Reduced p.o. intake. Encourage p.o. intake. Add Megace 400 mg p.o. daily for appetite. Continue hydration until intravenous intake is improved. 5. Renal: Acute on chronic renal insufficiency, improved on intravenous hydration. Closely monitor for pulmonary vascular congestion. Appreciate renal input. 6. Endocrine: Hypothyroidism on levothyroxine. Diabetes mellitus type 2 on Accu-Chek with regular insulin coverage, sitagliptin. Off Glucotrol given high risk for hypoglycemia. Continue deep vein thrombosis and gastrointestinal prophylaxis. Out of bed to chair as tolerated Tyrese Trent MD
[2018-03-20 06:00] LABS: EOS # 0.4 K/uL (0.0-0.7); EOS % 11.3 % (0.0-4.0); HEMOGLOBIN 10.3 g/dL (12.0-16.0); LYMPH # 1.1 K/uL (1.0-4.3); LYMPH % 34.3 % (20.0-40.0); MEAN CELL VOLUME 85.3 fl (81.0-99.0); MEAN CORPUSCULAR HEMOGLOBIN 26.9 pg (27.0-31.0); MEAN CORPUSCULAR HGB CONC 31.5 g/dL (33.0-37.0); MEAN PLATELET VOLUME 8.7 fl (7.2-11.7); MONO # 0.5 K/uL (0.0-0.8); MONO % 13.9 % (0.0-10.0); NEUT # 1.3 K/uL (1.8-7.0); NEUT % 39.5 % (50.0-75.0); NRBC % 0.1 % (0.0-0.0); RBC 3.83 Mil/uL (3.80-5.20); RED CELL DISTRIBUTION WIDTH 19.7 % (11.5-14.5); WHITE BLOOD COUNT 3.3 K/uL (4.8-10.8)
[2018-03-20] MEDS: Levothyroxine 75 MCG TAB PO SCH (06:04)
[2018-03-20 06:06] LABS: CALCIUM 7.8 mg/dL (8.4-10.2)
[2018-03-20] MEDS: Insulin Lispro (humaLOG) 100 Units/ml Inj SC SCH ×4 (06:38→21:34)
[2018-03-20] MEDS: Enoxaparin 80 mg Syringe SC SCH (08:41)
[2018-03-20] MEDS ORDERED: Lactated Ringer's 1,000 ML IV SCH (12:30)
--- NOTE | 2018-03-20 12:30 | CP.PCM.PN ---
Objective - Vital Signs/Intake and Output Vital Signs (last 24 hours): Temp Pulse Resp BP Pulse Ox 99.0 F 90 14 129/63 97 03/20/18 08:00 03/20/18 10:00 03/20/18 10:00 03/20/18 10:00 03/20/18 10:00 Intake and Output: 03/20/18 03/20/18 06:59 18:59 Intake Total 580 Output Total 500 Balance 80 - Medications Medications: Current Medications Acetaminophen (Tylenol 325mg Tab) 650 mg PO Q6 PRN PRN Reason: Other Aspirin (Ecotrin) 81 mg PO DAILY [facility] Last Admin: 03/20/18 08:41 Dose: 81 mg Atorvastatin Calcium (Lipitor) 80 mg PO HS [facility] Last Admin: 03/19/18 21:44 Dose: 80 mg Enoxaparin Sodium (Lovenox) 70 mg SC DAILY [facility] PRN Reason: Protocol Last Admin: 03/20/18 08:41 Dose: 70 mg Lactated Ringer's (Lactated Ringer's) 1,000 mls @ 999 mls/hr IV .Q1H1M [facility] Dextrose/Sodium Chloride (Dextrose 5%/0.9% Ns 1000 Ml) 1,000 mls @ 125 mls/hr IV .Q8H [facility] Stop: 03/21/18 12:18 Insulin Human Lispro (Humalog) 0 units SC ACHS [facility] PRN Reason: Protocol Last Admin: 03/20/18 12:15 Dose: Not Given Levalbuterol HCl (Xopenex) 0.63 mg INH RQ6 PRN PRN Reason: Shortness of Breath Levothyroxine Sodium (Synthroid) 75 mcg PO DAILY@0630 [facility] Last Admin: 03/20/18 06:04 Dose: 75 mcg Metoprolol Tartrate (Lopressor) 12.5 mg PO Q12 [facility] Last Admin: 03/20/18 08:49 Dose: 12.5 mg Mirtazapine (Remeron 15mg Odt) 15 mg PO HS [facility] Last Admin: 03/19/18 21:51 Dose: 15 mg Mupirocin (Bactroban Ointment) 1 applic TOP BID [facility] Last Admin: 03/20/18 08:41 Dose: 1 applic Sitagliptin Phosphate (Januvia) 25 mg PO DAILY [facility] Last Admin: 03/20/18 08:41 Dose: 25 mg - Labs Labs: 03/20/18 04:30 03/20/18 04:30 PT 12.8 Seconds (9.8-13.1) 03/15/18 00:14 INR 1.2 03/15/18 00:14 APTT 26.9 Seconds (25.6-37.1) 03/15/18 00:14 Assessment and Plan (1) Acute kidney injury Status: Acute (2) Aortic stenosis Status: Acute (3) Chest pain Status: Acute (4) Atrial fibrillation Status: Acute (5) Chronic congestive heart failure Status: Acute (6) Physical debility Status: Acute (7) History of DVT (deep vein thrombosis) Status: Chronic
[2018-03-20] MEDS: Dextrose 5%/0.9% NS 1,000 ML IV SCH ×2 (14:40→22:00)
--- NOTE | 2018-03-20 23:30 | CP.PCM.PN ---
Subjective - Date & Time of Evaluation Date of Evaluation: 03/20/18 Time of Evaluation: 20:00 - Subjective Subjective: Patient still with decreased PO intake per family; mildly hypotensive yesterday and given IVF bolus; Objective - Vital Signs/Intake and Output Vital Signs (last 24 hours): Temp Pulse Resp BP Pulse Ox 97.8 F 131 H 25 H 130/74 98 03/20/18 20:00 03/20/18 21:35 03/20/18 21:35 03/20/18 21:35 03/20/18 21:35 Intake and Output: 03/20/18 03/21/18 18:59 06:59 Intake Total 2100 175 Balance 2100 175 - Medications Medications: Current Medications Acetaminophen (Tylenol 325mg Tab) 650 mg PO Q6 PRN PRN Reason: Other Aspirin (Ecotrin) 81 mg PO DAILY [facility] Last Admin: 03/20/18 08:41 Dose: 81 mg Atorvastatin Calcium (Lipitor) 80 mg PO HS [facility] Last Admin: 03/20/18 21:30 Dose: 80 mg Enoxaparin Sodium (Lovenox) 70 mg SC DAILY [facility] PRN Reason: Protocol Last Admin: 03/20/18 08:41 Dose: 70 mg Dextrose/Sodium Chloride (Dextrose 5%/0.9% Ns 1000 Ml) 1,000 mls @ 125 mls/hr IV .Q8H [facility] Stop: 03/21/18 12:18 Last Admin: 03/20/18 14:40 Dose: 125 mls/hr Insulin Human Lispro (Humalog) 0 units SC ACHS [facility] PRN Reason: Protocol Last Admin: 03/20/18 21:34 Dose: Not Given Levalbuterol HCl (Xopenex) 0.63 mg INH RQ6 PRN PRN Reason: Shortness of Breath Levothyroxine Sodium (Synthroid) 75 mcg PO DAILY@0630 [facility] Last Admin: 03/20/18 06:04 Dose: 75 mcg Metoprolol Tartrate (Lopressor) 12.5 mg PO Q12 [facility] Last Admin: 03/20/18 21:30 Dose: 12.5 mg Mirtazapine (Remeron 15mg Odt) 15 mg PO HS [facility] Last Admin: 03/20/18 21:30 Dose: 15 mg Mupirocin (Bactroban Ointment) 1 applic TOP BID [facility] Last Admin: 03/20/18 16:23 Dose: 1 applic Sitagliptin Phosphate (Januvia) 25 mg PO DAILY [facility] Last Admin: 03/20/18 08:41 Dose: 25 mg - Labs Labs: 03/20/18 04:30 03/20/18 04:30 PT 12.8 Seconds (9.8-13.1) 03/15/18 00:14 INR 1.2 03/15/18 00:14 APTT 26.9 Seconds (25.6-37.1) 03/15/18 00:14 - Constitutional Appears: Non-toxic, No Acute Distress - Eye Exam Eye Exam: absent: Scleral icterus - ENT Exam ENT Exam: Mucous Membranes Moist - Respiratory Exam Respiratory Exam: Clear to Ausculation Bilateral. absent: Respiratory Distress - Cardiovascular Exam Cardiovascular Exam: Irregular Rhythm. absent: Gallop Additional comments: murmur - GI/Abdominal Exam GI & Abdominal Exam: Soft. absent: Distended, Tenderness - Exam Exam: absent: Bladder Distension - Extremities Exam Additional comments: mild lower leg edema; - Neurological Exam Neurological Exam: Alert, Awake - Psychiatric Exam Psychiatric exam: Normal Mood. absent: Agitated - Skin Skin Exam: Warm. absent: Cyanosis Assessment and Plan (1) Acute kidney injury Assessment & Plan: Resolving; hemodynamically mediated; improving further with increased IVF; however, need to give cautiously given severe ; Status: Acute (2) Hypertension Assessment & Plan: Currently normotensive, only on metoprolol; still with RVR; continue to hold ARB (was on losartan); Status: Chronic (3) Congestive heart failure Status: Chronic (4) Aortic stenosis Status: Acute (5) Hypotension Status: Resolved
--- NOTE | 2018-03-21 00:19 | CP.PCM.PN ---
Subjective - Date & Time of Evaluation Date of Evaluation: 03/20/18 Time of Evaluation: 15:25 - Subjective Subjective: Seen and examined at the bed side. No new complaint. Objective - Vital Signs/Intake and Output Vital Signs (last 24 hours): Temp Pulse Resp BP Pulse Ox 97.8 F 131 H 25 H 130/74 98 03/20/18 20:00 03/20/18 21:35 03/20/18 21:35 03/20/18 21:35 03/20/18 21:35 Intake and Output: 03/20/18 03/21/18 18:59 06:59 Intake Total 2100 175 Balance 2100 175 - Medications Medications: Current Medications Acetaminophen (Tylenol 325mg Tab) 650 mg PO Q6 PRN PRN Reason: Other Aspirin (Ecotrin) 81 mg PO DAILY [facility] Last Admin: 03/20/18 08:41 Dose: 81 mg Atorvastatin Calcium (Lipitor) 80 mg PO HS [facility] Last Admin: 03/20/18 21:30 Dose: 80 mg Enoxaparin Sodium (Lovenox) 70 mg SC DAILY [facility] PRN Reason: Protocol Last Admin: 03/20/18 08:41 Dose: 70 mg Dextrose/Sodium Chloride (Dextrose 5%/0.9% Ns 1000 Ml) 1,000 mls @ 125 mls/hr IV .Q8H [facility] Stop: 03/21/18 12:18 Last Admin: 03/20/18 14:40 Dose: 125 mls/hr Insulin Human Lispro (Humalog) 0 units SC ACHS [facility] PRN Reason: Protocol Last Admin: 03/20/18 21:34 Dose: Not Given Levalbuterol HCl (Xopenex) 0.63 mg INH RQ6 PRN PRN Reason: Shortness of Breath Levothyroxine Sodium (Synthroid) 75 mcg PO DAILY@0630 [facility] Last Admin: 03/20/18 06:04 Dose: 75 mcg Metoprolol Tartrate (Lopressor) 12.5 mg PO Q12 [facility] Last Admin: 03/20/18 21:30 Dose: 12.5 mg Mirtazapine (Remeron 15mg Odt) 15 mg PO HS [facility] Last Admin: 03/20/18 21:30 Dose: 15 mg Mupirocin (Bactroban Ointment) 1 applic TOP BID [facility] Last Admin: 08/08/18 16:23 Dose: 1 applic Sitagliptin Phosphate (Januvia) 25 mg PO DAILY [facility] Last Admin: 03/20/18 08:41 Dose: 25 mg - Labs Labs: 03/20/18 04:30 03/20/18 04:30 PT 12.8 Seconds (9.8-13.1) 03/15/18 00:14 INR 1.2 03/15/18 00:14 APTT 26.9 Seconds (25.6-37.1) 03/15/18 00:14 Assessment and Plan (1) Chest pain Assessment & Plan: ACS ruled out Continue to Monitor Status: Acute Priority: High (2) Hypotension, Resolved Assessment and Plan: Resolved after IVF Bolus Continue Cautious Hydration Status: Acute (3) Acute kidney injury- Improving Assessment and Plan: Most likely Prerenal IVF Repeat BMP in am Nephro consult Status: Acute Priority: High (4) Atrial fibrillation, Severe Aortic Stenosis, Pauses Assessment and Plan: Cardiology Consulted, and Resume Xeralto Metoprolol 12.5 mg BID Status: Acute Priority: High (5) Physical Debility, Anorexia Assessment and Plan: Bed rest for now, and Increase Remeron to 15mg QHS PT/OT when Stable Status: Acute
[2018-03-21] MEDS: Levothyroxine 75 MCG TAB PO SCH (05:30)
[2018-03-21] MEDS: Dextrose 5%/0.9% NS 1,000 ML IV SCH (05:30)
[2018-03-21 06:14] LABS: HEMOGLOBIN 10.3 g/dL (12.0-16.0); MEAN CORPUSCULAR HGB CONC 31.5 g/dL (33.0-37.0); RBC 3.8 Mil/uL (3.80-5.20); RED CELL DISTRIBUTION WIDTH 19.9 % (11.5-14.5); WHITE BLOOD COUNT 3.8 K/uL (4.8-10.8)
[2018-03-21 06:24] LABS: BLOOD UREA NITROGEN 7 mg/dl (7-17); CALCIUM 7.6 mg/dL (8.4-10.2); GFR NON-AFRICAN AMERICAN 52
[2018-03-21] MEDS: Enoxaparin 80 mg Syringe SC SCH (08:28)
[2018-03-21] MEDS: Insulin Lispro (humaLOG) 100 Units/ml Inj SC SCH ×4 (08:30→21:42)
[2018-03-21] MEDS: Potassium Chl 20 mEq in D5-NS 1,000 ML IV SCH ×2 (10:00→21:44)
[2018-03-22] MEDS: Levothyroxine 75 MCG TAB PO SCH (05:33)
[2018-03-22 05:45] LABS: HEMOGLOBIN 9.6 g/dL (12.0-16.0); MEAN CELL VOLUME 84.5 fl (81.0-99.0); MEAN CORPUSCULAR HEMOGLOBIN 26.6 pg (27.0-31.0); MEAN CORPUSCULAR HGB CONC 31.5 g/dL (33.0-37.0); RBC 3.61 Mil/uL (3.80-5.20); RED CELL DISTRIBUTION WIDTH 19.7 % (11.5-14.5); WHITE BLOOD COUNT 4.3 K/uL (4.8-10.8)
[2018-03-22 06:00] LABS: BLOOD UREA NITROGEN 6 mg/dl (7-17); CALCIUM 7.4 mg/dL (8.4-10.2); GFR NON-AFRICAN AMERICAN 59
[2018-03-22] MEDS: Insulin Lispro (humaLOG) 100 Units/ml Inj SC SCH ×4 (06:39→21:17)
--- NOTE | 2018-03-22 08:05 | CP.PCM.PN ---
Subjective - Date & Time of Evaluation Date of Evaluation: 03/21/18 Time of Evaluation: 20:10 - Subjective Subjective: Seen and examined at the bed side. Feeling better today. Waiting Cardiology Decision about the TAVR Objective - Vital Signs/Intake and Output Vital Signs (last 24 hours): Temp Pulse Resp BP Pulse Ox 98.5 F 98 H 13 152/96 H 96 03/22/18 04:00 03/22/18 06:00 03/22/18 06:00 03/22/18 06:00 03/22/18 06:00 Intake and Output: 03/22/18 03/22/18 06:59 18:59 Intake Total 930 Balance 930 - Medications Medications: Current Medications Acetaminophen (Tylenol 325mg Tab) 650 mg PO Q6 PRN PRN Reason: Other Aspirin (Ecotrin) 81 mg PO DAILY [facility] Last Admin: 03/21/18 08:28 Dose: 81 mg Atorvastatin Calcium (Lipitor) 80 mg PO [facility] Last Admin: 03/21/18 21:42 Dose: 80 mg Potassium Chloride/Dextrose/Sod Cl (Potassium Chl 20 Meq In D5-Ns) 1,000 mls @ 80 mls/hr IV .[id number] [facility] Stop: 03/22/18 08:23 Last Admin: 03/21/18 21:44 Dose: 80 mls/hr Insulin Human Lispro (Humalog) 0 units SC ACHS [facility] PRN Reason: Protocol Last Admin: 03/22/18 06:39 Dose: Not Given Levothyroxine Sodium (Synthroid) 75 mcg PO DAILY@0630 [facility] Last Admin: 03/22/18 05:33 Dose: 75 mcg Metoprolol Tartrate (Lopressor) 12.5 mg PO Q12 [facility] Last Admin: 03/21/18 21:43 Dose: 12.5 mg Mirtazapine (Remeron 15mg Odt) 15 mg PO HS [facility] Last Admin: 03/21/18 21:44 Dose: 15 mg Mupirocin (Bactroban Ointment) 1 applic TOP BID [facility] Last Admin: 03/21/18 16:36 Dose: 1 applic Ondansetron HCl (Zofran Inj) 4 mg IVP Q4 PRN PRN Reason: Nausea/Vomiting Last Admin: 03/21/18 23:51 Dose: 4 mg Sitagliptin Phosphate (Januvia) 25 mg PO DAILY [facility] Last Admin: 03/21/18 08:28 Dose: 25 mg - Labs Labs: 03/22/18 04:20 03/22/18 04:20 PT 12.8 Seconds (9.8-13.1) 03/15/18 00:14 INR 1.2 03/15/18 00:14 APTT 26.9 Seconds (25.6-37.1) 03/15/18 00:14 - Constitutional Appears: Well - Head Exam Head Exam: ATRAUMATIC, NORMAL INSPECTION, NORMOCEPHALIC - Eye Exam Eye Exam: EOMI, Normal appearance, PERRL Pupil Exam: NORMAL ACCOMODATION, PERRL - ENT Exam ENT Exam: Mucous Membranes Moist, Normal Exam - Neck Exam Neck Exam: Full ROM, Normal Inspection. absent: Lymphadenopathy - Respiratory Exam Respiratory Exam: Clear to Ausculation Bilateral, NORMAL BREATHING PATTERN - Cardiovascular Exam Cardiovascular Exam: REGULAR RHYTHM, +S1, +S2. absent: Murmur - GI/Abdominal Exam GI & Abdominal Exam: Soft, Normal Bowel Sounds. absent: Tenderness - Extremities Exam Extremities Exam: Full ROM, Normal Capillary Refill, Normal Inspection. absent : Joint Swelling, Pedal Edema - Back Exam Back Exam: NORMAL INSPECTION - Neurological Exam Neurological Exam: Abnormal Gait - Psychiatric Exam Psychiatric exam: Normal Affect, Normal Mood - Skin Skin Exam: Dry, Intact, Normal Color, Warm Assessment and Plan (1) Chest pain Assessment & Plan: ACS ruled out Continue to Monitor Status: Acute Priority: High (2) Hypotension, Resolved Assessment and Plan: Resolved after IVF Bolus Continue Cautious Hydration Status: Acute (3) Acute kidney injury- Improving Assessment and Plan: Most likely Prerenal IVF Repeat BMP in am Nephro consult Status: Acute Priority: High (4) Atrial fibrillation- Rate Controlled Severe Aortic Stenosis, Pauses Assessment and Plan: Awaiting Family Decison about TAVR Resume Xeralto D/c Lovenox Therapeutic Metoprolol 12.5 mg BID Status: Acute Priority: High (5) Physical Debility, Anorexia- Improved Appetite Assessment and Plan: Bed rest for now, and Increase Remeron to 15mg QHS PT/OT when Stable Status: Acute
--- NOTE | 2018-03-22 08:45 | PQF ---
PROVIDER RESPONSE TEXT: Sepsis Ruled out REVIEWER QUERY TEXT: Clarification of Clinical Diagnostic Findings Please clarify if there is/are any additional diagnoses to go along with the following V/S and clinic al lab: -physicians documentation of tachycardia and hypotension -03/15: Respirations: 20->20->23->23->20->23->21 on O2 Nasal Cannula -WBC: 3.2->2.8->3.4->2.8->3.5 - 03/15; U/A: X 2: cloudy, leukocyte esterase trace, RBC, WBC, bacteria OR: Disagree H and P: -Chest pain:ACS ruled out Continue to Monitor Status: Acute -Hypotension Resolved after IVF Bolus Continue Cautious Hydration Status: Acute - Acute kidney injury Assessment and Plan: Most likely Prerenal IVF Repeat BMP in am Nephro consult Status: Acute - Atrial fibrillation with RVR TSH Hold Xeralto due to COREY Start Lovenox Therapeutic(Adjust to renal dose) Will use Amiodarone or digoxin for rate control if HR Persistently above 120 Status: Acute - Physical debility Assessment and Plan: Bed rest for now, and PT/OT when stable Status: Acute - Poor appetite Assessment and Plan: Encourage to eat. Status: Chronic The patient's Clinical Indicators include: xx Query created by: Christina Oconnell on 03/18/2018 10:01 AM Electronically signed by: Deborah Berry MD 03/22/2018 8:42 AM
--- NOTE | 2018-03-22 08:45 | PQF ---
PROVIDER RESPONSE TEXT: ATN ruled in REVIEWER QUERY TEXT: Kidney Failure, Acute - Associated Conditions ATN ruled in or ATN ruled out ? H and P: diagnoses include: Acute kidney injury: Assessment and Plan: Most likely Prerenal,IVF Repeat BMP in am, Nephro consult Status: Acute Priority: High 03/16 Nephrology consult: Acute Kidney Injury: In the setting of hypotension, severe and afib w/ RVR ; showing modest improvement with IVF consistent with pre-renal etiology; hypotension resolved but ma y have some degree of ATN (suggested by urine lytes); limited ability to give more IVF due to severe and persistent afib w/ RVR; -Optimize cardiac status with adequate rate control; -Can give trial o f restarting gentle IVF w/ NS at 50 cc/hr; The patient's Clinical Indicators include: xx Query created by: Christina Oconnell on 03/18/2018 10:19 AM Electronically signed by: Deborah Berry MD 03/22/2018 8:42 AM
--- NOTE | 2018-03-22 09:05 | CP.PCM.CON ---
History of Present Illness - History of Present Illness History of Present Illness: An 87yoF with H/O DM, CHF, VTE, A-Fib, Dyslipidemia, Dementia, Hypothyroidism and Hypertension consult request as per staff pt presented with depressed mood and poor appetite on evaluation pt was smiling pleasant , confused, oriented to person only, speech not goal directed, when asked about mood she reported fine pt denied mood symptoms, denied suicidal or homicidal ideation denied perceptual disturbances Past Patient History - Past Medical History & Family History Past Medical History?: Yes Past Family History: Reviewed and not pertinent - Past Social History Smoking Status: Never Smoked Alcohol: None Drugs: Denies - CARDIAC Hx Atrial Fibrillation: Yes Hx Congestive Heart Failure: Yes Hx Hypercholesterolemia: Yes Hx Hypertension: Yes - PULMONARY Hx Respiratory Disorders: No Hx Asthma: No - NEUROLOGICAL Hx Dementia: Yes - HEENT Hx HEENT Problems: No - RENAL Hx Chronic Kidney Disease: Yes - ENDOCRINE/METABOLIC Hx Hypothyroidism: Yes - HEMATOLOGICAL/ONCOLOGICAL Hx Human Immunodeficiency Virus (HIV): No - INTEGUMENTARY Hx Dermatological Problems: No - MUSCULOSKELETAL/RHEUMATOLOGICAL Hx Musculoskeletal Disorders: No Hx Falls: No - GASTROINTESTINAL Hx Gastrointestinal Disorders: Yes Hx Gastroesophageal Reflux: Yes - GENITOURINARY/GYNECOLOGICAL Hx Genitourinary Disorders: No - PSYCHIATRIC Hx Psychophysiologic Disorder: Yes - SURGICAL HISTORY Hx Surgeries: No - ANESTHESIA Hx Anesthesia: No Hx Anesthesia Reactions: No Hx Malignant Hyperthermia: No Has any member of the family had a problem w/ anesthesia?: No Meds Allergies/Adverse Reactions: Allergies Allergy/AdvReac Type Severity Reaction Status Date / Time No Known Allergies Allergy Verified 02/26/18 15:36 - Medications Medications: Current Medications Acetaminophen (Tylenol 325mg Tab) 650 mg PO Q6 PRN PRN Reason: Other Aspirin (Ecotrin) 81 mg PO DAILY [facility] Last Admin: 03/22/18 08:52 Dose: 81 mg Atorvastatin Calcium (Lipitor) 80 mg PO HS [facility] Last Admin: 03/21/18 21:42 Dose: 80 mg Insulin Human Lispro (Humalog) 0 units SC ACHS [facility] PRN Reason: Protocol Last Admin: 03/22/18 06:39 Dose: Not Given Levothyroxine Sodium (Synthroid) 75 mcg PO DAILY@0630 [facility] Last Admin: 03/22/18 05:33 Dose: 75 mcg Metoprolol Tartrate (Lopressor) 12.5 mg PO Q12 [facility] Last Admin: 03/22/18 08:53 Dose: 12.5 mg Mirtazapine (Remeron 15mg Odt) 15 mg PO HS [facility] Last Admin: 03/21/18 21:44 Dose: 15 mg Mupirocin (Bactroban Ointment) 1 applic TOP BID [facility] Last Admin: 03/22/18 08:57 Dose: 1 applic Ondansetron HCl (Zofran Inj) 4 mg IVP Q4 PRN PRN Reason: Nausea/Vomiting Last Admin: 03/21/18 23:51 Dose: 4 mg Sitagliptin Phosphate (Januvia) 25 mg PO DAILY [facility] Last Admin: 03/22/18 08:52 Dose: 25 mg Physical Exam - Psychiatric Exam Additional comments: pt seen in bed calm cooperative, mood reported fine appropriate affect, speech soft, confused, speech not goal directed alert awake oriented to person only denied suicidal ideation denied perceptual disturbances, non elicited Results - Vital Signs Recent Vital Signs: Last Vital Signs Temp 98.1 F 03/22/18 08:00 Pulse 83 03/22/18 08:53 Resp 19 03/22/18 08:00 BP 108/39 L 03/22/18 08:53 Pulse Ox 91 L 03/22/18 08:00 - Labs Result Diagrams: 03/22/18 04:20 03/22/18 04:20 Labs: Laboratory Results - last 24 hr 03/21/18 03/21/18 03/21/18 11:32 16:07 21:39 WBC RBC Hgb Hct MCV MCH MCHC RDW Plt Count Sodium Potassium Chloride Carbon Dioxide Anion Gap BUN Creatinine Est GFR ( Amer) Est GFR (Non-Af Amer) POC Glucose (mg/dL) 122 H 270 H 113 H Random Glucose Calcium 03/22/18 03/22/18 04:20 04:20 WBC 4.3 L RBC 3.61 L Hgb 9.6 L Hct 30.5 L MCV 84.5 MCH 26.6 L MCHC 31.5 L RDW 19.7 H Plt Count 262 Sodium 144 Potassium 4.2 Chloride 118 H Carbon Dioxide 20 L Anion Gap 10 BUN 6 L Creatinine 0.9 Est GFR ( Amer) > 60 Est GFR (Non-Af Amer) 59 POC Glucose (mg/dL) Random Glucose 109 H Calcium 7.4 L Assessment & Plan - Assessment and Plan (Free Text) Assessment: mood disorder due to medical condition Plan: continue remeron 15mg qhs recommend starting namenda 5mg daily
[2018-03-22] MEDS ORDERED: Meropenem 500 MG in Sodium Chloride 0.9% 100 ML IVPB SCH (14:46)
--- NOTE | 2018-03-22 15:10 | CP.PCM.CON ---
History of Present Illness - History of Present Illness History of Present Illness: Infectious Disease Consultation Note- Asked to see this patient at the request of DR.Seman RUTHERFORD- History obtained from the medical chart and the nurse as patient seems to have some dementia and does not give any history and answers most questions with no response.I'm asked to see the patient for klebsiella Pneumonia ESBl urine cx. Patient is a 87 year old female with dementia, DM II, CHF, A-Fib, VTE , hypothyroidism, HTN who was admitted from [facility] with c/o chest pain with radiation to left arm and was also found to be hypotensive . She was hence brought to ER and she responded well to IV hydaration .she was found to be A fib with RVR, and found to also have Acute Kidney Injury. Patient was recently d/c from [facility] to [facility] due to Physical deconditioning. I'm asked to see the patient because her urine cx grew ESBL Klebsiella. Patient is currently awake and in NAD. she can tell me her name and her but she has flat affect and denies any complaints to anything I ask her. She denies any dysurea,denies any urinary malodor, denies any abdominal or back pain. Review of Systems - Review of Systems Review of Systems: ROS- difficult to obtain as pt. responds NO to all questions. as per nurse pt. did have loose stools ealier. Past Patient History - Past Medical History & Family History Past Medical History?: Yes Past Family History: Reviewed and not pertinent - Past Social History Smoking Status: Never Smoked Alcohol: None Drugs: Denies - CARDIAC Hx Atrial Fibrillation: Yes Hx Congestive Heart Failure: Yes Hx Hypercholesterolemia: Yes Hx Hypertension: Yes - PULMONARY Hx Respiratory Disorders: No Hx Asthma: No - NEUROLOGICAL Hx Dementia: Yes - HEENT Hx HEENT Problems: No - RENAL Hx Chronic Kidney Disease: Yes - ENDOCRINE/METABOLIC Hx Hypothyroidism: Yes - INTEGUMENTARY Hx Dermatological Problems: No - MUSCULOSKELETAL/RHEUMATOLOGICAL Hx Musculoskeletal Disorders: No Hx Falls: No - GASTROINTESTINAL Hx Gastrointestinal Disorders: Yes Hx Gastroesophageal Reflux: Yes - GENITOURINARY/GYNECOLOGICAL Hx Genitourinary Disorders: No - PSYCHIATRIC Hx Psychophysiologic Disorder: Yes - SURGICAL HISTORY Hx Surgeries: No - ANESTHESIA Hx Anesthesia: No Hx Anesthesia Reactions: No Hx Malignant Hyperthermia: No Has any member of the family had a problem w/ anesthesia?: No Meds Allergies/Adverse Reactions: Allergies Allergy/AdvReac Type Severity Reaction Status Date / Time No Known Allergies Allergy Verified 02/26/18 15:36 - Medications Medications: Current Medications Acetaminophen (Tylenol 325mg Tab) 650 mg PO Q6 PRN PRN Reason: Other Aspirin (Ecotrin) 81 mg PO DAILY [facility] Last Admin: 03/22/18 08:52 Dose: 81 mg Atorvastatin Calcium (Lipitor) 80 mg PO [facility] Last Admin: 03/21/18 21:42 Dose: 80 mg Dextrose/Sodium Chloride (Dextrose 5%-0.9% Ns 500 Ml) 500 mls @ 30 mls/hr IV .[id number] [facility] Stop: 03/23/18 12:56 Last Admin: 03/22/18 13:52 Dose: 30 mls/hr Meropenem 500 mg/ Sodium (Chloride) 100 mls @ 100 mls/hr IVPB Q8 [facility] PRN Reason: Protocol Insulin Human Lispro (Humalog) 0 units SC ACHS [facility] PRN Reason: Protocol Last Admin: 03/22/18 13:04 Dose: Not Given Levothyroxine Sodium (Synthroid) 75 mcg PO DAILY@0630 [facility] Last Admin: 03/22/18 05:33 Dose: 75 mcg Metoprolol Tartrate (Lopressor) 12.5 mg PO Q12 [facility] Last Admin: 03/22/18 08:53 Dose: 12.5 mg Mirtazapine (Remeron 15mg Odt) 15 mg PO [facility] Last Admin: 03/21/18 21:44 Dose: 15 mg Mupirocin (Bactroban Ointment) 1 applic TOP BID [facility] Last Admin: 03/22/18 08:57 Dose: 1 applic Ondansetron HCl (Zofran Inj) 4 mg IVP Q4 PRN PRN Reason: Nausea/Vomiting Last Admin: 03/21/18 23:51 Dose: 4 mg Sitagliptin Phosphate (Januvia) 25 mg PO DAILY [facility] Last Admin: 03/22/18 08:52 Dose: 25 mg Physical Exam - Constitutional Appears: Non-toxic, No Acute Distress - Head Exam Head Exam: ATRAUMATIC - Eye Exam Eye Exam: EOMI - ENT Exam ENT Exam: Normal Oropharynx - Neck Exam Neck exam: Positive for: Full Rom - Respiratory Exam Respiratory Exam: NORMAL BREATHING PATTERN Additional comments: good breath sounds - Cardiovascular Exam Cardiovascular Exam: Tachycardia, +S1, +S2 - GI/Abdominal Exam GI & Abdominal Exam: Normal Bowel Sounds, Soft Additional comments: NT, ND No guarding, No rebound - Extremities Exam Additional comments: edema B/L Le - Neurological Exam Neurological exam: Alert Additional comments: flat affect, baseline dementia Results - Vital Signs Recent Vital Signs: Last Vital Signs Temp 98.0 F 03/22/18 12:00 Pulse 91 H 03/22/18 12:00 Resp 16 03/22/18 12:00 BP 95/65 L 03/22/18 12:00 Pulse Ox 95 03/22/18 12:00 - Labs Result Diagrams: 03/22/18 04:20 03/22/18 04:20 Labs: Laboratory Results - last 24 hr 03/21/18 03/21/18 03/22/18 16:07 21:39 04:20 WBC RBC Hgb Hct MCV MCH MCHC RDW Plt Count Sodium 144 Potassium 4.2 Chloride 118 H Carbon Dioxide 20 L Anion Gap 10 BUN 6 L Creatinine 0.9 Est GFR ( Amer) > 60 Est GFR (Non-Af Amer) 59 POC Glucose (mg/dL) 270 H 113 H Random Glucose 109 H Calcium 7.4 L 03/22/18 03/22/18 03/22/18 04:20 05:46 11:51 WBC 4.3 L RBC 3.61 L Hgb 9.6 L Hct 30.5 L MCV 84.5 MCH 26.6 L MCHC 31.5 L RDW 19.7 H Plt Count 262 Sodium Potassium Chloride Carbon Dioxide Anion Gap BUN Creatinine Est GFR ( Amer) Est GFR (Non-Af Amer) POC Glucose (mg/dL) 142 H 126 H Random Glucose Calcium Laboratory Results - last 72 hr 03/19/18 03/19/18 03/20/18 15:59 21:41 04:30 WBC 3.3 L RBC 3.83 Hgb 10.3 L Hct 32.7 L MCV 85.3 MCH 26.9 L MCHC 31.5 L RDW 19.7 H Plt Count 206 MPV 8.7 Neut % (Auto) 39.5 L Lymph % (Auto) 34.3 [place] % (Auto) 13.9 H Eos % (Auto) 11.3 H Baso % (Auto) 1.0 Neut # (Auto) 1.3 L Lymph # (Auto) 1.1 [place] # (Auto) 0.5 Eos # (Auto) 0.4 Baso # (Auto) 0.0 Sodium Potassium Chloride Carbon Dioxide Anion Gap BUN Creatinine Est GFR ( Amer) Est GFR (Non-Af Amer) POC Glucose (mg/dL) 126 H 133 H Random Glucose Calcium 03/20/18 03/20/18 03/20/18 04:30 05:47 12:03 WBC RBC Hgb Hct MCV MCH MCHC RDW Plt Count MPV Neut % (Auto) Lymph % (Auto) [place] % (Auto) Eos % (Auto) Baso % (Auto) Neut # (Auto) Lymph # (Auto) [place] # (Auto) Eos # (Auto) Baso # (Auto) Sodium 143 Potassium 4.0 Chloride 113 H Carbon Dioxide 22 Anion Gap 12 BUN 8 Creatinine 1.2 Est GFR ( Amer) 51 Est GFR (Non-Af Amer) 42 POC Glucose (mg/dL) 89 124 H Random Glucose 100 Calcium 7.8 L 03/20/18 03/20/18 03/21/18 16:20 21:34 03:58 WBC RBC Hgb Hct MCV MCH MCHC RDW Plt Count MPV Neut % (Auto) Lymph % (Auto) [place] % (Auto) Eos % (Auto) Baso % (Auto) Neut # (Auto) Lymph # (Auto) [place] # (Auto) Eos # (Auto) Baso # (Auto) Sodium Potassium Chloride Carbon Dioxide Anion Gap BUN Creatinine Est GFR ( Amer) Est GFR (Non-Af Amer) POC Glucose (mg/dL) 158 H 173 H 85 Random Glucose Calcium 03/21/18 03/21/18 03/21/18 04:30 04:30 11:32 WBC 3.8 L RBC 3.80 Hgb 10.3 L Hct 32.6 L MCV 86.0 MCH 27.0 MCHC 31.5 L RDW 19.9 H Plt Count 246 MPV Neut % (Auto) Lymph % (Auto) [place] % (Auto) Eos % (Auto) Baso % (Auto) Neut # (Auto) Lymph # (Auto) [place] # (Auto) Eos # (Auto) Baso # (Auto) Sodium 144 Potassium 3.4 L Chloride 112 H Carbon Dioxide 22 Anion Gap 13 BUN 7 Creatinine 1.0 Est GFR ( Amer) > 60 Est GFR (Non-Af Amer) 52 POC Glucose (mg/dL) 122 H Random Glucose 78 Calcium 7.6 L 03/21/18 03/21/18 03/22/18 16:07 21:39 04:20 WBC RBC Hgb Hct MCV MCH MCHC RDW Plt Count MPV Neut % (Auto) Lymph % (Auto) [place] % (Auto) Eos % (Auto) Baso % (Auto) Neut # (Auto) Lymph # (Auto) [place] # (Auto) Eos # (Auto) Baso # (Auto) Sodium 144 Potassium 4.2 Chloride 118 H Carbon Dioxide 20 L Anion Gap 10 BUN 6 L Creatinine 0.9 Est GFR ( Amer) > 60 Est GFR (Non-Af Amer) 59 POC Glucose (mg/dL) 270 H 113 H Random Glucose 109 H Calcium 7.4 L 03/22/18 03/22/18 03/22/18 04:20 05:46 11:51 WBC 4.3 L RBC 3.61 L Hgb 9.6 L Hct 30.5 L MCV 84.5 MCH 26.6 L MCHC 31.5 L RDW 19.7 H Plt Count 262 MPV Neut % (Auto) Lymph % (Auto) [place] % (Auto) Eos % (Auto) Baso % (Auto) Neut # (Auto) Lymph # (Auto) [place] # (Auto) Eos # (Auto) Baso # (Auto) Sodium Potassium Chloride Carbon Dioxide Anion Gap BUN Creatinine Est GFR ( Amer) Est GFR (Non-Af Amer) POC Glucose (mg/dL) 142 H 126 H Random Glucose Calcium 03/22/18 16:16 WBC RBC Hgb Hct MCV MCH MCHC RDW Plt Count MPV Neut % (Auto) Lymph % (Auto) [place] % (Auto) Eos % (Auto) Baso % (Auto) Neut # (Auto) Lymph # (Auto) [place] # (Auto) Eos # (Auto) Baso # (Auto) Sodium Potassium Chloride Carbon Dioxide Anion Gap BUN Creatinine Est GFR ( Amer) Est GFR (Non-Af Amer) POC Glucose (mg/dL) 105 Random Glucose Calcium Microbiology 03/20/18 10:45 Urine,Clean Catch Urine Culture - Final Klebsiella Pneumoniae Ssp Pneu 03/14/18 00:05 Blood Blood Culture - Final NO GROWTH AFTER 5 DAYS 03/14/18 00:05 Blood Gram Stain - Final TEST NOT PERFORMED 03/15/18 00:20 Blood Blood Culture - Final NO GROWTH AFTER 5 DAYS 03/15/18 00:20 Blood Gram Stain - Final TEST NOT PERFORMED 03/15/18 10:28 Naris MRSA Culture (Admit) - Final MRSA DETECTED Microbiology 03/20/18 10:45 Urine,Clean Catch Urine Culture - Final Klebsiella Pneumoniae Ssp Pneu 03/15/18 00:20 Blood Blood Culture - Final 03/15/18 00:20 Blood Gram Stain - Final NO GROWTH AFTER 5 DAYS TEST NOT PERFORMED 03/14/18 00:05 Blood Blood Culture - Final 03/14/18 00:05 Blood Gram Stain - Final NO GROWTH AFTER 5 DAYS TEST NOT PERFORMED 02/21/18 20:10 Urine,Clean Catch Urine Culture - Final 50-100,000 CFU/ML. MULTIPLE SPECIES. SUGGEST REPEAT SPECIMEN. 02/21/18 16:00 Blood-Venous Blood Culture - Final 02/21/18 16:00 Blood-Venous Gram Stain - Final NO GROWTH AFTER 5 DAYS TEST NOT PERFORMED 02/21/18 15:46 Blood-Venous Blood Culture - Final 02/21/18 15:46 Blood-Venous Gram Stain - Final NO GROWTH AFTER 5 DAYS TEST NOT PERFORMED Accession No. : [id number] Patient Name / ID : CHRISSY VAZQUEZ / [id number] Exam Date : 03/16/2018 11:48:36 ( Approved ) Study Comment : Sex / Age : F / 87Y Creator : Antonio Washington MD Dictator : Antonio Washington MD Window Sash Installer : Education Administrative Assistant : Antonio Washington MD Approver2 : Report Date : 03/17/2018 08:17:33 My Comment : Date of service: 03/16/2018 PROCEDURE: CHEST RADIOGRAPH, 1 VIEW HISTORY: CHF COMPARISON: None available. FINDINGS: LUNGS: Clear. PLEURA: No pneumothorax or pleural fluid seen. CARDIOVASCULAR: Normal. OSSEOUS STRUCTURES: No significant abnormalities. VISUALIZED UPPER ABDOMEN: Normal. OTHER FINDINGS: None. IMPRESSION: No active disease. Assessment & Plan (1) Acute kidney injury Status: Acute Priority: High (2) Hypotension Status: Acute Priority: Medium (3) Urinary tract infection due to extended-spectrum beta lactamase (ESBL)- producing Klebsiella Status: Acute - Assessment and Plan (Free Text) Assessment: A/P- 87 year old female with CHF, DM II, dementia, admitted with hypotention, acute renal insufficiency , Aortic stenosis with ESBL klebsiella in urine cx . patient does not look septic she is afebrile normal wbc count UA from 03/15/2018- negative for nirates and LE, few WBC urien cx03/20/2018- MDR esbl K.Pneumonias ( spoke with jna from [facility] and he states it's resistant to carbapenems as well). asked micro to check for sensitivity to avycaz. 1.acutre renal insufficiency most likely pre-renal 2. severe 3.Dementia 4.bactrurea Plan- advise to check another UA and urine cx as the clinical picture does not match the urine cx. check stool c.diff as well . advise to hold off on broad spectrum antibiotic as this urine cx could be colonization and pt. is asymptomatic . if pt. develops any fever or abd . pian or any sign of a possible infection would then advise to start avycaz at that time. All labs, imaging reviewed . case d/w Gold Assayer. Thank you for allowing me to take part in the care of this patient. ICU time 60 minutes.
[2018-03-22 17:53] LABS: SQUAMOUS EPITHIAL 3 /hpf (0-5); URINE BACTERIA MANY (<OCC); URINE BILIRUBIN NEGATIVE (NEGATIVE); URINE BLOOD MODERATE (NEGATIVE); URINE CLARITY CLOUDY (Clear); URINE COLOR YELLOW (YELLOW); URINE GLUCOSE (UA) NEG (Normal); URINE LEUKOCYTE ESTERASE LARGE Leu/uL (Negative); URINE PROTEIN 100 mg/dL (NEGATIVE); URINE UROBILINOGEN 0.2-1.0 mg/dL (0.2-1.0)
[2018-03-23] MEDS: Levothyroxine 75 MCG TAB PO SCH (05:33)
[2018-03-23 06:45] LABS: HEMOGLOBIN 10.3 g/dL (12.0-16.0); MEAN CELL VOLUME 84.4 fl (81.0-99.0); MEAN CORPUSCULAR HEMOGLOBIN 26.5 pg (27.0-31.0); MEAN CORPUSCULAR HGB CONC 31.4 g/dL (33.0-37.0); RBC 3.91 Mil/uL (3.80-5.20); RED CELL DISTRIBUTION WIDTH 19.9 % (11.5-14.5); WHITE BLOOD COUNT 4.2 K/uL (4.8-10.8)
[2018-03-23 06:56] LABS: CALCIUM 7.8 mg/dL (8.4-10.2)
[2018-03-23] MEDS: Insulin Lispro (humaLOG) 100 Units/ml Inj SC SCH ×4 (08:28→22:00)
--- NOTE | 2018-03-23 12:27 | CP.PCM.PN ---
Subjective - Date & Time of Evaluation Date of Evaluation: 03/23/18 Time of Evaluation: 12:27 - Subjective Subjective: ID Note- Pt. seen and examined today in ICU. denies any complaints. remains afebrile. Objective - Vital Signs/Intake and Output Vital Signs (last 24 hours): Temp Pulse Resp BP Pulse Ox 98.6 F 87 18 129/77 100 03/23/18 12:00 03/23/18 12:00 03/23/18 12:00 03/23/18 12:00 03/23/18 12:00 Intake and Output: 03/23/18 03/23/18 06:59 18:59 Intake Total 460 130 Output Total 250 Balance 210 130 - Medications Medications: Current Medications Acetaminophen (Tylenol 325mg Tab) 650 mg PO Q6 PRN PRN Reason: Other Aspirin (Ecotrin) 81 mg PO DAILY [facility] Last Admin: 03/23/18 08:26 Dose: 81 mg Atorvastatin Calcium (Lipitor) [address] [facility] Last Admin: 03/22/18 21:16 Dose: 80 mg Dextrose/Sodium Chloride (Dextrose 5%-0.9% Ns 500 Ml) 500 mls @ 30 mls/hr IV .[id number] [facility] Stop: 03/23/18 12:56 Last Admin: 03/22/18 13:52 Dose: 30 mls/hr Insulin Human Lispro (Humalog) 0 units SC ACHS [facility] PRN Reason: Protocol Last Admin: 03/23/18 12:26 Dose: Not Given Levothyroxine Sodium (Synthroid) 75 mcg PO DAILY@0630 [facility] Last Admin: 03/23/18 05:33 Dose: 75 mcg Metoprolol Tartrate (Lopressor) 12.5 mg PO Q12 [facility] Last Admin: 03/23/18 08:29 Dose: 12.5 mg Mirtazapine (Remeron 15mg Odt) [address] [facility] Last Admin: 03/22/18 21:14 Dose: 15 mg Mupirocin (Bactroban Ointment) 1 applic TOP BID [facility] Last Admin: 03/23/18 08:25 Dose: 1 applic Ondansetron HCl (Zofran Inj) 4 mg IVP Q4 PRN PRN Reason: Nausea/Vomiting Last Admin: 03/21/18 23:51 Dose: 4 mg Sitagliptin Phosphate (Januvia) 25 mg PO DAILY [facility] Last Admin: 03/23/18 08:28 Dose: 25 mg - Labs Labs: - Additional Findings Additional findings: - Constitutional Appears: Non-toxic, No Acute Distress - Head Exam Head Exam: ATRAUMATIC - Eye Exam Eye Exam: EOMI - ENT Exam ENT Exam: Normal Oropharynx - Neck Exam Neck exam: Positive for: Full Rom - Respiratory Exam Respiratory Exam: NORMAL BREATHING PATTERN Additional comments: good breath sounds - Cardiovascular Exam Cardiovascular Exam: Tachycardia, +S1, +S2 - GI/Abdominal Exam GI & Abdominal Exam: Normal Bowel Sounds, Soft Additional comments: NT, ND No guarding, No rebound - Extremities Exam Additional comments: edema B/L Le - Neurological Exam Neurological exam: Alert Additional comments: flat affect, baseline dementia Laboratory Results - last 72 hr 03/20/18 03/20/18 03/20/18 12:03 16:20 21:34 WBC RBC Hgb Hct MCV MCH MCHC RDW Plt Count Sodium Potassium Chloride Carbon Dioxide Anion Gap BUN Creatinine Est GFR ( Amer) Est GFR (Non-Af Amer) POC Glucose (mg/dL) 124 H 158 H 173 H Random Glucose Calcium Procalcitonin Urine Color Urine Clarity Urine pH Ur Specific [place] Urine Protein Urine Glucose (UA) Urine Ketones Urine Blood Urine Nitrate Urine Bilirubin Urine Urobilinogen Ur Leukocyte Esterase Urine RBC (Auto) Urine Microscopic WBC Ur Squamous Epith Cells Urine Bacteria 03/21/18 03/21/18 03/21/18 03:58 04:30 04:30 WBC 3.8 L RBC 3.80 Hgb 10.3 L Hct 32.6 L MCV 86.0 MCH 27.0 MCHC 31.5 L RDW 19.9 H Plt Count 246 Sodium 144 Potassium 3.4 L Chloride 112 H Carbon Dioxide 22 Anion Gap 13 BUN 7 Creatinine 1.0 Est GFR ( Amer) > 60 Est GFR (Non-Af Amer) 52 POC Glucose (mg/dL) 85 Random Glucose 78 Calcium 7.6 L Procalcitonin Urine Color Urine Clarity Urine pH Ur Specific [place] Urine Protein Urine Glucose (UA) Urine Ketones Urine Blood Urine Nitrate Urine Bilirubin Urine Urobilinogen Ur Leukocyte Esterase Urine RBC (Auto) Urine Microscopic WBC Ur Squamous Epith Cells Urine Bacteria 03/21/18 03/21/18 03/21/18 11:32 16:07 21:39 WBC RBC Hgb Hct MCV MCH MCHC RDW Plt Count Sodium Potassium Chloride Carbon Dioxide Anion Gap BUN Creatinine Est GFR ( Amer) Est GFR (Non-Af Amer) POC Glucose (mg/dL) 122 H 270 H 113 H Random Glucose Calcium Procalcitonin Urine Color Urine Clarity Urine pH Ur Specific [place] Urine Protein Urine Glucose (UA) Urine Ketones Urine Blood Urine Nitrate Urine Bilirubin Urine Urobilinogen Ur Leukocyte Esterase Urine RBC (Auto) Urine Microscopic WBC Ur Squamous Epith Cells Urine Bacteria 03/22/18 03/22/18 03/22/18 04:20 04:20 05:46 WBC 4.3 L RBC 3.61 L Hgb 9.6 L Hct 30.5 L MCV 84.5 MCH 26.6 L MCHC 31.5 L RDW 19.7 H Plt Count 262 Sodium 144 Potassium 4.2 Chloride 118 H Carbon Dioxide 20 L Anion Gap 10 BUN 6 L Creatinine 0.9 Est GFR ( Amer) > 60 Est GFR (Non-Af Amer) 59 POC Glucose (mg/dL) 142 H Random Glucose 109 H Calcium 7.4 L Procalcitonin Urine Color Urine Clarity Urine pH Ur Specific [place] Urine Protein Urine Glucose (UA) Urine Ketones Urine Blood Urine Nitrate Urine Bilirubin Urine Urobilinogen Ur Leukocyte Esterase Urine RBC (Auto) Urine Microscopic WBC Ur Squamous Epith Cells Urine Bacteria 03/22/18 03/22/18 03/22/18 11:51 16:16 17:30 WBC RBC Hgb Hct MCV MCH MCHC RDW Plt Count Sodium Potassium Chloride Carbon Dioxide Anion Gap BUN Creatinine Est GFR ( Amer) Est GFR (Non-Af Amer) POC Glucose (mg/dL) 126 H 105 Random Glucose Calcium Procalcitonin 0.07 L Urine Color Urine Clarity Urine pH Ur Specific [place] Urine Protein Urine Glucose (UA) Urine Ketones Urine Blood Urine Nitrate Urine Bilirubin Urine Urobilinogen Ur Leukocyte Esterase Urine RBC (Auto) Urine Microscopic WBC Ur Squamous Epith Cells Urine Bacteria 03/22/18 03/23/18 03/23/18 17:30 05:25 05:25 WBC 4.2 L RBC 3.91 Hgb 10.3 L Hct 33.0 L MCV 84.4 MCH 26.5 L MCHC 31.4 L RDW 19.9 H Plt Count 305 Sodium 143 Potassium 3.9 Chloride 115 H Carbon Dioxide 21 L Anion Gap 11 BUN 7 Creatinine 1.1 Est GFR ( Amer) 57 Est GFR (Non-Af Amer) 47 POC Glucose (mg/dL) Random Glucose 91 Calcium 7.8 L Procalcitonin Urine Color Yellow Urine Clarity Cloudy Urine pH 5.0 Ur Specific [place] 1.017 Urine Protein 100 Urine Glucose (UA) Neg Urine Ketones Negative Urine Blood Moderate Urine Nitrate Positive H Urine Bilirubin Negative Urine Urobilinogen 0.2-1.0 Ur Leukocyte Esterase Large Urine RBC (Auto) 13 H Urine Microscopic WBC 379 H Ur Squamous Epith Cells 3 Urine Bacteria Many H Microbiology 03/20/18 10:45 Urine,Clean Catch Urine Culture - Final Klebsiella Pneumoniae Ssp Pneu 03/14/18 00:05 Blood Blood Culture - Final NO GROWTH AFTER 5 DAYS 03/14/18 00:05 Blood Gram Stain - Final TEST NOT PERFORMED 03/15/18 00:20 Blood Blood Culture - Final NO GROWTH AFTER 5 DAYS 03/15/18 00:20 Blood Gram Stain - Final TEST NOT PERFORMED 03/15/18 10:28 Naris MRSA Culture (Admit) - Final MRSA DETECTED Assessment and Plan (1) Acute kidney injury Status: Acute (2) Hypotension Status: Acute (3) Urinary tract infection due to extended-spectrum beta lactamase (ESBL)- producing Klebsiella Status: Acute - Assessment and Plan (Free Text) Assessment: A/P- 87 year old female with CHF, DM II, dementia, admitted with hypotention, acute renal insufficiency , Aortic stenosis with ESBL klebsiella in urine cx . she is afebrile normal wbc count UA from 03/15/2018- negative for nirates and LE, few WBC urine cx03/20/2018- MDR esbl K.Pneumonias ( spoke with jan from micro lab and he states it's resistant to carbapenems as well). as per micro lab today it is sens to Avycaz repeat UA from yesterday- positive nitrtaes, larger LE, many bacteria 1.acute renal insufficiency most likely pre-renal 2. severe 3.Dementia 4.UTI Plan- in light of the new UA result and the MDR Klebsiell ain her urine cx advise to start avycaz ( renal dose) eventhough pt. is asymptomatic due to her underlying medical conditions. await repeat urine cx as well. start avycaz for now pending further results. All labs, imaging reviewed . d/w Training Analyst. ICU time 40 min.
--- NOTE | 2018-03-23 20:51 | CP.PCM.PN ---
Subjective - Date & Time of Evaluation Date of Evaluation: 03/22/18 Time of Evaluation: 21:45 - Subjective Subjective: Seen and examined at the bed side. Continue to be Tachycardic to lower 100's. No fever or chills. Urine Culture Grew ESBL+ MDR Klebsiella P. ID consulted. Objective - Vital Signs/Intake and Output Vital Signs (last 24 hours): Temp Pulse Resp BP Pulse Ox 99 F 105 H 20 143/78 98 03/23/18 16:00 03/23/18 18:00 03/23/18 18:00 03/23/18 18:00 03/23/18 18:00 Intake and Output: 03/23/18 03/24/18 18:59 06:59 Intake Total 310 Balance 310 - Medications Medications: Current Medications Acetaminophen (Tylenol 325mg Tab) 650 mg PO Q6 PRN PRN Reason: Other Aspirin (Ecotrin) 81 mg PO DAILY [facility] Last Admin: 03/23/18 08:26 Dose: 81 mg Atorvastatin Calcium (Lipitor) 80 mg PO HS [facility] Last Admin: 03/22/18 21:16 Dose: 80 mg Ceftazidime/Avibactam 1.25 gm/ (Sodium Chloride) 100 mls @ 100 mls/hr IVPB Q8H [facility] PRN Reason: Protocol Last Admin: 03/23/18 19:02 Dose: 100 mls/hr Insulin Human Lispro (Humalog) 0 units SC ACHS [facility] PRN Reason: Protocol Last Admin: 03/23/18 16:50 Dose: Not Given Levothyroxine Sodium (Synthroid) 75 mcg PO DAILY@0630 [facility] Last Admin: 03/23/18 05:33 Dose: 75 mcg Metoprolol Tartrate (Lopressor) 12.5 mg PO Q12 [facility] Last Admin: 03/23/18 08:29 Dose: 12.5 mg Mirtazapine (Remeron 15mg Odt) 15 mg PO HS [facility] Last Admin: 03/22/18 21:14 Dose: 15 mg Mupirocin (Bactroban Ointment) 1 applic TOP BID [facility] Last Admin: 03/23/18 16:48 Dose: 1 applic Ondansetron HCl (Zofran Inj) 4 mg IVP Q4 PRN PRN Reason: Nausea/Vomiting Last Admin: 03/21/18 23:51 Dose: 4 mg Sitagliptin Phosphate (Januvia) 25 mg PO DAILY [facility] Last Admin: 03/23/18 08:28 Dose: 25 mg - Labs Labs: 03/23/18 05:25 03/23/18 05:25 PT 12.8 Seconds (9.8-13.1) 03/15/18 00:14 INR 1.2 03/15/18 00:14 APTT 26.9 Seconds (25.6-37.1) 03/15/18 00:14 - Constitutional Appears: Well, No Acute Distress - Head Exam Head Exam: ATRAUMATIC, NORMAL INSPECTION, NORMOCEPHALIC - Eye Exam Eye Exam: EOMI, Normal appearance, PERRL Pupil Exam: NORMAL ACCOMODATION, PERRL - ENT Exam ENT Exam: Mucous Membranes Moist, Normal Exam - Neck Exam Neck Exam: Full ROM, Normal Inspection. absent: Lymphadenopathy - Respiratory Exam Respiratory Exam: Clear to Ausculation Bilateral, NORMAL BREATHING PATTERN - Cardiovascular Exam Cardiovascular Exam: REGULAR RHYTHM, +S1, +S2. absent: Murmur - GI/Abdominal Exam GI & Abdominal Exam: Soft, Normal Bowel Sounds. absent: Tenderness - Extremities Exam Extremities Exam: Full ROM, Normal Capillary Refill, Normal Inspection. absent : Joint Swelling, Pedal Edema - Back Exam Back Exam: NORMAL INSPECTION - Neurological Exam Neurological Exam: Abnormal Gait, Awake, CN II-XII Intact - Psychiatric Exam Psychiatric exam: Flat Affect - Skin Skin Exam: Dry, Intact, Normal Color, Warm Assessment and Plan (1) Chest pain Assessment & Plan: ACS ruled out Continue to Monitor Status: Acute Priority: High (2) Hypotension, Resolved Assessment and Plan: Resolved after IVF Bolus Continue Cautious Hydration Status: Acute (3) Acute kidney injury- Improving Assessment and Plan: Most likely Prerenal IVF Repeat BMP in am Nephro consult Status: Acute Priority: High (4) Atrial fibrillation- Rate Controlled Severe Aortic Stenosis, Pauses Assessment and Plan: Awaiting Family Decision about TAVR Resume Xeralto Metoprolol 12.5 mg BID Status: Acute Priority: High (5) Physical Debility, Anorexia- Improved Appetite Assessment and Plan: Bed rest for now, and C/w Remeron to 15mg QHS PT/OT when Stable Status: Acute
--- NOTE | 2018-03-23 21:35 | CP.PCM.PN ---
Subjective - Date & Time of Evaluation Date of Evaluation: 03/23/18 Time of Evaluation: 18:25 - Subjective Subjective: Seen and examined at the bed side. No fever or chills. Urine Culture +ESBL+ MDR Klebsiellle P in the Urine. Objective - Vital Signs/Intake and Output Vital Signs (last 24 hours): Temp Pulse Resp BP Pulse Ox 99 F 105 H 20 134/95 H 98 03/23/18 16:00 03/23/18 21:11 03/23/18 18:00 03/23/18 21:11 03/23/18 18:00 Intake and Output: 03/23/18 03/24/18 18:59 06:59 Intake Total 310 Balance 310 - Medications Medications: Current Medications Acetaminophen (Tylenol 325mg Tab) 650 mg PO Q6 PRN PRN Reason: Other Aspirin (Ecotrin) 81 mg PO DAILY [facility] Last Admin: 03/23/18 08:26 Dose: 81 mg Atorvastatin Calcium (Lipitor) 80 mg PO HS [facility] Last Admin: 03/23/18 21:11 Dose: 80 mg Ceftazidime/Avibactam 1.25 gm/ (Sodium Chloride) 100 mls @ 100 mls/hr IVPB Q8H [facility] PRN Reason: Protocol Last Admin: 03/23/18 19:02 Dose: 100 mls/hr Insulin Human Lispro (Humalog) 0 units SC ACHS [facility] PRN Reason: Protocol Last Admin: 03/23/18 16:50 Dose: Not Given Levothyroxine Sodium (Synthroid) 75 mcg PO DAILY@0630 [facility] Last Admin: 03/23/18 05:33 Dose: 75 mcg Metoprolol Tartrate (Lopressor) 12.5 mg PO Q12 [facility] Last Admin: 03/23/18 21:11 Dose: 12.5 mg Mirtazapine (Remeron 15mg Odt) 15 mg PO HS [facility] Last Admin: 03/23/18 21:10 Dose: 15 mg Mupirocin (Bactroban Ointment) 1 applic TOP BID [facility] Last Admin: 03/23/18 16:48 Dose: 1 applic Ondansetron HCl (Zofran Inj) 4 mg IVP Q4 PRN PRN Reason: Nausea/Vomiting Last Admin: 03/21/18 23:51 Dose: 4 mg Sitagliptin Phosphate (Januvia) 25 mg PO DAILY [facility] Last Admin: 03/23/18 08:28 Dose: 25 mg - Labs Labs: 03/23/18 05:25 03/23/18 05:25 PT 12.8 Seconds (9.8-13.1) 03/15/18 00:14 INR 1.2 03/15/18 00:14 APTT 26.9 Seconds (25.6-37.1) 03/15/18 00:14 - Constitutional Appears: Well, No Acute Distress - Head Exam Head Exam: ATRAUMATIC, NORMAL INSPECTION, NORMOCEPHALIC - Eye Exam Eye Exam: EOMI, Normal appearance, PERRL Pupil Exam: NORMAL ACCOMODATION, PERRL - ENT Exam ENT Exam: Mucous Membranes Moist, Normal Exam - Neck Exam Neck Exam: Full ROM, Normal Inspection. absent: Lymphadenopathy - Respiratory Exam Respiratory Exam: Clear to Ausculation Bilateral, NORMAL BREATHING PATTERN - Cardiovascular Exam Cardiovascular Exam: Tachycardia, Irregular Rhythm, +S1, +S2. absent: Murmur - GI/Abdominal Exam GI & Abdominal Exam: Soft, Normal Bowel Sounds. absent: Tenderness - Extremities Exam Extremities Exam: Full ROM, Normal Capillary Refill, Normal Inspection. absent : Joint Swelling, Pedal Edema - Back Exam Back Exam: Full ROM - Neurological Exam Neurological Exam: Abnormal Gait, Alert, Awake, CN II-XII Intact - Psychiatric Exam Psychiatric exam: Normal Affect - Skin Skin Exam: Dry, Intact, Normal Color, Warm Assessment and Plan (1) Chest pain Assessment & Plan: ACS ruled out Continue to Monitor Status: Acute Priority: High (2) Hypotension, Resolved Assessment and Plan: Resolved after IVF Bolus Continue Cautious Hydration Status: Acute (3) Acute kidney injury- Normaliized Assessment and Plan: Most likely Prerenal Repeat BMP in am Nephro onboard Status: Acute Priority: High (4) Atrial fibrillation- Rate Controlled Severe Aortic Stenosis, Pauses Assessment and Plan: Awaiting Family Decision about TAVR Resume Xeralto Increase Metoprolol to 25 mg BID Status: Acute Priority: High (5) Physical Debility, Anorexia- Improved Appetite Assessment and Plan: Bed rest for now, and Remeron to 15mg QHS PT/OT when Stable (6) ESBL+ MDR Klebsiella P in the Urine, Repeat Urine Culture ID Input appreciated. Status: Acute
[2018-03-24 04:59] LABS: HEMOGLOBIN 10.3 g/dL (12.0-16.0); MEAN CELL VOLUME 84.3 fl (81.0-99.0); MEAN CORPUSCULAR HEMOGLOBIN 26.5 pg (27.0-31.0); MEAN CORPUSCULAR HGB CONC 31.5 g/dL (33.0-37.0); RBC 3.9 Mil/uL (3.80-5.20); RED CELL DISTRIBUTION WIDTH 19.6 % (11.5-14.5); WHITE BLOOD COUNT 4.5 K/uL (4.8-10.8)
[2018-03-24 05:15] LABS: BLOOD UREA NITROGEN 11 mg/dl (7-17); GFR NON-AFRICAN AMERICAN 59
[2018-03-24] MEDS: Levothyroxine 75 MCG TAB PO SCH (05:45)
[2018-03-24] MEDS: Insulin Lispro (humaLOG) 100 Units/ml Inj SC SCH ×4 (08:45→21:50)
--- NOTE | 2018-03-24 15:15 | CP.PCM.PN ---
Subjective - Date & Time of Evaluation Date of Evaluation: 03/24/18 Time of Evaluation: 15:14 - Subjective Subjective: Has very poor appetite Has no fever On iv antibiotics Has kleb ESBL in urine Has no fever Still with episodes of tachycardia. Objective - Vital Signs/Intake and Output Vital Signs (last 24 hours): Temp Pulse Resp BP Pulse Ox 98.8 F 99 H 18 130/72 100 03/24/18 12:00 03/24/18 12:00 03/24/18 12:00 03/24/18 12:00 03/24/18 12:00 Intake and Output: 03/24/18 03/24/18 06:59 18:59 Intake Total 310 180 Balance 310 180 - Medications Medications: Current Medications Acetaminophen (Tylenol 325mg Tab) 650 mg PO Q6 PRN PRN Reason: Other Aspirin (Ecotrin) 81 mg PO DAILY [facility] Last Admin: 03/24/18 08:45 Dose: 81 mg Atorvastatin Calcium (Lipitor) 80 mg PO HS [facility] Last Admin: 03/23/18 21:11 Dose: 80 mg Ceftazidime/Avibactam 1.25 gm/ (Sodium Chloride) 100 mls @ 100 mls/hr IVPB Q8H [facility] PRN Reason: Protocol Last Admin: 03/24/18 11:58 Dose: 100 mls/hr Insulin Human Lispro (Humalog) 0 units SC ACHS [facility] PRN Reason: Protocol Last Admin: 03/24/18 11:59 Dose: Not Given Levothyroxine Sodium (Synthroid) 75 mcg PO DAILY@0630 [facility] Last Admin: 03/24/18 05:45 Dose: 75 mcg Megestrol Acetate (Megace) 800 mg PO DAILY [facility] Metoprolol Tartrate (Lopressor) 50 mg PO Q12 [facility] Mirtazapine (Remeron 15mg Odt) 15 mg PO HS [facility] Last Admin: 03/23/18 21:10 Dose: 15 mg Mupirocin (Bactroban Ointment) 1 applic TOP BID [facility] Last Admin: 03/24/18 08:44 Dose: 1 applic Sitagliptin Phosphate (Januvia) 25 mg PO DAILY [facility] Last Admin: 03/24/18 08:46 Dose: 25 mg - Labs Labs: 03/24/18 04:10 03/24/18 04:10 PT 12.8 Seconds (9.8-13.1) 03/15/18 00:14 INR 1.2 03/15/18 00:14 APTT 26.9 Seconds (25.6-37.1) 03/15/18 00:14 - Head Exam Head Exam: NORMAL INSPECTION - Eye Exam Eye Exam: Normal appearance - ENT Exam ENT Exam: Mucous Membranes Moist - Respiratory Exam Respiratory Exam: Clear to Ausculation Bilateral - Cardiovascular Exam Cardiovascular Exam: Tachycardia Assessment and Plan (1) Chronic congestive heart failure Status: Acute (2) Atrial fibrillation Status: Chronic (3) Diabetes mellitus Status: Chronic (4) Hypertension Status: Chronic (5) Urinary tract infection due to extended-spectrum beta lactamase (ESBL)- producing Klebsiella Status: Acute - Assessment and Plan (Free Text) Plan: Cont meds Cont IV antibiotics increase metoprool to 100 bid cont tx. phys therapy
[2018-03-24] MEDS: Megestrol Acetate 40 mg/ml Cup PO SCH (16:40)
[2018-03-24] MEDS ORDERED: Ciprofloxacin 400mg/200ml D5W 400 MG/200 ML BAG IVPB SCH (21:00)
[2018-03-25 05:33] LABS: HEMOGLOBIN 10.2 g/dL (12.0-16.0); MEAN CELL VOLUME 83.4 fl (81.0-99.0); MEAN CORPUSCULAR HEMOGLOBIN 26.4 pg (27.0-31.0); MEAN CORPUSCULAR HGB CONC 31.7 g/dL (33.0-37.0); RBC 3.85 Mil/uL (3.80-5.20); WHITE BLOOD COUNT 6.6 K/uL (4.8-10.8)
[2018-03-25 05:43] LABS: BLOOD UREA NITROGEN 10 mg/dl (7-17); CALCIUM 8.1 mg/dL (8.4-10.2); GFR NON-AFRICAN AMERICAN 59
[2018-03-25] MEDS: Levothyroxine 75 MCG TAB PO SCH (07:04)
[2018-03-25] MEDS: Insulin Lispro (humaLOG) 100 Units/ml Inj SC SCH ×4 (07:30→22:13)
[2018-03-25] MEDS: Megestrol Acetate 40 mg/ml Cup PO SCH (09:37)
--- NOTE | 2018-03-25 10:26 | CP.PCM.PN ---
Subjective - Date & Time of Evaluation Date of Evaluation: 03/25/18 Time of Evaluation: 10:25 - Subjective Subjective: ID note- Pt. seen and examined today . pt. resting comfortably and in NAD. she denies any abd. pain, denies any fever or chills. as per nurse pt. pulled out her IVL and nurse states she ahs reattempted to place another IVL but poor venous access and apparently she is going to have picc line placed for IV access . Objective - Vital Signs/Intake and Output Vital Signs (last 24 hours): Temp Pulse Resp BP Pulse Ox 98.8 F 114 H 17 160/86 H 98 03/25/18 07:54 03/25/18 09:37 03/25/18 07:54 03/25/18 09:37 03/25/18 07:54 Intake and Output: 03/25/18 03/25/18 06:59 18:59 Intake Total 440 Balance 440 - Medications Medications: Current Medications Acetaminophen (Tylenol 325mg Tab) 650 mg PO Q6 PRN PRN Reason: Other Aspirin (Ecotrin) 81 mg PO DAILY [facility] Last Admin: 03/25/18 09:37 Dose: 81 mg Atorvastatin Calcium (Lipitor) 80 mg PO HS [facility] Last Admin: 03/24/18 21:23 Dose: 80 mg Ceftazidime/Avibactam 1.25 gm/ (Sodium Chloride) 100 mls @ 100 mls/hr IVPB Q8@ 0500,1300,2100 [facility] PRN Reason: Protocol Last Admin: 03/25/18 07:04 Dose: Not Given Insulin Human Lispro (Humalog) 0 units SC ACHS [facility] PRN Reason: Protocol Last Admin: 03/24/18 21:50 Dose: Not Given Levothyroxine Sodium (Synthroid) 75 mcg PO DAILY@0630 [facility] Last Admin: 03/25/18 07:04 Dose: 75 mcg Megestrol Acetate (Megace) 800 mg PO DAILY [facility] Last Admin: 03/25/18 09:37 Dose: 800 mg Metoprolol Tartrate (Lopressor) 50 mg PO Q12 [facility] Last Admin: 03/25/18 09:37 Dose: 50 mg Mirtazapine (Remeron 15mg Odt) 15 mg PO HS [facility] Last Admin: 03/24/18 21:23 Dose: 15 mg Mupirocin (Bactroban Ointment) 1 applic TOP BID [facility] Last Admin: 03/25/18 09:36 Dose: 1 applic Sitagliptin Phosphate (Januvia) 25 mg PO DAILY [facility] Last Admin: 03/24/18 08:46 Dose: 25 mg - Labs Labs: - Additional Findings Additional findings: - Constitutional Appears: Non-toxic, No Acute Distress - Head Exam Head Exam: ATRAUMATIC - Eye Exam Eye Exam: EOMI - ENT Exam ENT Exam: Normal Oropharynx - Neck Exam Neck exam: Positive for: Full Rom - Respiratory Exam Respiratory Exam: NORMAL BREATHING PATTERN Additional comments: good breath sounds - Cardiovascular Exam Cardiovascular Exam: Tachycardia, +S1, +S2 - GI/Abdominal Exam GI & Abdominal Exam: Normal Bowel Sounds, Soft Additional comments: NT, ND No guarding, No rebound - Extremities Exam Additional comments: edema B/L LE chronic - Neurological Exam Neurological exam: Alert Additional comments: flat affect, baseline dementia answers questions Laboratory Results - last 72 hr 03/22/18 03/22/18 03/22/18 16:16 17:30 17:30 WBC RBC Hgb Hct MCV MCH MCHC RDW Plt Count Sodium Potassium Chloride Carbon Dioxide Anion Gap BUN Creatinine Est GFR ( Amer) Est GFR (Non-Af Amer) POC Glucose (mg/dL) 105 Random Glucose Calcium Procalcitonin 0.07 L Urine Color Yellow Urine Clarity Cloudy Urine pH 5.0 Ur Specific [place] 1.017 Urine Protein 100 Urine Glucose (UA) Neg Urine Ketones Negative Urine Blood Moderate Urine Nitrate Positive H Urine Bilirubin Negative Urine Urobilinogen 0.2-1.0 Ur Leukocyte Esterase Large Urine RBC (Auto) 13 H Urine Microscopic WBC 379 H Ur Squamous Epith Cells 3 Urine Bacteria Many H 03/22/18 03/23/18 03/23/18 21:15 05:12 05:25 WBC 4.2 L RBC 3.91 Hgb 10.3 L Hct 33.0 L MCV 84.4 MCH 26.5 L MCHC 31.4 L RDW 19.9 H Plt Count 305 Sodium Potassium Chloride Carbon Dioxide Anion Gap BUN Creatinine Est GFR ( Amer) Est GFR (Non-Af Amer) POC Glucose (mg/dL) 105 84 Random Glucose Calcium Procalcitonin Urine Color Urine Clarity Urine pH Ur Specific [place] Urine Protein Urine Glucose (UA) Urine Ketones Urine Blood Urine Nitrate Urine Bilirubin Urine Urobilinogen Ur Leukocyte Esterase Urine RBC (Auto) Urine Microscopic WBC Ur Squamous Epith Cells Urine Bacteria 03/23/18 03/23/18 03/23/18 05:25 12:19 16:18 WBC RBC Hgb Hct MCV MCH MCHC RDW Plt Count Sodium 143 Potassium 3.9 Chloride 115 H Carbon Dioxide 21 L Anion Gap 11 BUN 7 Creatinine 1.1 Est GFR ( Amer) 57 Est GFR (Non-Af Amer) 47 POC Glucose (mg/dL) 105 101 Random Glucose 91 Calcium 7.8 L Procalcitonin Urine Color Urine Clarity Urine pH Ur Specific [place] Urine Protein Urine Glucose (UA) Urine Ketones Urine Blood Urine Nitrate Urine Bilirubin Urine Urobilinogen Ur Leukocyte Esterase Urine RBC (Auto) Urine Microscopic WBC Ur Squamous Epith Cells Urine Bacteria 03/23/18 03/24/18 03/24/18 23:01 04:10 04:10 WBC 4.5 L RBC 3.90 Hgb 10.3 L Hct 32.8 L MCV 84.3 MCH 26.5 L MCHC 31.5 L RDW 19.6 H Plt Count 329 Sodium 145 Potassium 3.9 Chloride 117 H Carbon Dioxide 22 Anion Gap 10 BUN 11 Creatinine 0.9 Est GFR ( Amer) > 60 Est GFR (Non-Af Amer) 59 POC Glucose (mg/dL) 177 H Random Glucose 115 H Calcium 8.0 L Procalcitonin Urine Color Urine Clarity Urine pH Ur Specific [place] Urine Protein Urine Glucose (UA) Urine Ketones Urine Blood Urine Nitrate Urine Bilirubin Urine Urobilinogen Ur Leukocyte Esterase Urine RBC (Auto) Urine Microscopic WBC Ur Squamous Epith Cells Urine Bacteria 03/25/18 03/25/18 04:20 04:20 WBC 6.6 RBC 3.85 Hgb 10.2 L Hct 32.1 L MCV 83.4 MCH 26.4 L MCHC 31.7 L RDW 20.0 H Plt Count 312 Sodium 143 Potassium 3.8 Chloride 113 H Carbon Dioxide 23 Anion Gap 11 BUN 10 Creatinine 0.9 Est GFR ( Amer) > 60 Est GFR (Non-Af Amer) 59 POC Glucose (mg/dL) Random Glucose 125 H Calcium 8.1 L Procalcitonin Urine Color Urine Clarity Urine pH Ur Specific [place] Urine Protein Urine Glucose (UA) Urine Ketones Urine Blood Urine Nitrate Urine Bilirubin Urine Urobilinogen Ur Leukocyte Esterase Urine RBC (Auto) Urine Microscopic WBC Ur Squamous Epith Cells Urine Bacteria Microbiology 03/20/18 10:45 Urine,Clean Catch Urine Culture - Final Klebsiella Pneumoniae Ssp Pneu 03/14/18 00:05 Blood Blood Culture - Final NO GROWTH AFTER 5 DAYS 03/14/18 00:05 Blood Gram Stain - Final TEST NOT PERFORMED 03/15/18 00:20 Blood Blood Culture - Final NO GROWTH AFTER 5 DAYS 03/15/18 00:20 Blood Gram Stain - Final TEST NOT PERFORMED 03/15/18 10:28 Naris MRSA Culture (Admit) - Final MRSA DETECTED Assessment and Plan (1) Acute kidney injury Status: Acute (2) Hypotension Status: Acute (3) Urinary tract infection due to extended-spectrum beta lactamase (ESBL)- producing Klebsiella Status: Acute - Assessment and Plan (Free Text) Assessment: A/P- 87 year old female with CHF, DM II, dementia, admitted with hypotention, acute renal insufficiency , Aortic stenosis with ESBL klebsiella in urine cx . remains afebrile normal wbc count urine cx 03/20/2018- MDR esbl K.Pneumonias ( spoke with jan from micro lab and he states it's resistant to carbapenems as well). as per [facility] , it is sens to Avycaz repeat UA from 03/23/2018-- positive nitrtaes, larger LE, many bacteria 1.MDR klebsiella pneumonia MDR UTI 2.severe 3. dementia Plan- continue [facility] IV avycaz for MDR K.Pneumonia UTI day #2. advise total of 5-7 days of Avycaz. advise to d/c picc line as soon as IV abx are completed. All labs, imaging reviewed . d/w Supply Chain Technician. ICU time 40 min.
[2018-03-25] MEDS ORDERED: Lidocaine Hydrochloride 1% 10 ML ONE (13:52)
--- NOTE | 2018-03-25 14:07 | PCM.SURG1 ---
Surgeon's Initial Post Op Note - Surgeon's Notes Surgeon: Arturo Hull MD Treatment Plant Mechanic: NONE Type of Anesthesia: Local Pre-Operative Diagnosis: Poor venous access Operative Findings: US showed a patent right brachial vein Post-Operative Diagnosis: Poor venous access Operation Performed: Dual lumen picc right brachial vein, 33 cm. Tip is in the SVC. Specimen/Specimens Removed: NONE Estimated Blood Loss: EBL {In ML}: 2 Blood Products Given: N/A Drains Used: No Drains Post-Op Condition: Fair Date of Surgery/Procedure: 03/25/18 Time of Surgery/Procedure: 14:00
--- NOTE | 2018-03-25 14:08 | CP.PCM.PN ---
Subjective - Date & Time of Evaluation Date of Evaluation: 03/21/18 Time of Evaluation: 14:07 Objective - Vital Signs/Intake and Output Vital Signs (last 24 hours): Temp Pulse Resp BP Pulse Ox 99.9 F H 106 H 20 132/46 L 98 03/25/18 14:06 03/25/18 14:06 03/25/18 14:06 03/25/18 14:06 03/25/18 14:06 Intake and Output: 03/25/18 03/25/18 06:59 18:59 Intake Total 440 Balance 440 - Medications Medications: Current Medications Acetaminophen (Tylenol 325mg Tab) 650 mg PO Q6 PRN PRN Reason: Other Aspirin (Ecotrin) 81 mg PO DAILY [facility] Last Admin: 03/25/18 09:37 Dose: 81 mg Atorvastatin Calcium (Lipitor) 80 mg PO HS [facility] Last Admin: 03/24/18 21:23 Dose: 80 mg Ceftazidime/Avibactam 1.25 gm/ (Sodium Chloride) 100 mls @ 100 mls/hr IVPB Q8@ 0500,1300,2100 [facility] PRN Reason: Protocol Last Admin: 03/25/18 07:04 Dose: Not Given Insulin Human Lispro (Humalog) 0 units SC ACHS [facility] PRN Reason: Protocol Last Admin: 03/24/18 21:50 Dose: Not Given Levothyroxine Sodium (Synthroid) 75 mcg PO DAILY@0630 [facility] Last Admin: 03/25/18 07:04 Dose: 75 mcg Megestrol Acetate (Megace) 800 mg PO DAILY [facility] Last Admin: 03/25/18 09:37 Dose: 800 mg Metoprolol Tartrate (Lopressor) 100 mg PO Q12 [facility] Mirtazapine (Remeron 15mg Odt) 15 mg PO HS [facility] Last Admin: 03/24/18 21:23 Dose: 15 mg Mupirocin (Bactroban Ointment) 1 applic TOP BID [facility] Last Admin: 03/25/18 09:36 Dose: 1 applic Sitagliptin Phosphate (Januvia) 25 mg PO DAILY [facility] Last Admin: 03/24/18 08:46 Dose: 25 mg - Labs Labs: 03/25/18 04:20 03/25/18 04:20 PT 12.8 Seconds (9.8-13.1) 08/03/18 00:14 INR 1.2 03/15/18 00:14 APTT 26.9 Seconds (25.6-37.1) 03/15/18 00:14 - Constitutional Appears: Toxic, In Acute Distress - Head Exam Head Exam: ATRAUMATIC, NORMAL INSPECTION, NORMOCEPHALIC - Eye Exam Eye Exam: EOMI, Normal appearance, PERRL Pupil Exam: NORMAL ACCOMODATION, PERRL - ENT Exam ENT Exam: Mucous Membranes Moist, Normal Exam - Neck Exam Neck Exam: Full ROM, Normal Inspection. absent: Lymphadenopathy - Respiratory Exam Respiratory Exam: Clear to Ausculation Bilateral, NORMAL BREATHING PATTERN - Cardiovascular Exam Cardiovascular Exam: REGULAR RHYTHM, +S1, +S2. absent: Murmur - GI/Abdominal Exam GI & Abdominal Exam: Soft, Normal Bowel Sounds. absent: Tenderness - Rectal Exam Rectal Exam: NORMAL INSPECTION - Exam Exam: Circumcision, NORMAL INSPECTION External exam: NORMAL EXTERNAL EXAM Speculum exam: NORMAL SPECULUM EXAM Bimanual exam: NORMAL BIMANUAL EXAM - Extremities Exam Extremities Exam: Full ROM, Normal Capillary Refill, Normal Inspection. absent : Joint Swelling, Pedal Edema - Back Exam Back Exam: NORMAL INSPECTION - Neurological Exam Neurological Exam: Alert, Awake, CN II-XII Intact, Normal Gait, Oriented x3 - Psychiatric Exam Psychiatric exam: Normal Affect, Normal Mood - Skin Skin Exam: Dry, Intact, Normal Color, Warm Assessment and Plan (1) Acute kidney injury Status: Acute (2) Aortic stenosis Status: Acute (3) Chest pain Status: Acute (4) Atrial fibrillation Status: Acute (5) Chronic congestive heart failure Status: Acute (6) Physical debility Status: Acute (7) History of DVT (deep vein thrombosis) Status: Chronic
--- NOTE | 2018-03-25 14:09 | CP.PCM.PN ---
Subjective - Date & Time of Evaluation Date of Evaluation: 03/22/18 Time of Evaluation: 14:08 Objective - Vital Signs/Intake and Output Vital Signs (last 24 hours): Temp Pulse Resp BP Pulse Ox 99.9 F H 106 H 20 132/46 L 98 03/25/18 14:06 03/25/18 14:06 03/25/18 14:06 03/25/18 14:06 03/25/18 14:06 Intake and Output: 03/25/18 03/25/18 06:59 18:59 Intake Total 440 Balance 440 - Medications Medications: Current Medications Acetaminophen (Tylenol 325mg Tab) 650 mg PO Q6 PRN PRN Reason: Other Aspirin (Ecotrin) 81 mg PO DAILY [facility] Last Admin: 03/25/18 09:37 Dose: 81 mg Atorvastatin Calcium (Lipitor) 80 mg PO HS [facility] Last Admin: 03/24/18 21:23 Dose: 80 mg Ceftazidime/Avibactam 1.25 gm/ (Sodium Chloride) 100 mls @ 100 mls/hr IVPB Q8@ 0500,1300,2100 [facility] PRN Reason: Protocol Last Admin: 03/25/18 07:04 Dose: Not Given Insulin Human Lispro (Humalog) 0 units SC ACHS [facility] PRN Reason: Protocol Last Admin: 03/24/18 21:50 Dose: Not Given Levothyroxine Sodium (Synthroid) 75 mcg PO DAILY@0630 [facility] Last Admin: 03/25/18 07:04 Dose: 75 mcg Megestrol Acetate (Megace) 800 mg PO DAILY [facility] Last Admin: 03/25/18 09:37 Dose: 800 mg Metoprolol Tartrate (Lopressor) 100 mg PO Q12 [facility] Mirtazapine (Remeron 15mg Odt) 15 mg PO HS [facility] Last Admin: 03/24/18 21:23 Dose: 15 mg Mupirocin (Bactroban Ointment) 1 applic TOP BID [facility] Last Admin: 03/25/18 09:36 Dose: 1 applic Sitagliptin Phosphate (Januvia) 25 mg PO DAILY [facility] Last Admin: 03/24/18 08:46 Dose: 25 mg - Labs Labs: 03/25/18 04:20 03/25/18 04:20 PT 12.8 Seconds (9.8-13.1) 08/03/18 00:14 INR 1.2 03/15/18 00:14 APTT 26.9 Seconds (25.6-37.1) 03/15/18 00:14 - Constitutional Appears: Toxic - Head Exam Head Exam: ATRAUMATIC, NORMAL INSPECTION, NORMOCEPHALIC - Eye Exam Eye Exam: EOMI, Normal appearance, PERRL Pupil Exam: NORMAL ACCOMODATION, PERRL - ENT Exam ENT Exam: Mucous Membranes Moist, Normal Exam - Neck Exam Neck Exam: Full ROM, Normal Inspection. absent: Lymphadenopathy - Respiratory Exam Respiratory Exam: Clear to Ausculation Bilateral, NORMAL BREATHING PATTERN - Cardiovascular Exam Cardiovascular Exam: Irregular Rhythm, +S1, +S2, Murmur - GI/Abdominal Exam GI & Abdominal Exam: Soft, Normal Bowel Sounds. absent: Tenderness - Extremities Exam Extremities Exam: Full ROM, Normal Capillary Refill, Normal Inspection. absent : Joint Swelling, Pedal Edema - Back Exam Back Exam: NORMAL INSPECTION - Neurological Exam Neurological Exam: Alert, Awake, CN II-XII Intact, Normal Gait, Oriented x3 - Psychiatric Exam Psychiatric exam: Normal Affect, Normal Mood - Skin Skin Exam: Dry, Intact, Normal Color, Warm Assessment and Plan (1) Acute kidney injury Status: Acute (2) Aortic stenosis Status: Acute (3) Chest pain Status: Acute (4) Atrial fibrillation Status: Acute (5) Chronic congestive heart failure Status: Acute (6) Physical debility Status: Acute (7) History of DVT (deep vein thrombosis) Status: Chronic
--- NOTE | 2018-03-25 14:09 | CP.PCM.PN ---
Subjective - Date & Time of Evaluation Date of Evaluation: 03/23/18 Time of Evaluation: 14:09 Objective - Vital Signs/Intake and Output Vital Signs (last 24 hours): Temp Pulse Resp BP Pulse Ox 99.9 F H 106 H 20 132/46 L 98 03/25/18 14:06 03/25/18 14:06 03/25/18 14:06 03/25/18 14:06 03/25/18 14:06 Intake and Output: 03/25/18 03/25/18 06:59 18:59 Intake Total 440 Balance 440 - Medications Medications: Current Medications Acetaminophen (Tylenol 325mg Tab) 650 mg PO Q6 PRN PRN Reason: Other Aspirin (Ecotrin) 81 mg PO DAILY [facility] Last Admin: 03/25/18 09:37 Dose: 81 mg Atorvastatin Calcium (Lipitor) 80 mg PO HS [facility] Last Admin: 03/24/18 21:23 Dose: 80 mg Ceftazidime/Avibactam 1.25 gm/ (Sodium Chloride) 100 mls @ 100 mls/hr IVPB Q8@ 0500,1300,2100 [facility] PRN Reason: Protocol Last Admin: 03/25/18 07:04 Dose: Not Given Insulin Human Lispro (Humalog) 0 units SC ACHS [facility] PRN Reason: Protocol Last Admin: 03/24/18 21:50 Dose: Not Given Levothyroxine Sodium (Synthroid) 75 mcg PO DAILY@0630 [facility] Last Admin: 03/25/18 07:04 Dose: 75 mcg Megestrol Acetate (Megace) 800 mg PO DAILY [facility] Last Admin: 03/25/18 09:37 Dose: 800 mg Metoprolol Tartrate (Lopressor) 100 mg PO Q12 [facility] Mirtazapine (Remeron 15mg Odt) 15 mg PO HS [facility] Last Admin: 03/24/18 21:23 Dose: 15 mg Mupirocin (Bactroban Ointment) 1 applic TOP BID [facility] Last Admin: 03/25/18 09:36 Dose: 1 applic Sitagliptin Phosphate (Januvia) 25 mg PO DAILY [facility] Last Admin: 03/24/18 08:46 Dose: 25 mg - Labs Labs: 03/25/18 04:20 03/25/18 04:20 PT 12.8 Seconds (9.8-13.1) 08/03/18 00:14 INR 1.2 03/15/18 00:14 APTT 26.9 Seconds (25.6-37.1) 03/15/18 00:14 - Constitutional Appears: Well - Head Exam Head Exam: ATRAUMATIC, NORMAL INSPECTION, NORMOCEPHALIC - Eye Exam Eye Exam: EOMI, Normal appearance, PERRL Pupil Exam: NORMAL ACCOMODATION, PERRL - ENT Exam ENT Exam: Mucous Membranes Moist, Normal Exam - Neck Exam Neck Exam: Full ROM, Normal Inspection. absent: Lymphadenopathy - Respiratory Exam Respiratory Exam: Clear to Ausculation Bilateral, NORMAL BREATHING PATTERN - Cardiovascular Exam Cardiovascular Exam: Irregular Rhythm, +S1, +S2, Murmur - GI/Abdominal Exam GI & Abdominal Exam: Soft, Normal Bowel Sounds. absent: Tenderness - Extremities Exam Extremities Exam: Full ROM, Normal Capillary Refill, Normal Inspection. absent : Joint Swelling, Pedal Edema - Back Exam Back Exam: NORMAL INSPECTION - Neurological Exam Neurological Exam: Alert, Awake, CN II-XII Intact, Normal Gait, Oriented x3 - Psychiatric Exam Psychiatric exam: Normal Affect, Normal Mood - Skin Skin Exam: Dry, Intact, Normal Color, Warm Assessment and Plan (1) Acute kidney injury Status: Acute (2) Aortic stenosis Status: Acute (3) Chest pain Status: Acute (4) Atrial fibrillation Status: Acute (5) Chronic congestive heart failure Status: Acute (6) Physical debility Status: Acute (7) History of DVT (deep vein thrombosis) Status: Chronic
--- NOTE | 2018-03-25 14:10 | CP.PCM.PN ---
Subjective - Date & Time of Evaluation Date of Evaluation: 03/25/18 Time of Evaluation: 14:10 - Subjective Subjective: lethargic Objective - Vital Signs/Intake and Output Vital Signs (last 24 hours): Temp Pulse Resp BP Pulse Ox 99.9 F H 106 H 20 132/46 L 98 03/25/18 14:06 03/25/18 14:06 03/25/18 14:06 03/25/18 14:06 03/25/18 14:06 Intake and Output: 03/25/18 03/25/18 06:59 18:59 Intake Total 440 Balance 440 - Medications Medications: Current Medications Acetaminophen (Tylenol 325mg Tab) 650 mg PO Q6 PRN PRN Reason: Other Aspirin (Ecotrin) 81 mg PO DAILY [facility] Last Admin: 03/25/18 09:37 Dose: 81 mg Atorvastatin Calcium (Lipitor) 80 mg PO HS [facility] Last Admin: 03/24/18 21:23 Dose: 80 mg Ceftazidime/Avibactam 1.25 gm/ (Sodium Chloride) 100 mls @ 100 mls/hr IVPB Q8@ 0500,1300,2100 [facility] PRN Reason: Protocol Last Admin: 03/25/18 07:04 Dose: Not Given Insulin Human Lispro (Humalog) 0 units SC ACHS [facility] PRN Reason: Protocol Last Admin: 03/24/18 21:50 Dose: Not Given Levothyroxine Sodium (Synthroid) 75 mcg PO DAILY@0630 [facility] Last Admin: 03/25/18 07:04 Dose: 75 mcg Megestrol Acetate (Megace) 800 mg PO DAILY [facility] Last Admin: 03/25/18 09:37 Dose: 800 mg Metoprolol Tartrate (Lopressor) 100 mg PO Q12 [facility] Mirtazapine (Remeron 15mg Odt) 15 mg PO HS [facility] Last Admin: 03/24/18 21:23 Dose: 15 mg Mupirocin (Bactroban Ointment) 1 applic TOP BID [facility] Last Admin: 03/25/18 09:36 Dose: 1 applic Sitagliptin Phosphate (Januvia) 25 mg PO DAILY [facility] Last Admin: 03/24/18 08:46 Dose: 25 mg - Labs Labs: 03/25/18 04:20 03/25/18 04:20 PT 12.8 Seconds (9.8-13.1) 03/15/18 00:14 INR 1.2 03/15/18 00:14 APTT 26.9 Seconds (25.6-37.1) 03/15/18 00:14 - Constitutional Appears: Well - Head Exam Head Exam: ATRAUMATIC, NORMAL INSPECTION, NORMOCEPHALIC - Eye Exam Eye Exam: EOMI, Normal appearance, PERRL Pupil Exam: NORMAL ACCOMODATION, PERRL - ENT Exam ENT Exam: Mucous Membranes Moist, Normal Exam - Neck Exam Neck Exam: Full ROM, Normal Inspection. absent: Lymphadenopathy - Respiratory Exam Respiratory Exam: Rales, NORMAL BREATHING PATTERN - Cardiovascular Exam Cardiovascular Exam: Irregular Rhythm, +S1, +S2, Murmur - GI/Abdominal Exam GI & Abdominal Exam: Soft, Normal Bowel Sounds. absent: Tenderness - Extremities Exam Extremities Exam: Full ROM, Normal Capillary Refill, Normal Inspection. absent : Joint Swelling, Pedal Edema - Back Exam Back Exam: NORMAL INSPECTION - Neurological Exam Neurological Exam: Alert, Awake, CN II-XII Intact, Normal Gait, Oriented x3 - Psychiatric Exam Psychiatric exam: Normal Affect, Normal Mood - Skin Skin Exam: Dry, Intact, Normal Color, Warm Assessment and Plan (1) Acute kidney injury Status: Acute (2) Aortic stenosis Status: Acute (3) Chest pain Status: Acute (4) Atrial fibrillation Status: Acute (5) Chronic congestive heart failure Status: Acute (6) Physical debility Status: Acute (7) History of DVT (deep vein thrombosis) Status: Chronic
[2018-03-25] MEDS ORDERED: Enoxaparin 80 mg Syringe SC SCH (21:00)
[2018-03-25] MEDS: Dextrose 5%/Lactated Ringer's 1,000 ML IV SCH (21:00)
[2018-03-26] MEDS: Enoxaparin 80 mg Syringe SC SCH ×3 (00:06→21:24)
[2018-03-26] MEDS: Levothyroxine 75 MCG TAB PO SCH (06:56)
[2018-03-26] MEDS ORDERED: Enoxaparin 80 mg Syringe SC SCH (09:00)
[2018-03-26] MEDS: Megestrol Acetate 40 mg/ml Cup PO SCH (09:47)
[2018-03-26] MEDS: Insulin Lispro (humaLOG) 100 Units/ml Inj SC SCH ×3 (09:56→21:31)
--- NOTE | 2018-03-26 12:03 | CP.PCM.PN ---
Subjective - Date & Time of Evaluation Date of Evaluation: 03/26/18 Time of Evaluation: 12:03 - Subjective Subjective: ID note- Pt. seen and examined today in ICu. pt. awake and denies any complaints. Objective - Vital Signs/Intake and Output Vital Signs (last 24 hours): Temp Pulse Resp BP Pulse Ox 97.9 F 85 17 173/43 H 95 03/26/18 08:00 03/26/18 09:47 03/26/18 08:00 03/26/18 09:47 03/26/18 08:00 Intake and Output: 03/26/18 03/26/18 06:59 18:59 Intake Total 400 Balance 400 - Medications Medications: Current Medications Acetaminophen (Tylenol 325mg Tab) 650 mg PO Q6 PRN PRN Reason: Other Aspirin (Ecotrin) 81 mg PO DAILY [facility] Last Admin: 03/26/18 09:55 Dose: 81 mg Atorvastatin Calcium (Lipitor) 80 mg PO HS [facility] Last Admin: 03/25/18 21:25 Dose: 80 mg Enoxaparin Sodium (Lovenox) 80 mg SC Q12 [facility] PRN Reason: Protocol Last Admin: 03/26/18 09:47 Dose: 80 mg Ceftazidime/Avibactam 1.25 gm/ (Sodium Chloride) 100 mls @ 100 mls/hr IVPB Q8@ 0500,1300,2100 [facility] PRN Reason: Protocol Last Admin: 03/26/18 04:30 Dose: 100 mls/hr Dextrose/Lactated Ringer's (Dextrose 5%/Lactated Ringer's) 1,000 mls @ 30 mls/ hr IV .Q24H [facility] Stop: 03/27/18 09:00 Last Admin: 03/25/18 21:00 Dose: 30 mls/hr Insulin Human Lispro (Humalog) 0 units SC ACHS [facility] PRN Reason: Protocol Last Admin: 03/26/18 09:56 Dose: Not Given Levothyroxine Sodium (Synthroid) 75 mcg PO DAILY@0630 [facility] Last Admin: 03/26/18 06:56 Dose: 75 mcg Megestrol Acetate (Megace) 800 mg PO DAILY [facility] Last Admin: 03/26/18 09:47 Dose: 800 mg Metoprolol Tartrate (Lopressor) 100 mg PO Q12 [facility] Last Admin: 03/26/18 09:47 Dose: 100 mg Mirtazapine (Remeron 15mg Odt) 15 mg PO HS [facility] Last Admin: 03/26/18 00:07 Dose: 15 mg Mupirocin (Bactroban Ointment) 1 applic TOP BID [facility] Last Admin: 03/26/18 09:55 Dose: 1 applic Sitagliptin Phosphate (Januvia) 25 mg PO DAILY [facility] Last Admin: 03/26/18 09:48 Dose: 25 mg - Labs Labs: - Additional Findings Additional findings: - Constitutional Appears: Non-toxic, No Acute Distress - Head Exam Head Exam: ATRAUMATIC - Eye Exam Eye Exam: EOMI - ENT Exam ENT Exam: Normal Oropharynx - Neck Exam Neck exam: Positive for: Full Rom - Respiratory Exam Respiratory Exam: NORMAL BREATHING PATTERN Additional comments: good breath sounds - Cardiovascular Exam Cardiovascular Exam: Tachycardia, +S1, +S2 - GI/Abdominal Exam GI & Abdominal Exam: Normal Bowel Sounds, Soft Additional comments: NT, ND No guarding, No rebound - Extremities Exam Additional comments: edema B/L LE chronic - Neurological Exam Neurological exam: Alert Additional comments: flat affect, baseline dementia answers questions Laboratory Results - last 72 hr 03/22/18 03/23/18 03/23/18 21:15 05:12 12:19 WBC RBC Hgb Hct MCV MCH MCHC RDW Plt Count Sodium Potassium Chloride Carbon Dioxide Anion Gap BUN Creatinine Est GFR ( Amer) Est GFR (Non-Af Amer) POC Glucose (mg/dL) 105 84 105 Random Glucose Calcium 03/23/18 03/23/18 03/24/18 16:18 23:01 04:10 WBC 4.5 L RBC 3.90 Hgb 10.3 L Hct 32.8 L MCV 84.3 MCH 26.5 L MCHC 31.5 L RDW 19.6 H Plt Count 329 Sodium Potassium Chloride Carbon Dioxide Anion Gap BUN Creatinine Est GFR ( Amer) Est GFR (Non-Af Amer) POC Glucose (mg/dL) 101 177 H Random Glucose Calcium 03/24/18 03/24/18 03/24/18 04:10 05:51 11:50 WBC RBC Hgb Hct MCV MCH MCHC RDW Plt Count Sodium 145 Potassium 3.9 Chloride 117 H Carbon Dioxide 22 Anion Gap 10 BUN 11 Creatinine 0.9 Est GFR ( Amer) > 60 Est GFR (Non-Af Amer) 59 POC Glucose (mg/dL) 118 H 128 H Random Glucose 115 H Calcium 8.0 L 03/24/18 03/24/18 03/25/18 16:38 21:48 04:20 WBC 6.6 RBC 3.85 Hgb 10.2 L Hct 32.1 L MCV 83.4 MCH 26.4 L MCHC 31.7 L RDW 20.0 H Plt Count 312 Sodium Potassium Chloride Carbon Dioxide Anion Gap BUN Creatinine Est GFR ( Amer) Est GFR (Non-Af Amer) POC Glucose (mg/dL) 119 H 132 H Random Glucose Calcium 03/25/18 03/25/18 03/25/18 04:20 05:58 10:53 WBC RBC Hgb Hct MCV MCH MCHC RDW Plt Count Sodium 143 Potassium 3.8 Chloride 113 H Carbon Dioxide 23 Anion Gap 11 BUN 10 Creatinine 0.9 Est GFR ( Amer) > 60 Est GFR (Non-Af Amer) 59 POC Glucose (mg/dL) 153 H 115 H Random Glucose 125 H Calcium 8.1 L 03/25/18 03/25/18 03/26/18 16:53 21:40 05:24 WBC RBC Hgb Hct MCV MCH MCHC RDW Plt Count Sodium Potassium Chloride Carbon Dioxide Anion Gap BUN Creatinine Est GFR ( Amer) Est GFR (Non-Af Amer) POC Glucose (mg/dL) 150 H 88 104 Random Glucose Calcium 03/26/18 03/26/18 11:25 17:50 WBC RBC Hgb Hct MCV MCH MCHC RDW Plt Count Sodium Potassium Chloride Carbon Dioxide Anion Gap BUN Creatinine Microbiology 03/20/18 10:45 Urine,Clean Catch Urine Culture - Final Klebsiella Pneumoniae Ssp Pneu 03/14/18 00:05 Blood Blood Culture - Final NO GROWTH AFTER 5 DAYS 03/14/18 00:05 Blood Gram Stain - Final TEST NOT PERFORMED 03/15/18 00:20 Blood Blood Culture - Final NO GROWTH AFTER 5 DAYS 03/15/18 00:20 Blood Gram Stain - Final TEST NOT PERFORMED 03/15/18 10:28 Naris MRSA Culture (Admit) - Final MRSA DETECTED No Known Allergies Allergy (Verified 02/26/18 15:36) Est GFR ( Amer) Est GFR (Non-Af Amer) POC Glucose (mg/dL) 106 132 H Random Glucose Calcium Assessment and Plan (1) Acute kidney injury Status: Acute (2) Hypotension Status: Acute (3) Urinary tract infection due to extended-spectrum beta lactamase (ESBL)- producing Klebsiella Status: Acute - Assessment and Plan (Free Text) Assessment: A/P- 87 year old female with CHF, DM II, dementia, admitted with hypotention, acute renal insufficiency , Aortic stenosis with ESBL klebsiella in urine cx . remains afebrile normal wbc count urine cx 03/20/2018- MDR esbl K.Pneumonias ( spoke with jan from micro lab and he states it's resistant to carbapenems as well). as per [facility] lab , it is sens to Avycaz repeat UA from 03/23/2018-- positive nitrtaes, larger LE, many bacteria 1.MDR klebsiella pneumonia MDR UTI 2.severe 3. dementia Plan- continue [facility] IV avycaz for MDR K.Pneumonia UTI day #4 advise total of 5-7 days of Avycaz. advise to d/c picc line as soon as IV abx are completed. All labs, imaging reviewed . d/w Delivery Truck Driver. ICU time 40 min.
--- NOTE | 2018-03-26 13:39 | VASCULAR ---
PROCEDURE: Date of procedure: 03/25/2018 Procedure: 1. Placement of a right arm PICC with ultrasound and fluoroscopic guidance, CPT 51090 2. PICC tip confirmation with spot radiograph and is in the superior vena cava Medications: 1 percent lidocaine Total Fluoro time: 10.9 seconds Radiation: 1.95 MGy EBL: 2 cc HISTORY: Infection requiring long-term IV antibiotics TECHNIQUE: Following informed consent and procedure time-out, the patient was placed supine on the interventional table and the right arm prepped and draped in the usual sterile fashion. Ultrasound showed a patent and compressible right basilic vein. After the skin was anesthetized with lidocaine, the basilic vein was accessed with micro micropuncture technique using ultrasound guidance. A guidewire was then advanced under fluoroscopic guidance into the superior vena cava. An image documenting ultrasound guidance for vascular access was permanently saved. The length of the double-lumen 5 [place]ian PICC was trimmed to 33 centimeters and advanced through a peel-away sheath. The PICC was position with tip of PICC confirm a spot radiograph the superior vena cava. The PICC was secured to the patient's skin. The PICC was flushed. A biopatch and sterile dressing was applied. IMPRESSION: Placement of a double-lumen 5 [place]ian PICC trimmed to 33 centimeters via right basilic vein. The tip of the PICC is confirmed with spot radiograph and is in the superior vena cava.
--- NOTE | 2018-03-26 14:22 | CP.PCM.PN ---
Subjective - Date & Time of Evaluation Date of Evaluation: 03/25/18 Time of Evaluation: 11:00 - Subjective Subjective: Patient feels a lot better Has no chest pain SOB Has no palpitation Still noted to have episodes of tachycardia Objective - Vital Signs/Intake and Output Vital Signs (last 24 hours): Temp Pulse Resp BP Pulse Ox 97.6 F 80 18 134/87 90 L 03/26/18 12:00 03/26/18 12:00 03/26/18 12:00 03/26/18 12:00 03/26/18 12:00 Intake and Output: 03/26/18 03/26/18 06:59 18:59 Intake Total 400 Balance 400 - Medications Medications: Current Medications Acetaminophen (Tylenol 325mg Tab) 650 mg PO Q6 PRN PRN Reason: Other Aspirin (Ecotrin) 81 mg PO DAILY [facility] Last Admin: 03/26/18 09:55 Dose: 81 mg Atorvastatin Calcium (Lipitor) 80 mg PO HS [facility] Last Admin: 03/25/18 21:25 Dose: 80 mg Enoxaparin Sodium (Lovenox) 80 mg SC Q12 [facility] PRN Reason: Protocol Last Admin: 03/26/18 09:47 Dose: 80 mg Ceftazidime/Avibactam 1.25 gm/ (Sodium Chloride) 100 mls @ 100 mls/hr IVPB Q8@ 0500,1300,2100 [facility] PRN Reason: Protocol Last Admin: 03/26/18 12:41 Dose: 100 mls/hr Dextrose/Lactated Ringer's (Dextrose 5%/Lactated Ringer's) 1,000 mls @ 30 mls/ hr IV .Q24H [facility] Stop: 03/27/18 09:00 Last Admin: 03/25/18 21:00 Dose: 30 mls/hr Insulin Human Lispro (Humalog) 0 units SC ACHS [facility] PRN Reason: Protocol Last Admin: 03/26/18 12:42 Dose: Not Given Levothyroxine Sodium (Synthroid) 75 mcg PO DAILY@0630 [facility] Last Admin: 03/26/18 06:56 Dose: 75 mcg Megestrol Acetate (Megace) 800 mg PO DAILY [facility] Last Admin: 03/26/18 09:47 Dose: 800 mg Metoprolol Tartrate (Lopressor) 100 mg PO Q12 [facility] Last Admin: 03/26/18 09:47 Dose: 100 mg Mirtazapine (Remeron 15mg Odt) 15 mg PO HS [facility] Last Admin: 03/26/18 00:07 Dose: 15 mg Mupirocin (Bactroban Ointment) 1 applic TOP BID [facility] Last Admin: 03/26/18 09:55 Dose: 1 applic Sitagliptin Phosphate (Januvia) 25 mg PO DAILY [facility] Last Admin: 03/26/18 09:48 Dose: 25 mg - Labs Labs: 03/25/18 04:20 03/25/18 04:20 PT 12.8 Seconds (9.8-13.1) 03/15/18 00:14 INR 1.2 03/15/18 00:14 APTT 26.9 Seconds (25.6-37.1) 03/15/18 00:14 - Head Exam Head Exam: NORMAL INSPECTION - Eye Exam Eye Exam: Normal appearance - Respiratory Exam Respiratory Exam: Clear to Ausculation Bilateral - Cardiovascular Exam Cardiovascular Exam: Irregular Rhythm - GI/Abdominal Exam GI & Abdominal Exam: Normal Bowel Sounds - Neurological Exam Neurological Exam: Awake, Oriented x3 Assessment and Plan (1) Chronic congestive heart failure Status: Acute (2) Atrial fibrillation Status: Chronic (3) Diabetes mellitus Status: Chronic (4) Hypertension Status: Chronic (5) Urinary tract infection due to extended-spectrum beta lactamase (ESBL)- producing Klebsiella Status: Acute - Assessment and Plan (Free Text) Plan: Cont meds Cont tx Cont PT increase metoprolol to 100 bid cont meds
--- NOTE | 2018-03-26 14:27 | CP.PCM.PN ---
Subjective - Date & Time of Evaluation Date of Evaluation: 03/26/18 Time of Evaluation: 11:30 - Subjective Subjective: Patient feels a lot better No chest pain or SOB No palpitations HR is now in the 80's Currently on metoprolol 100 bid Objective - Vital Signs/Intake and Output Vital Signs (last 24 hours): Temp Pulse Resp BP Pulse Ox 97.6 F 80 18 134/87 90 L 03/26/18 12:00 03/26/18 12:00 03/26/18 12:00 03/26/18 12:00 03/26/18 12:00 Intake and Output: 03/26/18 03/26/18 06:59 18:59 Intake Total 400 Balance 400 - Medications Medications: Current Medications Acetaminophen (Tylenol 325mg Tab) 650 mg PO Q6 PRN PRN Reason: Other Aspirin (Ecotrin) 81 mg PO DAILY [facility] Last Admin: 03/26/18 09:55 Dose: 81 mg Atorvastatin Calcium (Lipitor) 80 mg PO HS [facility] Last Admin: 03/25/18 21:25 Dose: 80 mg Enoxaparin Sodium (Lovenox) 80 mg SC Q12 [facility] PRN Reason: Protocol Last Admin: 03/26/18 09:47 Dose: 80 mg Ceftazidime/Avibactam 1.25 gm/ (Sodium Chloride) 100 mls @ 100 mls/hr IVPB Q8@ 0500,1300,2100 [facility] PRN Reason: Protocol Last Admin: 03/26/18 12:41 Dose: 100 mls/hr Dextrose/Lactated Ringer's (Dextrose 5%/Lactated Ringer's) 1,000 mls @ 30 mls/ hr IV .Q24H [facility] Stop: 03/27/18 09:00 Last Admin: 03/25/18 21:00 Dose: 30 mls/hr Insulin Human Lispro (Humalog) 0 units SC ACHS [facility] PRN Reason: Protocol Last Admin: 03/26/18 12:42 Dose: Not Given Levothyroxine Sodium (Synthroid) 75 mcg PO DAILY@0630 [facility] Last Admin: 03/26/18 06:56 Dose: 75 mcg Megestrol Acetate (Megace) 800 mg PO DAILY [facility] Last Admin: 03/26/18 09:47 Dose: 800 mg Metoprolol Tartrate (Lopressor) 100 mg PO Q12 [facility] Last Admin: 03/26/18 09:47 Dose: 100 mg Mirtazapine (Remeron 15mg Odt) 15 mg PO HS [facility] Last Admin: 03/26/18 00:07 Dose: 15 mg Mupirocin (Bactroban Ointment) 1 applic TOP BID [facility] Last Admin: 03/26/18 09:55 Dose: 1 applic Sitagliptin Phosphate (Januvia) 25 mg PO DAILY [facility] Last Admin: 03/26/18 09:48 Dose: 25 mg - Labs Labs: 03/25/18 04:20 03/25/18 04:20 PT 12.8 Seconds (9.8-13.1) 03/15/18 00:14 INR 1.2 03/15/18 00:14 APTT 26.9 Seconds (25.6-37.1) 03/15/18 00:14 - Head Exam Head Exam: NORMAL INSPECTION - Eye Exam Eye Exam: Normal appearance - ENT Exam ENT Exam: Mucous Membranes Moist - Respiratory Exam Respiratory Exam: Clear to Ausculation Bilateral - Cardiovascular Exam Cardiovascular Exam: Irregular Rhythm - GI/Abdominal Exam GI & Abdominal Exam: Normal Bowel Sounds - Neurological Exam Neurological Exam: Awake, Oriented x3 - Skin Skin Exam: Dry, Normal Color Assessment and Plan (1) Chronic congestive heart failure Status: Acute (2) Atrial fibrillation Status: Chronic (3) Diabetes mellitus Status: Chronic (4) Hypertension Status: Chronic (5) Urinary tract infection due to extended-spectrum beta lactamase (ESBL)- producing Klebsiella Status: Acute - Assessment and Plan (Free Text) Plan: Cont meds Cont tx Phys therapy eval for TCU cont meds
--- NOTE | 2018-03-26 17:25 | CP.PCM.PN ---
Subjective - Date & Time of Evaluation Date of Evaluation: 03/26/18 Time of Evaluation: 17:23 - Subjective Subjective: poor apetite calorie count in place on Abx Objective - Vital Signs/Intake and Output Vital Signs (last 24 hours): Temp Pulse Resp BP Pulse Ox 98.6 F 106 H 12 132/94 H 90 L 03/26/18 16:00 03/26/18 16:00 03/26/18 16:00 03/26/18 16:00 03/26/18 12:00 Intake and Output: 03/26/18 03/26/18 06:59 18:59 Intake Total 400 220 Balance 400 220 - Medications Medications: Current Medications Acetaminophen (Tylenol 325mg Tab) 650 mg PO Q6 PRN PRN Reason: Other Aspirin (Ecotrin) 81 mg PO DAILY [facility] Last Admin: 03/26/18 09:55 Dose: 81 mg Atorvastatin Calcium (Lipitor) 80 mg PO HS [facility] Last Admin: 03/25/18 21:25 Dose: 80 mg Enoxaparin Sodium (Lovenox) 80 mg SC Q12 [facility] PRN Reason: Protocol Last Admin: 03/26/18 09:47 Dose: 80 mg Ceftazidime/Avibactam 1.25 gm/ (Sodium Chloride) 100 mls @ 100 mls/hr IVPB Q8@ 0500,1300,2100 [facility] PRN Reason: Protocol Last Admin: 03/26/18 12:41 Dose: 100 mls/hr Dextrose/Lactated Ringer's (Dextrose 5%/Lactated Ringer's) 1,000 mls @ 30 mls/ hr IV .Q24H [facility] Stop: 03/27/18 09:00 Last Admin: 03/25/18 21:00 Dose: 30 mls/hr Insulin Human Lispro (Humalog) 0 units SC ACHS [facility] PRN Reason: Protocol Last Admin: 03/26/18 12:42 Dose: Not Given Levothyroxine Sodium (Synthroid) 75 mcg PO DAILY@0630 [facility] Last Admin: 03/26/18 06:56 Dose: 75 mcg Megestrol Acetate (Megace) 800 mg PO DAILY [facility] Last Admin: 03/26/18 09:47 Dose: 800 mg Metoprolol Tartrate (Lopressor) 100 mg PO Q12 [facility] Last Admin: 03/26/18 09:47 Dose: 100 mg Mirtazapine (Remeron 15mg Odt) 15 mg PO HS [facility] Last Admin: 03/26/18 00:07 Dose: 15 mg Mupirocin (Bactroban Ointment) 1 applic TOP BID [facility] Last Admin: 03/26/18 09:55 Dose: 1 applic Sitagliptin Phosphate (Januvia) 25 mg PO DAILY [facility] Last Admin: 03/26/18 09:48 Dose: 25 mg - Labs Labs: 03/25/18 04:20 03/25/18 04:20 PT 12.8 Seconds (9.8-13.1) 03/15/18 00:14 INR 1.2 03/15/18 00:14 APTT 26.9 Seconds (25.6-37.1) 03/15/18 00:14 - Constitutional Appears: Well - Head Exam Head Exam: ATRAUMATIC, NORMAL INSPECTION, NORMOCEPHALIC - Eye Exam Eye Exam: EOMI, Normal appearance, PERRL Pupil Exam: NORMAL ACCOMODATION, PERRL - ENT Exam ENT Exam: Mucous Membranes Moist, Normal Exam - Neck Exam Neck Exam: Full ROM, Normal Inspection. absent: Lymphadenopathy - Respiratory Exam Respiratory Exam: Clear to Ausculation Bilateral, NORMAL BREATHING PATTERN - Cardiovascular Exam Cardiovascular Exam: Irregular Rhythm, +S1, +S2, Murmur - GI/Abdominal Exam GI & Abdominal Exam: Soft, Normal Bowel Sounds. absent: Tenderness - Extremities Exam Extremities Exam: Full ROM, Normal Capillary Refill, Normal Inspection. absent : Joint Swelling, Pedal Edema - Back Exam Back Exam: NORMAL INSPECTION - Neurological Exam Neurological Exam: Alert, Awake, CN II-XII Intact, Normal Gait, Oriented x3 - Psychiatric Exam Psychiatric exam: Normal Affect, Normal Mood - Skin Skin Exam: Dry, Intact, Normal Color, Warm Assessment and Plan (1) Acute kidney injury Assessment & Plan: Cr back to normal Status: Acute (2) Aortic stenosis Assessment & Plan: will need cardiac cath and CTA will arrange with Status: Acute (3) Chest pain Status: Acute (4) Atrial fibrillation Assessment & Plan: AC BB Status: Acute (5) Chronic congestive heart failure Status: Acute (6) Physical debility Status: Acute (7) History of DVT (deep vein thrombosis) Status: Chronic
[2018-03-26] MEDS: Dextrose 5%/Lactated Ringer's 1,000 ML IV SCH (21:20)
[2018-03-27] MEDS: Levothyroxine 75 MCG TAB PO SCH (06:24)
[2018-03-27] MEDS: Enoxaparin 80 mg Syringe SC SCH ×2 (09:25→21:15)
[2018-03-27] MEDS: Insulin Lispro (humaLOG) 100 Units/ml Inj SC SCH ×4 (09:27→22:19)
[2018-03-27] MEDS: Megestrol Acetate 40 mg/ml Cup PO SCH (09:28)
[2018-03-28] MEDS: Levothyroxine 75 MCG TAB PO SCH (06:36)
[2018-03-28] MEDS: Insulin Lispro (humaLOG) 100 Units/ml Inj SC SCH ×5 (07:39→21:30)
--- NOTE | 2018-03-28 08:05 | CP.PCM.PN ---
Subjective - Date & Time of Evaluation Date of Evaluation: 03/27/18 Time of Evaluation: 23:15 - Subjective Subjective: Seen and examined at the bed side. Pureed diet at the patient's bed side, Untouched. Asked the nurse and EDUCATION PROGRAM SPECIALIST taking care of the patient stated that patient has been refusing to eat, and on Calorie Count. Awaiting Optimization for Cardiac Catheterization and TAVR when appropriate. Objective - Vital Signs/Intake and Output Vital Signs (last 24 hours): Temp Pulse Resp BP Pulse Ox 98.0 F 86 18 145/73 95 03/28/18 05:58 03/28/18 05:58 03/28/18 05:58 03/28/18 05:58 03/28/18 05:58 - Medications Medications: Current Medications Acetaminophen (Tylenol 325mg Tab) 650 mg PO Q6 PRN PRN Reason: Other Last Admin: 03/27/18 02:19 Dose: 650 mg Aspirin (Ecotrin) 81 mg PO DAILY [facility] Last Admin: 03/27/18 09:25 Dose: 81 mg Atorvastatin Calcium (Lipitor) 80 mg PO HS [facility] Last Admin: 03/27/18 22:19 Dose: 80 mg Enoxaparin Sodium (Lovenox) 80 mg SC Q12 [facility] PRN Reason: Protocol Last Admin: 03/27/18 21:15 Dose: 80 mg Ceftazidime/Avibactam 1.25 gm/ (Sodium Chloride) 100 mls @ 100 mls/hr IVPB Q8@ 0500,1300,2100 [facility] PRN Reason: Protocol Last Admin: 03/28/18 04:18 Dose: 100 mls/hr Insulin Human Lispro (Humalog) 0 units SC ACHS [facility] PRN Reason: Protocol Last Admin: 03/28/18 07:39 Dose: Not Given Levothyroxine Sodium (Synthroid) 75 mcg PO DAILY@0630 [facility] Last Admin: 03/28/18 06:36 Dose: 75 mcg Megestrol Acetate (Megace) 800 mg PO DAILY [facility] Last Admin: 03/27/18 09:28 Dose: 800 mg Metoprolol Tartrate (Lopressor) 100 mg PO Q12 [facility] Last Admin: 03/27/18 22:18 Dose: 100 mg Mirtazapine (Remeron 15mg Odt) 15 mg PO HS [facility] Last Admin: 08/15/18 22:18 Dose: 15 mg Mupirocin (Bactroban Ointment) 1 applic TOP BID [facility] Last Admin: 03/27/18 17:11 Dose: 1 applic Sitagliptin Phosphate (Januvia) 25 mg PO DAILY [facility] Last Admin: 03/27/18 09:27 Dose: 25 mg - Labs Labs: 03/25/18 04:20 03/25/18 04:20 PT 12.8 Seconds (9.8-13.1) 03/15/18 00:14 INR 1.2 03/15/18 00:14 APTT 26.9 Seconds (25.6-37.1) 03/15/18 00:14 - Constitutional Appears: Well, No Acute Distress - Head Exam Head Exam: ATRAUMATIC, NORMAL INSPECTION, NORMOCEPHALIC - Eye Exam Eye Exam: EOMI, Normal appearance, PERRL Pupil Exam: NORMAL ACCOMODATION, PERRL - ENT Exam ENT Exam: Mucous Membranes Moist, Normal Exam - Neck Exam Neck Exam: Full ROM, Normal Inspection. absent: Lymphadenopathy - Respiratory Exam Respiratory Exam: Clear to Ausculation Bilateral, NORMAL BREATHING PATTERN - Cardiovascular Exam Cardiovascular Exam: REGULAR RHYTHM, +S1, +S2, Murmur - GI/Abdominal Exam GI & Abdominal Exam: Soft, Normal Bowel Sounds. absent: Tenderness - Extremities Exam Extremities Exam: Full ROM, Normal Capillary Refill, Normal Inspection. absent : Joint Swelling, Pedal Edema - Back Exam Back Exam: Full ROM, NORMAL INSPECTION - Neurological Exam Neurological Exam: Abnormal Gait, Alert, Awake, CN II-XII Intact, Oriented x3 - Psychiatric Exam Psychiatric exam: Flat Affect, Normal Affect - Skin Skin Exam: Dry, Intact, Normal Color, Warm Assessment and Plan (1) Severe aortic stenosis Assessment & Plan: R/O CAD CHF Hypotension, Resolved Assessment and Plan: Will need Cardiac Cath, and TAVR Mat Tester on Board. C/W Current Care Status: Acute (3) Acute kidney injury- Normaliized Assessment and Plan: Most likely Prerenal Monitor BMP Nephro onboard Status: Acute Priority: High (4) Atrial fibrillation- Rate Controlled Assessment and Plan: Awaiting Family Decision about TAVR Resume Xeralto Increase Metoprolol to 25 mg BID Status: Acute Priority: High (5) Physical Debility, Anorexia-Still Poor Appetite on Callorie Count Assessment and Plan: Bed rest for now, and Remeron to 15mg QHS PT/OT when Stable (6) ESBL+ MDR Klebsiella P in the Urine, Repeat Urine Culture ID Onboard Status: Acute
--- NOTE | 2018-03-28 08:36 | RAD ---
Date of service: 03/28/2018 HISTORY: picc line removed by moshe. Look for dislodged COMPARISON: 03/16/2018 FINDINGS: LUNGS: The lungs are well inflated. The right lung is clear. There is airspace disease in the left lower lobe. PLEURA: Small left pleural effusion, no pneumothorax apparent. CARDIOVASCULAR: Normal. OSSEOUS STRUCTURES: No significant abnormalities. VISUALIZED UPPER ABDOMEN: Normal. OTHER FINDINGS: None. IMPRESSION: Airspace disease in the left lower lobe may represent atelectasis or pneumonia. Also noted is small left pleural effusion.
--- NOTE | 2018-03-28 09:30 | CP.PCM.PN ---
Subjective - Date & Time of Evaluation Date of Evaluation: 03/28/18 Time of Evaluation: 09:30 - Subjective Subjective: ID note- Pt. seen and examined today on tele floor. Pt. remains afebrile and in NAD. denies any abd pain. Objective - Vital Signs/Intake and Output Vital Signs (last 24 hours): Temp Pulse Resp BP Pulse Ox 98.4 F 97 H 18 139/87 97 03/28/18 08:04 03/28/18 08:04 03/28/18 08:04 03/28/18 08:04 03/28/18 08:04 - Medications Medications: Current Medications Acetaminophen (Tylenol 325mg Tab) 650 mg PO Q6 PRN PRN Reason: Other Last Admin: 03/27/18 02:19 Dose: 650 mg Aspirin (Ecotrin) 81 mg PO DAILY [facility] Last Admin: 03/27/18 09:25 Dose: 81 mg Atorvastatin Calcium (Lipitor) 80 mg PO HS [facility] Last Admin: 03/27/18 22:19 Dose: 80 mg Enoxaparin Sodium (Lovenox) 80 mg SC Q12 [facility] PRN Reason: Protocol Last Admin: 03/27/18 21:15 Dose: 80 mg Ceftazidime/Avibactam 1.25 gm/ (Sodium Chloride) 100 mls @ 100 mls/hr IVPB Q8@ 0500,1300,2100 [facility] PRN Reason: Protocol Last Admin: 03/28/18 04:18 Dose: 100 mls/hr Insulin Human Lispro (Humalog) 0 units SC ACHS [facility] PRN Reason: Protocol Last Admin: 03/28/18 07:39 Dose: Not Given Levothyroxine Sodium (Synthroid) 75 mcg PO DAILY@0630 [facility] Last Admin: 03/28/18 06:36 Dose: 75 mcg Megestrol Acetate (Megace) 800 mg PO DAILY [facility] Last Admin: 03/27/18 09:28 Dose: 800 mg Metoprolol Tartrate (Lopressor) 100 mg PO Q12 [facility] Last Admin: 03/27/18 22:18 Dose: 100 mg Mirtazapine (Remeron 15mg Odt) 15 mg PO HS [facility] Last Admin: 03/27/18 22:18 Dose: 15 mg Mupirocin (Bactroban Ointment) 1 applic TOP BID [facility] Last Admin: 03/27/18 17:11 Dose: 1 applic Sitagliptin Phosphate (Januvia) 25 mg PO DAILY [facility] Last Admin: 03/27/18 09:27 Dose: 25 mg - Labs Labs: - Additional Findings Additional findings: - Constitutional Appears: Non-toxic, No Acute Distress - Head Exam Head Exam: ATRAUMATIC - Eye Exam Eye Exam: EOMI - ENT Exam ENT Exam: Normal Oropharynx - Neck Exam Neck exam: Positive for: Full Rom - Respiratory Exam Respiratory Exam: NORMAL BREATHING PATTERN Additional comments: good breath sounds - Cardiovascular Exam Cardiovascular Exam: slight Tachycardia, +S1, +S2 - GI/Abdominal Exam GI & Abdominal Exam: Normal Bowel Sounds, Soft Additional comments: NT, ND No guarding, No rebound - Extremities Exam Additional comments: edema B/L LE chronic - Neurological Exam Neurological exam: Alert Additional comments: flat affect, baseline dementia answers questions Laboratory Results - last 72 hr 03/22/18 03/23/18 03/23/18 21:15 05:12 12:19 POC Glucose (mg/dL) 105 84 105 03/23/18 03/23/18 03/24/18 16:18 23:01 05:51 POC Glucose (mg/dL) 101 177 H 118 H 03/24/18 03/24/18 03/24/18 11:50 16:38 21:48 POC Glucose (mg/dL) 128 H 119 H 132 H 03/25/18 03/25/18 03/25/18 05:58 10:53 16:53 POC Glucose (mg/dL) 153 H 115 H 150 H 03/25/18 03/26/18 03/26/18 21:40 05:24 11:25 POC Glucose (mg/dL) 88 104 106 03/26/18 03/26/18 03/27/18 17:50 21:31 05:12 POC Glucose (mg/dL) 132 H 126 H 138 H 03/27/18 03/27/18 03/27/18 11:04 16:31 21:24 POC Glucose (mg/dL) 129 H 141 H 119 H Microbiology 03/20/18 10:45 Urine,Clean Catch Urine Culture - Final Klebsiella Pneumoniae Ssp Pneu 03/14/18 00:05 Blood Blood Culture - Final NO GROWTH AFTER 5 DAYS 03/14/18 00:05 Blood Gram Stain - Final TEST NOT PERFORMED 08/03/18 00:20 Blood Blood Culture - Final NO GROWTH AFTER 5 DAYS 03/15/18 00:20 Blood Gram Stain - Final TEST NOT PERFORMED 03/15/18 10:28 Naris MRSA Culture (Admit) - Final MRSA DETECTED Assessment and Plan (1) Acute kidney injury Status: Acute (2) Hypotension Status: Acute (3) Urinary tract infection due to extended-spectrum beta lactamase (ESBL)- producing Klebsiella Status: Acute - Assessment and Plan (Free Text) Assessment: A/P- 87 year old female with CHF, DM II, dementia, admitted with hypotention, acute renal insufficiency , Aortic stenosis with ESBL klebsiella in urine cx . remains afebrile normal wbc count urine cx 03/20/2018- MDR esbl K.Pneumonias ( spoke with jan from micro lab and he states it's resistant to carbapenems as well). as per micro lab , it is sens to Avycaz UA from 03/23/2018-- positive nitrates, larger LE, many bacteria 1.MDR klebsiella pneumonia MDR UTI 2.severe 3. dementia Plan- continue wth IV avycaz for MDR K.Pneumonia UTI day #6 advise total of 7 days of Avycaz. d/c avycaz tomm. no need to check another urne cx. advise to d/c picc line as soon as IV abx are completed.
[2018-03-28] MEDS: Enoxaparin 80 mg Syringe SC SCH ×2 (10:56→21:32)
[2018-03-28] MEDS: Megestrol Acetate 40 mg/ml Cup PO SCH ×2 (10:57→11:29)
[2018-03-28 12:39] LABS: MEAN CELL VOLUME 83.3 fl (81.0-99.0); MEAN CORPUSCULAR HEMOGLOBIN 26.2 pg (27.0-31.0); MEAN CORPUSCULAR HGB CONC 31.5 g/dL (33.0-37.0); RBC 3.43 Mil/uL (3.80-5.20); RED CELL DISTRIBUTION WIDTH 19.4 % (11.5-14.5); WHITE BLOOD COUNT 8.4 K/uL (4.8-10.8)
[2018-03-28 12:59] LABS: BLOOD UREA NITROGEN 15 mg/dl (7-17); GFR NON-AFRICAN AMERICAN > 60
[2018-03-28] MEDS ORDERED: Potassium Chloride 20 mEq ER Tab PO ONE (14:11)
--- NOTE | 2018-03-28 21:24 | CP.PCM.PN ---
Subjective - Date & Time of Evaluation Date of Evaluation: 03/27/18 Time of Evaluation: 16:00 - Subjective Subjective: severely decreased PO intake per staff software engineer pt somewhat confused Objective - Vital Signs/Intake and Output Vital Signs (last 24 hours): Temp Pulse Resp BP Pulse Ox 98.7 F 119 H 20 183/72 H 96 03/28/18 15:52 03/28/18 15:52 03/28/18 15:52 03/28/18 15:52 03/28/18 15:52 Intake and Output: 03/28/18 03/29/18 18:59 06:59 Intake Total 100 Output Total 1 Balance 99 - Medications Medications: Current Medications Acetaminophen (Tylenol 325mg Tab) 650 mg PO Q6 PRN PRN Reason: Other Last Admin: 03/27/18 02:19 Dose: 650 mg Aspirin (Ecotrin) 81 mg PO DAILY [facility] Last Admin: 03/28/18 11:28 Dose: Not Given Atorvastatin Calcium (Lipitor) 80 mg PO HS [facility] Last Admin: 03/27/18 22:19 Dose: 80 mg Enoxaparin Sodium (Lovenox) 80 mg SC Q12 [facility] PRN Reason: Protocol Last Admin: 03/28/18 10:56 Dose: 80 mg Ceftazidime/Avibactam 1.25 gm/ (Sodium Chloride) 100 mls @ 100 mls/hr IVPB Q8@ 0500,1300,2100 [facility] PRN Reason: Protocol Last Admin: 03/28/18 14:02 Dose: 100 mls/hr Insulin Human Lispro (Humalog) 0 units SC ACHS [facility] PRN Reason: Protocol Last Admin: 03/28/18 17:16 Dose: 1 unit Levothyroxine Sodium (Synthroid) 75 mcg PO DAILY@0630 [facility] Last Admin: 03/28/18 06:36 Dose: 75 mcg Megestrol Acetate (Megace) 800 mg PO DAILY [facility] Last Admin: 03/28/18 11:29 Dose: Not Given Metoprolol Tartrate (Lopressor) 100 mg PO Q12 [facility] Last Admin: 03/28/18 15:31 Dose: 100 mg Mirtazapine (Remeron 15mg Odt) 15 mg PO HS [facility] Last Admin: 03/27/18 22:18 Dose: 15 mg Mupirocin (Bactroban Ointment) 1 applic TOP BID [facility] Last Admin: 03/28/18 17:15 Dose: 1 applic Sitagliptin Phosphate (Januvia) 25 mg PO DAILY [facility] Last Admin: 03/28/18 11:28 Dose: Not Given - Labs Labs: 03/28/18 12:32 03/28/18 12:32 PT 12.8 Seconds (9.8-13.1) 03/15/18 00:14 INR 1.2 03/15/18 00:14 APTT 26.9 Seconds (25.6-37.1) 03/15/18 00:14 - Constitutional Appears: Well, No Acute Distress - Head Exam Head Exam: ATRAUMATIC, NORMAL INSPECTION, NORMOCEPHALIC - Eye Exam Eye Exam: EOMI, Normal appearance, PERRL Pupil Exam: NORMAL ACCOMODATION, PERRL - ENT Exam ENT Exam: Mucous Membranes Dry, Normal Exam - Neck Exam Neck Exam: Full ROM, Normal Inspection. absent: Lymphadenopathy - Respiratory Exam Respiratory Exam: Clear to Ausculation Bilateral, Rales, NORMAL BREATHING PATTERN - Cardiovascular Exam Cardiovascular Exam: REGULAR RHYTHM, +S1, +S2, Murmur - GI/Abdominal Exam GI & Abdominal Exam: Soft, Normal Bowel Sounds. absent: Tenderness - Extremities Exam Extremities Exam: Full ROM, Normal Capillary Refill, Normal Inspection. absent : Joint Swelling, Pedal Edema - Back Exam Back Exam: NORMAL INSPECTION - Neurological Exam Neurological Exam: Alert, Awake, CN II-XII Intact - Psychiatric Exam Psychiatric exam: Depressed - Skin Skin Exam: Dry, Intact, Normal Color, Warm Assessment and Plan (1) Aortic stenosis Assessment & Plan: plan for w/u next week after discussing with family goals neuro/psych eval for depression PFT"s Status: Acute (2) Acute kidney injury Status: Acute (3) Chest pain Status: Acute (4) Atrial fibrillation Assessment & Plan: cont bb cont lovenox SOPHIA Sunday Status: Acute (5) Chronic congestive heart failure Assessment & Plan: compensated 2; to Status: Acute (6) Physical debility Status: Acute (7) History of DVT (deep vein thrombosis) Status: Chronic
--- NOTE | 2018-03-28 21:27 | CP.PCM.PN ---
Subjective - Date & Time of Evaluation Date of Evaluation: 03/28/18 Time of Evaluation: 21:25 - Subjective Subjective: decreased PO intake depressed demeanor somewhat confused Objective - Vital Signs/Intake and Output Vital Signs (last 24 hours): Temp Pulse Resp BP Pulse Ox 98.7 F 119 H 20 183/72 H 96 03/28/18 15:52 03/28/18 15:52 03/28/18 15:52 03/28/18 15:52 03/28/18 15:52 Intake and Output: 03/28/18 03/29/18 18:59 06:59 Intake Total 100 Output Total 1 Balance 99 - Medications Medications: Current Medications Acetaminophen (Tylenol 325mg Tab) 650 mg PO Q6 PRN PRN Reason: Other Last Admin: 03/27/18 02:19 Dose: 650 mg Aspirin (Ecotrin) 81 mg PO DAILY [facility] Last Admin: 03/28/18 11:28 Dose: Not Given Atorvastatin Calcium (Lipitor) 80 mg PO HS [facility] Last Admin: 03/27/18 22:19 Dose: 80 mg Enoxaparin Sodium (Lovenox) 80 mg SC Q12 [facility] PRN Reason: Protocol Last Admin: 03/28/18 10:56 Dose: 80 mg Ceftazidime/Avibactam 1.25 gm/ (Sodium Chloride) 100 mls @ 100 mls/hr IVPB Q8@ 0500,1300,2100 [facility] PRN Reason: Protocol Last Admin: 03/28/18 14:02 Dose: 100 mls/hr Insulin Human Lispro (Humalog) 0 units SC ACHS [facility] PRN Reason: Protocol Last Admin: 03/28/18 17:16 Dose: 1 unit Levothyroxine Sodium (Synthroid) 75 mcg PO DAILY@0630 [facility] Last Admin: 03/28/18 06:36 Dose: 75 mcg Megestrol Acetate (Megace) 800 mg PO DAILY [facility] Last Admin: 03/28/18 11:29 Dose: Not Given Metoprolol Tartrate (Lopressor) 100 mg PO Q12 [facility] Last Admin: 03/28/18 15:31 Dose: 100 mg Mirtazapine (Remeron 15mg Odt) 15 mg PO HS [facility] Last Admin: 03/27/18 22:18 Dose: 15 mg Mupirocin (Bactroban Ointment) 1 applic TOP BID [facility] Last Admin: 03/28/18 17:15 Dose: 1 applic Sitagliptin Phosphate (Januvia) 25 mg PO DAILY [facility] Last Admin: 03/28/18 11:28 Dose: Not Given - Labs Labs: 03/28/18 12:32 03/28/18 12:32 PT 12.8 Seconds (9.8-13.1) 03/15/18 00:14 INR 1.2 03/15/18 00:14 APTT 26.9 Seconds (25.6-37.1) 03/15/18 00:14 - Constitutional Appears: Well, No Acute Distress - Head Exam Head Exam: ATRAUMATIC, NORMAL INSPECTION, NORMOCEPHALIC - Eye Exam Eye Exam: EOMI, Normal appearance, PERRL Pupil Exam: NORMAL ACCOMODATION, PERRL - ENT Exam ENT Exam: Mucous Membranes Moist, Normal Exam - Neck Exam Neck Exam: Full ROM, Normal Inspection. absent: Lymphadenopathy - Respiratory Exam Respiratory Exam: Clear to Ausculation Bilateral, Rales, NORMAL BREATHING PATTERN - Cardiovascular Exam Cardiovascular Exam: Irregular Rhythm, +S1, +S2, Murmur - GI/Abdominal Exam GI & Abdominal Exam: Soft, Normal Bowel Sounds. absent: Tenderness - Extremities Exam Extremities Exam: Full ROM, Normal Capillary Refill, Normal Inspection. absent : Joint Swelling, Pedal Edema - Back Exam Back Exam: NORMAL INSPECTION - Neurological Exam Neurological Exam: Alert, Awake, CN II-XII Intact - Psychiatric Exam Psychiatric exam: Normal Affect, Normal Mood - Skin Skin Exam: Dry, Intact, Normal Color, Warm Assessment and Plan (1) Aortic stenosis Assessment & Plan: cath Sunday or sunday SOPHIA will discuss with family goals and plans for future care asa bb Status: Acute (2) Acute kidney injury Assessment & Plan: resolved Status: Acute (3) Chest pain Status: Acute (4) Atrial fibrillation Assessment & Plan: ac bb Status: Acute (5) Chronic congestive heart failure Status: Acute (6) Physical debility Status: Acute (7) History of DVT (deep vein thrombosis) Status: Chronic
--- NOTE | 2018-03-29 04:48 | CP.PCM.PN ---
Subjective - Date & Time of Evaluation Date of Evaluation: 03/28/18 Time of Evaluation: 22:35 Objective - Vital Signs/Intake and Output Vital Signs (last 24 hours): Temp Pulse Resp BP Pulse Ox 97.3 F L 106 H 18 118/62 96 03/29/18 01:00 03/29/18 01:00 03/29/18 01:00 03/29/18 01:00 03/29/18 01:00 Intake and Output: 03/28/18 03/29/18 18:59 06:59 Intake Total 100 Output Total 1 Balance 99 - Medications Medications: Current Medications Acetaminophen (Tylenol 325mg Tab) 650 mg PO Q6 PRN PRN Reason: Other Last Admin: 03/27/18 02:19 Dose: 650 mg Aspirin (Ecotrin) 81 mg PO DAILY [facility] Last Admin: 03/28/18 11:28 Dose: Not Given Atorvastatin Calcium (Lipitor) 80 mg PO HS [facility] Last Admin: 03/28/18 21:32 Dose: 80 mg Enoxaparin Sodium (Lovenox) 80 mg SC Q12 [facility] PRN Reason: Protocol Last Admin: 03/28/18 21:32 Dose: 80 mg Ceftazidime/Avibactam 1.25 gm/ (Sodium Chloride) 100 mls @ 100 mls/hr IVPB Q8@ 0500,1300,2100 [facility] PRN Reason: Protocol Last Admin: 03/29/18 04:36 Dose: 100 mls/hr Insulin Human Lispro (Humalog) 0 units SC ACHS [facility] PRN Reason: Protocol Last Admin: 03/28/18 21:30 Dose: Not Given Levothyroxine Sodium (Synthroid) 75 mcg PO DAILY@0630 [facility] Last Admin: 03/28/18 06:36 Dose: 75 mcg Megestrol Acetate (Megace) 800 mg PO DAILY [facility] Last Admin: 03/28/18 11:29 Dose: Not Given Metoprolol Tartrate (Lopressor) 100 mg PO Q12 [facility] Last Admin: 03/28/18 22:00 Dose: 100 mg Mirtazapine (Remeron 15mg Odt) 15 mg PO HS [facility] Last Admin: 03/28/18 21:32 Dose: 15 mg Mupirocin (Bactroban Ointment) 1 applic TOP BID [facility] Last Admin: 03/28/18 17:15 Dose: 1 applic Sitagliptin Phosphate (Januvia) 25 mg PO DAILY [facility] Last Admin: 03/28/18 11:28 Dose: Not Given - Labs Labs: 03/28/18 12:32 03/28/18 12:32 PT 12.8 Seconds (9.8-13.1) 03/15/18 00:14 INR 1.2 03/15/18 00:14 APTT 26.9 Seconds (25.6-37.1) 03/15/18 00:14 Assessment and Plan (1) Severe aortic stenosis Status: Acute
[2018-03-29] MEDS: Levothyroxine 75 MCG TAB PO SCH (05:43)
--- NOTE | 2018-03-29 06:34 | CP.PCM.PN ---
Subjective - Date & Time of Evaluation Date of Evaluation: 03/29/18 Objective - Vital Signs/Intake and Output Vital Signs (last 24 hours): Temp Pulse Resp BP Pulse Ox 97.3 F L 97 H 18 133/62 95 03/29/18 05:07 03/29/18 05:07 03/29/18 05:07 03/29/18 05:07 03/29/18 05:07 Intake and Output: 03/28/18 03/29/18 18:59 06:59 Intake Total 100 Output Total 1 Balance 99 - Medications Medications: Current Medications Acetaminophen (Tylenol 325mg Tab) 650 mg PO Q6 PRN PRN Reason: Other Last Admin: 03/27/18 02:19 Dose: 650 mg Aspirin (Ecotrin) 81 mg PO DAILY [facility] Last Admin: 03/28/18 11:28 Dose: Not Given Atorvastatin Calcium (Lipitor) 80 mg PO HS [facility] Last Admin: 03/28/18 21:32 Dose: 80 mg Enoxaparin Sodium (Lovenox) 80 mg SC Q12 [facility] PRN Reason: Protocol Last Admin: 03/28/18 21:32 Dose: 80 mg Ceftazidime/Avibactam 1.25 gm/ (Sodium Chloride) 100 mls @ 100 mls/hr IVPB Q8@ 0500,1300,2100 [facility] PRN Reason: Protocol Last Admin: 03/29/18 04:36 Dose: 100 mls/hr Insulin Human Lispro (Humalog) 0 units SC ACHS [facility] PRN Reason: Protocol Last Admin: 03/28/18 21:30 Dose: Not Given Levothyroxine Sodium (Synthroid) 75 mcg PO DAILY@0630 [facility] Last Admin: 03/29/18 05:43 Dose: 75 mcg Megestrol Acetate (Megace) 800 mg PO DAILY [facility] Last Admin: 03/28/18 11:29 Dose: Not Given Metoprolol Tartrate (Lopressor) 100 mg PO Q12 [facility] Last Admin: 03/28/18 22:00 Dose: 100 mg Mirtazapine (Remeron 15mg Odt) 15 mg PO HS [facility] Last Admin: 03/28/18 21:32 Dose: 15 mg Mupirocin (Bactroban Ointment) 1 applic TOP BID [facility] Last Admin: 03/28/18 17:15 Dose: 1 applic Sitagliptin Phosphate (Januvia) 25 mg PO DAILY [facility] Last Admin: 03/28/18 11:28 Dose: Not Given - Labs Labs: 03/28/18 12:32 03/28/18 12:32 PT 12.8 Seconds (9.8-13.1) 03/15/18 00:14 INR 1.2 03/15/18 00:14 APTT 26.9 Seconds (25.6-37.1) 03/15/18 00:14 Assessment and Plan (1) Aortic stenosis Status: Acute (2) Acute kidney injury Status: Acute (3) Chest pain Status: Acute (4) Atrial fibrillation Status: Acute (5) Chronic congestive heart failure Status: Acute (6) Physical debility Status: Acute (7) History of DVT (deep vein thrombosis) Status: Chronic
[2018-03-29] MEDS: Insulin Lispro (humaLOG) 100 Units/ml Inj SC SCH ×4 (09:34→21:11)
[2018-03-29] MEDS: Megestrol Acetate 40 mg/ml Cup PO SCH ×2 (09:44→14:11)
[2018-03-29] MEDS: Enoxaparin 80 mg Syringe SC SCH ×2 (09:46→21:03)
[2018-03-29 10:22] LABS: BLOOD UREA NITROGEN 18 mg/dl (7-17); CALCIUM 7.8 mg/dL (8.4-10.2); GFR NON-AFRICAN AMERICAN > 60
[2018-03-29] MEDS ORDERED: Potassium CL 10 MEQ/50 ML 50 ML IVPB SCH (12:00)
[2018-03-29] MEDS: Potassium Chloride 20 mEq ER Tab PO SCH (14:52)
[2018-03-30] MEDS: Levothyroxine 75 MCG TAB PO SCH (06:25)
--- NOTE | 2018-03-30 06:50 | CP.PCM.PN ---
Subjective - Date & Time of Evaluation Date of Evaluation: 03/29/18 Time of Evaluation: 18:05 - Subjective Subjective: Seen and examined at the bed side. Continue to have poor appetite, and on Megace and Remeron. No new complaint Objective - Vital Signs/Intake and Output Vital Signs (last 24 hours): Temp Pulse Resp BP Pulse Ox 97.8 F 74 20 130/79 96 03/30/18 05:00 03/30/18 05:00 03/30/18 05:00 03/30/18 05:00 03/30/18 05:00 - Medications Medications: Current Medications Acetaminophen (Tylenol 325mg Tab) 650 mg PO Q6 PRN PRN Reason: Other Last Admin: 03/29/18 21:17 Dose: 650 mg Aspirin (Ecotrin) 81 mg PO DAILY [facility] Last Admin: 03/29/18 14:16 Dose: 81 mg Atorvastatin Calcium (Lipitor) 80 mg PO HS [facility] Last Admin: 03/29/18 21:02 Dose: 80 mg Enoxaparin Sodium (Lovenox) 80 mg SC Q12 [facility] PRN Reason: Protocol Last Admin: 03/29/18 21:03 Dose: 80 mg Insulin Human Lispro (Humalog) 0 units SC ACHS [facility] PRN Reason: Protocol Last Admin: 03/29/18 21:11 Dose: Not Given Levothyroxine Sodium (Synthroid) 75 mcg PO DAILY@0630 [facility] Last Admin: 03/30/18 06:25 Dose: Not Given Megestrol Acetate (Megace) 800 mg PO DAILY [facility] Last Admin: 03/29/18 14:11 Dose: 800 mg Metoprolol Tartrate (Lopressor) 100 mg PO Q12 [facility] Last Admin: 03/29/18 21:02 Dose: 100 mg Mirtazapine (Remeron 15mg Odt) 15 mg PO HS [facility] Last Admin: 03/29/18 21:03 Dose: 15 mg Mupirocin (Bactroban Ointment) 1 applic TOP BID [facility] Last Admin: 03/29/18 16:57 Dose: 1 applic Potassium Chloride (K-Dur 20 Meq Er Tab) 20 meq PO DAILY [facility] Last Admin: 03/29/18 14:52 Dose: 20 meq Sitagliptin Phosphate (Januvia) 25 mg PO DAILY [facility] Last Admin: 03/29/18 09:44 Dose: Not Given - Labs Labs: 03/28/18 12:32 03/29/18 10:02 PT 12.8 Seconds (9.8-13.1) 03/15/18 00:14 INR 1.2 03/15/18 00:14 APTT 26.9 Seconds (25.6-37.1) 03/15/18 00:14 Assessment and Plan (1) Severe aortic stenosis Assessment & Plan: Assessment & Plan: R/O CAD CHF Hypotension, Resolved Assessment and Plan: Will need Cardiac Cath, and TAVR Percher on Board. C/W Current Care Status: Acute (3) Acute kidney injury- Normaliized Assessment and Plan: Most likely Prerenal Monitor BMP Nephro onboard Status: Acute Priority: High (4) Atrial fibrillation- Rate Controlled Assessment and Plan: Awaiting Family Decision about TAVR Resume Xeralto Increase Metoprolol to 25 mg BID Status: Acute Priority: High (5) Physical Debility, Anorexia-Still Poor Appetite on Callorie Count Assessment and Plan: Bed rest for now, and Remeron to 15mg QHS C/W Megace PT/OT when Stable (6) ESBL+ MDR Klebsiella P in the Urine, Repeat Urine Culture ID Onboard Status: Acute
[2018-03-30] MEDS: Insulin Lispro (humaLOG) 100 Units/ml Inj SC SCH ×4 (09:28→22:45)
[2018-03-30] MEDS: Potassium Chloride 20 mEq ER Tab PO SCH (12:13)
[2018-03-30] MEDS: Enoxaparin 80 mg Syringe SC SCH ×2 (12:15→21:12)
[2018-03-30] MEDS: Megestrol Acetate 40 mg/ml Cup PO SCH (12:15)
[2018-03-31] MEDS: Levothyroxine 75 MCG TAB PO SCH (06:35)
[2018-03-31] MEDS: Insulin Lispro (humaLOG) 100 Units/ml Inj SC SCH ×4 (10:43→21:28)
[2018-03-31] MEDS: Megestrol Acetate 40 mg/ml Cup PO SCH (10:44)
[2018-03-31] MEDS: Potassium Chloride 20 mEq ER Tab PO SCH (10:57)
[2018-03-31] MEDS: Potassium Chloride 20 mEq/15 ml LIQ UD PO SCH (12:56)
[2018-03-31] MEDS: Dextrose 5%/Lactated Ringer's 1,000 ML IV SCH (12:58)
[2018-03-31 16:11] LABS: MEAN CELL VOLUME 84.6 fl (81.0-99.0); MEAN CORPUSCULAR HEMOGLOBIN 27.1 pg (27.0-31.0); RBC 2.41 Mil/uL (3.80-5.20); RED CELL DISTRIBUTION WIDTH 19.4 % (11.5-14.5); WHITE BLOOD COUNT 11.6 K/uL (4.8-10.8)
[2018-03-31 16:20] LABS: HEMOGLOBIN 6.5 g/dL (12.0-16.0)
--- NOTE | 2018-03-31 17:44 | CP.PCM.PN ---
Subjective - Date & Time of Evaluation Date of Evaluation: 03/30/18 Time of Evaluation: 10:30 - Subjective Subjective: Patient remains very weak and has very minimal intake. Has no fever Has no abdominal pain Noted to have anemia. Objective - Vital Signs/Intake and Output Vital Signs (last 24 hours): Temp Pulse Resp BP Pulse Ox 97.9 F 77 20 109/59 L 94 L 03/31/18 16:04 03/31/18 16:04 03/31/18 16:04 03/31/18 16:04 03/31/18 16:04 - Medications Medications: Current Medications Acetaminophen (Tylenol 325mg Tab) 650 mg PO Q6 PRN PRN Reason: Other Last Admin: 03/31/18 15:25 Dose: 650 mg Aspirin (Ecotrin) 81 mg PO DAILY [facility] Last Admin: 03/31/18 10:42 Dose: 81 mg Atorvastatin Calcium (Lipitor) 80 mg PO HS [facility] Last Admin: 03/30/18 21:11 Dose: 80 mg Enoxaparin Sodium (Lovenox) 80 mg SC Q12 [facility] PRN Reason: Protocol Dextrose/Lactated Ringer's (Dextrose 5%/Lactated Ringer's) 1,000 mls @ 50 mls/ hr IV .Q20H [facility] Stop: 04/01/18 12:07 Last Admin: 03/31/18 12:58 Dose: 50 mls/hr Insulin Human Lispro (Humalog) 0 units SC ACHS [facility] PRN Reason: Protocol Last Admin: 03/31/18 17:21 Dose: Not Given Levothyroxine Sodium (Synthroid) 75 mcg PO DAILY@0630 [facility] Last Admin: 03/31/18 06:35 Dose: 75 mcg Megestrol Acetate (Megace) 800 mg PO DAILY [facility] Last Admin: 03/31/18 10:44 Dose: 800 mg Metoprolol Tartrate (Lopressor) 100 mg PO Q12 [facility] Last Admin: 03/31/18 10:44 Dose: 100 mg Mirtazapine (Remeron 15mg Odt) 15 mg PO HS [facility] Last Admin: 03/30/18 21:11 Dose: 15 mg Potassium Chloride (Potassium Chloride Oral Soln) 20 meq PO DAILY [facility] Last Admin: 03/31/18 12:56 Dose: 20 meq - Labs Labs: 03/31/18 15:30 03/29/18 10:02 PT 12.8 Seconds (9.8-13.1) 03/15/18 00:14 INR 1.2 03/15/18 00:14 APTT 29.0 Seconds (25.6-37.1) 03/31/18 15:30 - Head Exam Head Exam: NORMAL INSPECTION - Eye Exam Eye Exam: Normal appearance - ENT Exam ENT Exam: Mucous Membranes Moist - Respiratory Exam Respiratory Exam: Clear to Ausculation Bilateral - Cardiovascular Exam Cardiovascular Exam: Irregular Rhythm - GI/Abdominal Exam GI & Abdominal Exam: Normal Bowel Sounds - Neurological Exam Neurological Exam: Awake, Oriented x3 - Skin Skin Exam: Dry Assessment and Plan (1) Chronic congestive heart failure Status: Acute (2) Atrial fibrillation Status: Chronic (3) Diabetes mellitus Status: Chronic (4) Hypertension Status: Chronic (5) Urinary tract infection due to extended-spectrum beta lactamase (ESBL)- producing Klebsiella Status: Acute - Assessment and Plan (Free Text) Plan: Con tmeds Check cbc cmp in am Cont hydration Discussed with son re PEG if caloric intake remains very low.
--- NOTE | 2018-03-31 17:50 | CP.PCM.PN ---
Subjective - Date & Time of Evaluation Date of Evaluation: 03/31/18 Time of Evaluation: 13:25 - Subjective Subjective: Patient remains very ill Noted pallor Has very poor intake' Scheduled for PEG No abd pain Noted very low Hgb on repeat blood test BT was ordered ASA and Lovenox were discontinued. Objective - Vital Signs/Intake and Output Vital Signs (last 24 hours): Temp Pulse Resp BP Pulse Ox 97.9 F 77 20 109/59 L 94 L 03/31/18 16:04 03/31/18 16:04 03/31/18 16:04 03/31/18 16:04 03/31/18 16:04 - Medications Medications: Current Medications Acetaminophen (Tylenol 325mg Tab) 650 mg PO Q6 PRN PRN Reason: Other Last Admin: 03/31/18 15:25 Dose: 650 mg Aspirin (Ecotrin) [address] [facility] Last Admin: 03/31/18 10:42 Dose: 81 mg Atorvastatin Calcium (Lipitor) [address] [facility] Last Admin: 03/30/18 21:11 Dose: 80 mg Enoxaparin Sodium (Lovenox) [address] [facility] PRN Reason: Protocol Dextrose/Lactated Ringer's (Dextrose 5%/Lactated Ringer's) 1,000 mls @ 50 mls/ hr IV .Q20H [facility] Stop: 04/01/18 12:07 Last Admin: 03/31/18 12:58 Dose: 50 mls/hr Insulin Human Lispro (Humalog) [address] [facility] PRN Reason: Protocol Last Admin: 03/31/18 17:21 Dose: Not Given Levothyroxine Sodium (Synthroid) 75 mcg PO DAILY@0630 [facility] Last Admin: 03/31/18 06:35 Dose: 75 mcg Megestrol Acetate (Megace) [address] [facility] Last Admin: 03/31/18 10:44 Dose: 800 mg Metoprolol Tartrate (Lopressor) [address] [facility] Last Admin: 03/31/18 10:44 Dose: 100 mg Mirtazapine (Remeron 15mg Odt) [address] [facility] Last Admin: 03/30/18 21:11 Dose: 15 mg Potassium Chloride (Potassium Chloride Oral Soln) [address] [facility] Last Admin: 03/31/18 12:56 Dose: 20 meq - Labs Labs: 03/31/18 15:30 03/29/18 10:02 PT 12.8 Seconds (9.8-13.1) 03/15/18 00:14 INR 1.2 03/15/18 00:14 APTT 29.0 Seconds (25.6-37.1) 03/31/18 15:30 - Head Exam Head Exam: NORMAL INSPECTION - Eye Exam Eye Exam: Normal appearance Additional comments: pale conjunctivae - ENT Exam ENT Exam: Mucous Membranes Moist - Respiratory Exam Respiratory Exam: Clear to Ausculation Bilateral - Cardiovascular Exam Cardiovascular Exam: Irregular Rhythm - GI/Abdominal Exam GI & Abdominal Exam: Normal Bowel Sounds - Neurological Exam Neurological Exam: Awake - Psychiatric Exam Psychiatric exam: Depressed - Skin Skin Exam: Dry Assessment and Plan (1) Chronic congestive heart failure Status: Acute (2) Atrial fibrillation Status: Chronic (3) Diabetes mellitus Status: Chronic (4) Hypertension Status: Chronic (5) Urinary tract infection due to extended-spectrum beta lactamase (ESBL)- producing Klebsiella Status: Acute (6) Gastrointestinal bleeding Status: Acute (7) Anemia Status: Acute - Assessment and Plan (Free Text) Plan: Start Protonix DC ASA DC LOvenox GI made aware Cont tx
[2018-03-31] MEDS ORDERED: Enoxaparin 80 mg Syringe SC SCH (21:00)
--- NOTE | 2018-03-31 21:42 | CP.PCM.CON ---
History of Present Illness - History of Present Illness History of Present Illness: 87 yo female with multiple medical problems including dementia, DM, and severe aortic stenosis noted to have drop in Hgb over the past few days from 9 to 6.5. Pt yesterday was noted to have black stools. She has Afib and severe aortic stenosis and TAVr has been discussed. She has been receiving ASA and lovenox an anticoagulants. According to her son Arturo and brother Rocael she has been eating almost nothing over the past few weeks. Review of Systems - Review of Systems Systems not reviewed;Unavailable: Dementia Past Patient History - Past Medical History & Family History Past Medical History?: Yes Past Family History: Reviewed and not pertinent - Past Social History Smoking Status: Never Smoked Alcohol: None Drugs: Denies - CARDIAC Hx Atrial Fibrillation: Yes Hx Congestive Heart Failure: Yes Hx Hypercholesterolemia: Yes Hx Hypertension: Yes - PULMONARY Hx Respiratory Disorders: No Hx Asthma: No - NEUROLOGICAL Hx Dementia: Yes - HEENT Hx HEENT Problems: No - RENAL Hx Chronic Kidney Disease: Yes - ENDOCRINE/METABOLIC Hx Hypothyroidism: Yes - HEMATOLOGICAL/ONCOLOGICAL Hx Human Immunodeficiency Virus (HIV): No - INTEGUMENTARY Hx Dermatological Problems: No - MUSCULOSKELETAL/RHEUMATOLOGICAL Hx Musculoskeletal Disorders: No Hx Falls: No - GASTROINTESTINAL Hx Gastrointestinal Disorders: Yes Hx Gastroesophageal Reflux: Yes - GENITOURINARY/GYNECOLOGICAL Hx Genitourinary Disorders: No - PSYCHIATRIC Hx Psychophysiologic Disorder: Yes - SURGICAL HISTORY Hx Surgeries: No - ANESTHESIA Hx Anesthesia: No Hx Anesthesia Reactions: No Hx Malignant Hyperthermia: No Has any member of the family had a problem w/ anesthesia?: No Meds Allergies/Adverse Reactions: Allergies Allergy/AdvReac Type Severity Reaction Status Date / Time No Known Allergies Allergy Verified 02/26/18 15:36 - Medications Medications: Current Medications Acetaminophen (Tylenol 325mg Tab) 650 mg PO Q6 PRN PRN Reason: Other Last Admin: 03/31/18 15:25 Dose: 650 mg Aspirin (Ecotrin) 81 mg PO DAILY [facility] Last Admin: 03/31/18 10:42 Dose: 81 mg Atorvastatin Calcium (Lipitor) 80 mg PO HS [facility] Last Admin: 03/31/18 21:29 Dose: 80 mg Dextrose/Lactated Ringer's (Dextrose 5%/Lactated Ringer's) 1,000 mls @ 50 mls/ hr IV .Q20H [facility] Stop: 04/01/18 12:07 Last Admin: 03/31/18 12:58 Dose: 50 mls/hr Insulin Human Lispro (Humalog) 0 units SC ACHS [facility] PRN Reason: Protocol Last Admin: 03/31/18 21:28 Dose: Not Given Levothyroxine Sodium (Synthroid) 75 mcg PO DAILY@0630 [facility] Last Admin: 03/31/18 06:35 Dose: 75 mcg Megestrol Acetate (Megace) 800 mg PO DAILY [facility] Last Admin: 03/31/18 10:44 Dose: 800 mg Metoprolol Tartrate (Lopressor) 100 mg PO Q12 [facility] Last Admin: 03/31/18 21:27 Dose: 100 mg Mirtazapine (Remeron 15mg Odt) 15 mg PO HS [facility] Last Admin: 03/31/18 21:28 Dose: 15 mg Pantoprazole Sodium (Protonix Inj) 40 mg IVP DAILY [facility] Potassium Chloride (Potassium Chloride Oral Soln) 20 meq PO DAILY [facility] Last Admin: 03/31/18 12:56 Dose: 20 meq Physical Exam - Constitutional Appears: Chronically Ill - Head Exam Head Exam: NORMOCEPHALIC - ENT Exam ENT Exam: Mucous Membranes Moist - Neck Exam Neck exam: Positive for: Normal Inspection - Respiratory Exam Respiratory Exam: NORMAL BREATHING PATTERN - Cardiovascular Exam Cardiovascular Exam: +S1, +S2 - GI/Abdominal Exam GI & Abdominal Exam: Normal Bowel Sounds, Soft. absent: Tenderness Results - Vital Signs Recent Vital Signs: Last Vital Signs Temp 98.8 F 03/31/18 21:06 Pulse 99 H 03/31/18 21:27 Resp 12 03/31/18 21:06 BP 109/68 03/31/18 21:27 Pulse Ox 96 03/31/18 19:34 - Labs Result Diagrams: 03/31/18 15:30 03/29/18 10:02 Labs: Laboratory Results - last 24 hr 03/31/18 03/31/18 03/31/18 15:30 15:30 18:30 WBC 11.6 H RBC 2.41 L Hgb 6.5 L* D Hct 20.4 L MCV 84.6 MCH 27.1 MCHC 32.0 L RDW 19.4 H Plt Count 306 APTT 29.0 Blood Type O POSITIVE Blood Type Confirm Antibody Screen Negative Crossmatch See Detail BBK History Checked No verified bt 03/31/18 19:27 WBC RBC Hgb Hct MCV MCH MCHC RDW Plt Count APTT Blood Type Blood Type Confirm O POSITIVE Antibody Screen Crossmatch BBK History Checked Assessment & Plan (1) Anemia Assessment and Plan: Acute upper GI bleed. ASA/Lovenox have been discontinued, patient receiving blood and pantoprazole started. Should be transfused to over 8. Status: Acute (2) Poor appetite Assessment and Plan: Family requesting PEG though due to her cardiac issues she would be high risk. Would need cardiology clearance first and even then patient's family would have to understand the elevated risk with her medical conditions.Discussed with her son Arturo [phone] and her brother Rocael [phone](H), (C) . Status: Chronic Priority: Medium
[2018-04-01 05:47] LABS: HEMOGLOBIN 9.1 g/dL (12.0-16.0); MEAN CELL VOLUME 83.5 fl (81.0-99.0); MEAN CORPUSCULAR HEMOGLOBIN 27.8 pg (27.0-31.0); MEAN CORPUSCULAR HGB CONC 33.3 g/dL (33.0-37.0); RBC 3.27 Mil/uL (3.80-5.20); RED CELL DISTRIBUTION WIDTH 16.8 % (11.5-14.5); WHITE BLOOD COUNT 10.2 K/uL (4.8-10.8)
[2018-04-01 06:17] LABS: BLOOD UREA NITROGEN 20 mg/dl (7-17); CALCIUM 8.4 mg/dL (8.4-10.2); GFR NON-AFRICAN AMERICAN > 60
[2018-04-01] MEDS: Levothyroxine 75 MCG TAB PO SCH (07:03)
[2018-04-01] MEDS: Insulin Lispro (humaLOG) 100 Units/ml Inj SC SCH ×4 (07:40→22:11)
[2018-04-01] MEDS: Megestrol Acetate 40 mg/ml Cup PO SCH ×2 (08:38→12:06)
[2018-04-01] MEDS: Potassium Chloride 20 mEq/15 ml LIQ UD PO SCH ×2 (08:39→12:06)
[2018-04-01 08:49] LABS: HEMOGLOBIN 9.6 g/dL (12.0-16.0); MEAN CELL VOLUME 84.8 fl (81.0-99.0); MEAN CORPUSCULAR HEMOGLOBIN 27.9 pg (27.0-31.0); RBC 3.43 Mil/uL (3.80-5.20); RED CELL DISTRIBUTION WIDTH 16.9 % (11.5-14.5); WHITE BLOOD COUNT 10.5 K/uL (4.8-10.8)
--- NOTE | 2018-04-01 08:54 | CP.PCM.PN ---
Subjective - Date & Time of Evaluation Date of Evaluation: 04/01/18 Time of Evaluation: 07:10 - Subjective Subjective: GI progress note for Dr. Cameron Patient seen and examined this AM. No adverse events overnight. Patient had a large normal consistency dark BM on Sunday but no bowel function since. Denies any abdominal pain or nausea. Patient refused full examination. Objective - Vital Signs/Intake and Output Vital Signs (last 24 hours): Temp Pulse Resp BP Pulse Ox 97.7 F 100 H 18 124/81 99 04/01/18 08:10 04/01/18 08:38 04/01/18 08:10 04/01/18 08:38 04/01/18 08:10 Intake and Output: 04/01/18 04/01/18 06:59 18:59 Intake Total 650 Balance 650 - Medications Medications: Current Medications Acetaminophen (Tylenol 325mg Tab) 650 mg PO Q6 PRN PRN Reason: Other Last Admin: 03/31/18 15:25 Dose: 650 mg Aspirin (Ecotrin) 81 mg PO DAILY [facility] Last Admin: 03/31/18 10:42 Dose: 81 mg Atorvastatin Calcium (Lipitor) 80 mg PO HS [facility] Last Admin: 03/31/18 21:29 Dose: 80 mg Dextrose/Lactated Ringer's (Dextrose 5%/Lactated Ringer's) 1,000 mls @ 50 mls/ hr IV .Q20H [facility] Stop: 04/01/18 12:07 Last Admin: 03/31/18 12:58 Dose: 50 mls/hr Insulin Human Lispro (Humalog) 0 units SC ACHS [facility] PRN Reason: Protocol Last Admin: 04/01/18 07:40 Dose: Not Given Levothyroxine Sodium (Synthroid) 75 mcg PO DAILY@0630 [facility] Last Admin: 04/01/18 07:03 Dose: 75 mcg Megestrol Acetate (Megace) 800 mg PO DAILY [facility] Last Admin: 04/01/18 08:38 Dose: 800 mg Metoprolol Tartrate (Lopressor) 100 mg PO Q12 [facility] Last Admin: 04/01/18 08:38 Dose: 100 mg Mirtazapine (Remeron 15mg Odt) 15 mg PO HS [facility] Last Admin: 03/31/18 21:28 Dose: 15 mg Pantoprazole Sodium (Protonix Inj) 40 mg IVP DAILY [facility] Last Admin: 04/01/18 08:38 Dose: 40 mg Potassium Chloride (Potassium Chloride Oral Soln) 20 meq PO DAILY [facility] Last Admin: 04/01/18 08:39 Dose: 20 meq - Labs Labs: 04/01/18 05:15 04/01/18 05:15 PT 12.8 Seconds (9.8-13.1) 03/15/18 00:14 INR 1.2 03/15/18 00:14 APTT 29.0 Seconds (25.6-37.1) 03/31/18 15:30 - Constitutional Appears: Well, Non-toxic, No Acute Distress - Head Exam Head Exam: ATRAUMATIC, NORMOCEPHALIC - Eye Exam Eye Exam: Normal appearance. absent: Conjunctival injection, Scleral icterus - ENT Exam ENT Exam: Mucous Membranes Moist, Normal Oropharynx - Respiratory Exam Respiratory Exam: NORMAL BREATHING PATTERN. absent: Accessory Muscle Use, Respiratory Distress - GI/Abdominal Exam GI & Abdominal Exam: Distended (moderate), Soft - Neurological Exam Neurological Exam: Alert, Awake - Psychiatric Exam Psychiatric exam: Agitated, Normal Affect - Additional Findings Additional findings: exam limited d/t patient refusal Assessment and Plan - Assessment and Plan (Free Text) Assessment: 87F with PMH of VTE on ASA with possible GI bleed and failure to thrive with poor PO intake Plan: Continue to monitor H/H--patient had 2 units of PRBC and responded appropriately --no further bleeding events but no bowel function since sunday Patient has poor PO intake but no clinical signs of malnutrition and has many serious comorbidities such as aortic stenosis. Patient needs full cardiac evaluation, risk stratification, and optimizatoin. Will discuss with family the high cardiac risk with any procedure and determine if they want to proceed Continue current medical management Discussed with Dr. Cameron, who agrees with above Rosa Tomlinson, PGY2
[2018-04-01] MEDS: Dextrose 5%/Lactated Ringer's 1,000 ML IV SCH (12:03)
--- NOTE | 2018-04-01 14:00 | CP.PCM.PN ---
Subjective - Date & Time of Evaluation Date of Evaluation: 04/01/18 Time of Evaluation: 13:59 - Subjective Subjective: ID Note- Pt. seen and examined today. pt. is comfortable and denies any complaints. Objective - Vital Signs/Intake and Output Vital Signs (last 24 hours): Temp Pulse Resp BP Pulse Ox 97.6 F 82 18 131/84 98 04/01/18 12:09 04/01/18 12:09 04/01/18 12:09 04/01/18 12:09 04/01/18 12:09 Intake and Output: 04/01/18 04/01/18 06:59 18:59 Intake Total 650 Balance 650 - Medications Medications: Current Medications Acetaminophen (Tylenol 325mg Tab) 650 mg PO Q6 PRN PRN Reason: Other Last Admin: 03/31/18 15:25 Dose: 650 mg Aspirin (Ecotrin) 81 mg PO DAILY [facility] Last Admin: 03/31/18 10:42 Dose: 81 mg Atorvastatin Calcium (Lipitor) 80 mg PO [facility] Last Admin: 03/31/18 21:29 Dose: 80 mg Insulin Human Lispro (Humalog) 0 units SC [facility] PRN Reason: Protocol Last Admin: 04/01/18 11:39 Dose: Not Given Levothyroxine Sodium (Synthroid) 75 mcg PO DAILY@0630 [facility] Last Admin: 04/01/18 07:03 Dose: 75 mcg Megestrol Acetate (Megace) 800 mg PO DAILY [facility] Last Admin: 04/01/18 12:06 Dose: Not Given Metoprolol Tartrate (Lopressor) 100 mg PO Q12 [facility] Last Admin: 04/01/18 12:06 Dose: Not Given Mirtazapine (Remeron 15mg Odt) 15 mg PO HS [facility] Last Admin: 03/31/18 21:28 Dose: 15 mg Pantoprazole Sodium (Protonix Inj) 40 mg IVP DAILY [facility] Last Admin: 04/01/18 08:38 Dose: 40 mg Potassium Chloride (Potassium Chloride Oral Soln) 20 meq PO DAILY [facility] Last Admin: 04/01/18 12:06 Dose: Not Given - Labs Labs: - Additional Findings Additional findings: - Constitutional Appears: Non-toxic, No Acute Distress - Head Exam Head Exam: ATRAUMATIC - Eye Exam Eye Exam: EOMI - ENT Exam ENT Exam: Normal Oropharynx - Neck Exam Neck exam: Positive for: Full Rom - Respiratory Exam Respiratory Exam: NORMAL BREATHING PATTERN Additional comments: good breath sounds - Cardiovascular Exam Cardiovascular Exam: RRR +S1, +S2 - GI/Abdominal Exam GI & Abdominal Exam: Normal Bowel Sounds, Soft Additional comments: NT, ND No guarding, No rebound - Extremities Exam Additional comments: edema B/L LE chronic - Neurological Exam Neurological exam: Alert Additional comments: flat affect, baseline dementia answers questions Laboratory Results - last 72 hr 03/29/18 03/29/18 03/30/18 16:46 21:11 02:29 WBC RBC Hgb Hct MCV MCH MCHC RDW Plt Count APTT Sodium Potassium Chloride Carbon Dioxide Anion Gap BUN Creatinine Est GFR ( Amer) Est GFR (Non-Af Amer) POC Glucose (mg/dL) 144 H 138 H 136 H Random Glucose Calcium Blood Type Blood Type Confirm Antibody Screen Crossmatch BBK History Checked 03/30/18 03/30/18 03/30/18 05:03 11:01 17:22 WBC RBC Hgb Hct MCV MCH MCHC RDW Plt Count APTT Sodium Potassium Chloride Carbon Dioxide Anion Gap BUN Creatinine Est GFR ( Amer) Est GFR (Non-Af Amer) POC Glucose (mg/dL) 125 H 107 136 H Random Glucose Calcium Blood Type Blood Type Confirm Antibody Screen Crossmatch BBK History Checked 03/30/18 03/31/18 03/31/18 22:10 05:54 11:07 WBC RBC Hgb Hct MCV MCH MCHC RDW Plt Count APTT Sodium Potassium Chloride Carbon Dioxide Anion Gap BUN Creatinine Est GFR ( Amer) Est GFR (Non-Af Amer) POC Glucose (mg/dL) 118 H 100 90 Random Glucose Calcium Blood Type Blood Type Confirm Antibody Screen Crossmatch BBK History Checked 03/31/18 03/31/18 03/31/18 15:30 15:30 16:37 WBC 11.6 H RBC 2.41 L Hgb 6.5 L* D Hct 20.4 L MCV 84.6 MCH 27.1 MCHC 32.0 L RDW 19.4 H Plt Count 306 APTT 29.0 Sodium Potassium Chloride Carbon Dioxide Anion Gap BUN Creatinine Est GFR ( Amer) Est GFR (Non-Af Amer) POC Glucose (mg/dL) 115 H Random Glucose Calcium Blood Type Blood Type Confirm Antibody Screen Crossmatch BBK History Checked 03/31/18 03/31/18 03/31/18 18:30 19:27 21:27 WBC RBC Hgb Hct MCV MCH MCHC RDW Plt Count APTT Sodium Potassium Chloride Carbon Dioxide Anion Gap BUN Creatinine Est GFR ( Amer) Est GFR (Non-Af Amer) POC Glucose (mg/dL) 129 H Random Glucose Calcium Blood Type O POSITIVE Blood Type Confirm O POSITIVE Antibody Screen Negative Crossmatch See Detail BBK History Checked No verified bt 04/01/18 04/01/18 04/01/18 05:15 05:15 08:20 WBC 10.2 10.5 RBC 3.27 L 3.43 L Hgb 9.1 L D 9.6 L Hct 27.3 L 29.1 L MCV 83.5 84.8 MCH 27.8 27.9 MCHC 33.3 33.0 RDW 16.8 H 16.9 H Plt Count 267 273 APTT Sodium 145 Potassium 3.9 Chloride 116 H Carbon Dioxide 26 Anion Gap 7 L BUN 20 H Creatinine 0.8 Est GFR ( Amer) > 60 Est GFR (Non-Af Amer) > 60 POC Glucose (mg/dL) Random Glucose 98 Calcium 8.4 Blood Type Blood Type Confirm Antibody Screen Crossmatch BBK History Checked 04/01/18 11:23 WBC RBC Hgb Hct MCV MCH MCHC RDW Plt Count APTT Sodium Potassium Chloride Carbon Dioxide Anion Gap BUN Creatinine Est GFR ( Amer) Est GFR (Non-Af Amer) POC Glucose (mg/dL) 90 Random Glucose Calcium Blood Type Blood Type Confirm Antibody Screen Crossmatch BBK History Checked Microbiology 03/20/18 10:45 Urine,Clean Catch Urine Culture - Final Klebsiella Pneumoniae Ssp Pneu 03/14/18 00:05 Blood Blood Culture - Final NO GROWTH AFTER 5 DAYS 03/14/18 00:05 Blood Gram Stain - Final TEST NOT PERFORMED 03/15/18 00:20 Blood Blood Culture - Final NO GROWTH AFTER 5 DAYS 03/15/18 00:20 Blood Gram Stain - Final TEST NOT PERFORMED 03/15/18 10:28 Naris MRSA Culture (Admit) - Final MRSA DETECTED Assessment and Plan (1) Acute kidney injury Status: Acute (2) Hypotension Status: Acute (3) Urinary tract infection due to extended-spectrum beta lactamase (ESBL)- producing Klebsiella Status: Acute - Assessment and Plan (Free Text) Assessment: A/P- 87 year old female with CHF, DM II, dementia, admitted with hypotention, acute renal insufficiency , Aortic stenosis with ESBL klebsiella in urine cx . remains afebrile normal wbc count urine cx 03/20/2018- MDR esbl K.Pneumonias ( spoke with jan from micro lab and he states it's resistant to carbapenems as well). as per micro lab , it is sens to Avycaz UA from 03/23/2018-- positive nitrates, larger LE, many bacteria Plan- has completed 8 days of Thomas vycaz for MDR K.pneumonia UTI. no need to check another urne cx. will sign off the case at this time. Please re-consult PRN.
[2018-04-02] MEDS: Insulin Lispro (humaLOG) 100 Units/ml Inj SC SCH ×4 (09:20→21:41)
[2018-04-02] MEDS: Potassium Chloride 20 mEq/15 ml LIQ UD PO SCH (09:22)
[2018-04-02] MEDS: Megestrol Acetate 40 mg/ml Cup PO SCH (09:23)
[2018-04-02] MEDS: Levothyroxine 75 MCG TAB PO SCH ×2 (09:24→09:27)
--- NOTE | 2018-04-02 09:26 | CP.PCM.PN ---
Subjective - Date & Time of Evaluation Date of Evaluation: 04/02/18 Time of Evaluation: 08:00 - Subjective Subjective: GI consult note for Dr. Cameron Pt seen and examined with Dr. Cameron this AM. Pt is minimally engaged in interview and refused exam. Patient still has poor intake, requiring very thorough encouragement and feeding by someone else. Objective - Vital Signs/Intake and Output Vital Signs (last 24 hours): Temp Pulse Resp BP Pulse Ox 98 F 97 H 18 144/87 95 04/02/18 07:56 04/02/18 09:22 04/02/18 07:56 04/02/18 09:22 04/02/18 07:56 - Medications Medications: Current Medications Aspirin (Ecotrin) 81 mg PO DAILY [facility] Last Admin: 03/31/18 10:42 Dose: 81 mg Atorvastatin Calcium (Lipitor) 80 mg PO [facility] Last Admin: 04/01/18 22:11 Dose: 80 mg Insulin Human Lispro (Humalog) 0 units SC ACHS [facility] PRN Reason: Protocol Last Admin: 04/02/18 09:20 Dose: Not Given Levothyroxine Sodium (Synthroid) 75 mcg PO DAILY@0630 [facility] Last Admin: 04/01/18 07:03 Dose: 75 mcg Megestrol Acetate (Megace) 800 mg PO DAILY [facility] Last Admin: 04/02/18 09:23 Dose: 800 mg Metoprolol Tartrate (Lopressor) 100 mg PO Q12 [facility] Last Admin: 04/02/18 09:22 Dose: 100 mg Mirtazapine (Remeron 15mg Odt) 15 mg PO HS [facility] Last Admin: 04/01/18 22:10 Dose: 15 mg Pantoprazole Sodium (Protonix Inj) 40 mg IVP DAILY [facility] Last Admin: 04/02/18 09:22 Dose: 40 mg Potassium Chloride (Potassium Chloride Oral Soln) 20 meq PO DAILY [facility] Last Admin: 04/02/18 09:22 Dose: 20 meq - Labs Labs: 04/01/18 08:20 04/01/18 05:15 PT 12.8 Seconds (9.8-13.1) 03/15/18 00:14 INR 1.2 03/15/18 00:14 APTT 29.0 Seconds (25.6-37.1) 03/31/18 15:30 - Constitutional Appears: Well, Non-toxic, No Acute Distress - Head Exam Head Exam: ATRAUMATIC, NORMOCEPHALIC - Eye Exam Eye Exam: Normal appearance. absent: Conjunctival injection, Scleral icterus - ENT Exam ENT Exam: Mucous Membranes Moist - Respiratory Exam Respiratory Exam: NORMAL BREATHING PATTERN. absent: Accessory Muscle Use, Respiratory Distress - Neurological Exam Neurological Exam: Alert, Awake - Psychiatric Exam Psychiatric exam: Normal Affect, Normal Mood - Skin Skin Exam: Normal Color, Warm - Additional Findings Additional findings: Pt refused full examination Assessment and Plan - Assessment and Plan (Free Text) Assessment: 87F with PMH of severe aortic stenosis with recent melena, anemia, and poor PO intake Plan: F/U AM CBC F/U cardiology recs--patient should have full cardiac evaluation and optimization prior to any procedure--risk of adverse event during PEG tube placement Continue current medical management per primary and ID Continue current diet with supplementation Discussed and examined with DR. Rakesh Tomlinson, PGY2
--- NOTE | 2018-04-02 09:33 | CP.PCM.PN ---
Subjective - Date & Time of Evaluation Date of Evaluation: 04/02/18 Time of Evaluation: 09:32 - Subjective Subjective: Drop in hgb over the weekend s/p transfusion of 2 units plan for PEG Objective - Vital Signs/Intake and Output Vital Signs (last 24 hours): Temp Pulse Resp BP Pulse Ox 98 F 97 H 18 144/87 95 04/02/18 07:56 04/02/18 07:56 04/02/18 07:56 04/02/18 07:56 04/02/18 07:56 - Medications Medications: Current Medications Aspirin (Ecotrin) 81 mg PO DAILY [facility] Last Admin: 03/31/18 10:42 Dose: 81 mg Atorvastatin Calcium (Lipitor) 80 mg PO HS [facility] Last Admin: 04/01/18 22:11 Dose: 80 mg Insulin Human Lispro (Humalog) 0 units SC [facility] PRN Reason: Protocol Last Admin: 04/02/18 09:20 Dose: Not Given Levothyroxine Sodium (Synthroid) 75 mcg PO DAILY@0630 [facility] Last Admin: 04/02/18 09:27 Dose: Not Given Megestrol Acetate (Megace) 800 mg PO DAILY [facility] Last Admin: 04/02/18 09:23 Dose: 800 mg Metoprolol Tartrate (Lopressor) 100 mg PO Q12 [facility] Last Admin: 04/02/18 09:27 Dose: Not Given Mirtazapine (Remeron 15mg Odt) 15 mg PO HS [facility] Last Admin: 04/01/18 22:10 Dose: 15 mg Pantoprazole Sodium (Protonix Inj) 40 mg IVP DAILY [facility] Last Admin: 04/02/18 09:28 Dose: Not Given Potassium Chloride (Potassium Chloride Oral Soln) 20 meq PO DAILY [facility] Last Admin: 04/02/18 09:22 Dose: 20 meq - Labs Labs: 04/01/18 08:20 04/01/18 05:15 PT 12.8 Seconds (9.8-13.1) 03/15/18 00:14 INR 1.2 03/15/18 00:14 APTT 29.0 Seconds (25.6-37.1) 03/31/18 15:30 - Constitutional Appears: Well - Head Exam Head Exam: ATRAUMATIC, NORMAL INSPECTION, NORMOCEPHALIC - Eye Exam Eye Exam: EOMI, Normal appearance, PERRL Pupil Exam: NORMAL ACCOMODATION, PERRL - ENT Exam ENT Exam: Mucous Membranes Moist, Normal Exam - Neck Exam Neck Exam: Full ROM, Normal Inspection. absent: Lymphadenopathy - Respiratory Exam Respiratory Exam: Clear to Ausculation Bilateral, NORMAL BREATHING PATTERN - Cardiovascular Exam Cardiovascular Exam: REGULAR RHYTHM, +S1, +S2, Murmur - GI/Abdominal Exam GI & Abdominal Exam: Soft, Normal Bowel Sounds. absent: Tenderness - Extremities Exam Extremities Exam: Full ROM, Normal Capillary Refill, Normal Inspection. absent : Joint Swelling, Pedal Edema - Back Exam Back Exam: NORMAL INSPECTION - Neurological Exam Neurological Exam: Alert, Awake, CN II-XII Intact, Normal Gait, Oriented x3 - Psychiatric Exam Psychiatric exam: Normal Affect, Normal Mood - Skin Skin Exam: Dry, Intact, Normal Color, Warm Assessment and Plan (1) Aortic stenosis Status: Acute (2) Acute kidney injury Status: Acute (3) Chest pain Status: Acute (4) Atrial fibrillation Status: Acute (5) Chronic congestive heart failure Status: Acute (6) Physical debility Status: Acute (7) History of DVT (deep vein thrombosis) Status: Chronic
--- NOTE | 2018-04-02 09:34 | CP.PCM.PN ---
Subjective - Date & Time of Evaluation Date of Evaluation: 04/01/18 Time of Evaluation: 10:00 - Subjective Subjective: family wants PEG transfusion for drop in hgb Objective - Vital Signs/Intake and Output Vital Signs (last 24 hours): Temp Pulse Resp BP Pulse Ox 98 F 97 H 18 144/87 95 04/02/18 07:56 04/02/18 07:56 04/02/18 07:56 04/02/18 07:56 04/02/18 07:56 - Medications Medications: Current Medications Aspirin (Ecotrin) 81 mg PO DAILY [facility] Last Admin: 03/31/18 10:42 Dose: 81 mg Atorvastatin Calcium (Lipitor) 80 mg PO HS [facility] Last Admin: 04/01/18 22:11 Dose: 80 mg Insulin Human Lispro (Humalog) 0 units SC [facility] PRN Reason: Protocol Last Admin: 04/02/18 09:20 Dose: Not Given Levothyroxine Sodium (Synthroid) 75 mcg PO DAILY@0630 [facility] Last Admin: 04/02/18 09:27 Dose: Not Given Megestrol Acetate (Megace) 800 mg PO DAILY [facility] Last Admin: 04/02/18 09:23 Dose: 800 mg Metoprolol Tartrate (Lopressor) 100 mg PO Q12 [facility] Last Admin: 04/02/18 09:27 Dose: Not Given Mirtazapine (Remeron 15mg Odt) 15 mg PO HS [facility] Last Admin: 04/01/18 22:10 Dose: 15 mg Pantoprazole Sodium (Protonix Inj) 40 mg IVP DAILY [facility] Last Admin: 04/02/18 09:28 Dose: Not Given Potassium Chloride (Potassium Chloride Oral Soln) 20 meq PO DAILY [facility] Last Admin: 04/02/18 09:22 Dose: 20 meq - Labs Labs: 04/01/18 08:20 04/01/18 05:15 PT 12.8 Seconds (9.8-13.1) 03/15/18 00:14 INR 1.2 03/15/18 00:14 APTT 29.0 Seconds (25.6-37.1) 03/31/18 15:30 - Constitutional Appears: Well - Head Exam Head Exam: ATRAUMATIC, NORMAL INSPECTION, NORMOCEPHALIC - Eye Exam Eye Exam: EOMI, Normal appearance, PERRL Pupil Exam: NORMAL ACCOMODATION, PERRL - ENT Exam ENT Exam: Mucous Membranes Moist, Normal Exam - Neck Exam Neck Exam: Full ROM, Normal Inspection. absent: Lymphadenopathy - Respiratory Exam Respiratory Exam: Clear to Ausculation Bilateral, NORMAL BREATHING PATTERN - Cardiovascular Exam Cardiovascular Exam: Irregular Rhythm, +S1, +S2, Murmur - GI/Abdominal Exam GI & Abdominal Exam: Soft, Normal Bowel Sounds. absent: Tenderness - Extremities Exam Extremities Exam: Full ROM, Normal Capillary Refill, Normal Inspection. absent : Joint Swelling, Pedal Edema - Back Exam Back Exam: NORMAL INSPECTION - Neurological Exam Neurological Exam: Alert, Awake, CN II-XII Intact, Oriented x3 - Psychiatric Exam Psychiatric exam: Depressed, Flat Affect - Skin Skin Exam: Dry, Intact, Normal Color, Warm Assessment and Plan (1) Aortic stenosis Status: Acute (2) Acute kidney injury Status: Acute (3) Chest pain Status: Acute (4) Atrial fibrillation Status: Acute (5) Chronic congestive heart failure Status: Acute (6) Physical debility Status: Acute (7) History of DVT (deep vein thrombosis) Status: Chronic
[2018-04-02 10:19] LABS: HEMOGLOBIN 10.1 g/dL (12.0-16.0); MEAN CELL VOLUME 85.7 fl (81.0-99.0); MEAN CORPUSCULAR HEMOGLOBIN 27.8 pg (27.0-31.0); MEAN CORPUSCULAR HGB CONC 32.5 g/dL (33.0-37.0); RBC 3.62 Mil/uL (3.80-5.20); RED CELL DISTRIBUTION WIDTH 17.3 % (11.5-14.5)
--- NOTE | 2018-04-02 10:29 | CP.PCM.PN ---
Subjective - Date & Time of Evaluation Date of Evaluation: 04/01/18 Time of Evaluation: 11:25 - Subjective Subjective: Patient has very poor appetite Scheduled for PEG Noted low Hgb. received transfusion. Has no SOB. Objective - Vital Signs/Intake and Output Vital Signs (last 24 hours): Temp Pulse Resp BP Pulse Ox 98 F 97 H 18 144/87 95 04/02/18 07:56 04/02/18 07:56 04/02/18 07:56 04/02/18 07:56 04/02/18 07:56 - Medications Medications: Current Medications Aspirin (Ecotrin) 81 mg PO DAILY [facility] Last Admin: 03/31/18 10:42 Dose: 81 mg Atorvastatin Calcium (Lipitor) 80 mg PO HS [facility] Last Admin: 04/01/18 22:11 Dose: 80 mg Insulin Human Lispro (Humalog) 0 units SC [facility] PRN Reason: Protocol Last Admin: 04/02/18 09:20 Dose: Not Given Levothyroxine Sodium (Synthroid) 75 mcg PO DAILY@0630 [facility] Last Admin: 04/02/18 09:27 Dose: Not Given Megestrol Acetate (Megace) 800 mg PO DAILY [facility] Last Admin: 04/02/18 09:23 Dose: 800 mg Metoprolol Tartrate (Lopressor) 100 mg PO Q12 [facility] Last Admin: 04/02/18 09:27 Dose: Not Given Mirtazapine (Remeron 15mg Odt) 15 mg PO HS [facility] Last Admin: 04/01/18 22:10 Dose: 15 mg Pantoprazole Sodium (Protonix Inj) 40 mg IVP DAILY [facility] Last Admin: 04/02/18 09:28 Dose: Not Given Potassium Chloride (Potassium Chloride Oral Soln) 20 meq PO DAILY [facility] Last Admin: 04/02/18 09:22 Dose: 20 meq - Labs Labs: 04/01/18 08:20 04/01/18 05:15 PT 12.8 Seconds (9.8-13.1) 03/15/18 00:14 INR 1.2 03/15/18 00:14 APTT 29.0 Seconds (25.6-37.1) 03/31/18 15:30 - Head Exam Head Exam: NORMAL INSPECTION - Eye Exam Eye Exam: Normal appearance Additional comments: pale conjunctivae - Respiratory Exam Respiratory Exam: Clear to Ausculation Bilateral - Cardiovascular Exam Cardiovascular Exam: Irregular Rhythm - GI/Abdominal Exam GI & Abdominal Exam: Normal Bowel Sounds - Neurological Exam Neurological Exam: Awake - Psychiatric Exam Psychiatric exam: Depressed Assessment and Plan (1) Chronic congestive heart failure Status: Acute (2) Atrial fibrillation Status: Chronic (3) Diabetes mellitus Status: Chronic (4) Hypertension Status: Chronic (5) Urinary tract infection due to extended-spectrum beta lactamase (ESBL)- producing Klebsiella Status: Acute (6) Gastrointestinal bleeding Status: Acute (7) Anemia Status: Acute - Assessment and Plan (Free Text) Plan: Cont meds Cont tx Cont PT For PEG insertion previously discussed with one of [facility].
--- NOTE | 2018-04-02 10:31 | CP.PCM.PN ---
Subjective - Date & Time of Evaluation Date of Evaluation: 04/02/18 Time of Evaluation: 10:29 - Subjective Subjective: Continues to have no intake at all. BP has been stable. Scheduled for pEG Objective - Vital Signs/Intake and Output Vital Signs (last 24 hours): Temp Pulse Resp BP Pulse Ox 98 F 97 H 18 144/87 95 04/02/18 07:56 04/02/18 07:56 04/02/18 07:56 04/02/18 07:56 04/02/18 07:56 - Medications Medications: Current Medications Aspirin (Ecotrin) 81 mg PO DAILY [facility] Last Admin: 03/31/18 10:42 Dose: 81 mg Atorvastatin Calcium (Lipitor) 80 mg PO [facility] Last Admin: 04/01/18 22:11 Dose: 80 mg Insulin Human Lispro (Humalog) 0 units SC [facility] PRN Reason: Protocol Last Admin: 04/02/18 09:20 Dose: Not Given Levothyroxine Sodium (Synthroid) 75 mcg PO DAILY@0630 [facility] Last Admin: 04/02/18 09:27 Dose: Not Given Megestrol Acetate (Megace) 800 mg PO DAILY [facility] Last Admin: 04/02/18 09:23 Dose: 800 mg Metoprolol Tartrate (Lopressor) 100 mg PO Q12 [facility] Last Admin: 04/02/18 09:27 Dose: Not Given Mirtazapine (Remeron 15mg Odt) 15 mg PO HS [facility] Last Admin: 04/01/18 22:10 Dose: 15 mg Pantoprazole Sodium (Protonix Inj) 40 mg IVP DAILY [facility] Last Admin: 04/02/18 09:28 Dose: Not Given Potassium Chloride (Potassium Chloride Oral Soln) 20 meq PO DAILY [facility] Last Admin: 04/02/18 09:22 Dose: 20 meq - Labs Labs: 04/01/18 08:20 04/01/18 05:15 PT 12.8 Seconds (9.8-13.1) 03/15/18 00:14 INR 1.2 03/15/18 00:14 APTT 29.0 Seconds (25.6-37.1) 03/31/18 15:30 - Head Exam Head Exam: NORMAL INSPECTION - Eye Exam Eye Exam: Normal appearance - ENT Exam ENT Exam: Mucous Membranes Moist - Cardiovascular Exam Cardiovascular Exam: Irregular Rhythm - GI/Abdominal Exam GI & Abdominal Exam: Normal Bowel Sounds - Neurological Exam Neurological Exam: Awake Assessment and Plan (1) Chronic congestive heart failure Status: Acute (2) Atrial fibrillation Status: Chronic (3) Diabetes mellitus Status: Chronic (4) Hypertension Status: Chronic (5) Urinary tract infection due to extended-spectrum beta lactamase (ESBL)- producing Klebsiella Status: Acute (6) Gastrointestinal bleeding Status: Acute (7) Anemia Status: Acute - Assessment and Plan (Free Text) Plan: Cont meds follow up with Dr mendoza re cardiac clearance cont tx.
[2018-04-03 05:52] LABS: HEMOGLOBIN 9.3 g/dL (12.0-16.0); MEAN CELL VOLUME 86.8 fl (81.0-99.0); MEAN CORPUSCULAR HGB CONC 32.3 g/dL (33.0-37.0); RBC 3.33 Mil/uL (3.80-5.20); RED CELL DISTRIBUTION WIDTH 17.8 % (11.5-14.5); WHITE BLOOD COUNT 7.8 K/uL (4.8-10.8)
[2018-04-03] MEDS: Levothyroxine 75 MCG TAB PO SCH (06:24)
[2018-04-03 06:41] LABS: ALB/GLOB RATIO 0.9 (1.0-2.1); ALBUMIN 2.4 g/dL (3.5-5.0); ALT/SGPT 31 U/L (9-52); AST/SGOT 73 U/L (14-36); BLOOD UREA NITROGEN 13 mg/dl (7-17); CALCIUM 8.5 mg/dL (8.4-10.2); GFR NON-AFRICAN AMERICAN > 60
[2018-04-03] MEDS: Insulin Lispro (humaLOG) 100 Units/ml Inj SC SCH ×4 (10:36→21:47)
[2018-04-03] MEDS: Megestrol Acetate 40 mg/ml Cup PO SCH (10:51)
[2018-04-03] MEDS: Potassium Chloride 20 mEq/15 ml LIQ UD PO SCH (10:51)
--- NOTE | 2018-04-03 15:24 | CP.PCM.PN ---
<Jim Severino - Last Filed: 04/03/18 15:21> Subjective - Date & Time of Evaluation Date of Evaluation: 04/03/18 Time of Evaluation: 10:00 - Subjective Subjective: 87 y/o F was evaluated and examined with Dr Rosado at bedside. Pt awake, alert and responsive, is eating slowly. Pt afebrile with No acute events overnight. Objective - Vital Signs/Intake and Output Vital Signs (last 24 hours): Temp Pulse Resp BP Pulse Ox 97.8 F 79 18 106/68 94 L 04/03/18 12:25 04/03/18 12:25 04/03/18 12:25 04/03/18 12:25 04/03/18 12:25 - Medications Medications: Current Medications Aspirin (Ecotrin) 81 mg PO DAILY [facility] Last Admin: 03/31/18 10:42 Dose: 81 mg Atorvastatin Calcium (Lipitor) 80 mg PO HS [facility] Last Admin: 04/02/18 21:38 Dose: 80 mg Insulin Human Lispro (Humalog) 0 units SC [facility] PRN Reason: Protocol Last Admin: 04/03/18 13:35 Dose: Not Given Levothyroxine Sodium (Synthroid) 75 mcg PO DAILY@0630 [facility] Last Admin: 04/03/18 06:24 Dose: Not Given Megestrol Acetate (Megace) 800 mg PO DAILY [facility] Last Admin: 04/03/18 10:51 Dose: 800 mg Metoprolol Tartrate (Lopressor) 100 mg PO Q12 [facility] Last Admin: 04/03/18 10:50 Dose: 100 mg Mirtazapine (Remeron 15mg Odt) 15 mg PO HS [facility] Last Admin: 04/02/18 21:40 Dose: 15 mg Pantoprazole Sodium (Protonix Inj) 40 mg IVP DAILY [facility] Last Admin: 04/03/18 10:58 Dose: Not Given Potassium Chloride (Potassium Chloride Oral Soln) 20 meq PO DAILY [facility] Last Admin: 04/03/18 10:51 Dose: 20 meq - Labs Labs: 04/03/18 04:45 04/03/18 04:45 PT 12.8 Seconds (9.8-13.1) 03/15/18 00:14 INR 1.2 03/15/18 00:14 APTT 29.0 Seconds (25.6-37.1) 03/31/18 15:30 - Constitutional Appears: Well, No Acute Distress - Head Exam Head Exam: ATRAUMATIC, NORMAL INSPECTION - Eye Exam Eye Exam: EOMI - Neck Exam Neck Exam: Full ROM - Respiratory Exam Respiratory Exam: NORMAL BREATHING PATTERN. absent: Rhonchi, Wheezes - Cardiovascular Exam Cardiovascular Exam: REGULAR RHYTHM, +S1, +S2 - GI/Abdominal Exam GI & Abdominal Exam: Soft. absent: Distended, Tenderness - Neurological Exam Neurological Exam: Alert, Awake Assessment and Plan (1) Chronic congestive heart failure Status: Chronic (2) Atrial fibrillation Status: Chronic (3) Diabetes mellitus Status: Chronic (4) Hypertension Status: Chronic - Assessment and Plan (Free Text) Assessment: 87yoF with H/O DM, CHF, VTE, A-Fib, Dyslipidemia, Dementia, Hypothyroidism and Hypertension was being evaluated by GI due to no PO intake. PEG placement was recommended; however, patient with cardiac pathologies is a high-risk for surgical complications. >Pt has been able to eat with assistance of family and nurse. --Cardiology on board, Dr Agustin --GI, on board, Dr Wright --If patient continue to tolerate PO, will discharge home. --Continue management as ordered. <Freddie Rosado - Last Filed: 04/04/18 16:38> Objective - Vital Signs/Intake and Output Vital Signs (last 24 hours): Temp Pulse Resp BP Pulse Ox 98.6 F 94 H 20 135/84 98 04/04/18 15:35 04/04/18 15:35 04/04/18 15:35 04/04/18 15:35 04/04/18 15:35 - Medications Medications: Current Medications Aspirin (Ecotrin) 81 mg PO DAILY [facility] Last Admin: 03/31/18 10:42 Dose: 81 mg Atorvastatin Calcium (Lipitor) 80 mg PO HS [facility] Last Admin: 04/03/18 21:47 Dose: 80 mg Insulin Human Lispro (Humalog) 0 units [facility] PRN Reason: Protocol Last Admin: 04/04/18 12:58 Dose: Not Given Levothyroxine Sodium (Synthroid) 75 mcg PO DAILY@0630 [facility] Last Admin: 04/04/18 05:36 Dose: 75 mcg Megestrol Acetate (Megace) 800 mg PO DAILY [facility] Last Admin: 04/04/18 12:59 Dose: Not Given Metoprolol Tartrate (Lopressor) 100 mg PO Q12 [facility] Last Admin: 04/03/18 21:46 Dose: 100 mg Pantoprazole Sodium (Protonix Inj) 40 mg IVP DAILY [facility] Last Admin: 04/04/18 12:59 Dose: Not Given Potassium Chloride (Potassium Chloride Oral Soln) 20 meq PO DAILY [facility] Last Admin: 04/04/18 12:59 Dose: Not Given - Labs Labs: 04/03/18 04:45 04/03/18 04:45 PT 12.8 Seconds (9.8-13.1) 03/15/18 00:14 INR 1.2 03/15/18 00:14 APTT 29.0 Seconds (25.6-37.1) 03/31/18 15:30 Assessment and Plan (1) Chronic congestive heart failure Status: Chronic (2) Atrial fibrillation Status: Chronic (3) Diabetes mellitus Status: Chronic (4) Hypertension Status: Chronic (5) Urinary tract infection due to extended-spectrum beta lactamase (ESBL)- producing Klebsiella Status: Acute (6) Gastrointestinal bleeding Status: Acute (7) Anemia Status: Acute - Assessment and Plan (Free Text) Plan: I was present during evaluation and discussed with DR Severino re plans of care and mgt. Michael Rodriguez.
[2018-04-04] MEDS: Levothyroxine 75 MCG TAB PO SCH (05:36)
[2018-04-04] MEDS: Insulin Lispro (humaLOG) 100 Units/ml Inj SC SCH ×2 (12:58→16:45)
[2018-04-04] MEDS: Megestrol Acetate 40 mg/ml Cup PO SCH (12:59)
[2018-04-04] MEDS: Potassium Chloride 20 mEq/15 ml LIQ UD PO SCH (12:59)
--- NOTE | 2018-04-04 14:10 | CP.PCM.PN ---
Subjective - Date & Time of Evaluation Date of Evaluation: 04/04/18 Time of Evaluation: 13:10 - Subjective Subjective: GI progress note for Dr. Cameron Pt seen at bedside with son and brother. Patient has been eating more food with assistance the past few days. Son feels comfortable taking her home without the PEG d/t adequate intake and increased cardiovascular risk d/t aortic stenosis Objective - Vital Signs/Intake and Output Vital Signs (last 24 hours): Temp Pulse Resp BP Pulse Ox 97.5 F L 88 18 124/83 94 L 04/04/18 12:14 04/04/18 12:14 04/04/18 12:14 04/04/18 12:14 04/04/18 12:14 - Medications Medications: Current Medications Aspirin (Ecotrin) 81 mg PO DAILY [facility] Last Admin: 03/31/18 10:42 Dose: 81 mg Atorvastatin Calcium (Lipitor) 80 mg PO HS [facility] Last Admin: 04/03/18 21:47 Dose: 80 mg Insulin Human Lispro (Humalog) 0 units SC [facility] PRN Reason: Protocol Last Admin: 04/04/18 12:58 Dose: Not Given Levothyroxine Sodium (Synthroid) 75 mcg PO DAILY@0630 [facility] Last Admin: 04/04/18 05:36 Dose: 75 mcg Megestrol Acetate (Megace) 800 mg PO DAILY [facility] Last Admin: 04/04/18 12:59 Dose: Not Given Metoprolol Tartrate (Lopressor) 100 mg PO Q12 [facility] Last Admin: 04/03/18 21:46 Dose: 100 mg Pantoprazole Sodium (Protonix Inj) 40 mg IVP DAILY [facility] Last Admin: 04/04/18 12:59 Dose: Not Given Potassium Chloride (Potassium Chloride Oral Soln) 20 meq PO DAILY [facility] Last Admin: 04/04/18 12:59 Dose: Not Given - Labs Labs: 04/03/18 04:45 04/03/18 04:45 PT 12.8 Seconds (9.8-13.1) 03/15/18 00:14 INR 1.2 03/15/18 00:14 APTT 29.0 Seconds (25.6-37.1) 03/31/18 15:30 - Constitutional Appears: Well, Non-toxic, No Acute Distress - Head Exam Head Exam: ATRAUMATIC, NORMOCEPHALIC - Eye Exam Eye Exam: Normal appearance. absent: Conjunctival injection, Scleral icterus - ENT Exam ENT Exam: Mucous Membranes Moist, Normal Oropharynx - Respiratory Exam Respiratory Exam: NORMAL BREATHING PATTERN. absent: Accessory Muscle Use, Respiratory Distress - GI/Abdominal Exam GI & Abdominal Exam: absent: Distended - Neurological Exam Neurological Exam: Alert, Awake - Psychiatric Exam Psychiatric exam: Normal Affect, Normal Mood - Skin Skin Exam: Dry, Normal Color, Warm Assessment and Plan - Assessment and Plan (Free Text) Assessment: 87F with poor PO intake--now improved, and anemia Plan: No intervention planned this hospitalization Follow up with Dr. Cameron in his office if there are any further issues or concerns Thank you for this consult Discussed and examined with Dr. Rakesh Tomlinson, PGY2
[2018-04-04 15:36] VITALS: BP 135/84; PULSE 94; RESP 20; TEMP 98.6; O2SAT 98
--- NOTE | 2018-04-04 16:43 | CP.PCM.DIS ---
Provider - Provider Date of Admission: 03/15/18 00:43 Attending physician: Freddie Rosado MD Primary care physician: Deborah Berry MD Time Spent in preparation of Discharge (in minutes): 30 Diagnosis - Discharge Diagnosis (1) Chronic congestive heart failure Status: Chronic Priority: Medium (2) Atrial fibrillation Status: Chronic Priority: High (3) Diabetes mellitus Status: Chronic (4) Hypertension Status: Chronic (5) Urinary tract infection due to extended-spectrum beta lactamase (ESBL)- producing Klebsiella Status: Acute (6) Gastrointestinal bleeding Status: Acute (7) Anemia Status: Acute Hospital Course - Lab Results Lab Results: Micro Results 03/20/18 10:45 Urine,Clean Catch Urine Culture - Final Klebsiella Pneumoniae Ssp Pneu 03/14/18 00:05 Blood Blood Culture - Final NO GROWTH AFTER 5 DAYS 03/14/18 00:05 Blood Gram Stain - Final TEST NOT PERFORMED 03/15/18 00:20 Blood Blood Culture - Final NO GROWTH AFTER 5 DAYS 03/15/18 00:20 Blood Gram Stain - Final TEST NOT PERFORMED 03/15/18 10:28 Naris MRSA Culture (Admit) - Final MRSA DETECTED Most Recent Lab Values WBC 7.8 K/uL (4.8-10.8) 04/03/18 04:45 RBC 3.33 Mil/uL (3.80-5.20) L 04/03/18 04:45 Hgb 9.3 g/dL (12.0-16.0) L 04/03/18 04:45 Hct 28.9 % (34.0-47.0) L 04/03/18 04:45 MCV 86.8 fl (81.0-99.0) 04/03/18 04:45 MCH 28.0 pg (27.0-31.0) 04/03/18 04:45 MCHC 32.3 g/dL (33.0-37.0) L 04/03/18 04:45 RDW 17.8 % (11.5-14.5) H 04/03/18 04:45 Plt Count 260 K/uL (130-400) 04/03/18 04:45 MPV 8.7 fl (7.2-11.7) 03/20/18 04:30 Neut % (Auto) 39.5 % (50.0-75.0) L 03/20/18 04:30 Lymph % (Auto) 34.3 % (20.0-40.0) 03/20/18 04:30 [place] % (Auto) 13.9 % (0.0-10.0) H 03/20/18 04:30 Eos % (Auto) 11.3 % (0.0-4.0) H 03/20/18 04:30 Baso % (Auto) 1.0 % (0.0-2.0) 03/20/18 04:30 Neut # (Auto) 1.3 K/uL (1.8-7.0) L 03/20/18 04:30 Lymph # (Auto) 1.1 K/uL (1.0-4.3) 03/20/18 04:30 [place] # (Auto) 0.5 K/uL (0.0-0.8) 03/20/18 04:30 Eos # (Auto) 0.4 K/uL (0.0-0.7) 03/20/18 04:30 Baso # (Auto) 0.0 K/uL (0.0-0.2) 03/20/18 04:30 PT 12.8 Seconds (9.8-13.1) 03/15/18 00:14 INR 1.2 03/15/18 00:14 APTT 29.0 Seconds (25.6-37.1) 03/31/18 15:30 Sodium 145 mmol/l (132-148) 04/03/18 04:45 Potassium 4.6 MMOL/L (3.6-5.0) 04/03/18 04:45 Chloride 113 mmol/L (98-107) H 04/03/18 04:45 Carbon Dioxide 28 mmol/L (22-30) 04/03/18 04:45 Anion Gap 9 (10-20) L 04/03/18 04:45 BUN 13 mg/dl (7-17) 04/03/18 04:45 Creatinine 0.7 mg/dl (0.7-1.2) 04/03/18 04:45 Est GFR ( Amer) > 60 04/03/18 04:45 Est GFR (Non-Af Amer) > 60 04/03/18 04:45 POC Glucose (mg/dL) 122 mg/dL (65-110) H 04/04/18 16:13 Random Glucose 86 mg/dL (65-105) 04/03/18 04:45 Lactic Acid 1.2 MMOL/L (0.7-2.1) 03/15/18 00:14 Calcium 8.5 mg/dL (8.4-10.2) 04/03/18 04:45 Phosphorus 2.5 mg/dl (2.5-4.5) 03/19/18 04:30 Magnesium 1.5 MG/DL (1.6-2.3) L 03/19/18 04:30 Total Bilirubin 0.3 mg/dl (0.2-1.3) 04/03/18 04:45 AST 73 U/L (14-36) H 04/03/18 04:45 ALT 31 U/L (9-52) 04/03/18 04:45 Alkaline Phosphatase 100 U/L (38-126) 04/03/18 04:45 Troponin I 0.0380 ng/mL (0.00-0.120) 03/16/18 04:15 NT-Pro-B Natriuret Pep 2920 pg/ml (0-900) H 03/15/18 00:14 Total Protein 5.2 G/DL (6.3-8.2) L 04/03/18 04:45 Albumin 2.4 g/dL (3.5-5.0) L D 04/03/18 04:45 Globulin 2.8 gm/dL (2.2-3.9) 04/03/18 04:45 Albumin/Globulin Ratio 0.9 (1.0-2.1) L 04/03/18 04:45 Procalcitonin 0.07 NG/ML (0.19-0.49) L 03/22/18 17:30 Urine Color Yellow (YELLOW) 03/22/18 17:30 Urine Clarity Cloudy (Clear) 03/22/18 17:30 Urine pH 5.0 (5.0-8.0) 03/22/18 17:30 Ur Specific Alfred 1.017 (1.003-1.030) 03/22/18 17:30 Urine Protein 100 mg/dL (NEGATIVE) 03/22/18 17:30 Urine Glucose (UA) Neg mg/dL (Normal) 03/22/18 17:30 Urine Ketones Negative mg/dL (NEGATIVE) 03/22/18 17:30 Urine Blood Moderate (NEGATIVE) 03/22/18 17:30 Urine Nitrate Positive (NEGATIVE) H 03/22/18 17:30 Urine Bilirubin Negative (NEGATIVE) 03/22/18 17:30 Urine Urobilinogen 0.2-1.0 mg/dL (0.2-1.0) 03/22/18 17:30 Ur Leukocyte Esterase Large Flower/uL (Negative) 03/22/18 17:30 Urine RBC (Auto) 13 /hpf (0-3) H 03/22/18 17:30 Urine Microscopic WBC 379 /hpf (0-5) H 03/22/18 17:30 Ur Squamous Epith Cells 3 /hpf (0-5) 03/22/18 17:30 Amorphous Sediment Rare /ul (<OCC) H 03/15/18 17:20 Urine Bacteria Many (<OCC) H 03/22/18 17:30 Granular Casts (Auto) 2 /lpf (0-1) 03/15/18 17:20 Ur Random Creatinine 62.6 mg/dL 03/15/18 17:20 Ur Random Sodium 59 mmol/L 03/15/18 17:20 Stool Occult Blood Positive (NEGATIVE) H 04/02/18 00:50 Digoxin 0.9 ng/mL (0.8-2.0) 03/17/18 14:30 C. difficile Ag & Toxin Negative (NEGATIVE) 03/28/18 14:15 Blood Type O POSITIVE 03/31/18 18:30 Blood Type Confirm O POSITIVE 03/31/18 19:27 Antibody Screen Negative 03/31/18 18:30 Crossmatch See Detail 03/31/18 18:30 BBK History Checked No verified bt 03/31/18 18:30 - Hospital Course Hospital Course: This is a n 87 y/o admitted for chest pain and SOB. Noted to have mild chf and noted ESBL UTI. She was tarted on IV antibiotics. She was admitted to ICU. She responded very well to treatment . She was moved to telemetry and started having very minimal caloric intake She was started on appetite stimulant . GI eval was called and PEG insertion was cntemplated but patient started to have increase in intake hence family decided to not push through with PEG insertion and patient was discharged to home Rx was given. Discharge Exam - Head Exam Head Exam: ATRAUMATIC, NORMOCEPHALIC - Eye Exam Eye Exam: Normal appearance - Respiratory Exam Respiratory Exam: NORMAL BREATHING PATTERN - Cardiovascular Exam Cardiovascular Exam: REGULAR RHYTHM - GI/Abdominal Exam GI & Abdominal Exam: Normal Bowel Sounds - Neurological Exam Neurological exam: CN II-XII Intact, Oriented x3 - Psychiatric Exam Psychiatric exam: Normal Mood Discharge Plan - Discharge Medications Prescriptions: Megestrol Acetate [Megace] 800 mg PO DAILY #30 cup - Follow Up Plan Condition: GUARDED Disposition: HOME/ ROUTINE Instructions: Heart Failure, Adult (DC), Shortness of Breath (Dyspnea) (DC), Chest Pain (DC) Additional Instructions: follow up with pmd in 1 week follow up wit on 04/12/18 at 3:15pm [place] [facility] [address] will arrange for home PT and will try to visit patient at home. Patient was given Rx and advised to call office for home visit. will arrange for home PT and home visit. Referrals: Vik Agustin MD [Staff Provider] - Freddie Rosado MD [Staff Provider] - Deborah Berry MD [Primary Care Provider] -
--- NOTE | 2018-04-08 13:18 | PQF ---
PROVIDER RESPONSE TEXT: Anemia multifactorial , related to chronic blood loss and chronic disease. REVIEWER QUERY TEXT: Anemia Type Anemia is documented in the Medical Record. Please specify the cause (includes suspected or probable cause) Such as: -- Due to acute blood loss -- Due to chronic blood loss -- Due to iron deficiency -- Due to postoperative blood loss -- Due to chronic disease -- Other, please specify The patient's Clinical Indicators include: Anemia documented 03/[address] Cameron Query created by: Brianda Castillo on 04/05/2018 9:00 AM Electronically signed by: Freddie Rosado MD 04/08/2018 1:15 PM
--- NOTE | 2018-04-08 13:18 | PQF ---
PROVIDER RESPONSE TEXT: Anemia due to chronic blood loss REVIEWER QUERY TEXT: Documentation Clarification Your help is requested in clarifying the following clinical documentation, if you can please further specify in the medical record the etiology of the GI Bleeding: if known OR: Unable to determine 03/31 Attending progress note: Patient remains very ill Noted pallor. Noted very low Hgb on repeat bl ood test BT was ordered ASA and Lovenox were discontinued. Dxs. include: (6) Gastrointestinal bleeding Status: Acute 03/31 GI consult: noted to have drop in Hgb over the past few days from 9 to 6.5.; yesterday was noted to have black stools. --She has been receiving ASA and lovenox an anticoagulants. According to her son Arturo and brother Rocael she has been eating almost nothing over the past few weeks. 1) Anemia: Acute upper GI bleed. ASA/Lovenox have been discontinued, patient receiving blood and pant oprazole started. Should be transfused to over 8. Status: Acute 04/01 GI progress note: Continue to monitor H/H--patient had 2 units of PRBC and responded appropriat loyda--no further bleeding events but no bowel function since Monday 04/02 Attending progress note: dxs. include: 6) Gastrointestinal bleeding Status: Acute The patient's Clinical Indicators include: XX Query created by: Christina Oconnell on 04/04/2018 1:55 PM Electronically signed by: Freddie Rosado MD 04/08/2018 1:15 PM
== END 2018-04-04 18:05 | disposition home health service (06) | DRG 682 ==
LOC: H.ER 23:10 → H.ERHOLD 03-15 00:43 → H.ICU/CCU 03-15 02:23 → H.TEL 03-26 18:09
PROVIDERS: ADMIT Family Medicine; ATTEND Family Medicine
PROC: 02HV33Z Insertion of Infusion Device into Superior Vena Cava, Percutaneous Approach (ICD-10-PCS; principal; 2018-03-25)
PROC: 30233N1 Transfusion of Nonautologous Red Blood Cells into Peripheral Vein, Percutaneous Approach (ICD-10-PCS; 2018-03-31)
DX: N17.0 Acute kidney failure with tubular necrosis (principal); I50.23 Acute on chronic systolic (congestive) heart failure; N39.0 Urinary tract infection, site not specified; K92.2 Gastrointestinal hemorrhage, unspecified; I24.8 Other forms of acute ischemic heart disease; I11.0 Hypertensive heart disease with heart failure; I27.20 Pulmonary hypertension, unspecified; Z86.718 Personal history of other venous thrombosis and embolism; F03.90 Unspecified dementia, unspecified severity, without behavioral disturbance, psychotic disturbance, mood disturbance, and anxiety; I35.0 Nonrheumatic aortic (valve) stenosis; Z79.01 Long term (current) use of anticoagulants; R53.81 Other malaise; E03.9 Hypothyroidism, unspecified; E78.00 Pure hypercholesterolemia, unspecified; E78.5 Hyperlipidemia, unspecified; Z16.12 Extended spectrum beta lactamase (ESBL) resistance; B96.1 Klebsiella pneumoniae [K. pneumoniae] as the cause of diseases classified elsewhere; K21.9 Gastro-esophageal reflux disease without esophagitis; E11.9 Type 2 diabetes mellitus without complications; I48.2 Chronic atrial fibrillation; I95.9 Hypotension, unspecified; R63.0 Anorexia; D63.8 Anemia in other chronic diseases classified elsewhere; D50.0 Iron deficiency anemia secondary to blood loss (chronic)

== ENCOUNTER 2018-04-05 05:17 | Inpatient (IN) | payer MEDICARE, OTHER ==
[2018-04-05 05:18] VITALS: PULSE 87; BMI 66.6
[2018-04-05] MEDS ORDERED: Metoprolol 1 mg/ml Inj IVP STA ×2 (06:12→06:40)
[2018-04-05 06:19] LABS: BASO # 0.1 K/uL (0.0-0.2); BASO % 1.2 % (0.0-2.0); EOS # 0.1 K/uL (0.0-0.7); EOS % 1.1 % (0.0-4.0); HEMOGLOBIN 10.4 g/dL (12.0-16.0); LYMPH # 1.8 K/uL (1.0-4.3); LYMPH % 22.9 % (20.0-40.0); MEAN CORPUSCULAR HEMOGLOBIN 27.4 pg (27.0-31.0); MEAN CORPUSCULAR HGB CONC 32.2 g/dL (33.0-37.0); MEAN PLATELET VOLUME 8.6 fl (7.2-11.7); MONO # 0.6 K/uL (0.0-0.8); MONO % 8.3 % (0.0-10.0); NEUT # 5.2 K/uL (1.8-7.0); NEUT % 66.5 % (50.0-75.0); NRBC % 0.3 % (0.0-0.0); RBC 3.81 Mil/uL (3.80-5.20); RED CELL DISTRIBUTION WIDTH 17.7 % (11.5-14.5); WHITE BLOOD COUNT 7.8 K/uL (4.8-10.8)
--- NOTE | 2018-04-05 06:25 | ED PDOC ---
Lower Extremity Pain/Injury Time Seen by Provider: 04/05/18 05:22 Chief Complaint (Nursing): Lower Extremity Problem/Injury Chief Complaint (Provider): Lower Extremity Problem/Injury History Per: Patient History/Exam Limitations: no limitations Onset/Duration Of Symptoms: Hrs (x 10) Current Symptoms Are (Timing): Still Present Additional Complaint(s): 87 year old female with a history of atrial fibrillation, CHF, DM, and hypertension presents to the ED with bilateral leg pain for 10 hours. Patient was admitted to [facility], where she stayed for a month, and was only discharged 10 hours ago. She told her son that her legs were hurting, right worse than left, and he gave her aspirin prior to arrival. Of note, she has had DVTs in the past. Otherwise, denies chest pain and shortness of breath. PMD: Freddie Rosado Past Medical History Reviewed: Historical Data, Nursing Documentation, Vital Signs Vital Signs: Last Vital Signs Temp 99.1 F 04/05/18 05:25 Pulse 165 H 04/05/18 06:16 Resp 16 04/05/18 05:25 BP 126/73 04/05/18 06:16 Pulse Ox 96 04/05/18 05:25 - Medical History PMH: Anxiety, Atrial Fibrillation, CHF, Dementia, Deep Vein Thrombosis, HTN, Hypercholesterolemia, Hyperlipidemia, Hypothyroidism, Chronic Kidney Disease Denies: Asthma, HIV - Surgical History Surgical History: No Surg Hx - Family History Family History: States: Unknown Family Hx - Home Medications Home Medications: Ambulatory Orders Medication Instructions Recorded Aspirin [Ecotrin] 81 mg PO DAILY 02/21/18 Esomeprazole Magnesium [Nexium] 40 mg PO DAILY 02/21/18 Mv,Min10/Folic Acid/D3/Ala/Lut 1 tab PO DAILY 02/21/18 [Strovite One Caplet] Rosuvastatin Calcium [Crestor] 40 mg PO HS 02/21/18 Metoprolol Tartrate [Lopressor] 50 mg PO Q12 tab 02/26/18 Levothyroxine [Synthroid] 75 mcg PO DAILY #30 tab 03/07/18 Megestrol Acetate [Megace] 800 mg PO DAILY #30 cup 04/04/18 - Allergies Allergies/Adverse Reactions: Allergies Allergy/AdvReac Type Severity Reaction Status Date / Time No Known Allergies Allergy Verified 02/26/18 15:36 Review of Systems ROS Statement: Except As Marked, All Systems Reviewed And Found Negative Cardiovascular: Negative for: Chest Pain Respiratory: Negative for: Shortness of Breath Musculoskeletal: Positive for: Leg Pain (and swelling ) Physical Exam - Reviewed Nursing Documentation Reviewed: Yes Vital Signs Reviewed: Yes - Physical Exam Appears: Positive for: Non-toxic, No Acute Distress Head Exam: Positive for: ATRAUMATIC, NORMAL INSPECTION, NORMOCEPHALIC Skin: Positive for: Normal Color, Warm, Dry Eye Exam: Positive for: EOMI, Normal appearance, PERRL Neck: Positive for: Normal, Painless ROM, Supple Cardiovascular/Chest: Positive for: Irregularly Irregular Respiratory: Positive for: Normal Breath Sounds. Negative for: Wheezing, Respiratory Distress Gastrointestinal/Abdominal: Positive for: Normal Exam, Soft. Negative for: Tenderness Extremity: Positive for: Pedal Edema (2+ pitting edema to the knee on the left; 1+ pitting edema to the knee on the right), Swelling Neurologic/Psych: Positive for: Alert, Oriented (x 3). Negative for: Motor/ Sensory Deficits - Laboratory Results Result Diagrams: 04/05/18 06:11 04/05/18 06:11 - ECG O2 Sat by Pulse Oximetry: 96 (RA) Pulse Ox Interpretation: Normal Medical Decision Making Medical Decision Makin:43 A & P: History of CHF, A-fib, diabetes, hypertension and DVTs presenting with b/l lower extremity pain. --Patient is comfortable appearing. However, currently in rapid atrial fibrillation. --Will treat with a beta malia. --Leg pain may be secondary to fluid accumulation vs diabetic neuropathy vs DVT Orders: --EKG --BNP --Troponin --BMP --PTT/ INR --CXR --Lopressor 5 mg IVP --Duplex lower Ext. US 7AM Endorsed to Dr. Wei pending results and re-eval. Scribe Attestation: Documented by Bernice Clark acting as a scribe for Louie Christensen MD Provider Scribe Attestation: All medical record entries made by the Scribe were at my direction and personally dictated by me. I have reviewed the chart and agree that the record accurately reflects my personal performance of the history, physical exam, medical decision making, and the department course for this patient. I have also personally directed, reviewed, and agree with the discharge instructions and disposition. Disposition - Clinical Impression Clinical Impression: Congestive heart failure, Atrial fibrillation with tachycardic ventricular rate , Respiratory failure - Patient ED Disposition Is Patient to be Admitted: Transfer of Care - Disposition Disposition: Transfer of Care Disposition Time: 07:00 Condition: GUARDED Patient Signed Over To: Cullen Wei III Handoff Comments: pending US, labs, reevaluation and final disposition
[2018-04-05 06:30] LABS: BLOOD UREA NITROGEN 9 mg/dl (7-17); CALCIUM 8.9 mg/dL (8.4-10.2); GFR NON-AFRICAN AMERICAN > 60
[2018-04-05 06:39] LABS: INR 1.1; PROTHROMBIN TIME 12.7 Seconds (9.8-13.1)
[2018-04-05 06:40] LABS: B-TYPE NATRIURETIC PEPTIDE 4060 pg/ml (0-900)
[2018-04-05] MEDS ORDERED: Metoprolol 1 mg/ml Inj IVP ONE ×2 (06:44→21:36)
--- NOTE | 2018-04-05 07:06 | ED PDOC ---
- Laboratory Results Result Diagrams: 04/05/18 06:11 04/05/18 06:11 - ECG O2 Sat by Pulse Oximetry: 100 Medical Decision Making Medical Decision Makinam pending duplex and rate control of HR additional metoprolol 25mg PO ordered 8am +SOB, lungs w wheeze, crackle @bases. CXR slight increase in vascular congestion as compared to 03/28 CXR. BNP 4000, increase from prior. d/w machine plug shaper Dr Agustin, rec lasix 40mg IV and additional metoprolol PO, will need cath but may need transfer to [place] he will speak to son. For now admit [facility]. D/w Dr Rosado for admission. patient refused duplex LE. Disposition Counseled Patient/Family Regarding: Studies Performed, Diagnosis - Clinical Impression Clinical Impression: Aortic stenosis, Congestive heart failure, Respiratory failure, Atrial fibrillation with tachycardic ventricular rate - POA Present On Arrival: None - Disposition Disposition: Admitted as In-Patient Disposition Time: 08:29 Condition: GUARDED
[2018-04-05] MEDS ORDERED: Albuterol-Ipratrop 3 mg / 0.5 (3 ml) UD INH STA (08:07)
--- NOTE | 2018-04-05 09:28 | RAD ---
Date of service: 04/05/2018 HISTORY: rapid HR COMPARISON: 03/28/2018 FINDINGS: LUNGS: Cannot rule out left basilar infiltrate due to underpenetration. No right-sided infiltrate. PLEURA: Possible very small right pleural effusion. Silhouetting of left-diaphragm may reflect left pleural effusion. Examination limited by underpenetration. CARDIOVASCULAR: Normal. OSSEOUS STRUCTURES: No significant abnormalities. VISUALIZED UPPER ABDOMEN: Normal. OTHER FINDINGS: None. IMPRESSION: Limited examination due to underpenetration. Possible left pleural effusion. Cannot rule out left basilar infiltrate. Possible very small right pleural effusion.
--- NOTE | 2018-04-05 10:22 | US ---
Date of service: 04/05/2018 PROCEDURE: Bilateral lower extremity venous duplex Doppler. HISTORY: r/o DVT COMPARISON: None available. TECHNIQUE: Bilateral common femoral, superficial femoral, popliteal and posterior tibial veins were evaluated. Flow was assessed with color Doppler, compressibility, assessment of phasic flow and augmentation response. FINDINGS: COMMON FEMORAL VEIN: Right CFV: Unremarkable. Left CFV: Patient refused SUPERFICIAL FEMORAL VEIN: Patient refused POPLITEAL VEIN: Patient refused . POSTERIOR TIBIAL VEIN: Patient refused OTHER FINDINGS: None. IMPRESSION: No evidence of deep venous thrombosis in the right common femoral vein. The remainder of the examination of the right leg and the entire examination of the left great were refused by the patient at this time.
[2018-04-05] MEDS ORDERED: Pantoprazole 40 mg EC Tab PO SCH (11:45)
[2018-04-05] MEDS: Megestrol Acetate 40 mg/ml Cup PO SCH (13:11)
[2018-04-05] MEDS: Levothyroxine 75 MCG TAB PO SCH (13:12)
--- NOTE | 2018-04-05 14:38 | CP.PCM.HP ---
History of Present Illness - History of Present Illness History of Present Illness: 87 y/o F with a PMHx of AFib, DVT's, CHF, DM and HTN was brought to ED c/o bilateral leg pain. At ER, pt was found to be A fib with RVR, and labwork found acute kidney injury. Pt treated with Lopressor. Today, pt was evaluated and examined with Dr Rosado by bedside. No family present in the room. Pt is minimally communicative, reports pain in leg have improved. Pt denies fever, chills, chest pain, SOB, abdominal pain, nausea, vomiting. --Pt recently discharge yesterday. Gastroenterology recommended PEG placement due to patient's no PO intake. However, pt was deemed too risk for surgery by cardiology. Pt started to eat again slowly with assistance of her family. PMHx: CHF, HTN, DVTs (IVC filter), hypothyroidism Surghx: IVF filter placement SHx: denies smoking, ETOH and illicit drug use Allergies: NKDA Present on Admission - Present on Admission Any Indicators Present on Admission: No Review of Systems - Review of Systems Systems not reviewed;Unavailable: Acuity of Condition, Dementia Past Patient History - Past Medical History & Family History Past Medical History?: Yes - Past Social History Smoking Status: Never Smoked - CARDIAC Hx Atrial Fibrillation: Yes Hx Congestive Heart Failure: Yes Hx Hypercholesterolemia: Yes Hx Hypertension: Yes - PULMONARY Hx Asthma: No - NEUROLOGICAL Hx Dementia: Yes - HEENT Hx HEENT Problems: No - RENAL Hx Chronic Kidney Disease: Yes - ENDOCRINE/METABOLIC Hx Hypothyroidism: Yes - HEMATOLOGICAL/ONCOLOGICAL Hx Human Immunodeficiency Virus (HIV): No - INTEGUMENTARY Hx Dermatological Problems: No - MUSCULOSKELETAL/RHEUMATOLOGICAL Hx Musculoskeletal Disorders: No Hx Falls: No - GASTROINTESTINAL Hx Gastrointestinal Disorders: Yes Hx Gastroesophageal Reflux: Yes - GENITOURINARY/GYNECOLOGICAL Hx Genitourinary Disorders: No - PSYCHIATRIC Hx Anxiety: Yes - SURGICAL HISTORY Hx Surgeries: No - ANESTHESIA Hx Anesthesia: No Hx Anesthesia Reactions: No Hx Malignant Hyperthermia: No Meds Allergies/Adverse Reactions: Allergies Allergy/AdvReac Type Severity Reaction Status Date / Time No Known Allergies Allergy Verified 02/26/18 15:36 Physical Exam - Constitutional Appears: No Acute Distress - Head Exam Head Exam: ATRAUMATIC, NORMAL INSPECTION - Eye Exam Eye Exam: EOMI, Normal appearance - ENT Exam ENT Exam: Mucous Membranes Dry - Neck Exam Neck exam: Positive for: Full Rom. Negative for: Meningismus - Respiratory Exam Respiratory Exam: NORMAL BREATHING PATTERN. absent: Rhonchi, Wheezes - Cardiovascular Exam Cardiovascular Exam: +S1, +S2 - GI/Abdominal Exam GI & Abdominal Exam: Guarding, Soft. absent: Pulsatile Mass, Rebound, Rigid, Tenderness - Neurological Exam Neurological exam: Alert, Oriented x3 Results - Vital Signs Recent Vital Signs: Last Vital Signs Temp 97.4 F L 04/05/18 13:25 Pulse 107 H 04/05/18 13:25 Resp 20 04/05/18 13:25 BP 121/78 04/05/18 13:25 Pulse Ox 100 04/05/18 13:25 - Labs Result Diagrams: 04/05/18 06:11 04/05/18 06:11 Labs: Laboratory Results - last 24 hr 04/05/18 04/05/18 04/05/18 06:11 06:11 06:11 WBC 7.8 RBC 3.81 Hgb 10.4 L Hct 32.4 L MCV 85.0 MCH 27.4 MCHC 32.2 L RDW 17.7 H Plt Count 319 MPV 8.6 Neut % (Auto) 66.5 Lymph % (Auto) 22.9 [place] % (Auto) 8.3 Eos % (Auto) 1.1 Baso % (Auto) 1.2 Neut # (Auto) 5.2 Lymph # (Auto) 1.8 [place] # (Auto) 0.6 Eos # (Auto) 0.1 Baso # (Auto) 0.1 PT 12.7 INR 1.1 APTT 24.0 L Sodium 142 Potassium 4.6 Chloride 111 H Carbon Dioxide 27 Anion Gap 9 L BUN 9 Creatinine 0.8 Est GFR ( Amer) > 60 Est GFR (Non-Af Amer) > 60 POC Glucose (mg/dL) Random Glucose 96 Calcium 8.9 Troponin I 0.0280 NT-Pro-B Natriuret Pep 4060 H 04/05/18 12:09 WBC RBC Hgb Hct MCV MCH MCHC RDW Plt Count MPV Neut % (Auto) Lymph % (Auto) [place] % (Auto) Eos % (Auto) Baso % (Auto) Neut # (Auto) Lymph # (Auto) [place] # (Auto) Eos # (Auto) Baso # (Auto) PT INR APTT Sodium Potassium Chloride Carbon Dioxide Anion Gap BUN Creatinine Est GFR ( Amer) Est GFR (Non-Af Amer) POC Glucose (mg/dL) 76 Random Glucose Calcium Troponin I NT-Pro-B Natriuret Pep Assessment & Plan - Assessment and Plan (Free Text) Assessment: 87 y/o F with a PMHx of AFib, DVT's, CHF, DM and HTN is admitted for evaluation and management of AFib with RVR and COREY. --Admit to telemetry --Home medications resumed --Cardiology consult, Dr Agustin ordered. --CBC and CMP for tomorrow. --Management as ordered. - Date & Time Date: 04/05/18 Time: 14:48
--- NOTE | 2018-04-05 15:38 | CARD ---
APPROVED REPORT Date of service: 04/05/2018 EKG Measurement Heart [id number] <Conclusion> Atrial fibrillation with rapid ventricular response Low voltage QRS Nonspecific T wave abnormality Abnormal ECG
--- NOTE | 2018-04-05 18:35 | CP.PCM.CON ---
History of Present Illness - History of Present Illness History of Present Illness: Consutlation for leg pain, LE edema, CHF , severe HPI: Review of Systems - Review of Systems Systems not reviewed;Unavailable: Acuity of Condition - Constitutional Constitutional: As Per HPI - EENT Eyes: As Per HPI Ears: As Per HPI Nose/Mouth/Throat: As Per HPI - Breasts Breasts: As Per HPI - Cardiovascular Cardiovascular: As Per HPI - Respiratory Respiratory: As Per HPI - Gastrointestinal Gastrointestinal: As Per HPI - Genitourinary Genitourinary: As Per HPI - Reproductive: Female Reproductive:Female: As Per HPI - Menstruation Menstruation: As Per HPI - Musculoskeletal Musculoskeletal: As Per HPI - Integumentary Integumentary: As Per HPI - Neurological Neurological: As Per HPI - Psychiatric Psychiatric: As Per HPI - Endocrine Endocrine: As Per HPI - Hematologic/Lymphatic Hematologic: As Per HPI ( ) Past Patient History - Past Medical History & Family History Past Medical History?: Yes - Past Social History Smoking Status: Never Smoked - CARDIAC Hx Atrial Fibrillation: Yes Hx Congestive Heart Failure: Yes Hx Hypercholesterolemia: Yes Hx Hypertension: Yes - PULMONARY Hx Asthma: No - NEUROLOGICAL Hx Dementia: Yes - HEENT Hx HEENT Problems: No - RENAL Hx Chronic Kidney Disease: Yes - ENDOCRINE/METABOLIC Hx Hypothyroidism: Yes - HEMATOLOGICAL/ONCOLOGICAL Hx Human Immunodeficiency Virus (HIV): No - INTEGUMENTARY Hx Dermatological Problems: No - MUSCULOSKELETAL/RHEUMATOLOGICAL Hx Musculoskeletal Disorders: No Hx Falls: No - GASTROINTESTINAL Hx Gastrointestinal Disorders: Yes Hx Gastroesophageal Reflux: Yes - GENITOURINARY/GYNECOLOGICAL Hx Genitourinary Disorders: No - PSYCHIATRIC Hx Anxiety: Yes - SURGICAL HISTORY Hx Surgeries: No - ANESTHESIA Hx Anesthesia: No Hx Anesthesia Reactions: No Hx Malignant Hyperthermia: No Meds Allergies/Adverse Reactions: Allergies Allergy/AdvReac Type Severity Reaction Status Date / Time No Known Allergies Allergy Verified 02/26/18 15:36 - Medications Medications: Current Medications Levothyroxine Sodium (Synthroid) 75 mcg PO DAILY@0630 [facility] Last Admin: 04/05/18 13:12 Dose: 75 mcg Megestrol Acetate (Megace) 800 mg PO DAILY [facility] Last Admin: 04/05/18 13:11 Dose: 800 mg Metoprolol Tartrate (Lopressor) 50 mg PO Q12 [facility] Pantoprazole Sodium (Protonix Ec Tab) 40 mg PO DAILY [facility] Last Admin: 04/05/18 13:11 Dose: 40 mg Physical Exam - Constitutional Appears: Well - Head Exam Head Exam: ATRAUMATIC, NORMAL INSPECTION, NORMOCEPHALIC - Eye Exam Eye Exam: EOMI, Normal appearance, PERRL Pupil Exam: NORMAL ACCOMODATION, PERRL - ENT Exam ENT Exam: Mucous Membranes Moist, Normal Exam - Neck Exam Neck exam: Positive for: Normal Inspection - Respiratory Exam Respiratory Exam: Clear to Auscultation Bilateral, NORMAL BREATHING PATTERN - Cardiovascular Exam Cardiovascular Exam: Irregular Rhythm, +S1, +S2, Systolic Murmur - GI/Abdominal Exam GI & Abdominal Exam: Normal Bowel Sounds, Soft. absent: Tenderness - Extremities Exam Extremities exam: Positive for: normal inspection - Back Exam Back exam: NORMAL INSPECTION - Neurological Exam Neurological exam: Alert, CN II-XII Intact, Normal Gait, Oriented x3, Reflexes Normal - Psychiatric Exam Psychiatric exam: Normal Affect, Normal Mood - Skin Skin Exam: Dry, Intact, Normal Color, Warm Results - Vital Signs Recent Vital Signs: Last Vital Signs Temp 97.7 F 04/05/18 15:40 Pulse 99 H 04/05/18 15:40 Resp 20 04/05/18 15:40 BP 122/63 04/05/18 15:40 Pulse Ox 98 04/05/18 15:40 - Labs Result Diagrams: 04/05/18 06:11 04/05/18 06:11 Labs: Laboratory Results - last 24 hr 04/05/18 04/05/18 04/05/18 06:11 06:11 06:11 WBC 7.8 RBC 3.81 Hgb 10.4 L Hct 32.4 L MCV 85.0 MCH 27.4 MCHC 32.2 L RDW 17.7 H Plt Count 319 MPV 8.6 Neut % (Auto) 66.5 Lymph % (Auto) 22.9 [place] % (Auto) 8.3 Eos % (Auto) 1.1 Baso % (Auto) 1.2 Neut # (Auto) 5.2 Lymph # (Auto) 1.8 [place] # (Auto) 0.6 Eos # (Auto) 0.1 Baso # (Auto) 0.1 PT 12.7 INR 1.1 APTT 24.0 L Sodium 142 Potassium 4.6 Chloride 111 H Carbon Dioxide 27 Anion Gap 9 L BUN 9 Creatinine 0.8 Est GFR ( Amer) > 60 Est GFR (Non-Af Amer) > 60 POC Glucose (mg/dL) Random Glucose 96 Calcium 8.9 Troponin I 0.0280 NT-Pro-B Natriuret Pep 4060 H 04/05/18 04/05/18 12:09 16:45 WBC RBC Hgb Hct MCV MCH MCHC RDW Plt Count MPV Neut % (Auto) Lymph % (Auto) [place] % (Auto) Eos % (Auto) Baso % (Auto) Neut # (Auto) Lymph # (Auto) [place] # (Auto) Eos # (Auto) Baso # (Auto) PT INR APTT Sodium Potassium Chloride Carbon Dioxide Anion Gap BUN Creatinine Est GFR ( Amer) Est GFR (Non-Af Amer) POC Glucose (mg/dL) 76 110 Random Glucose Calcium Troponin I NT-Pro-B Natriuret Pep Assessment & Plan (1) Congestive heart failure Status: Chronic (2) CHF (congestive heart failure) Status: Acute (3) Aortic stenosis Status: Acute (4) Atrial fibrillation with tachycardic ventricular rate Status: Acute
[2018-04-05] MEDS: Dextrose 5%/Lactated Ringer's 1,000 ML IV SCH (22:15)
[2018-04-06] MEDS: Levothyroxine 75 MCG TAB PO SCH (06:24)
[2018-04-06] MEDS: Megestrol Acetate 40 mg/ml Cup PO SCH ×2 (09:47→10:02)
[2018-04-06] MEDS: Dextrose 5%/Lactated Ringer's 1,000 ML IV SCH (13:18)
[2018-04-06] MEDS: Dextrose 5%/Lactated Ringer's 500 ML IV SCH ×2 (13:18→19:29)
[2018-04-07] MEDS: Dextrose 5%/Lactated Ringer's 500 ML IV SCH ×4 (01:00→21:41)
[2018-04-07] MEDS: Levothyroxine 75 MCG TAB PO SCH (06:07)
[2018-04-07] MEDS: Megestrol Acetate 40 mg/ml Cup PO SCH (08:47)
[2018-04-08] MEDS: Levothyroxine 75 MCG TAB PO SCH (06:27)
[2018-04-08] MEDS: Dextrose 5%/Lactated Ringer's 500 ML IV SCH (06:30)
[2018-04-08] MEDS: Megestrol Acetate 40 mg/ml Cup PO SCH (08:48)
--- NOTE | 2018-04-08 11:24 | CP.PCM.PCO ---
Assessment & Plan - Assessment and Plan (Free Text) Assessment: Advanced directives and Goals of care discussed with son Arturo - Discussed pt. poor nutrititional status and possibility of PEG insertion- son would like to monitor po intake few more days prior to making a decision about PEG Calorie count ordered will monitor po intake
--- NOTE | 2018-04-08 13:14 | CP.PCM.PN ---
Subjective - Date & Time of Evaluation Date of Evaluation: 04/08/18 Time of Evaluation: 13:13 - Subjective Subjective: plan for [facility] in am Objective - Vital Signs/Intake and Output Vital Signs (last 24 hours): Temp Pulse Resp BP Pulse Ox 98.3 F 64 20 137/80 96 04/08/18 12:00 04/08/18 12:00 04/08/18 12:00 04/08/18 12:00 04/08/18 12:00 - Medications Medications: Current Medications Dextrose/Lactated Ringer's (Dextrose 5%/Lactated Ringer's) 500 mls @ 60 mls/hr IV .Q8H20M [facility] Stop: 04/08/18 13:40 Last Admin: 04/08/18 06:30 Dose: 60 mls/hr Levothyroxine Sodium (Synthroid) 75 mcg PO DAILY@0630 [facility] Last Admin: 04/08/18 06:27 Dose: 75 mcg Megestrol Acetate (Megace) 800 mg PO DAILY [facility] Last Admin: 04/08/18 08:48 Dose: 800 mg Metoprolol Tartrate (Lopressor) 50 mg PO Q12 [facility] Last Admin: 04/08/18 08:47 Dose: 50 mg Ondansetron HCl (Zofran Inj) 4 mg IVP Q8 PRN PRN Reason: Nausea/Vomiting Last Admin: 04/05/18 21:36 Dose: 4 mg Pantoprazole Sodium (Protonix Inj) 40 mg IVP DAILY [facility] Last Admin: 04/08/18 08:47 Dose: 40 mg - Labs Labs: 04/05/18 06:11 04/05/18 06:11 PT 12.7 Seconds (9.8-13.1) 04/05/18 06:11 INR 1.1 04/05/18 06:11 APTT 24.0 Seconds (25.6-37.1) L 04/05/18 06:11 - Constitutional Appears: Well - Head Exam Head Exam: ATRAUMATIC, NORMAL INSPECTION, NORMOCEPHALIC - Eye Exam Eye Exam: EOMI, Normal appearance, PERRL Pupil Exam: NORMAL ACCOMODATION, PERRL - ENT Exam ENT Exam: Mucous Membranes Moist, Normal Exam - Neck Exam Neck Exam: Full ROM, Normal Inspection. absent: Lymphadenopathy - Respiratory Exam Respiratory Exam: Rales, Respiratory Distress - Cardiovascular Exam Cardiovascular Exam: Irregular Rhythm, +S1, +S2, Murmur - GI/Abdominal Exam GI & Abdominal Exam: Soft, Normal Bowel Sounds. absent: Tenderness - Extremities Exam Extremities Exam: Full ROM, Normal Capillary Refill, Normal Inspection. absent : Joint Swelling, Pedal Edema - Back Exam Back Exam: NORMAL INSPECTION - Neurological Exam Neurological Exam: Alert, Awake, CN II-XII Intact - Psychiatric Exam Psychiatric exam: Normal Affect, Normal Mood - Skin Skin Exam: Dry, Intact, Normal Color, Warm Assessment and Plan (1) Congestive heart failure Assessment & Plan: plan for [facility] in am npo p mn Status: Chronic (2) CHF (congestive heart failure) Status: Acute (3) Aortic stenosis Status: Acute (4) Atrial fibrillation with tachycardic ventricular rate Status: Acute
--- NOTE | 2018-04-08 13:20 | PQF ---
PROVIDER RESPONSE TEXT: Chronic afib REVIEWER QUERY TEXT: Atrial Fibrillation Type Atrial fibrillation is documented in the Medical Record. Please specify the type Such as: -- Chronic -- Paroxysmal -- Permanent -- Persistent -- Other, please specify H and P: a PMHx of AFib, DVT's, CHF, DM and HTN is admitted for evaluation and management of AFib with RVR and COREY. Admit to telemetry --Home medications resumed --Cardiology consult, Dr Agustin ordered 04/05 Cardiology consult dxs. include : Atrial fibrillation with tachycardic ventricular rate Status: Acute The patient's Clinical Indicators include: xx Query created by: Christina Oconnell on 04/08/2018 12:05 PM Electronically signed by: Freddie Rosado MD 04/08/2018 1:18 PM
--- NOTE | 2018-04-08 13:20 | PQF ---
PROVIDER RESPONSE TEXT: Stage 2 ckd REVIEWER QUERY TEXT: Kidney Disease, Chronic CKD Stage Chronic Kidney Disease (CKD) is documented in the Medical Record. Please specify the disease stage ( includes probable or suspected) Such as: -- Chronic kidney disease Stage 1 -- Chronic kidney disease Stage 2 -- Chronic kidney disease Stage 3 -- Chronic kidney disease Stage 4 -- Chronic kidney disease Stage 5 -- Chronic kidney disease Stage 5, requiring dialysis -- End Stage Renal Disease -- Other, please specify BUN: 9 Creatinine: 0.8 Est GFR(Africn Amer/Non-Af Amer):.60/>60 H and P: hx. CKD: Yes 87 y/o F with a PMHx of AFib, DVT's, CHF, DM and HTN is admitted for evaluation and management of AFib with RVR and COREY. Stages are defined by the [employer] as follows: CKD Stage I GFR >= 90 ml / min per 1.73 m2 and persistent albuminuria CKD Stage 2 GFR between 60 and 89 with persistent albuminuria CKD Stage 3 GFR between 30 and 59 CKD Stage 4 GFR between 15 and 29 CKD Stage 5 GFR between <15 or End Stage Renal Disease The patient's Clinical Indicators include: XX Query created by: Christina Oconnell on 04/08/2018 12:22 PM Electronically signed by: Freddie Rosado MD 04/08/2018 1:18 PM
--- NOTE | 2018-04-08 13:20 | PQF ---
PROVIDER RESPONSE TEXT: Respiratory failure secondary to aortic stenosis and chf REVIEWER QUERY TEXT: Documentation Clarification Your help is requested in clarifying the following clinical documentation, if you can please further specify in the medical record if Respiratory Failure is ruled in or ruled out ? for this encounter V/S tab:Respirations: 16->28->27->27->20->20->20: Nasal Cannula ER: PE: Respiratory: Positive for: Normal Breath Sounds. -Negative for: Wheezing, Respiratory Distress Extremity: Positive for: Pedal Edema (2+ pitting edema to the knee on the left; 1+ pitting edema to the knee on the right), Swelling O2 Sat by Pulse Oximetry: 96 (RA ER second note: 8am +SOB, lungs w wheeze, crackle @bases. CXR slight increase in vascular congestion as compared to 03/28 CXR. BNP 4000, increase from prior.; d/w hide curer Dr Agustin, rec lasix 40mg IV and additio nal metoprolol PO, will need cath but may need transfer to [place] Clinical Impression:Aortic stenosis, Congestive heart failure, Respiratory failure, Atrial fibrillati on with tachycardic ventricular rate The patient's Clinical Indicators include: xx Query created by: Christina Oconnell on 04/08/2018 12:10 PM Electronically signed by: Freddie Rosado MD 04/08/2018 1:18 PM
[2018-04-09 05:55] LABS: MEAN CELL VOLUME 86.6 fl (81.0-99.0); MEAN CORPUSCULAR HEMOGLOBIN 27.1 pg (27.0-31.0); MEAN CORPUSCULAR HGB CONC 31.4 g/dL (33.0-37.0); RBC 3.32 Mil/uL (3.80-5.20); RED CELL DISTRIBUTION WIDTH 18.1 % (11.5-14.5); WHITE BLOOD COUNT 8.9 K/uL (4.8-10.8)
[2018-04-09 06:01] LABS: BLOOD UREA NITROGEN 8 mg/dl (7-17); CALCIUM 8.5 mg/dL (8.4-10.2); GFR NON-AFRICAN AMERICAN > 60
[2018-04-09] MEDS: Levothyroxine 75 MCG TAB PO SCH (06:09)
[2018-04-09] MEDS: Megestrol Acetate 40 mg/ml Cup PO SCH (09:14)
[2018-04-10] MEDS: Levothyroxine 75 MCG TAB PO SCH (06:35)
[2018-04-10] MEDS: Megestrol Acetate 40 mg/ml Cup PO SCH (10:24)
[2018-04-10 15:58] VITALS: BP 131/75; PULSE 114; RESP 20; TEMP 98.4; O2SAT 98
--- NOTE | 2018-04-26 07:31 | CP.PCM.DIS ---
Provider - Provider Date of Admission: 04/05/18 08:24 Attending physician: Freddie Rosado MD Consults: Cardiology: Dr Agustin. Time Spent in preparation of Discharge (in minutes): 30 Diagnosis - Discharge Diagnosis (1) Leg pain, bilateral Status: Acute Comment: -Evaluated for possible DVT. (2) History of DVT (deep vein thrombosis) Status: Chronic (3) Aortic stenosis Status: Acute (4) Atrial fibrillation with tachycardic ventricular rate Status: Acute (5) Diabetes mellitus Status: Chronic Hospital Course - Lab Results Lab Results: Most Recent Lab Values WBC 8.9 K/uL (4.8-10.8) 04/09/18 04:45 RBC 3.32 Mil/uL (3.80-5.20) L 04/09/18 04:45 Hgb 9.0 g/dL (12.0-16.0) L 04/09/18 04:45 Hct 28.7 % (34.0-47.0) L 04/09/18 04:45 MCV 86.6 fl (81.0-99.0) 04/09/18 04:45 MCH 27.1 pg (27.0-31.0) 04/09/18 04:45 MCHC 31.4 g/dL (33.0-37.0) L 04/09/18 04:45 RDW 18.1 % (11.5-14.5) H 04/09/18 04:45 Plt Count 284 K/uL (130-400) 04/09/18 04:45 MPV 8.6 fl (7.2-11.7) 04/05/18 06:11 Neut % (Auto) 66.5 % (50.0-75.0) 04/05/18 06:11 Lymph % (Auto) 22.9 % (20.0-40.0) 04/05/18 06:11 [place] % (Auto) 8.3 % (0.0-10.0) 04/05/18 06:11 Eos % (Auto) 1.1 % (0.0-4.0) 04/05/18 06:11 Baso % (Auto) 1.2 % (0.0-2.0) 04/05/18 06:11 Neut # (Auto) 5.2 K/uL (1.8-7.0) 04/05/18 06:11 Lymph # (Auto) 1.8 K/uL (1.0-4.3) 04/05/18 06:11 [place] # (Auto) 0.6 K/uL (0.0-0.8) 04/05/18 06:11 Eos # (Auto) 0.1 K/uL (0.0-0.7) 04/05/18 06:11 Baso # (Auto) 0.1 K/uL (0.0-0.2) 04/05/18 06:11 PT 12.7 Seconds (9.8-13.1) 04/05/18 06:11 INR 1.1 04/05/18 06:11 APTT 24.0 Seconds (25.6-37.1) L 04/05/18 06:11 Sodium 143 mmol/l (132-148) 04/09/18 04:45 Potassium 4.6 MMOL/L (3.6-5.0) 04/09/18 04:45 Chloride 111 mmol/L (98-107) H 04/09/18 04:45 Carbon Dioxide 26 mmol/L (22-30) 04/09/18 04:45 Anion Gap 11 (10-20) 04/09/18 04:45 BUN 8 mg/dl (7-17) 04/09/18 04:45 Creatinine 0.8 mg/dl (0.7-1.2) 04/09/18 04:45 Est GFR ( Amer) > 60 04/09/18 04:45 Est GFR (Non-Af Amer) > 60 04/09/18 04:45 POC Glucose (mg/dL) 116 mg/dL (65-110) H 04/10/18 16:30 Random Glucose 84 mg/dL (65-105) 04/09/18 04:45 Calcium 8.5 mg/dL (8.4-10.2) 04/09/18 04:45 Troponin I 0.0280 ng/mL (0.00-0.120) 04/05/18 06:11 NT-Pro-B Natriuret Pep 4060 pg/ml (0-900) H 04/05/18 06:11 - Hospital Course Hospital Course: 87 y/o F with a PMHx of AFib, DVT's, CHF, DM and HTN was brought to ED c/o bilateral leg pain. Pt was admitted for evaluation of possible DVT, Doppler US showed NO DVT on R common femoral vein, rest of the exam was declined by patient. Today, pt was evaluated and examined with Dr Rosado. No family present in the room, Pt is minimally verbal reponsive, responded in burkinan that b/l leg pain have alleviated and denies chest pain, dyspnea, cough or hemoptysis. Pt has shown improvement in PO intake, during last admission there was a concern for pt refusing to eat or drink. There is not concer for DVT or PE currently based on clinical presentation. Pt hemodynamucally stable, tolerating PO, is able to eat with assistance of family or nursing staff. Pt will be discharged today to complete rehabilitation at a proper medical facility. - Date & Time of H&P Date of H&P: 04/05/18 Time of H&P: 14:30 Discharge Exam - Head Exam Head Exam: ATRAUMATIC, NORMAL INSPECTION, NORMOCEPHALIC - Eye Exam Eye Exam: EOMI - ENT Exam ENT Exam: Mucous Membranes Dry - Respiratory Exam Respiratory Exam: NORMAL BREATHING PATTERN. absent: Rales, Wheezes, Respiratory Distress - Cardiovascular Exam Cardiovascular Exam: Irregular Rhythm, +S1, +S2 - GI/Abdominal Exam GI & Abdominal Exam: Normal Bowel Sounds, Soft. absent: Guarding, Hernia, Tenderness - Extremities Exam Extremities exam: pedal pulses present - Neurological Exam Neurological exam: Alert Discharge Plan - Follow Up Plan Condition: GUARDED Disposition: TRANSF TO SNF
== END 2018-04-10 17:40 | DRG 308 ==
LOC: H.ER 05:17 → H.ERHOLD 08:24 → H.TEL 11:19
PROVIDERS: ADMIT Family Medicine; ATTEND Family Medicine
DX: I48.2 Chronic atrial fibrillation (principal); J96.90 Respiratory failure, unspecified, unspecified whether with hypoxia or hypercapnia; I13.0 Hypertensive heart and chronic kidney disease with heart failure and stage 1 through stage 4 chronic kidney disease, or unspecified chronic kidney disease; F03.90 Unspecified dementia, unspecified severity, without behavioral disturbance, psychotic disturbance, mood disturbance, and anxiety; E78.00 Pure hypercholesterolemia, unspecified; E78.5 Hyperlipidemia, unspecified; E03.9 Hypothyroidism, unspecified; I35.0 Nonrheumatic aortic (valve) stenosis; E11.22 Type 2 diabetes mellitus with diabetic chronic kidney disease; F41.9 Anxiety disorder, unspecified; Z86.718 Personal history of other venous thrombosis and embolism; K21.9 Gastro-esophageal reflux disease without esophagitis; I50.9 Heart failure, unspecified; N18.2 Chronic kidney disease, stage 2 (mild)